=== PATIENT | male | born 1965 | race Caucasian/White ===

== ENCOUNTER 2018-01-28 14:01 | Emergency (ER) | payer MEDICARE, OTHER ==
[~2018-01-28] VITALS: Ht 180.3 cm; Wt 136.1 kg
[~2018-01-28 14:01] MED LIST: BUDE10.2 IH; CITA40TA5 PO; FENO145T30 PO; LISI1TAB5 PO; METO-239 PO; OMEP40CA5 PO; PROAIR HFA8.5 GM IH; TEMA30CA PO
--- NOTE | 2018-01-28 14:24 | PHYS DOC ---
Past Medical History Past Medical History: Asthma, High Cholesterol, Hypertension, Other Additional Past Medical Histor: INSOMNIA Past Surgical History: No Surgical History Additional Past Surgical Histo: INGROWN TOE NAIL REMOVED Alcohol Use: None Drug Use: None Adult General Chief Complaint Chief Complaint: OTHER COMPLAINTS [facility] HPI Patient is a 52 year old male with a history of MR presents to the ED after drinking [place] because people were being mean to him prior to arrival. Patient lives in a fpc and states they're being mean to him and called him stupid. States he drank less than a bottle cap of [place] and stopped and then called 911. States he gets very upset when people are mean to him. Denies physical abuse, homicidal ideation, hallucinations, chest pain, shortness of breath, fever, diarrhea, abdominal pain, nausea/vomiting or weakness. Review of Systems Review of Systems Constitutional: Denies fever or chills [] Eyes: Denies change in visual acuity, redness, or eye pain [] HENT: Denies nasal congestion or sore throat [] Respiratory: Denies cough or shortness of breath [] Cardiovascular: No additional information not addressed in HPI [] GI: Denies abdominal pain, nausea, vomiting, bloody stools or diarrhea [] : Denies dysuria or hematuria [] Musculoskeletal: Denies back pain or joint pain [] Integument: Denies rash or skin lesions [] Neurologic: Denies headache, focal weakness or sensory changes [] All other systems were reviewed and found to be within normal limits, except as documented in this note. Allergies Allergies Allergies Coded Allergies Type Severity Reaction Last Updated Verified Penicillins Allergy Intermediate 04/04/16 Yes Physical Exam Physical Exam Constitutional: Well developed, well nourished, no acute distress, non-toxic appearance. [] HENT: Normocephalic, atraumatic, bilateral external ears normal, oropharynx moist, no oral exudates, nose normal. [] Eyes: PERRLA, EOMI, conjunctiva normal, no discharge. [] Neck: Normal range of motion, no tenderness, supple, no stridor. [] Cardiovascular:Heart rate regular rhythm, no murmur [] Lungs & Thorax: Bilateral breath sounds clear to auscultation [] Abdomen: Bowel sounds normal, soft, no tenderness, no masses, no pulsatile masses. [] Skin: Warm, dry, no erythema, no rash. [] Back: No tenderness, no CVA tenderness. [] Extremities: No tenderness, no cyanosis, no clubbing, ROM intact, no edema. [] Neurologic: Alert and oriented X 3, normal motor function, normal sensory function, no focal deficits noted. [] Psychologic: Affect normal, judgement normal, mood normal. [] Current Patient Data Vital Signs Vital Signs Date Time Temp Pulse Resp B/P (MAP) Pulse Ox O2 Delivery O2 Flow Rate FiO2 01/28/18 21:38 72 135/61 (85) 96 Room Air 01/28/18 21:13 18 01/28/18 14:17 98.1 98.1 Lab Values Laboratory Tests Test 01/28/18 14:40 01/28/18 14:50 Urine Collection Type Unknown Urine Color Yellow Urine Clarity Clear Urine pH 5.0 Urine Specific [place] 1.025 Urine Protein Negative mg/dL (NEG-TRACE) Urine Glucose (UA) Negative mg/dL (NEG) Urine Ketones (Stick) Negative mg/dL (NEG) Urine Blood Negative (NEG) Urine Nitrite Negative (NEG) Urine Bilirubin Negative (NEG) Urine Urobilinogen Dipstick 0.2 mg/dL (0.2 mg/dL) Urine Leukocyte Esterase Negative (NEG) Urine RBC 0 /HPF (0-2) Urine WBC Occ /HPF (0-4) Urine Bacteria 0 /HPF (0-FEW) Urine Mucus Mod /LPF Urine Opiates Screen Neg (NEG) Urine Methadone Screen Neg (NEG) Urine Barbiturates Neg (NEG) Urine Phencyclidine Screen Neg (NEG) Urine Amphetamine/Methamphetamine Neg (NEG) Urine Benzodiazepines Screen Neg (NEG) Urine Cocaine Screen Neg (NEG) Urine Cannabinoids Screen Neg (NEG) Urine Ethyl Alcohol Neg (NEG) White Blood Count 4.6 x10^3/uL (4.0-11.0) Red Blood Count 4.15 x10^6/uL (4.30-5.70) L Hemoglobin 12.4 g/dL (13.0-17.5) L Hematocrit 36.3 % (39.0-53.0) L Mean Corpuscular Volume 87 fL (79-100) Mean Corpuscular Hemoglobin 30 pg (25-35) Mean Corpuscular Hemoglobin Concent 34 g/dL (31-37) Red Cell Distribution Width 14.0 % (11.5-14.5) Platelet Count 179 x10^3/uL (140-400) Neutrophils (%) (Auto) 78 % (31-73) H Lymphocytes (%) (Auto) 14 % (24-48) L Monocytes (%) (Auto) 6 % (0-9) Eosinophils (%) (Auto) 1 % (0-3) Basophils (%) (Auto) 1 % (0-3) Neutrophils # (Auto) 3.6 x10^3uL (1.8-7.7) Lymphocytes # (Auto) 0.6 x10^3/uL (1.0-4.8) L Monocytes # (Auto) 0.3 x10^3/uL (0.0-1.1) Eosinophils # (Auto) 0.0 x10^3/uL (0.0-0.7) Basophils # (Auto) 0.0 x10^3/uL (0.0-0.2) Sodium Level 137 mmol/L (136-145) Potassium Level 3.7 mmol/L (3.5-5.1) Chloride Level 101 mmol/L (98-107) Carbon Dioxide Level 28 mmol/L (21-32) Anion Gap 8 (6-14) Blood Urea Nitrogen 19 mg/dL (8-26) Creatinine 1.4 mg/dL (0.7-1.3) H Estimated GFR (Cockcroft-Gault) 53.0 BUN/Creatinine Ratio 14 (6-20) Glucose Level 131 mg/dL (70-99) H Calcium Level 9.0 mg/dL (8.5-10.1) Total Bilirubin 0.3 mg/dL (0.2-1.0) Aspartate Amino Transferase (AST) 21 U/L (15-37) Alanine Aminotransferase (ALT) 35 U/L (16-63) Alkaline Phosphatase 39 U/L (46-116) L Troponin I Quantitative < 0.017 ng/mL (0.000-0.055) Total Protein 7.6 g/dL (6.4-8.2) Albumin 4.4 g/dL (3.4-5.0) Albumin/Globulin Ratio 1.4 (1.0-1.7) Salicylates Level 3.0 mg/dL (2.8-20.0) Salicylate Last Dose Date Unknown Salicylate Last Dose Time Unknown Acetaminophen Level < 2 mcg/ml (10-30) L Acetaminophen Last Dose Date Unknown Acetaminophen Last Dose Time Unknown Laboratory Tests 01/28/18 14:50 Laboratory Tests 01/28/18 14:50 EKG EKG [] Radiology/Procedures Radiology/Procedures PROCEDURE: CHEST AP ONLY CHEST AP ONLY Clinical Indication: INGESTION OF PINE-GILDA TODAY Comparison: AP chest July 26, 2015. Findings: Apical lordotic positioning. The cardiomediastinal silhouette is normal. Lungs are clear. There is no pneumothorax. No pleural effusion is appreciated. No acute bone abnormality. IMPRESSION: No acute cardiopulmonary process.[] Course & Med Decision Making Course & Med Decision Making Pertinent Labs and Imaging studies reviewed. (See chart for details) []Discussed lab and imaging findings with patient. Patient states he is feeling much better. Patient states he barely even took a sip of the [place]Gilda. Patient met with PAT team. States he has follow-up with Dr. Ott tomorrow. Call placed to patients mother and sister. PAT team awaiting return call. Patient is not homicidal or suicidal. States he feels safe at home. PAT team discussed coping mechanisms and patient has a friend he can call to cope with different circumstances. Patient well appearing in room. Laughing and smiling in exam room. After discharge evaluation, Patient was awaiting his arranged ride to go home and states that he is feeling suicidal and will run in traffic if we let him go. Patient is placed on 1 to 1 and PAT team is called ([id number]) At 1857; conversation with PAT team (Viki), Patient is now not willing to sign himself in and wants to go with the original plan of going home. States he just felt anxious but is not suicidal. States [place] state examiner (for need for involuntary admission) will come evaluate and determine patients placement. At 2116; [place] [facility] medical staff services manager for [place] evaluated and examined patient. State he is rejected for involuntary admission to the facility. Patient denies any homicidal, suicidal ideation, or hallucinations. States patient has good coping skills, assistance at home and is not suicidal. States his impulsiveness is due to his MR. States they will follow-up with him tomorrow at his home (phone call). Patient in exam room requesting to go home. Will arrange transport. Patient stable for discharge. Discussed reasons to return to the ED. Dragon Disclaimer Dragon Disclaimer This electronic medical record was generated, in whole or in part, using a voice recognition dictation system. Departure Departure Impression: Primary Impression: Depression Disposition: 01 HOME, SELF-CARE Condition: IMPROVED Referrals: MERLY RODRIGUEZ MD (PCP) Patient Instructions: Depression, Adult MARTHA JAIMES Jan 28, 2018 14:24
--- NOTE | 2018-01-28 14:39 | EKG ---
[facility] [address] [place] [address] Test Date: 2018-01-28 Test Time: 14:11:04 Pat Name: LIZA WILSON Department: Room: Gender: M [employer]: : 1965 Requested By: MARTHA JAIMES Order Number: [id number] Reading MD: Daryl Tenorio MD Measurements Intervals [place] Rate: 88 P: 6 WY: 166 QRS: -2 QRSD: 100 T: 26 QT: 366 QTc: 446 Interpretive Statements SINUS RHYTHM Electronically Signed On 01-28-2018 15:12:08 CDT by Daryl Tenorio MD
--- NOTE | 2018-01-28 14:52 | RAD ---
CHEST AP ONLY Clinical Indication: INGESTION OF PINE-GILDA TODAY Comparison: AP chest July 26, 2015. Findings: Apical lordotic positioning. The cardiomediastinal silhouette is normal. Lungs are clear. There is no pneumothorax. No pleural effusion is appreciated. No acute bone abnormality. IMPRESSION: No acute cardiopulmonary process. Electronically signed by: Tyler Oseguera MD (01/28/2018 2:48 PM) [id number]
[2018-01-28 14:59] LABS: BILIRUBIN,URINE NEGATIVE (NEG); CLARITY,URINE CLEAR; COLOR,URINE YELLOW; NITRITE,URINE NEGATIVE (NEG); PROTEIN,URINE NEGATIVE (NEG-TRACE); UROBILINOGEN,URINE 0.2 mg/dL (0.2 mg/dL)
[2018-01-28 15:01] LABS: BASO % 1 % (0-3); EOS % 1 % (0-3); HEMATOCRIT 36.3 % (39.0-53.0); HEMOGLOBIN 12.4 g/dL (13.0-17.5); LYMPH # 0.6 x10^3/uL (1.0-4.8); LYMPH % 14 % (24-48); MEAN CORPUSCULAR HEMOGLOBIN 30 pg (25-35); MEAN CORPUSCULAR HGB CONC 34 g/dL (31-37); MEAN CORPUSCULAR VOLUME 87 fL (79-100); MONO # 0.3 x10^3/uL (0.0-1.1); MONO % 6 % (0-9); NEUT # 3.6 x10^3uL (1.8-7.7); NEUT % 78 % (31-73); PLATELET COUNT 179 x10^3/uL (140-400); RED BLOOD COUNT 4.15 x10^6/uL (4.30-5.70); WHITE BLOOD COUNT 4.6 x10^3/uL (4.0-11.0)
[2018-01-28 15:03] LABS: BARBITURATES NEG (NEG); BENZODIAZEPINES NEG (NEG); CANNABINOIDS NEG (NEG); COCAINE NEG (NEG); METHADONE NEG (NEG); OPIATES NEG (NEG); PHENCYCLIDINE NEG (NEG)
[2018-01-28 15:05] LABS: AMPHETAMINE/METHAMPHETAMINE NEG (NEG)
[2018-01-28 15:06] LABS: BACTERIA,URINE 0 /HPF (0-FEW); RBC,URINE 0 /HPF (0-2); WBC,URINE OCC /HPF (0-4)
[2018-01-28 15:11] LABS: CREATININE 1.4 mg/dL (0.7-1.3); POTASSIUM 3.7 mmol/L (3.5-5.1)
[2018-01-28 15:16] LABS: ALBUMIN 4.4 g/dL (3.4-5.0); ALBUMIN/GLOBULIN RATIO 1.4 (1.0-1.7); TOTAL BILIRUBIN 0.3 mg/dL (0.2-1.0); TOTAL PROTEIN 7.6 g/dL (6.4-8.2)
[2018-01-28 15:18] LABS: ACETAMIN < 2 mcg/ml (10-30)
[2018-01-28 21:38] VITALS: BP 135/61
== END 2018-01-28 22:05 | disposition home or self-care (01) ==
LOC: ER 14:01
DX: F32.9 Major depressive disorder, single episode, unspecified (principal); J45.909 Unspecified asthma, uncomplicated; E78.00 Pure hypercholesterolemia, unspecified; I10 Essential (primary) hypertension; Z88.0 Allergy status to penicillin
CPT/HCPCS: 36415; 71045; 80053; 80307; 80329; 81001; 84484; 85025; 93005; 99285; G6039; G0479

== ENCOUNTER 2018-07-26 07:57 | Emergency (ER) | payer MEDICARE, OTHER ==
[~2018-07-26] VITALS: Ht 182.9 cm; Wt 136.1 kg
[~2018-07-26 07:57] MED LIST changes: +ALBU2.5V8 IH; -PROAIR HFA8.5 GM IH
--- NOTE | 2018-07-26 08:18 | PHYS DOC ---
Past Medical History Past Medical History: Anxiety, Asthma, High Cholesterol, Hypertension, Other Additional Past Medical Histor: INSOMNIA, Mental Retardation Past Surgical History: No Surgical History, Tonsillectomy Additional Past Surgical Histo: INGROWN TOE NAIL REMOVED Alcohol Use: None Drug Use: None Adult General Chief Complaint Chief Complaint: MECHANICAL FALL HPI HPI Patient is a 53-year-old male who presents with complaint of head and neck pain after slipping and falling on ice this morning. Patient states that he is not sure whether or not he lost consciousness. He denies any other injuries. He denies any back pain and has no pain in any of his extremities. Patient states the pain in his neck is worsened with movement. He denies any nausea or vomiting. Review of Systems Review of Systems Constitutional: Denies fever or chills [] Respiratory: Denies cough or shortness of breath [] Cardiovascular: No additional information not addressed in HPI [] GI: Denies nausea or vomiting [] Musculoskeletal: Complains of neck pain [] Integument: Positive abrasion to scalp[] Neurologic: Complains of headache without focal weakness or sensory changes [] All other systems were reviewed and found to be within normal limits, except as documented in this note. Allergies Allergies Allergies Coded Allergies Type Severity Reaction Last Updated Verified Penicillins Allergy Intermediate 04/04/16 Yes Physical Exam Physical Exam Constitutional: Well developed, well nourished, no acute distress, non-toxic appearance. [] HENT: Normocephalic, with small superficial abrasion to scalp in the left sided parieto-occipital region, bilateral external ears normal, oropharynx moist, no oral exudates, nose normal. [] Eyes: PERRLA, EOMI, conjunctiva normal, no discharge. [] Neck: Normal range of motion, with mild tenderness to palpation in the suboccipital muscles and cervical strap muscles on the left, supple, no stridor. [] Cardiovascular: Regular rate and rhythm[] Lungs & Thorax: Bilateral breath sounds clear to auscultation [] Abdomen: Bowel sounds normal, soft, no tenderness. [] Skin: Warm, dry. [] Extremities: No tenderness, no cyanosis, no clubbing, ROM intact. [] Neurologic: Alert and oriented X 3, no focal deficits noted. [] Current Patient Data Vital Signs Vital Signs Date Time Temp Pulse Resp B/P (MAP) Pulse Ox O2 Delivery O2 Flow Rate FiO2 2/11/19 08:06 97.5 74 20 166/75 (105) 98 Room Air 97.5 EKG EKG [] Radiology/Procedures Radiology/Procedures [] Impressions: Examination: CT HEAD AND CERVICAL SPINE WO History: Fall, pain Comparison/Correlation: 11/22/2017 CT head without contrast Findings: Axial images of the head and cervical spine were obtained without contrast. Sagittal and coronal reformatted images of the cervical spine were obtained. Mild atrophy is present. No intracranial hemorrhage, then shift, or mass effect. Ventricles are normal size. Soft tissue swelling at the posterior midline is present with small subgaleal hematoma and gas and subcutaneous gas. Punctate density at the superior aspect of the third ventricle which is unchanged may represent colloid cyst. Review of paranasal sinuses are unremarkable other than mucous retention cysts involving the left frontal sinus mucosal thickening. No depressed fracture. Right fransisco bullosa is moderate size. Impression: Small subgaleal hematoma at the posterior parietal midline superiorly. Minimal gas at this site. Correlate with site of injury. No intracranial hemorrhage. Colloid cyst has remained stable. Chronic paranasal sinusitis. Electronically signed by: Choco Daniels MD (07/26/2018 9:24 AM) [id number] Course & Med Decision Making Course & Med Decision Making Pertinent Labs and Imaging studies reviewed. (See chart for details) [] Dragon Disclaimer Dragon Disclaimer This electronic medical record was generated, in whole or in part, using a voice recognition dictation system. Departure Departure Impression: Primary Impression: Closed head injury Additional Impression: Cervical strain Disposition: 01 HOME, SELF-CARE Condition: STABLE Referrals: Sydney SUTHERLAND MD (PCP) Patient Instructions: Cervical Sprain, Head Injury, Adult Scripts Diclofenac Sodium (DICLOFENAC SODIUM) 50 Mg Tablet. 1 TAB PO BID PRN for PAIN, #20 TAB Prov: SEPIDEH AGUILERA Jr. DO 07/26/18 Cyclobenzaprine Hcl (CYCLOBENZAPRINE HCL) 5 Mg Tablet 5 MG PO PRN TID PRN for MUSCLE SPASMS, #15 TAB Prov: SEPIDEH AGUILERA Jr. DO 07/26/18 Problem Qualifiers Primary Impression: Closed head injury Encounter type: initial encounter Qualified Codes: S09.90XA - Unspecified injury of head, initial encounter Additional Impression: Cervical strain Encounter type: initial encounter Qualified Codes: S16.1XXA - Strain of muscle, fascia and tendon at neck level, initial encounter SEPIDEH AGUILERA Jr. DO Jul 26, 2018 08:18
--- NOTE | 2018-07-26 09:29 | RAD ---
Examination: CT HEAD AND CERVICAL SPINE WO History: Fall, pain Comparison/Correlation: 11/22/2017 CT head without contrast Findings: Axial images of the head and cervical spine were obtained without contrast. Sagittal and coronal reformatted images of the cervical spine were obtained. Mild atrophy is present. No intracranial hemorrhage, then shift, or mass effect. Ventricles are normal size. Soft tissue swelling at the posterior midline is present with small subgaleal hematoma and gas and subcutaneous gas. Punctate density at the superior aspect of the third ventricle which is unchanged may represent colloid cyst. Review of paranasal sinuses are unremarkable other than mucous retention cysts involving the left frontal sinus mucosal thickening. No depressed fracture. Right fransisco bullosa is moderate size. Impression: Small subgaleal hematoma at the posterior parietal midline superiorly. Minimal gas at this site. Correlate with site of injury. No intracranial hemorrhage. Colloid cyst has remained stable. Chronic paranasal sinusitis. Electronically signed by: Choco Daniels MD (07/26/2018 9:24 AM) [id number]
[2018-07-26] MEDS ORDERED: CYCL5TAB PO (09:44)
[2018-07-26] MEDS ORDERED: DICL50TA4 PO (09:44)
[2018-07-26 09:58] VITALS: BP 142/84
== END 2018-07-26 09:59 | disposition home or self-care (01) ==
LOC: ER 07:57
DX: S16.1XXA Strain of muscle, fascia and tendon at neck level, initial encounter (principal); S00.01XA Abrasion of scalp, initial encounter; R51 Headache; E78.00 Pure hypercholesterolemia, unspecified; I10 Essential (primary) hypertension; J45.909 Unspecified asthma, uncomplicated; F41.9 Anxiety disorder, unspecified; Z88.0 Allergy status to penicillin; W00.2XXA Other fall from one level to another due to ice and snow, initial encounter; Y93.89 Activity, other specified; Y92.89 Other specified places as the place of occurrence of the external cause; Y99.8 Other external cause status
CPT/HCPCS: 70450; 72125; 99284

== ENCOUNTER 2018-08-11 13:03 | Emergency (ER) | payer MEDICARE, OTHER ==
[~2018-08-11] VITALS: Ht 177.8 cm; Wt 145.1 kg
[~2018-08-11 13:03] MED LIST changes: +CYCL5TAB PO; +DICL50TA4 PO
--- NOTE | 2018-08-11 13:41 | RAD ---
EXAM: CHEST 1 VIEW History: Shortness of breath COMPARISON: 01/28/2018 TECHNIQUE: Single portable radiograph of the chest FINDINGS: Moderate cardiomegaly is unchanged. The lungs are clear bilaterally. The costophrenic sulci are clear and well demarcated. IMPRESSION: No radiographic evidence of an acute cardiopulmonary process. Electronically signed by: Luisito Rosen MD (08/11/2018 1:38 PM) [id number]
[2018-08-11] MEDS ORDERED: predniSONE 10 MG TABLET PO ONE (13:45)
[2018-08-11] MEDS ORDERED: IPRATRPIUM/ALBUTEROL 0.5/2.5MG 3 ML NEBU. NEB ONE (13:45)
[2018-08-11] MEDS ORDERED: PRED20TA PO (14:34)
--- NOTE | 2018-08-11 14:34 | PHYS DOC ---
Past Medical History Past Medical History: Anxiety, Asthma, High Cholesterol, Hypertension, Other Additional Past Medical Histor: INSOMNIA, Mental Retardation Past Surgical History: No Surgical History, Tonsillectomy Additional Past Surgical Histo: INGROWN TOE NAIL REMOVED Alcohol Use: None Drug Use: None Adult General Chief Complaint Chief Complaint: SHORTNESS OF BREATH [facility] 53-year-old male with a history of asthma presents with a 2-3 day history of shortness of breath. He's been taking albuterol nebulize treatments at home but he was unsure how often to take them. He denies any fever chills or sweats. He has no hemoptysis. He denies any chest pain. He states this seems very typical of his previous asthma exacerbations. He denies any body aches runny nose or headache.] Review of Systems Review of Systems Constitutional: Denies fever or chills [] Eyes: Denies change in visual acuity, redness, or eye pain [] HENT: Denies nasal congestion or sore throat [] Respiratory: Per history of present illness[] Cardiovascular: No additional information not addressed in HPI [] GI: Denies abdominal pain, nausea, vomiting, bloody stools or diarrhea [] : Denies dysuria or hematuria [] Musculoskeletal: Denies back pain or joint pain [] Integument: Denies rash or skin lesions [] Neurologic: Denies headache, focal weakness or sensory changes [] Endocrine: Denies polyuria or polydipsia [] All other systems were reviewed and found to be within normal limits, except as documented in this note. Current Medications Current Medications Current Medications Medications (Trade) Dose Ordered Sig/Fredy Start Time Stop Time Status Last Admin Dose Admin Albuterol/ Ipratropium (Duoneb) 6 ml 1X ONCE 08/11/18 13:45 08/11/18 13:46 DC Prednisone (Prednisone) 60 mg 1X ONCE 08/11/18 13:45 08/11/18 13:46 DC Allergies Allergies Allergies Coded Allergies Type Severity Reaction Last Updated Verified Penicillins Allergy Intermediate 04/04/16 Yes Physical Exam Physical Exam Constitutional: Well developed, well nourished, no acute distress, non-toxic appearance. [] HENT: Normocephalic, atraumatic, bilateral external ears normal, oropharynx moist, no oral exudates, nose normal. [] Eyes: PERRLA, EOMI, conjunctiva normal, no discharge. [] Neck: Normal range of motion, no tenderness, supple, no stridor. [] Cardiovascular:Heart rate regular rhythm, no murmur [] Lungs & Thorax: Scattered wheezes throughout both lungs no rales[] Abdomen: Bowel sounds normal, soft, no tenderness, no masses, no pulsatile masses. [] Skin: Warm, dry, no erythema, no rash. [] Back: No tenderness, no CVA tenderness. [] Extremities: No tenderness, no cyanosis, no clubbing, ROM intact, no edema. [] Neurologic: Alert and oriented X 3, normal motor function, normal sensory function, no focal deficits noted. [] Psychologic: Unusual affect Current Patient Data Vital Signs Vital Signs Date Time Temp Pulse Resp B/P (MAP) Pulse Ox O2 Delivery O2 Flow Rate FiO2 08/11/18 13:10 98.1 67 18 168/70 (102) 96 Room Air 98.1 EKG EKG [] Radiology/Procedures Radiology/Procedures [] Impressions: PROCEDURE: CHEST AP ONLY EXAM: CHEST 1 VIEW History: Shortness of breath COMPARISON: 01/28/2018 TECHNIQUE: Single portable radiograph of the chest FINDINGS: Moderate cardiomegaly is unchanged. The lungs are clear bilaterally. The costophrenic sulci are clear and well demarcated. IMPRESSION: No radiographic evidence of an acute cardiopulmonary process. Course & Med Decision Making Course & Med Decision Making Pertinent Labs and Imaging studies reviewed. (See chart for details) [ED course: Evaluation reveals a 53-year-old male with scattered wheezes. He was given DuoNeb treatments and 60 mg prednisone during his stay in the department which did nearly completely eliminate his symptoms. I will provide the patient with some instructions on frequency of nebulized treatments as well as start him on some outpatient steroids. I do not believe the patient meets any criteria for antibiotics at this time.] Dragon Disclaimer Dragon Disclaimer This electronic medical record was generated, in whole or in part, using a voice recognition dictation system. Departure Departure Impression: Primary Impression: Acute bronchitis Disposition: 01 HOME, SELF-CARE Condition: IMPROVED Referrals: Sydney SUTHERLAND MD (PCP) Patient Instructions: Acute Bronchitis, Asthma Attacks, Prevention, Asthma Prevention-Brief, Asthma, Acute Bronchospasm Additional Instructions: Follow with Dr. Sutherland this week for recheck. Return to the emergency department with any new or concerning symptoms. You can use your nebulizer every 4 hours as needed. If you feel like he need to use the nebulizer more often than that he need to return to the emergency department for further evaluation. Scripts Prednisone (PREDNISONE) 20 Mg Tablet 3 TAB PO DAILY PRN for COUGH, #14 TAB Prov: SHERIF JANG DO 08/11/18 Problem Qualifiers Primary Impression: Acute bronchitis Bronchitis organism: unspecified organism Qualified Codes: J20.9 - Acute bronchitis, unspecified SHERIF JANG DO Aug 11, 2018 14:34
[2018-08-11 15:04] VITALS: BP 131/63
== END 2018-08-11 15:19 | disposition home or self-care (01) ==
LOC: ER 13:03
DX: J20.9 Acute bronchitis, unspecified (principal); J45.909 Unspecified asthma, uncomplicated; E78.00 Pure hypercholesterolemia, unspecified; I10 Essential (primary) hypertension; Z88.0 Allergy status to penicillin
CPT/HCPCS: 71045; 99283; J7620

== ENCOUNTER 2018-08-27 13:35 | Emergency (ER) | payer MEDICARE, OTHER ==
[~2018-08-27] VITALS: Ht 188 cm; Wt 145.1 kg
[~2018-08-27 13:35] MED LIST changes: +PRED20TA PO
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
[2018-08-27 15:16] VITALS: BP 160/58
== END 2018-08-27 15:20 | disposition home or self-care (01) ==
LOC: ER 13:35
DX: S00.03XA Contusion of scalp, initial encounter (principal); J45.909 Unspecified asthma, uncomplicated; E78.00 Pure hypercholesterolemia, unspecified; I10 Essential (primary) hypertension; Z88.0 Allergy status to penicillin; W07.XXXA Fall from chair, initial encounter; Y93.89 Activity, other specified; Y92.89 Other specified places as the place of occurrence of the external cause; Y99.8 Other external cause status
CPT/HCPCS: 70450; 72125; 99284-25

== ENCOUNTER 2018-10-04 20:25 | Emergency (ER) | payer MEDICARE, OTHER ==
[~2018-10-04] VITALS: Ht 172.7 cm; Wt 145.1 kg
[2018-10-04 21:39] VITALS: BP 142/65
[2018-10-04] MEDS ORDERED: IPRATRPIUM/ALBUTEROL 0.5/2.5MG 3 ML NEBU. NEB ONE (21:45)
[2018-10-04] MEDS ORDERED: predniSONE 10 MG TABLET PO ONE (21:45)
[2018-10-04 21:54] LABS: BASO % 1 % (0-3); EOS # 0.1 x10^3/uL (0.0-0.7); EOS % 3 % (0-3); HEMATOCRIT 32.7 % (39.0-53.0); HEMOGLOBIN 11.1 g/dL (13.0-17.5); LYMPH # 0.7 x10^3/uL (1.0-4.8); LYMPH % 16 % (24-48); MEAN CORPUSCULAR HEMOGLOBIN 29 pg (25-35); MEAN CORPUSCULAR HGB CONC 34 g/dL (31-37); MEAN CORPUSCULAR VOLUME 86 fL (79-100); MONO # 0.3 x10^3/uL (0.0-1.1); MONO % 8 % (0-9); NEUT % 72 % (31-73); PLATELET COUNT 156 x10^3/uL (140-400); RED CELL DISTRIBUTION WIDTH 14.4 % (11.5-14.5); WHITE BLOOD COUNT 4.1 x10^3/uL (4.0-11.0)
[2018-10-04 22:02] LABS: CALCIUM 9.4 mg/dL (8.5-10.1); CREATININE 1.2 mg/dL (0.7-1.3); GFR 63.1; POTASSIUM 4.1 mmol/L (3.5-5.1)
[2018-10-04 22:06] LABS: ACETAMIN < 2 mcg/ml (10-30); ETHANOL < 10 mg/dL (0-10); SALIC < 2.8 mg/dL (2.8-20.0)
[2018-10-04 22:08] LABS: ALBUMIN 4.1 g/dL (3.4-5.0); ALBUMIN/GLOBULIN RATIO 1.4 (1.0-1.7); TOTAL BILIRUBIN 0.2 mg/dL (0.2-1.0)
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
--- NOTE | 2018-10-05 07:48 | RAD ---
Examination: PORTABLE CHEST 1V History: SOA, AMS. HX OF ASTHMA Comparison/Correlation: 01/28/2018 AP view of the chest Findings: Portable upright frontal view of the chest was obtained. Heart size is borderline but this may in part be technique related. No pneumothorax, pleural effusion, or infiltrate. Retrocardiac region is not optimally assessed due to underpenetrated technique and patient body habitus. Impression: No active disease. Electronically signed by: Choco Daniels MD (10/05/2018 7:45 AM) [facility]
== END 2018-10-04 23:22 | disposition home or self-care (01) ==
LOC: ER 20:25
DX: F32.9 Major depressive disorder, single episode, unspecified (principal); E78.00 Pure hypercholesterolemia, unspecified; I10 Essential (primary) hypertension; J45.909 Unspecified asthma, uncomplicated; F41.9 Anxiety disorder, unspecified; Z88.0 Allergy status to penicillin
CPT/HCPCS: 36415; 71045; 80053; 80329; 85025; 94640; 99285; G0480; J7512; J7620

== ENCOUNTER 2018-12-14 11:00 | Emergency (ER) | payer MEDICARE, MEDICAID ==
[~2018-12-14] VITALS: Ht 172.7 cm; Wt 145.1 kg
[2018-12-14] MEDS ORDERED: IV NORMAL SALINE 1000ML BAG 1,000 ML IV SCH (11:20)
--- NOTE | 2018-12-14 11:20 | PHYS DOC ---
Past Medical History Past Medical History: Anxiety, Asthma, High Cholesterol, Hypertension, Other Additional Past Medical Histor: INSOMNIA, Mental Retardation Past Surgical History: Tonsillectomy Additional Past Surgical Histo: INGROWN TOE NAIL REMOVED Smoking: Quit Greater Than 1 Year Alcohol Use: None Drug Use: None Adult General HPI HPI Patient is a 53 year old male with Mental Retardation who presents with finger tingling has been ongoing since Thursday. Also has associated symptom of neck pain. Pain is chronic in nature. Rates his pain 1 out of 10 in severity in the room on assessment. States it is sharp pain. Denies any interventions prior to arrival. Review of Systems Review of Systems Constitutional: Denies fever or chills [] Eyes: Denies change in visual acuity, redness, or eye pain [] HENT: Denies nasal congestion or sore throat [] Respiratory: Denies cough or shortness of breath [] Cardiovascular: No additional information not addressed in HPI [] GI: Denies abdominal pain, nausea, vomiting, bloody stools or diarrhea [] : Denies dysuria or hematuria [] Musculoskeletal: Reports neck pain denies joint pain [] Integument: Denies rash or skin lesions [] Neurologic: Denies headache, focal weakness reports sensory changes in the right 1st-3rd digits [] Endocrine: Denies polyuria or polydipsia [] Complete systems were reviewed and found to be within normal limits, except as documented in this note. Current Medications Current Medications Current Medications Medications (Trade) Dose Ordered Sig/Fredy Start Time Stop Time Status Last Admin Dose Admin Albuterol/ Ipratropium (Duoneb) 3 ml 1X ONCE 12/14/18 12:00 12/14/18 12:01 DC 12/14/18 11:35 3 ML Aspirin (Children'S Aspirin) 324 mg 1X ONCE 12/14/18 12:00 12/14/18 12:01 DC 12/14/18 11:36 324 MG Cyclobenzaprine HCl (Flexeril) 10 mg 1X ONCE 12/14/18 12:00 12/14/18 12:01 DC 12/14/18 11:35 10 MG Sodium Chloride 1,000 ml @ 1,000 mls/hr Q1H 12/14/18 11:20 12/14/18 12:19 DC 12/14/18 11:35 1,000 MLS/HR Allergies Allergies Allergies Coded Allergies Type Severity Reaction Last Updated Verified Penicillins Allergy Intermediate 04/04/16 Yes Physical Exam Physical Exam Constitutional: Well developed, well nourished, no acute distress, non-toxic appearance. [] HENT: Normocephalic, atraumatic, bilateral external ears normal, oropharynx moist, no oral exudates, nose normal. [] Eyes: PERRLA, EOMI, conjunctiva normal, no discharge. [] Neck: Normal range of motion, no tenderness, supple, no stridor. [] Cardiovascular:Heart rate regular rhythm, no murmur [] Lungs & Thorax: Bilateral breath sounds clear to auscultation with exception of wheezing in left lower lobe. Abdomen: Bowel sounds normal, soft, no tenderness, no masses, no pulsatile masses. [] Skin: Warm, dry, no erythema, no rash. [] Back: No tenderness, no CVA tenderness. [] Extremities: No tenderness, no cyanosis, no clubbing, ROM intact, no edema. [] Neurologic: Alert and oriented X 3, normal motor function, normal sensory function with exception of reduced sensation in 1st-3rd digits in R hand, no focal deficits noted. [] Psychologic: Affect normal, judgement normal, mood normal. [] Administer stroke scale items in the order listed. Record performance in each category after each subscale exam. Do not go back and change scores. Follow directions provided for each exam technique. Scores should reflect what the p atient does, not what the clinician thinks the patient can do. The clinician should record answers while administering the exam and work quickly. Except where indicated, the patient should not be coached (i.e., repeated requests to patient to make a special effort). 1a. Level of Consciousness: The sales coordinator must choose a response if a full evaluation is prevented by such obstacles as an endotracheal tube, language barrier, orotracheal trauma/bandages. A 3 is scored only if the p atient makes no movement (other than reflexive posturing) in response to noxious stimulation. 0 = Alert; keenly responsive. 1 = Not alert; but arousable by minor stimulation to obey, answer, or respond. 2 = Not alert; requires repeated stimulation to attend, or is obtunded and requires strong or painful stimulation to make movements (not stereotyped). 3 = Responds only with reflex motor or autonomic effects or totally unresponsive, flaccid, and areflexic. 1b. LOC Questions: The patient is asked the month and his/her age. The answer must be correct - there is no partial credit for being close. Aphasic and stuporous patients who do not comprehend the questions will score 2. Patients unable to speak because of endotracheal intubation, orotracheal trauma, severe dysarthria from any cause, language barrier, or any other problem not secondary to aphasia are given a 1. It is important that only the initial answer be graded and that the examiner not "help" the patient with verbal or non-verbal cues. 0 = Answers both questions correctly. 1 = Answers one question correctly. 2 = Answers neither question correctly. 1c. LOC Commands: The patient is asked to open and close the eyes and then to power press supervisor and release the non-paretic hand. Substitute another one step command if the hands cannot be used. Credit is given if an unequivocal attempt is made but not completed due to weakness. If the patient does not respond to command, the task should be demonstrated to him or her (pantomime), and the result scored (i.e., follows none, one or two commands). Patients with trauma, amputation, or other physical impediments should be given suitable one-step commands. Only the first attempt is scored. 0 = Performs both tasks correctly. 1 = Performs one task correctly. 2 = Performs neither task correctly. 2. Best Gaze: Only horizontal eye movements will be tested. Voluntary or reflexive (oculocephalic) eye movements will be scored, but caloric testing is not done. If the patient has a conjugate deviation of the eyes that can be overcome by voluntary or reflexive activity, the score will be 1. If a patient has an isolated peripheral nerve paresis (CN III, IV or ), score a 1. Gaze is testable in all aphasic patients. Patients with ocular trauma, bandages, pre-existing blindness, or other disorder of visual acuity or mckeon should be tested with reflexive movements, and a choice made by the sales coordinator. Establishing eye contact and then moving about the patient from side to side will occasionally clarify the presence of a partial gaze palsy. 0 = Normal. 1 = Partial gaze palsy; gaze is abnormal in one or both eyes, but forced deviation or total gaze paresis is not present. 2 = Forced deviation, or total gaze paresis not overcome by the oculocephalic maneuver. Interval: [ ] Baseline [ ] 2 hours post treatment [ ] 24 hours post onset of symptoms �20 minutes [ ] 7-10 days [ ] 3 months [ ] Other ( ) 3. Visual: Visual mckeon (upper and lower quadrants) are tested by confrontation, using finger counting or visual threat, as appropriate. Patients may be encouraged, but if they look at the side of the moving fingers appropriately, this can be scored as normal. If there is unilateral blindness or enucleation, visual mckeon in the remaining eye are scored. Score 1 only if a clear-cut asymmetry, including quadrantanopia, is found. If patient is blind from any cause, score 3. Double simultaneous stimulation is performed at this point. If there is extinction, patient receives a 1, and the results are used to respond to item 11. 0 = No visual loss. 1 = Partial hemianopia. 2 = Complete hemianopia. 3 = Bilateral hemianopia (blind including cortical blindness). 4. Facial Palsy: Ask - or use pantomime to encourage - the patient to show teeth or raise eyebrows and close eyes. Score symmetry of grimace in response to noxious stimuli in the poorly responsive or non-comprehending patient. If facial trauma/bandages, orotracheal tube, tape or other physical barriers obscure the face, these should be removed to the extent possible. 0 = Normal symmetrical movements. 1 = Minor paralysis (flattened nasolabial fold, asymmetry on smiling). 2 = Partial paralysis (total or near-total paralysis of lower face). 3 = Complete paralysis of one or both sides (absence of facial movement in the upper and lower face). 5. Motor Arm: The limb is placed in the appropriate position: extend the arms (palms down) 90 degrees (if sitting) or 45 degrees (if supine). Drift is scored if the arm falls before 10 seconds. The aphasic patient is encouraged using urgency in the voice and pantomime, but not noxious stimulation. Each limb is tested in turn, beginning with the non-paretic arm. Only in the case of amputation or joint fusion at the shoulder, the examiner should record the score as untestable (UN), and clearly write the explanation for this choice. 0 = No drift; limb holds 90 (or 45) degrees for full 10 seconds. 1 = Drift; limb holds 90 (or 45) degrees, but drifts down before full 10 se conds; does not hit bed or other support. 2 = Some effort against gravity; limb cannot get to or maintain (if cued) 90 (or 45) degrees, drifts down to bed, but has some effort against gravity. 3 = No effort against gravity; limb falls. 4 = No movement. UN = Amputation or joint fusion, explain: 5a. Left Arm 5b. Right Arm 6. Motor Leg: The limb is placed in the appropriate position: hold the leg at 30 degrees (always tested supine). Drift is scored if the leg falls before 5 seconds. The aphasic patient is encouraged using urgency in the voice and pantomime, but not noxious stimulation. Each limb is tested in turn, beginning with the non-paretic leg. Only in the case of amputation or joint fusion at the hip, the examiner should record the score as untestable (UN), and clearly write the explanation for this choice. 0 = No drift; leg holds 30-degree position for full 5 seconds. 1 = Drift; leg falls by the end of the 5-second period but does not hit bed. 2 = Some effort against gravity; leg falls to bed by 5 seconds, but has some effort against gravity. 3 = No effort against gravity; leg falls to bed immediately. 4 = No movement. UN = Amputation or joint fusion, explain: 6a. Left Leg 6b. Right Leg Interval: [ ] Baseline [ ] 2 hours post treatment [ ] 24 hours post onset of symptoms �20 minutes [ ] 7-10 days [ ] 3 months [ ] Other ( ) 7. Limb Ataxia: This item is aimed at finding evidence of a unilateral cerebellar lesion. Test with eyes open. In case of visual defect, ensure testing is done in intact visual field. The qeyflk-znxt-esojnz and heel-toledo tests are performed on both sides, and ataxia is scored only if present out of proportion to weakness. Ataxia is absent in the patient who cannot understand or is paralyzed. Only in the case of amputation or joint fusion, the examiner should record the score as untestable (UN), and clearly write the explanation for this choice. In case of blindness, test by having the patient touch nose from extended arm position. 0 = Absent. 1 = Present in one limb. 2 = Present in two limbs. UN = Amputation or joint fusion, explain: 8. Sensory: Sensation or grimace to pinprick when tested, or withdrawal from noxious stimulus in the obtunded or aphasic patient. Only sensory loss attributed to stroke is scored as abnormal and the examiner should test as many body areas (arms [not hands], legs, trunk, face) as needed to accurately check for hemisensory loss. A score of 2, "severe or total sensory loss," should only be given when a severe or total loss of sensation can be clearly demonstrated. Stuporous and aphasic patients will, therefore, probably score 1 or 0. The patient with brainstem stroke who has bilateral loss of sensation is scored 2. If the patient does not respond and is quadriplegic, score 2. Patients in a coma (item 1a=3) are automatically given a 2 on this item. 0 = Normal; no sensory loss. 1 = Fhgo-qx-idxvbolh sensory loss; patient feels pinprick is less sharp or is dull on the affected side; or there is a loss of superficial pain with pinprick, but patient is aware of being touched. 2 = Severe to total sensory loss; patient is not aware of being touched in the face, arm, and leg. 9. Best Language: A great deal of information about comprehension will be o btained during the preceding sections of the examination. For this scale item, the patient is asked to describe what is happening in the attached picture, to name the items on the attached naming sheet and to read from the attached list of sentences. Comprehension is judged from responses here, as well as to all of the commands in the preceding general neurological exam. If visual loss interferes with the tests, ask the patient to identify objects placed in the hand, repeat, and produce speech. The intubated patient should be asked to write. The patient in a coma (item 1a=3) will automatically score 3 on this item. The examiner must choose a score for the patient with stupor or limited cooperation, but a score of 3 should be used only if the patient is mute and follows no one-step commands. 0 = No aphasia; normal. 1 = Apfp-cy-elwaqgie aphasia; some obvious loss of fluency or facility of comprehension, without significant limitation on ideas expressed or form of expression. Reduction of speech and/or comprehension, however, makes conversation about provided materials difficult or impossible. For example, in conversation about provided materials, examiner can identify picture or naming card content from patient's response. 2 = Severe aphasia; all communication is through fragmentary expression; great need for inference, questioning, and guessing by the listener. Range of information that can be exchanged is limited; listener carries burden of communication. Examiner cannot identify materials provided from patient response. 3 = Mute, global aphasia; no usable speech or auditory comprehension. 10. Dysarthria: If patient is thought to be normal, an adequate sample of speech must be obtained by asking patient to read or repeat words from the attached list. If the patient has severe aphasia, the clarity of articulation of spontaneous speech can be rated. Only if the patient is intubated or has other physical barriers to producing speech, the examiner should record the score as untestable (UN), and clearly write an explanation for this choice. Do not tell the patient why he or she is being tested. 0 = Normal. 1 = Bdrv-wc-zxdmfptf dysarthria; patient slurs at least some words and, at worst, can be understood with some difficulty. 2 = Severe dysarthria; patient's speech is so slurred as to be unintelligible in the absence of or out of proportion to any dysphasia, or is mute/anarthric. UN = Intubated or other physical barrier, explain: Interval: [ ] Baseline [ ] 2 hours post treatment [ ] 24 hours post onset of symptoms �20 minutes [ ] 7-10 days [ ] 3 months [ ] Other ( ) 11. Extinction and Inattention (formerly Neglect): Sufficient information to identify neglect may be obtained during the prior testing. If the patient has a severe visual loss preventing visual double simultaneous stimulation, and the cutaneous stimuli are normal, the score is normal. If the patient has aphasia but does appear to attend to both sides, the score is normal. The presence of visual spatial neglect or anosagnosia may also be taken as evidence of abnormality. Since the abnormality is scored only if present, the item is never untestable. 0 = No abnormality. 1 = Visual, tactile, auditory, spatial, or personal inattention or extinction to bilateral simultaneous stimulation in one of the sensory modalities. 2 = Profound aron-inattention or extinction to more than one modality; does not recognize own hand or orients to only one side of space. Current Patient Data Vital Signs Vital Signs Date Time Temp Pulse Resp B/P (MAP) Pulse Ox O2 Delivery O2 Flow Rate FiO2 12/14/18 11:31 100 Room Air 12/14/18 11:04 97.7 66 18 103/56 (72) 97.7 Lab Values Laboratory Tests Test 12/14/18 11:20 White Blood Count 3.9 x10^3/uL (4.0-11.0) L Red Blood Count 3.66 x10^6/uL (4.30-5.70) L Hemoglobin 10.9 g/dL (13.0-17.5) L Hematocrit 31.8 % (39.0-53.0) L Mean Corpuscular Volume 87 fL (79-100) Mean Corpuscular Hemoglobin 30 pg (25-35) Mean Corpuscular Hemoglobin Concent 34 g/dL (31-37) Red Cell Distribution Width 13.7 % (11.5-14.5) Platelet Count 173 x10^3/uL (140-400) Neutrophils (%) (Auto) 73 % (31-73) Lymphocytes (%) (Auto) 17 % (24-48) L Monocytes (%) (Auto) 8 % (0-9) Eosinophils (%) (Auto) 2 % (0-3) Basophils (%) (Auto) 1 % (0-3) Neutrophils # (Auto) 2.9 x10^3uL (1.8-7.7) Lymphocytes # (Auto) 0.7 x10^3/uL (1.0-4.8) L Monocytes # (Auto) 0.3 x10^3/uL (0.0-1.1) Eosinophils # (Auto) 0.1 x10^3/uL (0.0-0.7) Basophils # (Auto) 0.0 x10^3/uL (0.0-0.2) Sodium Level 138 mmol/L (136-145) Potassium Level 4.8 mmol/L (3.5-5.1) Chloride Level 100 mmol/L (98-107) Carbon Dioxide Level 29 mmol/L (21-32) Anion Gap 9 (6-14) Blood Urea Nitrogen 35 mg/dL (8-26) H Creatinine 1.4 mg/dL (0.7-1.3) H Estimated GFR (Cockcroft-Gault) 52.8 BUN/Creatinine Ratio 25 (6-20) H Glucose Level 100 mg/dL (70-99) H Calcium Level 9.2 mg/dL (8.5-10.1) Total Bilirubin 0.3 mg/dL (0.2-1.0) Aspartate Amino Transferase (AST) 21 U/L (15-37) Alanine Aminotransferase (ALT) 29 U/L (16-63) Alkaline Phosphatase 33 U/L (46-116) L Troponin I Quantitative < 0.017 ng/mL (0.000-0.055) Total Protein 6.8 g/dL (6.4-8.2) Albumin 4.1 g/dL (3.4-5.0) Albumin/Globulin Ratio 1.5 (1.0-1.7) Laboratory Tests 12/14/18 11:20 Laboratory Tests 12/14/18 11:20 EKG EKG EKG interpreted by Dr. Cornelius Bergeron with rate of 67. EKG looks comparable to old ekg. No STEMI.[] Radiology/Procedures Radiology/Procedures [][facility] [address] [place] [address] IMAGING REPORT Signed PATIENT: LIZA WILSON ACCOUNT: [id number] : 1965 LOCATION: ER AGE: 53 SEX: M EXAM STATUS: REG ER ORD. PHYSICIAN: HERBERT GÓMEZ APRN REASON: neck pain, finger tingling PROCEDURE: CT HEAD AND CERVICAL SPINE WO RS Compliance Statement: One or more of the following individualized dose reduction techniques were utilized for this examination: 1. Automated exposure control 2. Adjustment of the mA and/or kV according to patient size 3. Use of iterative reconstruction technique CT HEAD AND CERVICAL SPINE WITHOUT CONTRAST History: right neck pain, finger tingling. Comparison: CT head and cervical spine without contrast, August 27, 2018. Procedure: Axial images are obtained of the head from the skull base through the vertex without IV contrast. Noncontrast helical CT of the cervical spine was performed. Axial, sagittal, and coronal reconstructions were obtained. Findings: The ventricles and sulci are normal for the patient's age. No mass-effect, midline shift, hemorrhage or obvious acute infarction is identified. Basilar cisterns are patent. Bone windows demonstrate no significant calvarial abnormality. The left frontal sinus is mostly opacified. The maxillary sinuses are incompletely imaged. Mastoid air cells are well aerated. There is no evidence of acute fracture or acute malalignment of the cervical spine. Straightening of normal cervical lordosis may be positional or due to muscle spasm. There are no perched or jumped facet joints. There is mild degenerative endplate spurring in the cervical spine. Minimal disc space narrowing. The craniovertebral junction is intact. Visualized soft tissues of the neck demonstrate no significant abnormalities. The visualized lung apices are clear. IMPRESSION: 1. No acute intracranial abnormality. 2. No acute fracture of the cervical spine. Electronically signed by: Tyler Oseguera MD (12/14/2018 12:22 PM) [id number] DICTATED and SIGNED BY: TYLER OSEGUERA MD DATE: 12/14/18 1222 Course & Med Decision Making Course & Med Decision Making Pertinent Labs and Imaging studies reviewed. (See chart for details) Appears likely to be Cervical Radiculopathy. Will get CT Head/Neck, labs, ekg, and give breathing treatment. Patient is agreeable. Labs appear to be at baseline. CT is negative. Clinically it appears to be Cervical Radiculopathy. Will d/c home to follow up with Dr. Muller and primary care. Flexeril helped pain. Will d/c home with becca. Danielito Disclaimer Danielito Disclaimer This electronic medical record was generated, in whole or in part, using a voice recognition dictation system. Departure Departure Impression: Primary Impression: Cervical radiculopathy Disposition: HOME, SELF-CARE Condition: STABLE Referrals: Sydney OTT MD (PCP) JERMAINE MULLER MD Patient Instructions: Cervical Radiculopathy, [id number] Additional Instructions: Thank you for visiting [facility]. We appreciate you trusting us with your care. If any additional problems come up don't hesitate to return to visit us. Please follow up with your primary care provider so they can plan additional care if needed and know about the problem that you had. If symptoms worsen come back to the Emergency Department. Any concerning symptoms that start such as chest pain, shortness of Air, weakness or numbness on one side of the body, running high fevers or any other concerning symptoms return to the ER. Please follow up with Dr. Ott and Dr. Muller in regard to symptoms. Scripts Cyclobenzaprine Hcl (CYCLOBENZAPRINE HCL) 10 Mg Tablet 1 TAB PO TID PRN for MUSCLE PAIN, #30 TAB Prov: HERBERT GÓMEZ APRN 12/14/18 HERBERT GÓMEZ APRN Dec 14, 2018 11:20
[2018-12-14 11:30] LABS: BASO % 1 % (0-3); EOS # 0.1 x10^3/uL (0.0-0.7); EOS % 2 % (0-3); HEMATOCRIT 31.8 % (39.0-53.0); HEMOGLOBIN 10.9 g/dL (13.0-17.5); LYMPH # 0.7 x10^3/uL (1.0-4.8); LYMPH % 17 % (24-48); MEAN CORPUSCULAR HEMOGLOBIN 30 pg (25-35); MEAN CORPUSCULAR HGB CONC 34 g/dL (31-37); MEAN CORPUSCULAR VOLUME 87 fL (79-100); MONO # 0.3 x10^3/uL (0.0-1.1); MONO % 8 % (0-9); NEUT # 2.9 x10^3uL (1.8-7.7); NEUT % 73 % (31-73); PLATELET COUNT 173 x10^3/uL (140-400); RED BLOOD COUNT 3.66 x10^6/uL (4.30-5.70); RED CELL DISTRIBUTION WIDTH 13.7 % (11.5-14.5); WHITE BLOOD COUNT 3.9 x10^3/uL (4.0-11.0)
[2018-12-14 11:54] LABS: CALCIUM 9.2 mg/dL (8.5-10.1); CREATININE 1.4 mg/dL (0.7-1.3); GFR 52.8; POTASSIUM 4.8 mmol/L (3.5-5.1)
[2018-12-14 11:59] LABS: ALBUMIN 4.1 g/dL (3.4-5.0); ALBUMIN/GLOBULIN RATIO 1.5 (1.0-1.7); TOTAL BILIRUBIN 0.3 mg/dL (0.2-1.0); TOTAL PROTEIN 6.8 g/dL (6.4-8.2)
[2018-12-14] MEDS ORDERED: CYCLOBENZAPRINE 10 MG TABLET. PO ONE (12:00)
[2018-12-14] MEDS ORDERED: ASPIRIN CHEWABLE 81 MG TABLET. PO ONE (12:00)
[2018-12-14] MEDS ORDERED: IPRATRPIUM/ALBUTEROL 0.5/2.5MG 3 ML NEBU. NEB ONE (12:00)
--- NOTE | 2018-12-14 12:13 | EKG ---
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
--- NOTE | 2018-12-14 12:25 | RAD ---
PQRS Compliance Statement: One or more of the following individualized dose reduction techniques were utilized for this examination: 1. Automated exposure control 2. Adjustment of the mA and/or kV according to patient size 3. Use of iterative reconstruction technique CT HEAD AND CERVICAL SPINE WITHOUT CONTRAST History: right neck pain, finger tingling. Comparison: CT head and cervical spine without contrast, August 27, 2018. Procedure: Axial images are obtained of the head from the skull base through the vertex without IV contrast. Noncontrast helical CT of the cervical spine was performed. Axial, sagittal, and coronal reconstructions were obtained. Findings: The ventricles and sulci are normal for the patient's age. No mass-effect, midline shift, hemorrhage or obvious acute infarction is identified. Basilar cisterns are patent. Bone windows demonstrate no significant calvarial abnormality. The left frontal sinus is mostly opacified. The maxillary sinuses are incompletely imaged. Mastoid air cells are well aerated. There is no evidence of acute fracture or acute malalignment of the cervical spine. Straightening of normal cervical lordosis may be positional or due to muscle spasm. There are no perched or jumped facet joints. There is mild degenerative endplate spurring in the cervical spine. Minimal disc space narrowing. The craniovertebral junction is intact. Visualized soft tissues of the neck demonstrate no significant abnormalities. The visualized lung apices are clear. IMPRESSION: 1. No acute intracranial abnormality. 2. No acute fracture of the cervical spine. Electronically signed by: Tyler Oseguera MD (12/14/2018 12:22 PM) [id number]
[2018-12-14] MEDS ORDERED: CYCL10TA2 PO (13:06)
[2018-12-14 13:39] VITALS: BP 129/75
== END 2018-12-14 13:44 | disposition home or self-care (01) ==
LOC: ER 11:00
DX: M54.12 Radiculopathy, cervical region (principal); E78.00 Pure hypercholesterolemia, unspecified; I10 Essential (primary) hypertension; J45.909 Unspecified asthma, uncomplicated; Z87.891 Personal history of nicotine dependence; Z88.0 Allergy status to penicillin
CPT/HCPCS: 36415; 70450; 72125; 80053; 84484; 85025; 93005; 94640; 99285; J7030; J7620

== ENCOUNTER → 2019-02-04 | Outpatient (CLI) | payer MEDICARE, MEDICAID ==
[~2019-02-04] MED LIST changes: +CYCL10TA2 PO
--- NOTE | 2019-02-04 15:52 | RAD ---
MRI Cervical Spine Without Contrast History: Right cervical radiculopathy Technique: Multiplanar, multi sequential noncontrast MR imaging was performed of the cervical spine. Comparison: Cervical spine CT exam December 14, 2018 Findings: There is some motion degradation. Cervical cord caliber is within normal limits without significant focal signal abnormality allowing for motion artifact. Cervical vertebral body stature and AP alignment are maintained. There is mild degenerative disc disease C4-C5, C5-6, C7-T1. There is no significant marrow edema. C2-C3: Neural foramina and spinal canal are adequate. C3-C4: There is bilateral facet hypertrophic change, minimal uncovertebral degenerative change. Spinal canal is adequate. There is [id number] right and mild left neural foramina compromise. C4-C5: Right neural foramen and spinal canal are adequate. There is bilateral facet hypertrophic change, minimal posterior narrowing of the left neural foramen. C5-C6: There is negligible disc osteophyte complex, spinal canal overall adequate. There is bilateral facet hypertrophic change, minimal uncovertebral degenerative change. There is suspected mild to moderate narrowing of the left neural foramen, right neural foramen overall adequate. C6-C7: There is negligible disc osteophyte complex. Spinal canal is adequate. There is bilateral facet hypertrophic change. There is left uncovertebral degenerative change. Right neural foramen is adequate, likely at least mild narrowing of the left neural foramen. C7-T1: There is minimal disc osteophyte complex. Spinal canal is adequate. There is facet and uncovertebral degenerative change. There is fairly severe right and at least mild left neural foramina compromise. Impression: 1. There is no significant cervical spinal stenosis. Facet and uncovertebral degenerative change contributes to multilevel neural foramina compromise as stated, somewhat limited evaluation of the neural foramina due to motion artifact. Neural foramina compromise is likely greatest on the right at C7-T1, to lesser degree on the left at C5-6 and on the right at C3-4, other suspected minimal narrowing. There is mild degenerative disc disease C4-5, C5-6, and C7-T1, minimal spondylosis. Electronically signed by: William Hill MD (02/04/2019 3:49 PM) [email or web address]
== END | disposition home or self-care (01) ==
LOC: MRI 14:25
PROVIDERS: ATTEND Family Medicine
DX: M50.13 Cervical disc disorder with radiculopathy, cervicothoracic region (principal); M47.23 Other spondylosis with radiculopathy, cervicothoracic region; M48.02 Spinal stenosis, cervical region; M25.78 Osteophyte, vertebrae
CPT/HCPCS: 72141

== ENCOUNTER 2019-03-15 17:46 | Emergency (ER) | payer MEDICARE, MEDICAID ==
[~2019-03-15] VITALS: Ht 190.5 cm; Wt 104.3 kg
[~2019-03-15 17:46] MED LIST changes: +LISI1TAB19 PO; -LISI1TAB5 PO; +OMEP40CA45 PO; -OMEP40CA5 PO
[2019-03-15 18:50] LABS: BASO % 0 % (0-3); EOS # 0.1 x10^3/uL (0.0-0.7); EOS % 2 % (0-3); HEMATOCRIT 33.3 % (39.0-53.0); HEMOGLOBIN 11.5 g/dL (13.0-17.5); LYMPH # 0.7 x10^3/uL (1.0-4.8); LYMPH % 18 % (24-48); MEAN CORPUSCULAR HEMOGLOBIN 30 pg (25-35); MEAN CORPUSCULAR HGB CONC 35 g/dL (31-37); MEAN CORPUSCULAR VOLUME 87 fL (79-100); MONO # 0.3 x10^3/uL (0.0-1.1); MONO % 8 % (0-9); NEUT # 2.9 x10^3/uL (1.8-7.7); NEUT % 72 % (31-73); PLATELET COUNT 153 x10^3/uL (140-400); RED BLOOD COUNT 3.83 x10^6/uL (4.30-5.70); WHITE BLOOD COUNT 4.1 x10^3/uL (4.0-11.0)
[2019-03-15 19:00] LABS: CALCIUM 9.3 mg/dL (8.5-10.1); CREATININE 1.2 mg/dL (0.7-1.3); GFR 62.9; POTASSIUM 4.4 mmol/L (3.5-5.1)
[2019-03-15 19:06] LABS: ALBUMIN/GLOBULIN RATIO 1.3 (1.0-1.7); TOTAL BILIRUBIN 0.4 mg/dL (0.2-1.0); TOTAL PROTEIN 7.2 g/dL (6.4-8.2)
[2019-03-15 19:07] LABS: ACETAMIN < 2 mcg/ml (10-30); SALIC < 2.8 mg/dL (2.8-20.0)
[2019-03-15 19:08] LABS: ETHANOL < 10 mg/dL (0-10)
[2019-03-15 19:16] LABS: BILIRUBIN,URINE NEGATIVE (NEG); CLARITY,URINE CLEAR; COLOR,URINE YELLOW; NITRITE,URINE NEGATIVE (NEG); PH,URINE 5.5; PROTEIN,URINE NEGATIVE (NEG-TRACE); UROBILINOGEN,URINE 0.2 mg/dL (0.2 mg/dL)
[2019-03-15 19:20] LABS: AMPHETAMINE/METHAMPHETAMINE NEG (NEG); BARBITURATES NEG (NEG); BENZODIAZEPINES NEG (NEG); CANNABINOIDS NEG (NEG); COCAINE NEG (NEG); METHADONE NEG (NEG); OPIATES NEG (NEG); PHENCYCLIDINE NEG (NEG)
[2019-03-15 19:29] LABS: BACTERIA,URINE 0 /HPF (0-FEW); RBC,URINE OCC /HPF (0-2); SQUAMOUS EPITHELIAL CELL,UR FEW /LPF; WBC,URINE OCC /HPF (0-4)
[2019-03-15 23:04] VITALS: BP 164/87
--- NOTE | 2019-03-16 00:18 | PHYS DOC ---
Past Medical History Past Medical History: Anxiety, Asthma, Depression, High Cholesterol, Hypertension, Other Additional Past Medical Histor: INSOMNIA, Mental Retardation (ISA CARSON APRN) Past Surgical History: Tonsillectomy Additional Past Surgical Histo: INGROWN TOE NAIL REMOVED (ISA CARSON APRN) Alcohol Use: None Drug Use: None (ISA CARSON APRN) Attending Signature I have participated in the care of this patient and I have reviewed and agree with all pertinent clinical information above including history, exam, and recommendations. (JOSH NOGUERA MD) Adult General Chief Complaint Chief Complaint: DEPRESSION HPI HPI Patient is a 54 year old male with history of depression, hypertension, high cholesterol, anxiety, who presents to the ED today complaining of suicidal ideations. Patient states since this afternoon he has had thoughts of killing himself using a knife or his prescription drugs. He is tearful requesting to be put in a psych facility. He was put on 1:1 (ISA CARSON APRN) Review of Systems Review of Systems Constitutional: Denies fever or chills [] Eyes: Denies change in visual acuity, redness, or eye pain [] HENT: Denies nasal congestion or sore throat [] Respiratory: Denies cough or shortness of breath [] Cardiovascular: No additional information not addressed in HPI [] GI: Denies abdominal pain, nausea, vomiting, bloody stools or diarrhea [] : Denies dysuria or hematuria [] Musculoskeletal: Denies back pain or joint pain [] Integument: Denies rash or skin lesions [] Neurologic: Denies headache, focal weakness or sensory changes [] Pysch: reports SI All other systems were reviewed and found to be within normal limits, except as documented in this note. (ISA CARSON APRN) Allergies Allergies Allergies Coded Allergies Type Severity Reaction Last Updated Verified Penicillins Allergy Intermediate 04/04/16 Yes (JOSH NOGUERA MD) Physical Exam Physical Exam Constitutional: Well developed, well nourished, no acute distress, non-toxic appearance. [] HENT: Normocephalic, atraumatic, bilateral external ears normal, oropharynx moist, no oral exudates, nose normal. [] Eyes: PERRLA, EOMI, conjunctiva normal, no discharge. [] Neck: Normal range of motion, no tenderness, supple, no stridor. [] Cardiovascular:Heart rate regular rhythm, no murmur [] Lungs & Thorax: Bilateral breath sounds clear to auscultation [] Abdomen: Bowel sounds normal, soft, no tenderness, no masses, no pulsatile masses. [] Skin: Warm, dry, no erythema, no rash. [] Back: No tenderness, no CVA tenderness. [] Extremities: No tenderness, no cyanosis, no clubbing, ROM intact, no edema. [] Neurologic: Alert and oriented X 3, normal motor function, normal sensory function, no focal deficits noted. [] Psychologic: tearful, depressed mood. (ISA CARSON APRN) Current Patient Data Vital Signs Vital Signs Date Time Temp Pulse Resp B/P (MAP) Pulse Ox O2 Delivery O2 Flow Rate FiO2 03/15/19 23:04 70 164/87 (112) 96 Room Air 03/15/19 18:02 98.3 18 98.3 (JOSH NOGUERA MD) Lab Values Laboratory Tests Test 03/15/19 18:37 03/15/19 19:00 White Blood Count 4.1 x10^3/uL (4.0-11.0) Red Blood Count 3.83 x10^6/uL (4.30-5.70) L Hemoglobin 11.5 g/dL (13.0-17.5) L Hematocrit 33.3 % (39.0-53.0) L Mean Corpuscular Volume 87 fL (79-100) Mean Corpuscular Hemoglobin 30 pg (25-35) Mean Corpuscular Hemoglobin Concent 35 g/dL (31-37) Red Cell Distribution Width 14.0 % (11.5-14.5) Platelet Count 153 x10^3/uL (140-400) Neutrophils (%) (Auto) 72 % (31-73) Lymphocytes (%) (Auto) 18 % (24-48) L Monocytes (%) (Auto) 8 % (0-9) Eosinophils (%) (Auto) 2 % (0-3) Basophils (%) (Auto) 0 % (0-3) Neutrophils # (Auto) 2.9 x10^3/uL (1.8-7.7) Lymphocytes # (Auto) 0.7 x10^3/uL (1.0-4.8) L Monocytes # (Auto) 0.3 x10^3/uL (0.0-1.1) Eosinophils # (Auto) 0.1 x10^3/uL (0.0-0.7) Basophils # (Auto) 0.0 x10^3/uL (0.0-0.2) Sodium Level 138 mmol/L (136-145) Potassium Level 4.4 mmol/L (3.5-5.1) Chloride Level 99 mmol/L (98-107) Carbon Dioxide Level 30 mmol/L (21-32) Anion Gap 9 (6-14) Blood Urea Nitrogen 17 mg/dL (8-26) Creatinine 1.2 mg/dL (0.7-1.3) Estimated GFR (Cockcroft-Gault) 62.9 BUN/Creatinine Ratio 14 (6-20) Glucose Level 126 mg/dL (70-99) H Calcium Level 9.3 mg/dL (8.5-10.1) Total Bilirubin 0.4 mg/dL (0.2-1.0) Aspartate Amino Transferase (AST) 20 U/L (15-37) Alanine Aminotransferase (ALT) 31 U/L (16-63) Alkaline Phosphatase 46 U/L (46-116) Total Protein 7.2 g/dL (6.4-8.2) Albumin 4.0 g/dL (3.4-5.0) Albumin/Globulin Ratio 1.3 (1.0-1.7) Salicylates Level < 2.8 mg/dL (2.8-20.0) L Salicylate Last Dose Date Unknown Salicylate Last Dose Time Unknown Acetaminophen Level < 2 mcg/ml (10-30) L Acetaminophen Last Dose Date Unknown Acetaminophen Last Dose Time Unknown Ethyl Alcohol Level < 10 mg/dL (0-10) Urine Collection Type Unknown Urine Color Yellow Urine Clarity Clear Urine pH 5.5 Urine Specific [place] 1.010 Urine Protein Negative mg/dL (NEG-TRACE) Urine Glucose (UA) Negative mg/dL (NEG) Urine Ketones (Stick) Negative mg/dL (NEG) Urine Blood Negative (NEG) Urine Nitrite Negative (NEG) Urine Bilirubin Negative (NEG) Urine Urobilinogen Dipstick 0.2 mg/dL (0.2 mg/dL) Urine Leukocyte Esterase Negative (NEG) Urine RBC Occ /HPF (0-2) Urine WBC Occ /HPF (0-4) Urine Squamous Epithelial Cells Few /LPF Urine Bacteria 0 /HPF (0-FEW) Urine Opiates Screen Neg (NEG) Urine Methadone Screen Neg (NEG) Urine Barbiturates Neg (NEG) Urine Phencyclidine Screen Neg (NEG) Urine Amphetamine/Methamphetamine Neg (NEG) Urine Benzodiazepines Screen Neg (NEG) Urine Cocaine Screen Neg (NEG) Urine Cannabinoids Screen Neg (NEG) Urine Ethyl Alcohol Neg (NEG) Laboratory Tests 03/15/19 18:37 Laboratory Tests 03/15/19 18:37 (JOSH NOGUERA MD) EKG EKG [] (ISA CARSON APRN) Radiology/Procedures Radiology/Procedures [] (ISA CARSON APRN) Course & Med Decision Making Course & Med Decision Making Pertinent Labs and Imaging studies reviewed. (See chart for details) This is a 54-year-old male patient with history of anxiety and depression presenting to the ED today with suicide ideations. See history of present illness. Labs are negative. Viki from the PAT team arranged patient's transfer to [facility]. (ISA CARSON APRN) Dragon Disclaimer Dragon Disclaimer This electronic medical record was generated, in whole or in part, using a voice recognition dictation system. (ISA CARSON APRN) Departure Departure Impression: Primary Impression: Depression Additional Impression: Suicide ideation Disposition: 05 TRANSFER OTHER Condition: STABLE Referrals: Sydney SUTHERLAND MD (PCP) Problem Qualifiers Primary Impression: Depression Depression Type: unspecified Qualified Codes: F32.9 - Major depressive disorder, single episode, unspecified ISA CARSON APRN Mar 16, 2019 00:18 JOSH NOGUERA MD Mar 17, 2019 02:56
== END 2019-03-15 23:32 | disposition short-term general hospital (02) ==
LOC: ER 17:46
DX: R45.851 Suicidal ideations (principal); F32.9 Major depressive disorder, single episode, unspecified; F41.9 Anxiety disorder, unspecified; E78.00 Pure hypercholesterolemia, unspecified; I10 Essential (primary) hypertension; J45.909 Unspecified asthma, uncomplicated; Z88.0 Allergy status to penicillin
CPT/HCPCS: 36415; 80053; 80307; 80329; 81001; 85025; 99285; G0480

== ENCOUNTER 2019-04-20 11:46 | Inpatient (IN) | payer OTHER, MEDICAID ==
[~2019-04-20] VITALS: Ht 182.9 cm; Wt 157.9 kg
[2019-04-20 12:29] LABS: BASO % 0 % (0-3); EOS # 0.1 x10^3/uL (0.0-0.7); EOS % 2 % (0-3); HEMATOCRIT 33.7 % (39.0-53.0); HEMOGLOBIN 11.5 g/dL (13.0-17.5); LYMPH # 0.6 x10^3/uL (1.0-4.8); LYMPH % 15 % (24-48); MEAN CORPUSCULAR HEMOGLOBIN 29 pg (25-35); MEAN CORPUSCULAR HGB CONC 34 g/dL (31-37); MEAN CORPUSCULAR VOLUME 86 fL (79-100); MONO # 0.3 x10^3/uL (0.0-1.1); MONO % 8 % (0-9); NEUT % 75 % (31-73); PLATELET COUNT 185 x10^3/uL (140-400); RED BLOOD COUNT 3.94 x10^6/uL (4.30-5.70); RED CELL DISTRIBUTION WIDTH 13.6 % (11.5-14.5)
[2019-04-20 12:35] LABS: CALCIUM 9.1 mg/dL (8.5-10.1); GFR 77.6; POTASSIUM 4.4 mmol/L (3.5-5.1)
[2019-04-20 12:36] LABS: BARBITURATES NEG (NEG); BENZODIAZEPINES NEG (NEG); CANNABINOIDS NEG (NEG); COCAINE NEG (NEG); METHADONE NEG (NEG); OPIATES NEG (NEG); PHENCYCLIDINE NEG (NEG)
[2019-04-20 12:39] LABS: SALIC < 2.8 mg/dL (2.8-20.0)
[2019-04-20 12:40] LABS: ACETAMIN < 2 mcg/ml (10-30)
[2019-04-20 12:41] LABS: AMPHETAMINE/METHAMPHETAMINE NEG (NEG)
[2019-04-20 12:41] LABS: ETHANOL < 10 mg/dL (0-10)
[2019-04-20 12:48] LABS: ALBUMIN 4.1 g/dL (3.4-5.0); ALBUMIN/GLOBULIN RATIO 1.3 (1.0-1.7); TOTAL BILIRUBIN 0.3 mg/dL (0.2-1.0); TOTAL PROTEIN 7.3 g/dL (6.4-8.2)
[2019-04-20 13:00] LABS: PROTHROMBIN TIME PATIENT 12.9 SEC (11.7-14.0)
--- NOTE | 2019-04-20 13:01 | RAD ---
EXAM: Chest, 2 views. HISTORY: Chest pain. Shortness of air. COMPARISON: 10/04/2018 FINDINGS: 2 views of the chest are obtained. There is no infiltrate, pleural effusion or pneumothorax. There is a stable prominent cardiac silhouette. There is a mild chronic wedge compression fracture of a midthoracic vertebral body. IMPRESSION: No acute pulmonary finding. Electronically signed by: Caryn Young MD (04/20/2019 12:58 PM) [place] [id number]
--- NOTE | 2019-04-20 13:19 | EKG ---
[facility] [address] [place] [id number] Test Date: 2019-04-20 Test Time: 12:47:28 Pat Name: LIZA WILSON Department: Room: Gender: M Long Term: : 1965 Requested By: SHERLYN SALINAS Order Number: [id number] Reading MD: Measurements Intervals [place] Rate: 73 P: 15 WA: 172 QRS: -1 QRSD: 96 T: 19 QT: 370 QTc: 411 Interpretive Statements SINUS RHYTHM LEFTWARD AXIS NO SPECIFIC ECG ABNORMALITIES RI6.01 No previous ECG available for comparison
--- NOTE | 2019-04-20 15:36 | PHYS DOC ---
Past Medical History Past Medical History: Anxiety, Arthritis, Asthma, Depression, High Cholesterol, Hypertension, Other Additional Past Medical Histor: INSOMNIA, Mental Retardation Past Surgical History: Tonsillectomy Additional Past Surgical Histo: INGROWN TOE NAIL REMOVED Alcohol Use: None Drug Use: None Adult General Chief Complaint Chief Complaint: DEPRESSION HPI HPI Patient is a 54 year old female with a history of mental retardation who presents to the emergency Department today complaining of increased problems with his depression. He states that he lost his father recently and has been having problems with depression since then. He states he was recently seen at [facility] and prescribed medication. He has been taking her medication as prescribed however he has been going to bed at night with a knife sided hand and thinking about wanting to kill himself. Patient currently denies any pain, he reports a decreased appetite and states that he has been sleeping less often. Patient states that on arrival he felt some tightness in his chest and became sweaty. He currently denies any chest pain or palpitations. Patient denies any shortness of breath, abdominal pain, nausea, vomiting, diarrhea, wheezing, fever, cough, nasal congestion, palpitations, or syncope. Review of Systems Review of Systems Constitutional: Denies fever or chills [] Eyes: Denies change in visual acuity, redness, or eye pain [] HENT: Denies nasal congestion or sore throat [] Respiratory: Denies cough or shortness of breath [] Cardiovascular: No additional information not addressed in HPI [] GI: Denies abdominal pain, nausea, vomiting, or diarrhea [] : Denies dysuria or hematuria [] Musculoskeletal: Denies back pain or joint pain [] Integument: Denies rash or skin lesions [] Neurologic: Denies headache, focal weakness or sensory changes [] Endocrine: Denies polyuria or polydipsia [] Psychiatric: See history of present illness Complete systems were reviewed and found to be within normal limits, except as documented in this note. Allergies Allergies Allergies Coded Allergies Type Severity Reaction Last Updated Verified Penicillins Allergy Intermediate 04/04/16 Yes Physical Exam Physical Exam Constitutional: Well developed, well nourished, no acute distress, non-toxic appearance, obese. [] HENT: Normocephalic, atraumatic, bilateral external ears normal, oropharynx moist, no oral exudates, nose normal. [] Eyes: PERRLA, EOMI, conjunctiva normal, no discharge. [] Neck: Normal range of motion, no stridor. [] Cardiovascular:Heart rate regular rhythm, no murmur [] Lungs & Thorax: Bilateral breath sounds clear to auscultation [] Abdomen: Bowel sounds normal, soft, no tenderness, no masses, no pulsatile masses. [] Skin: Warm, dry, no erythema, no rash. [] Back: No tenderness Extremities: No cyanosis, ROM intact, no edema. [] Neurologic: Alert and oriented X 3, no focal deficits noted. [] Psychologic: Affect normal, judgement normal, mood depressed. Current Patient Data Vital Signs Vital Signs Date Time Temp Pulse Resp B/P (MAP) Pulse Ox O2 Delivery O2 Flow Rate FiO2 04/20/19 16:45 75 12 114/63 (80) 94 04/20/19 16:16 Room Air 04/20/19 15:46 98.2 98.2 Lab Values Laboratory Tests Test 04/20/19 12:13 04/20/19 12:16 Urine Opiates Screen Neg (NEG) Urine Methadone Screen Neg (NEG) Urine Barbiturates Neg (NEG) Urine Phencyclidine Screen Neg (NEG) Urine Amphetamine/Methamphetamine Neg (NEG) Urine Benzodiazepines Screen Neg (NEG) Urine Cocaine Screen Neg (NEG) Urine Cannabinoids Screen Neg (NEG) Urine Ethyl Alcohol Neg (NEG) White Blood Count 4.0 x10^3/uL (4.0-11.0) Red Blood Count 3.94 x10^6/uL (4.30-5.70) L Hemoglobin 11.5 g/dL (13.0-17.5) L Hematocrit 33.7 % (39.0-53.0) L Mean Corpuscular Volume 86 fL (79-100) Mean Corpuscular Hemoglobin 29 pg (25-35) Mean Corpuscular Hemoglobin Concent 34 g/dL (31-37) Red Cell Distribution Width 13.6 % (11.5-14.5) Platelet Count 185 x10^3/uL (140-400) Neutrophils (%) (Auto) 75 % (31-73) H Lymphocytes (%) (Auto) 15 % (24-48) L Monocytes (%) (Auto) 8 % (0-9) Eosinophils (%) (Auto) 2 % (0-3) Basophils (%) (Auto) 0 % (0-3) Neutrophils # (Auto) 3.0 x10^3/uL (1.8-7.7) Lymphocytes # (Auto) 0.6 x10^3/uL (1.0-4.8) L Monocytes # (Auto) 0.3 x10^3/uL (0.0-1.1) Eosinophils # (Auto) 0.1 x10^3/uL (0.0-0.7) Basophils # (Auto) 0.0 x10^3/uL (0.0-0.2) Prothrombin Time 12.9 SEC (11.7-14.0) Prothrombin Time INR 1.0 (0.8-1.1) Activated Partial Thromboplast Time 24 SEC (24-38) Sodium Level 138 mmol/L (136-145) Potassium Level 4.4 mmol/L (3.5-5.1) Chloride Level 101 mmol/L (98-107) Carbon Dioxide Level 31 mmol/L (21-32) Anion Gap 6 (6-14) Blood Urea Nitrogen 23 mg/dL (8-26) Creatinine 1.0 mg/dL (0.7-1.3) Estimated GFR (Cockcroft-Gault) 77.6 BUN/Creatinine Ratio 23 (6-20) H Glucose Level 96 mg/dL (70-99) Calcium Level 9.1 mg/dL (8.5-10.1) Magnesium Level 1.7 mg/dL (1.8-2.4) L Total Bilirubin 0.3 mg/dL (0.2-1.0) Aspartate Amino Transferase (AST) 16 U/L (15-37) Alanine Aminotransferase (ALT) 23 U/L (16-63) Alkaline Phosphatase 26 U/L (46-116) L Creatine Kinase 174 U/L (39-308) Creatine Kinase MB (Mass) 1.3 ng/mL (0.0-3.6) Creatine Kinase MB Relative Index 0.7 % (0-4) Troponin I Quantitative < 0.017 ng/mL (0.000-0.055) Total Protein 7.3 g/dL (6.4-8.2) Albumin 4.1 g/dL (3.4-5.0) Albumin/Globulin Ratio 1.3 (1.0-1.7) Salicylates Level < 2.8 mg/dL (2.8-20.0) L Salicylate Last Dose Date Unknown Salicylate Last Dose Time Unknown Acetaminophen Level < 2 mcg/ml (10-30) L Acetaminophen Last Dose Date Unknown Acetaminophen Last Dose Time Unknown Ethyl Alcohol Level < 10 mg/dL (0-10) Laboratory Tests 04/20/19 12:16 Laboratory Tests 04/20/19 12:16 EKG EKG 1247- SR leftward axis, NO STEMI read by Dr. Winter rate 73[] Radiology/Procedures Radiology/Procedures PROCEDURE: CHEST PA & LATERAL EXAM: Chest, 2 views. HISTORY: Chest pain. Shortness of air. COMPARISON: 10/04/2018 FINDINGS: 2 views of the chest are obtained. There is no infiltrate, pleural effusion or pneumothorax. There is a stable prominent cardiac silhouette. There is a mild chronic wedge compression fracture of a midthoracic vertebral body. IMPRESSION: No acute pulmonary finding.[] Course & Med Decision Making Course & Med Decision Making Pertinent Labs and Imaging studies reviewed. (See chart for details) dx: suicidal ideations 1459- Naeem with the PAT team was at the bedside evaluating the patient. Unfortunately he was unable to find placement for the patient. Patient states that there may be a bed opening at [facility] tomorrow. Naeem states that patient will need to be admitted to the hospitalists until a psychiatric bed becomes available. 1530- Spoke with who is the admitting physician, and care was assumed following discussion of patient. Patient's vital signs stable. Patient remains afebrile, appears nontoxic, respirations even and unlabored. Patient will be admitted to the med/surg floor. Patient's case and plan of care also discussed with Dr. Moy Esteves Disclaimer Danielito Disclaimer This electronic medical record was generated, in whole or in part, using a voice recognition dictation system. Departure Departure Impression: Primary Impression: Suicide ideation Disposition: ADMITTED INPATIENT Admitting Physician: ANGELLA (LATISHA) Condition: STABLE Referrals: Sydney SUTHERLAND MD (PCP) SHERLYN SALINAS APRN Apr 20, 2019 15:36
--- NOTE | 2019-04-20 16:07 | PDOC1 ---
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 Past Medical History Cardiovascular: HTN Pulmonary: Asthma GI: Other Past Surgical History Past Surgical History: Other Family History Family History: Coronary Artery Disease Social History Smoke: No ALCOHOL: none Drugs: None Current Problem List Problem List Problems Medical Problems: (1) Suicide ideation Status: Acute Current Medications Current Medications Active Scripts Active Cyclobenzaprine Hcl 10 Mg Tablet 1 Tab PO TID PRN Prednisone 20 Mg Tablet 3 Tab PO DAILY PRN Diclofenac Sodium 50 Mg Tablet.dr 1 Tab PO BID PRN Cyclobenzaprine Hcl 5 Mg Tablet 5 Mg PO PRN TID PRN Omeprazole 40 Mg Capsule.dr 1 Cap PO DAILY 30 Days Reported Symbicort 160-4.5 Mcg Inhaler (Budesonide/Formoterol Fumarate) 10.2 Gm Hfa.aer.ad 1 Puff IH BID Metoprolol Succinate ( Xl ) (Metoprolol Succinate) 25 Mg Tab.er.24h 1 Tab PO DAILY Proair Hfa Inhaler (Albuterol Sulfate) 8.5 Gm Hfa.aer.ad 2 Puff IH PRN Q4-6HRS Citalopram Hbr (Citalopram Hydrobromide) 40 Mg Tablet 1 Tab PO DAILY Fenofibrate (Fenofibrate Nanocrystallized) 145 Mg Tablet 1 Tab PO DAILY Temazepam 30 Mg Capsule 1 Cap PO QHS Lisinopril-Hctz 20-12.5 Mg Tab (Lisinopril/Hydrochlorothiazide) 1 Each Tablet 1 Tab PO DAILY Allergies Allergies: Coded Allergies: Penicillins (Verified Allergy, Intermediate, 04/04/16) ROS General: YES: Fatigue PSYCHOLOGICAL ROS: YES: Irritablity, Memory difficulties, Sleep disturbances, Suicidal ideation; No: Anxiety, Behavioral Disorder, Concentration difficultie, Decreased libido, Depression, Disorientation, Hallucinations, Hostility, Mood Swings, Obsessive thoughts, Physical abuse, Sexual abuse, Other Eyes: No Blurry vision, No Decreased vision, No Double vision, No Dry eyes, No Excessive tearing, No Eye Pain, No Itchy Eyes, No Loss of vision, No Photophobia, No Scotomata, No Uses contacts, No Uses glasses, No Other HEENT: No: Heacaches, Visual Changes, Hearing change, Nasal congestion, Nasal discharge, Oral lesions, Sinus pain, Sore Throat, Epistaxis, Sneezing, Snoring, Tinnitus, Vertigo, Vocal changes, Other Respiratory: No: Cough, Hemoptysis, Orthopnea, Pleuritic Pain, Shortness of breath, SOB with excertion, Sputum Changes, Stridor, Tachypnea, Wheezing, Other Cardiovascular: No Chest Pain, No Palpitations, No Orthopnea, No Paroxysmal Noc. Dyspnea, No Edema, No Lt Headedness, No Other Gastrointestinal: No Nausea, No Vomiting, No Abdominal Pain, No Diarrhea, No Constipation, No Melena, No Hematochezia, No Other Genitourinary: No Dysuria, No Frequency, No Incontinence, No Hematuria, No Retention, No Discharge, No Urgency, No Pain, No Flank Pain, No Other, No , No , No , No , No , No , No Musculoskeletal: No Gait Disturbance, No Joint Pain, No Joint Stiffness, No Joint Swelling, No Muscle Pain, No Muscular Weakness, No Pain In:, No Swelling In:, No Other Neurological: No Behavorial Changes, No Bowel/Bladder ControlChng, No Confusion, No Dizziness, No Gait Disturbance, No Headaches, No Impaired Coord/balance, No Memory Loss, No Numbness/Tingling, No Seizures, No Speech Problems, No Tremors, No Visual Changes, No Weakness, No Other Skin: No Dry Skin, No Eczema, No Hair Changes, No Lumps, No Mole Changes, No Mottling, No Nail Changes, No Pruritus, No Rash, No Skin Lesion Changes, No Other, No Acne Physical Exam General: Alert, Cooperative, Other (malordorous, needs a shower) HEENT: Atraumatic, PERRLA Lungs: Clear to auscultation Heart: S1S2, RRR Extremities: No clubbing, Normal pulses Skin: No breakdown Neuro: Sensation intact Psych/Mental Status: Other (affect off, tearful, slow to respond) Vitals Vitals Vital Signs Date Time Temp Pulse Resp B/P (MAP) Pulse Ox O2 Delivery O2 Flow Rate FiO2 04/20/19 15:46 98.2 72 111/68 (82) 94 Room Air 98.2 04/20/19 11:52 16 Labs Labs Laboratory Tests Test 04/20/19 12:13 04/20/19 12:16 Urine Opiates Screen Neg (NEG) Urine Methadone Screen Neg (NEG) Urine Barbiturates Neg (NEG) Urine Phencyclidine Screen Neg (NEG) Urine Amphetamine/Methamphetamine Neg (NEG) Urine Benzodiazepines Screen Neg (NEG) Urine Cocaine Screen Neg (NEG) Urine Cannabinoids Screen Neg (NEG) Urine Ethyl Alcohol Neg (NEG) White Blood Count 4.0 x10^3/uL (4.0-11.0) Red Blood Count 3.94 x10^6/uL (4.30-5.70) Hemoglobin 11.5 g/dL (13.0-17.5) Hematocrit 33.7 % (39.0-53.0) Mean Corpuscular Volume 86 fL (79-100) Mean Corpuscular Hemoglobin 29 pg (25-35) Mean Corpuscular Hemoglobin Concent 34 g/dL (31-37) Red Cell Distribution Width 13.6 % (11.5-14.5) Platelet Count 185 x10^3/uL (140-400) Neutrophils (%) (Auto) 75 % (31-73) Lymphocytes (%) (Auto) 15 % (24-48) Monocytes (%) (Auto) 8 % (0-9) Eosinophils (%) (Auto) 2 % (0-3) Basophils (%) (Auto) 0 % (0-3) Neutrophils # (Auto) 3.0 x10^3/uL (1.8-7.7) Lymphocytes # (Auto) 0.6 x10^3/uL (1.0-4.8) Monocytes # (Auto) 0.3 x10^3/uL (0.0-1.1) Eosinophils # (Auto) 0.1 x10^3/uL (0.0-0.7) Basophils # (Auto) 0.0 x10^3/uL (0.0-0.2) Prothrombin Time 12.9 SEC (11.7-14.0) Prothromb Time International Ratio 1.0 (0.8-1.1) Activated Partial Thromboplast Time 24 SEC (24-38) Sodium Level 138 mmol/L (136-145) Potassium Level 4.4 mmol/L (3.5-5.1) Chloride Level 101 mmol/L (98-107) Carbon Dioxide Level 31 mmol/L (21-32) Anion Gap 6 (6-14) Blood Urea Nitrogen 23 mg/dL (8-26) Creatinine 1.0 mg/dL (0.7-1.3) Estimated GFR (Cockcroft-Gault) 77.6 BUN/Creatinine Ratio 23 (6-20) Glucose Level 96 mg/dL (70-99) Calcium Level 9.1 mg/dL (8.5-10.1) Magnesium Level 1.7 mg/dL (1.8-2.4) Total Bilirubin 0.3 mg/dL (0.2-1.0) Aspartate Amino Transf (AST/SGOT) 16 U/L (15-37) Alanine Aminotransferase (ALT/SGPT) 23 U/L (16-63) Alkaline Phosphatase 26 U/L (46-116) Creatine Kinase 174 U/L (39-308) Creatine Kinase MB (Mass) 1.3 ng/mL (0.0-3.6) Creatine Kinase MB Relative Index 0.7 % (0-4) Troponin I Quantitative < 0.017 ng/mL (0.000-0.055) Total Protein 7.3 g/dL (6.4-8.2) Albumin 4.1 g/dL (3.4-5.0) Albumin/Globulin Ratio 1.3 (1.0-1.7) Salicylates Level < 2.8 mg/dL (2.8-20.0) Salicylate Last Dose Date Unknown Salicylate Last Dose Time Unknown Acetaminophen Level < 2 mcg/ml (10-30) Acetaminophen Last Dose Date Unknown Acetaminophen Last Dose Time Unknown Ethyl Alcohol Level < 10 mg/dL (0-10) Laboratory Tests Test 04/20/19 12:13 04/20/19 12:16 Urine Opiates Screen Neg (NEG) Urine Methadone Screen Neg (NEG) Urine Barbiturates Neg (NEG) Urine Phencyclidine Screen Neg (NEG) Urine Amphetamine/Methamphetamine Neg (NEG) Urine Benzodiazepines Screen Neg (NEG) Urine Cocaine Screen Neg (NEG) Urine Cannabinoids Screen Neg (NEG) Urine Ethyl Alcohol Neg (NEG) White Blood Count 4.0 x10^3/uL (4.0-11.0) Red Blood Count 3.94 x10^6/uL (4.30-5.70) Hemoglobin 11.5 g/dL (13.0-17.5) Hematocrit 33.7 % (39.0-53.0) Mean Corpuscular Volume 86 fL (79-100) Mean Corpuscular Hemoglobin 29 pg (25-35) Mean Corpuscular Hemoglobin Concent 34 g/dL (31-37) Red Cell Distribution Width 13.6 % (11.5-14.5) Platelet Count 185 x10^3/uL (140-400) Neutrophils (%) (Auto) 75 % (31-73) Lymphocytes (%) (Auto) 15 % (24-48) Monocytes (%) (Auto) 8 % (0-9) Eosinophils (%) (Auto) 2 % (0-3) Basophils (%) (Auto) 0 % (0-3) Neutrophils # (Auto) 3.0 x10^3/uL (1.8-7.7) Lymphocytes # (Auto) 0.6 x10^3/uL (1.0-4.8) Monocytes # (Auto) 0.3 x10^3/uL (0.0-1.1) Eosinophils # (Auto) 0.1 x10^3/uL (0.0-0.7) Basophils # (Auto) 0.0 x10^3/uL (0.0-0.2) Prothrombin Time 12.9 SEC (11.7-14.0) Prothromb Time International Ratio 1.0 (0.8-1.1) Activated Partial Thromboplast Time 24 SEC (24-38) Sodium Level 138 mmol/L (136-145) Potassium Level 4.4 mmol/L (3.5-5.1) Chloride Level 101 mmol/L (98-107) Carbon Dioxide Level 31 mmol/L (21-32) Anion Gap 6 (6-14) Blood Urea Nitrogen 23 mg/dL (8-26) Creatinine 1.0 mg/dL (0.7-1.3) Estimated GFR (Cockcroft-Gault) 77.6 BUN/Creatinine Ratio 23 (6-20) Glucose Level 96 mg/dL (70-99) Calcium Level 9.1 mg/dL (8.5-10.1) Magnesium Level 1.7 mg/dL (1.8-2.4) Total Bilirubin 0.3 mg/dL (0.2-1.0) Aspartate Amino Transf (AST/SGOT) 16 U/L (15-37) Alanine Aminotransferase (ALT/SGPT) 23 U/L (16-63) Alkaline Phosphatase 26 U/L (46-116) Creatine Kinase 174 U/L (39-308) Creatine Kinase MB (Mass) 1.3 ng/mL (0.0-3.6) Creatine Kinase MB Relative Index 0.7 % (0-4) Troponin I Quantitative < 0.017 ng/mL (0.000-0.055) Total Protein 7.3 g/dL (6.4-8.2) Albumin 4.1 g/dL (3.4-5.0) Albumin/Globulin Ratio 1.3 (1.0-1.7) Salicylates Level < 2.8 mg/dL (2.8-20.0) Salicylate Last Dose Date Unknown Salicylate Last Dose Time Unknown Acetaminophen Level < 2 mcg/ml (10-30) Acetaminophen Last Dose Date Unknown Acetaminophen Last Dose Time Unknown Ethyl Alcohol Level < 10 mg/dL (0-10) VTE Prophylaxis Ordered VTE Prophylaxis Devices: Yes VTE Pharmacological Prophylaxi: No Assessment/Plan Assessment/Plan Major depression suicidal intent, with plan, 1:1 obs, [facility] cannot take today, will transfer tomorrow Anxiety, Arthritis, Asthma, Depression, High Cholesterol, Hypertension, Mental Retardation, insomnia MARYANN GOOD MD Apr 20, 2019 16:07
[2019-04-20 18:19] VITALS: BP 126/64
[2019-04-20 19:00] VITALS: BP 101/44
[2019-04-20 23:00] VITALS: BP 115/60
[2019-04-21 03:00] VITALS: BP 110/67
[2019-04-21 07:00] VITALS: BP 128/60
--- NOTE | 2019-04-21 10:44 | PDOC3 ---
Discharge Summary Visit Information Date of Admission: Apr 20, 2019 Date of Discharge: Apr 21, 2019 Admitting Diagnosis Comment: Major depression suicidal intent, with plan, Final Diagnosis Problems Medical Problems: (1) Suicide ideation Status: Acute Brief Hospital Course Allergies Allergies Coded Allergies Type Severity Reaction Last Updated Verified Penicillins Allergy Intermediate 04/04/16 Yes Vital Signs Vital Signs Date Time Temp Pulse Resp B/P (MAP) Pulse Ox O2 Delivery O2 Flow Rate FiO2 04/21/19 08:00 Room Air 04/21/19 07:00 97.9 68 20 128/60 (82) 93 97.9 Lab Results Laboratory Tests Test 04/20/19 12:13 04/20/19 12:16 Urine Opiates Screen Neg (NEG) Urine Methadone Screen Neg (NEG) Urine Barbiturates Neg (NEG) Urine Phencyclidine Screen Neg (NEG) Urine Amphetamine/Methamphetamine Neg (NEG) Urine Benzodiazepines Screen Neg (NEG) Urine Cocaine Screen Neg (NEG) Urine Cannabinoids Screen Neg (NEG) Urine Ethyl Alcohol Neg (NEG) White Blood Count 4.0 x10^3/uL (4.0-11.0) Red Blood Count 3.94 x10^6/uL (4.30-5.70) Hemoglobin 11.5 g/dL (13.0-17.5) Hematocrit 33.7 % (39.0-53.0) Mean Corpuscular Volume 86 fL (79-100) Mean Corpuscular Hemoglobin 29 pg (25-35) Mean Corpuscular Hemoglobin Concent 34 g/dL (31-37) Red Cell Distribution Width 13.6 % (11.5-14.5) Platelet Count 185 x10^3/uL (140-400) Neutrophils (%) (Auto) 75 % (31-73) Lymphocytes (%) (Auto) 15 % (24-48) Monocytes (%) (Auto) 8 % (0-9) Eosinophils (%) (Auto) 2 % (0-3) Basophils (%) (Auto) 0 % (0-3) Neutrophils # (Auto) 3.0 x10^3/uL (1.8-7.7) Lymphocytes # (Auto) 0.6 x10^3/uL (1.0-4.8) Monocytes # (Auto) 0.3 x10^3/uL (0.0-1.1) Eosinophils # (Auto) 0.1 x10^3/uL (0.0-0.7) Basophils # (Auto) 0.0 x10^3/uL (0.0-0.2) Prothrombin Time 12.9 SEC (11.7-14.0) Prothromb Time International Ratio 1.0 (0.8-1.1) Activated Partial Thromboplast Time 24 SEC (24-38) Sodium Level 138 mmol/L (136-145) Potassium Level 4.4 mmol/L (3.5-5.1) Chloride Level 101 mmol/L (98-107) Carbon Dioxide Level 31 mmol/L (21-32) Anion Gap 6 (6-14) Blood Urea Nitrogen 23 mg/dL (8-26) Creatinine 1.0 mg/dL (0.7-1.3) Estimated GFR (Cockcroft-Gault) 77.6 BUN/Creatinine Ratio 23 (6-20) Glucose Level 96 mg/dL (70-99) Calcium Level 9.1 mg/dL (8.5-10.1) Magnesium Level 1.7 mg/dL (1.8-2.4) Total Bilirubin 0.3 mg/dL (0.2-1.0) Aspartate Amino Transf (AST/SGOT) 16 U/L (15-37) Alanine Aminotransferase (ALT/SGPT) 23 U/L (16-63) Alkaline Phosphatase 26 U/L (46-116) Creatine Kinase 174 U/L (39-308) Creatine Kinase MB (Mass) 1.3 ng/mL (0.0-3.6) Creatine Kinase MB Relative Index 0.7 % (0-4) Troponin I Quantitative < 0.017 ng/mL (0.000-0.055) Total Protein 7.3 g/dL (6.4-8.2) Albumin 4.1 g/dL (3.4-5.0) Albumin/Globulin Ratio 1.3 (1.0-1.7) Salicylates Level < 2.8 mg/dL (2.8-20.0) Salicylate Last Dose Date Unknown Salicylate Last Dose Time Unknown Acetaminophen Level < 2 mcg/ml (10-30) Acetaminophen Last Dose Date Unknown Acetaminophen Last Dose Time Unknown Ethyl Alcohol Level < 10 mg/dL (0-10) Laboratory Tests Test 04/20/19 12:13 04/20/19 12:16 Urine Opiates Screen Neg (NEG) Urine Methadone Screen Neg (NEG) Urine Barbiturates Neg (NEG) Urine Phencyclidine Screen Neg (NEG) Urine Amphetamine/Methamphetamine Neg (NEG) Urine Benzodiazepines Screen Neg (NEG) Urine Cocaine Screen Neg (NEG) Urine Cannabinoids Screen Neg (NEG) Urine Ethyl Alcohol Neg (NEG) White Blood Count 4.0 x10^3/uL (4.0-11.0) Red Blood Count 3.94 x10^6/uL (4.30-5.70) Hemoglobin 11.5 g/dL (13.0-17.5) Hematocrit 33.7 % (39.0-53.0) Mean Corpuscular Volume 86 fL (79-100) Mean Corpuscular Hemoglobin 29 pg (25-35) Mean Corpuscular Hemoglobin Concent 34 g/dL (31-37) Red Cell Distribution Width 13.6 % (11.5-14.5) Platelet Count 185 x10^3/uL (140-400) Neutrophils (%) (Auto) 75 % (31-73) Lymphocytes (%) (Auto) 15 % (24-48) Monocytes (%) (Auto) 8 % (0-9) Eosinophils (%) (Auto) 2 % (0-3) Basophils (%) (Auto) 0 % (0-3) Neutrophils # (Auto) 3.0 x10^3/uL (1.8-7.7) Lymphocytes # (Auto) 0.6 x10^3/uL (1.0-4.8) Monocytes # (Auto) 0.3 x10^3/uL (0.0-1.1) Eosinophils # (Auto) 0.1 x10^3/uL (0.0-0.7) Basophils # (Auto) 0.0 x10^3/uL (0.0-0.2) Prothrombin Time 12.9 SEC (11.7-14.0) Prothromb Time International Ratio 1.0 (0.8-1.1) Activated Partial Thromboplast Time 24 SEC (24-38) Sodium Level 138 mmol/L (136-145) Potassium Level 4.4 mmol/L (3.5-5.1) Chloride Level 101 mmol/L (98-107) Carbon Dioxide Level 31 mmol/L (21-32) Anion Gap 6 (6-14) Blood Urea Nitrogen 23 mg/dL (8-26) Creatinine 1.0 mg/dL (0.7-1.3) Estimated GFR (Cockcroft-Gault) 77.6 BUN/Creatinine Ratio 23 (6-20) Glucose Level 96 mg/dL (70-99) Calcium Level 9.1 mg/dL (8.5-10.1) Magnesium Level 1.7 mg/dL (1.8-2.4) Total Bilirubin 0.3 mg/dL (0.2-1.0) Aspartate Amino Transf (AST/SGOT) 16 U/L (15-37) Alanine Aminotransferase (ALT/SGPT) 23 U/L (16-63) Alkaline Phosphatase 26 U/L (46-116) Creatine Kinase 174 U/L (39-308) Creatine Kinase MB (Mass) 1.3 ng/mL (0.0-3.6) Creatine Kinase MB Relative Index 0.7 % (0-4) Troponin I Quantitative < 0.017 ng/mL (0.000-0.055) Total Protein 7.3 g/dL (6.4-8.2) Albumin 4.1 g/dL (3.4-5.0) Albumin/Globulin Ratio 1.3 (1.0-1.7) Salicylates Level < 2.8 mg/dL (2.8-20.0) Salicylate Last Dose Date Unknown Salicylate Last Dose Time Unknown Acetaminophen Level < 2 mcg/ml (10-30) Acetaminophen Last Dose Date Unknown Acetaminophen Last Dose Time Unknown Ethyl Alcohol Level < 10 mg/dL (0-10) Brief Hospital Course Mr. 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 Course: Qualifies for in pt psych and will go to [facility] today Discharge Information Condition at Discharge: Stable Disposition/Orders: Other (PSych in pt) Scheduled Albuterol Sulfate (Proair Hfa Inhaler) 8.5 Gm Hfa.aer.ad, 2 PUFF IH PRN Q4-6HRS, #1 (Reported) Entered as Reported by: JENNY GLOVER on 07/26/15 1606 Budesonide/Formoterol Fumarate (Symbicort 160-4.5 Mcg Inhaler) 10.2 Gm Hfa.aer.ad, 1 PUFF IH BID, (Reported) Entered as Reported by: NADIA BENITEZ on 04/04/16 1806 Citalopram Hydrobromide (Citalopram Hbr) 40 Mg Tablet, 1 TAB PO DAILY, #90 Ref 1 (Reported) Entered as Reported by: JENNY GLOVER on 07/26/15 1606 Fenofibrate Nanocrystallized (Fenofibrate) 145 Mg Tablet, 1 TAB PO DAILY, #30 Ref 5 (Reported) Entered as Reported by: JENNY GLOVER on 07/26/15 1606 Lisinopril/Hydrochlorothiazide (Lisinopril-Hctz 20-12.5 Mg Tab) 1 Each Tablet, 1 TAB PO DAILY, #30 Ref 5 (Reported) Entered as Reported by: JENNY GLOVER on 07/26/15 1545 Metoprolol Succinate (Metoprolol Succinate ( Xl )) 25 Mg Tab.er.24h, 1 TAB PO DAILY, #30 Ref 5 (Reported) Entered as Reported by: JENNY GLOVER on 07/26/15 1606 Omeprazole (Omeprazole) 40 Mg Capsule.dr, 1 CAP PO DAILY for 30 Days, Ref 30 Prescribed by: FORREST GARCIA on 04/05/16 1453 Temazepam (Temazepam) 30 Mg Capsule, 1 CAP PO QHS, #30 Ref 1 (Reported) Entered as Reported by: JENNY GLOVER on 07/26/15 1606 Scheduled PRN Cyclobenzaprine Hcl (Cyclobenzaprine Hcl) 10 Mg Tablet, 1 TAB PO TID PRN for MUSCLE PAIN, #30 Prescribed by: HERBERT GÓMEZ APRN on 12/14/18 1306 Diclofenac Sodium (Diclofenac Sodium) 50 Mg Tablet.dr, 1 TAB PO BID PRN for PAIN, #20 Prescribed by: SEPIDEH AGUILERA D.O. on 07/26/18 0944 Prednisone (Prednisone) 20 Mg Tablet, 3 TAB PO DAILY PRN for COUGH, #14 Prescribed by: SHERIF JANG D.O. on 08/11/18 1434 Discontinued Medications Cyclobenzaprine Hcl (Cyclobenzaprine Hcl) 5 Mg Tablet, 5 MG PO PRN TID PRN for MUSCLE SPASMS, #15 Prescribed by: SEPIDEH AGUILERA D.O. on 07/26/18 0944 BYRON DE LUNA MD Apr 21, 2019 10:44
[2019-04-21 11:00] VITALS: BP 144/77
--- NOTE | 2019-04-21 11:09 | NUR ---
SW following for discharge planning. Chart reviewed, discussed with RN. Pt screened for [facility] (where he recently discharged from on 03/20). SW contacted [facility], they are waiting for some discharges and will likely have a bed this afternoon. The warehouse processor will contact [facility] when a bed becomes available. RN to RN number is [phone]. SW awaiting confirmation in order to set up transport. RN notified.
[2019-04-21 15:00] VITALS: BP 132/73
--- NOTE | 2019-04-21 17:09 | NUR ---
Discharge Note: PT DISCHARGED TO [facility]. PT LEFT FACILITY VIA EMS TRANSPORT AT 1645. PT STABLE AND ALERT UPON DISCHARGE. PT HAD NO IV ACCESS UPON ADMISSION. PT LEFT WITH ALL PERSONAL BELONGINGS. REPORT CALLED TO FACILITY AT 1615, DISCHARGE INSTRUCTIONS, AND FOLLOW-UP INSTRUCTIONS GIVEN TO FACILITY. NO CONCERNS VOICED AT THIS TIME. LIZA WILSON Discharge instructions and discharge home medications reviewed with Patient and a copy given. All questions have been answered and understanding verbalized.
== END 2019-04-21 17:12 | DRG 881 ==
LOC: ER 11:46 → ED HOLD 17:06 → 5 SOUTH 17:33
PROVIDERS: ADMIT Internal Medicine; ATTEND Internal Medicine
DX: F32.9 Major depressive disorder, single episode, unspecified (principal); R45.851 Suicidal ideations; F41.9 Anxiety disorder, unspecified; J45.909 Unspecified asthma, uncomplicated; I10 Essential (primary) hypertension; G47.00 Insomnia, unspecified; E78.00 Pure hypercholesterolemia, unspecified; M19.90 Unspecified osteoarthritis, unspecified site; F79 Unspecified intellectual disabilities; Z88.8 Allergy status to other drugs, medicaments and biological substances; Z82.49 Family history of ischemic heart disease and other diseases of the circulatory system; Z79.899 Other long term (current) drug therapy; Z81.8 Family history of other mental and behavioral disorders; Z79.51 Long term (current) use of inhaled steroids
CPT/HCPCS: 36415; 71046; 80053; 80307; 80329; 82553; 83735; 84484; 85025; 85610; 85730; 93005; G0480; 99285-25; G0378

== ENCOUNTER 2019-06-28 10:26 | Emergency (ER) | payer OTHER, MEDICAID ==
[~2019-06-28] VITALS: Ht 180.3 cm; Wt 156.5 kg
[~2019-06-28 10:26] MED LIST changes: +FENO145T3 PO; -FENO145T30 PO
[2019-06-28] MEDS ORDERED: ALBUTEROL SULFATE 2.5 MG/3 ML NEBU. CONT NEB ONE (10:30)
[2019-06-28] MEDS ORDERED: LORazepam 0.5 MG TABLET PO ONE (10:30)
--- NOTE | 2019-06-28 10:34 | PHYS DOC ---
Past Medical History Past Medical History: Anxiety, Arthritis, Asthma, Depression, High Cholesterol, Hypertension, Other Additional Past Medical Histor: INSOMNIA, Mental Retardation Past Surgical History: Tonsillectomy Additional Past Surgical Histo: INGROWN TOE NAIL REMOVED Alcohol Use: None Drug Use: None Adult General HPI HPI Patient is a 54 year old M P/W BIBA WITH CC OF SOB SWEATING PT HAS BEEN COUGHING YELLOW SPUTUM THE PAST FEW DAYS. HE HAS ASTHMA BUT FORGOT TO USE HIS INHALER HAD CHEST PAIN LAST WEEK BUT IT RESOLVED. 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 Review of Systems Review of Systems Cardiovascular: No additional information not addressed in HPI [] GI: Denies abdominal pain, nausea, vomiting, bloody stools or diarrhea [] : Denies dysuria or hematuria [] Musculoskeletal: Denies back pain or joint pain [] Integument: Denies rash or skin lesions [] Neurologic: Denies headache, focal weakness or sensory changes [] Endocrine: Denies polyuria or polydipsia [] All other systems were reviewed and found to be within normal limits, except as documented in this note. Current Medications Current Medications Current Medications Medications (Trade) Dose Ordered Sig/Fredy Start Time Stop Time Status Last Admin Dose Admin Albuterol Sulfate (Ventolin Neb Soln) 10 mg 1X ONCE 06/28/19 10:30 06/28/19 10:32 DC 06/28/19 10:44 10 MG Lorazepam (Ativan) 0.5 mg 1X ONCE 06/28/19 10:30 06/28/19 10:32 DC 06/28/19 11:02 0.5 MG Allergies Allergies Allergies Coded Allergies Type Severity Reaction Last Updated Verified Penicillins Allergy Intermediate 04/04/16 Yes Physical Exam Physical Exam Constitutional: Well developed, well nourished, no acute distress, non-toxic appearance. [] HENT: Normocephalic, atraumatic, bilateral external ears normal, oropharynx moist, no oral exudates, nose normal. [] Eyes: PERRLA, EOMI, conjunctiva normal, no discharge. [] Neck: Normal range of motion, no tenderness, supple, no stridor. [] Cardiovascular:Heart rate regular rhythm, no murmur [] Lungs & Thorax: WHEEZING DIFFUSE BU T SPEAKING FULL SENTENCES Abdomen: Bowel sounds normal, soft, no tenderness, no masses, no pulsatile masses. [] Skin: Warm, dry, no erythema, no rash. [] Back: No tenderness, no CVA tenderness. [] Extremities: No tenderness, no cyanosis, no clubbing, ROM intact, no edema. [] Neurologic: Alert and RESPONSIVE normal motor function, normal sensory function, no focal deficits noted. [] Psychologic: Affect normal, judgement normal, mood normal. [] Current Patient Data Vital Signs Vital Signs Date Time Temp Pulse Resp B/P (MAP) Pulse Ox O2 Delivery O2 Flow Rate FiO2 06/28/19 13:01 74 20 99/50 (66) 94 Room Air 06/28/19 10:29 97.6 97.6 Lab Values Laboratory Tests Test 06/28/19 10:48 06/28/19 10:53 Influenza Type A Antigen Negative (NEGATIVE) Influenza Type B Antigen Negative (NEGATIVE) White Blood Count 3.7 x10^3/uL (4.0-11.0) L Red Blood Count 3.86 x10^6/uL (4.30-5.70) L Hemoglobin 11.1 g/dL (13.0-17.5) L Hematocrit 33.1 % (39.0-53.0) L Mean Corpuscular Volume 86 fL (79-100) Mean Corpuscular Hemoglobin 29 pg (25-35) Mean Corpuscular Hemoglobin Concent 34 g/dL (31-37) Red Cell Distribution Width 14.1 % (11.5-14.5) Platelet Count 155 x10^3/uL (140-400) Neutrophils (%) (Auto) 74 % (31-73) H Lymphocytes (%) (Auto) 16 % (24-48) L Monocytes (%) (Auto) 9 % (0-9) Eosinophils (%) (Auto) 2 % (0-3) Basophils (%) (Auto) 0 % (0-3) Neutrophils # (Auto) 2.7 x10^3/uL (1.8-7.7) Lymphocytes # (Auto) 0.6 x10^3/uL (1.0-4.8) L Monocytes # (Auto) 0.3 x10^3/uL (0.0-1.1) Eosinophils # (Auto) 0.1 x10^3/uL (0.0-0.7) Basophils # (Auto) 0.0 x10^3/uL (0.0-0.2) Sodium Level 137 mmol/L (136-145) Potassium Level 4.3 mmol/L (3.5-5.1) Chloride Level 99 mmol/L (98-107) Carbon Dioxide Level 30 mmol/L (21-32) Anion Gap 8 (6-14) Blood Urea Nitrogen 23 mg/dL (8-26) Creatinine 1.3 mg/dL (0.7-1.3) Estimated GFR (Cockcroft-Gault) 57.3 BUN/Creatinine Ratio 18 (6-20) Glucose Level 103 mg/dL (70-99) H Calcium Level 9.1 mg/dL (8.5-10.1) Total Bilirubin 0.2 mg/dL (0.2-1.0) Aspartate Amino Transferase (AST) 17 U/L (15-37) Alanine Aminotransferase (ALT) 25 U/L (16-63) Alkaline Phosphatase 35 U/L (46-116) L Troponin I Quantitative < 0.017 ng/mL (0.000-0.055) AF-Ikv-Z-Type Natriuretic Peptide 66 pg/mL (0-124) Total Protein 6.8 g/dL (6.4-8.2) Albumin 4.0 g/dL (3.4-5.0) Albumin/Globulin Ratio 1.4 (1.0-1.7) Laboratory Tests 06/28/19 10:53 Laboratory Tests 06/28/19 10:53 EKG EKG []Normal sinus rhythm rate of 76 nonspecific changes anteriorly no STEMI QTC 418 interpreted by me time of encounter Radiology/Procedures Radiology/Procedures [] Impressions: Mild cardiomegaly is unchanged. The great vessels appear unremarkable. There is no hilar or mediastinal mass. The lungs are clear. There is no pleural effusion or pneumothorax. There are no significant osseous abnormalities. IMPRESSION: No active cardiopulmonary disease. Electronically signed by: Michael Roca MD (06/28/2019 11:11 AM) [facility] Course & Med Decision Making Course & Med Decision Making Pertinent Labs and Imaging studies reviewed. 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 He says he's done fine with prednisone before noted the psychiatric history in the past but patient says that that and findings so we will give prednisone continue albuterol no need for antibiotics at this time. Dragon Disclaimer Dragon Disclaimer This electronic medical record was generated, in whole or in part, using a voice recognition dictation system. Departure Departure Impression: Primary Impression: Asthma exacerbation Disposition: HOME, SELF-CARE Condition: STABLE Referrals: Sydney SUTHERLAND MD (PCP) Scripts Prednisone (PREDNISONE) 50 Mg Tablet 1 TAB PO DAILY, #5 TAB Prov: WELLINGTON CASTELLANOS MD 06/28/19 WELLINGTON CASTELLANOS MD Jun 28, 2019 10:34
--- NOTE | 2019-06-28 11:14 | RAD ---
EXAM: PORTABLE CHEST 1V INDICATION: Shortness of breath. TECHNIQUE: Single AP view COMPARISON: 04/20/2019 FINDINGS: Mild cardiomegaly is unchanged. The great vessels appear unremarkable. There is no hilar or mediastinal mass. The lungs are clear. There is no pleural effusion or pneumothorax. There are no significant osseous abnormalities. IMPRESSION: No active cardiopulmonary disease. Electronically signed by: Michael Roca MD (06/28/2019 11:11 AM) [facility]
[2019-06-28 11:16] LABS: INFLUENZA A PATIENT NEGATIVE (NEGATIVE); INFLUENZA B PATIENT NEGATIVE (NEGATIVE)
[2019-06-28 11:17] LABS: BASO % 0 % (0-3); EOS # 0.1 x10^3/uL (0.0-0.7); EOS % 2 % (0-3); HEMATOCRIT 33.1 % (39.0-53.0); HEMOGLOBIN 11.1 g/dL (13.0-17.5); LYMPH # 0.6 x10^3/uL (1.0-4.8); LYMPH % 16 % (24-48); MEAN CORPUSCULAR HEMOGLOBIN 29 pg (25-35); MEAN CORPUSCULAR HGB CONC 34 g/dL (31-37); MEAN CORPUSCULAR VOLUME 86 fL (79-100); MONO # 0.3 x10^3/uL (0.0-1.1); MONO % 9 % (0-9); NEUT # 2.7 x10^3/uL (1.8-7.7); NEUT % 74 % (31-73); PLATELET COUNT 155 x10^3/uL (140-400); RED BLOOD COUNT 3.86 x10^6/uL (4.30-5.70); RED CELL DISTRIBUTION WIDTH 14.1 % (11.5-14.5); WHITE BLOOD COUNT 3.7 x10^3/uL (4.0-11.0)
[2019-06-28 11:31] LABS: CALCIUM 9.1 mg/dL (8.5-10.1); CREATININE 1.3 mg/dL (0.7-1.3); GFR 57.3; POTASSIUM 4.3 mmol/L (3.5-5.1)
[2019-06-28 11:37] LABS: ALBUMIN/GLOBULIN RATIO 1.4 (1.0-1.7); TOTAL BILIRUBIN 0.2 mg/dL (0.2-1.0); TOTAL PROTEIN 6.8 g/dL (6.4-8.2)
[2019-06-28] MEDS ORDERED: PRED50TA PO (12:10)
--- NOTE | 2019-06-28 12:10 | EKG ---
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
[2019-06-28 13:01] VITALS: BP 99/50
== END 2019-06-28 13:15 | disposition home or self-care (01) ==
LOC: ER 10:26
DX: J45.901 Unspecified asthma with (acute) exacerbation (principal); E78.00 Pure hypercholesterolemia, unspecified; I10 Essential (primary) hypertension; Z88.0 Allergy status to penicillin
CPT/HCPCS: 36415; 71045; 80053; 83880; 84484; 85025; 87804; 93005; 94640; 99285; J7613

== ENCOUNTER 2019-11-07 06:45 | Inpatient (IN) | payer OTHER, MEDICAID ==
[~2019-11-07] VITALS: Ht 180.3 cm; Wt 164.9 kg
[~2019-11-07 06:45] MED LIST changes: +CEFD300C PO; +CRESTOR40 MG PO; +DOXE10CA PO; +MELO15TA23 PO; +MONT10TA49 PO; +PRED50TA PO; +TAMS0.4C97 PO
[2019-11-07 07:14] LABS: BASO % 1 % (0-3); EOS # 0.1 x10^3/uL (0.0-0.7); EOS % 2 % (0-3); HEMATOCRIT 36.2 % (39.0-53.0); LYMPH # 1.1 x10^3/uL (1.0-4.8); LYMPH % 29 % (24-48); MEAN CORPUSCULAR HEMOGLOBIN 29 pg (25-35); MEAN CORPUSCULAR HGB CONC 33 g/dL (31-37); MEAN CORPUSCULAR VOLUME 86 fL (79-100); MONO # 0.3 x10^3/uL (0.0-1.1); MONO % 8 % (0-9); NEUT # 2.2 x10^3/uL (1.8-7.7); NEUT % 60 % (31-73); PLATELET COUNT 129 x10^3/uL (140-400); RED BLOOD COUNT 4.22 x10^6/uL (4.30-5.70); RED CELL DISTRIBUTION WIDTH 14.2 % (11.5-14.5); WHITE BLOOD COUNT 3.7 x10^3/uL (4.0-11.0)
[2019-11-07 07:24] LABS: CALCIUM 8.4 mg/dL (8.5-10.1); CREATININE 1.1 mg/dL (0.7-1.3); GFR 69.5; POTASSIUM 3.9 mmol/L (3.5-5.1)
[2019-11-07 07:28] LABS: ALBUMIN 3.9 g/dL (3.4-5.0); ALBUMIN/GLOBULIN RATIO 1.4 (1.0-1.7); MAGNESIUM 1.5 mg/dL (1.8-2.4); TOTAL BILIRUBIN 0.2 mg/dL (0.2-1.0); TOTAL PROTEIN 6.6 g/dL (6.4-8.2)
[2019-11-07] MEDS ORDERED: methylPREDNISolone SOD SUCC PF 125 MG/2 ML VIAL. IV ONE (07:30)
--- NOTE | 2019-11-07 07:30 | PHYS DOC ---
Past Medical History Past Medical History: Anxiety, Arthritis, Asthma, Depression, High Cholesterol, Hypertension, Other Additional Past Medical Histor: INSOMNIA, Mental Retardation Past Surgical History: Tonsillectomy, Other Additional Past Surgical Histo: INGROWN TOE NAIL REMOVED Smoking Status: Former Smoker Alcohol Use: None Drug Use: None General Adult EDM: Chief Complaint: SHORTNESS OF BREATH HPI: HPI: Patient is a 54 year old male who presents to ER by EMS with trouble breathing since 2 AM this morning. Patient has history of asthma, he felt lightheaded on asthmatic attack. EMS gave him DuoNeb treatment multiple times and 0.3 mg of epi on route here. Patient still has trouble breathing. Patient works at [employer]. Patient denies any fever. Patient is not sure if he been exposed to anybody with COVID-19. Patient denies any chest pain, no fever, no productive cough. Patient denies any chest pain. Review of Systems: Review of Systems: Constitutional: Denies fever or chills. [] Eyes: Denies change in visual acuity. [] HENT: Denies nasal congestion or sore throat. [] Respiratory: Denies cough , positive for shortness of breath. [] Cardiovascular: Denies chest pain or edema. [] GI: Denies abdominal pain, nausea, vomiting, bloody stools or diarrhea. [] : Denies dysuria. [] Musculoskeletal: Denies back pain or joint pain. [] Integument: Denies rash. [] Neurologic: Denies headache, focal weakness or sensory changes. [] Endocrine: Denies polyuria or polydipsia. [] Lymphatic: Denies swollen glands. [] Psychiatric: Denies depression or anxiety. [] Heart Score: Risk Factors: Risk Factors: DM, Current or recent (<one month) smoker, HTN, HLP, family history of CAD, obesity. Risk Scores: Score 0 - 3: 2.5% MACE over next 6 weeks - Discharge Home Score 4 - 6: 20.3% MACE over next 6 weeks - Admit for Clinical Observation Score 7 - 10: 72.7% MACE over next 6 weeks - Early Invasive Strategies Current Medications: Current Medications Medications (Trade) Dose Ordered Sig/Fredy Start Time Stop Time Status Last Admin Dose Admin Methylprednisolone Sodium Succinate (SOLU-Medrol 125MG VIAL) 125 mg 1X ONCE 11/07/19 07:30 11/07/19 07:31 UNV Allergies: Allergies: Allergies Coded Allergies Type Severity Reaction Last Updated Verified Penicillins Allergy Intermediate 04/04/16 Yes Physical Exam: PE: Constitutional: Well developed, well nourished, Mild acute distress, non-toxic appearance. [] HENT: Normocephalic, atraumatic, bilateral external ears normal, oropharynx moist, no oral exudates, nose normal. [] Eyes: PERRLA, EOMI, conjunctiva normal, no discharge. [] Neck: Normal range of motion, no tenderness, supple, no stridor. [] Cardiovascular:Heart rate regular rhythm, no murmur [] Lungs & Thorax: Bilateral breath sounds with expiratory wheezing, very tight to auscultation [] Abdomen: Bowel sounds normal, soft, no tenderness, no masses, no pulsatile masses. [] Skin: Warm, dry, no erythema, no rash. [] Back: No tenderness, no CVA tenderness. [] Extremities: No tenderness, no cyanosis, no clubbing, ROM intact, no edema. [] Neurologic: Alert and oriented X 3, normal motor function, normal sensory function, no focal deficits noted. [] Psychologic: Affect normal, judgement normal, mood normal. [] Current Patient Data: Labs: Laboratory Tests Test 11/07/19 07:00 Sodium Level 138 mmol/L (136-145) Potassium Level 3.9 mmol/L (3.5-5.1) Chloride Level 102 mmol/L (98-107) Carbon Dioxide Level 26 mmol/L (21-32) Anion Gap 10 (6-14) Blood Urea Nitrogen 15 mg/dL (8-26) Creatinine 1.1 mg/dL (0.7-1.3) Estimated GFR (Cockcroft-Gault) 69.5 BUN/Creatinine Ratio 14 (6-20) Glucose Level 217 mg/dL (70-99) H Calcium Level 8.4 mg/dL (8.5-10.1) L Magnesium Level Pending Total Bilirubin Pending Aspartate Amino Transferase (AST) Pending Alanine Aminotransferase (ALT) Pending Alkaline Phosphatase Pending Total Protein Pending Albumin Pending Albumin/Globulin Ratio Pending Laboratory Tests 11/07/19 07:00 Vital Signs: Vital Signs Date Time Temp Pulse Resp B/P (MAP) Pulse Ox O2 Delivery O2 Flow Rate FiO2 11/07/19 07:00 99.6 97 24 188/84 (118) 99 Nasal Cannula 6.0 99.6 EKG: EKG: EKG was done at 710, heart rate of 100 bpm, sinus rhythm, no ST segment elevation. EKG was read by the physician. Radiology/Procedures: Radiology/Procedures: [][facility] [address] [place] [address] IMAGING REPORT Signed PATIENT: LIZA WILSON ACCOUNT: [id number] : 1965 LOCATION: ER AGE: 54 SEX: M EXAM STATUS: REG ER ORD. PHYSICIAN: MONIKA LUI DO REASON: soa PROCEDURE: CHEST AP ONLY INDICATION: Shortness of air COMPARISON: August 17, 2019 FINDINGS: Single view of chest obtained. Enlarged cardiomediastinal silhouette is again seen. Hypoexpanded exam without a definite new region of focal consolidation or pulmonary edema. IMPRESSION: * Hypoexpanded exam without a definite new region of consolidation or edema. Electronically signed by: Jamie Sewell MD (11/07/2019 7:56 AM) [id number] DICTATED and SIGNED BY: JAMIE SEWELL MD DATE: 11/07/19 0756 Course & Med Decision Making: Course & Med Decision Making Pertinent Labs and Imaging studies reviewed. (See chart for details) Patient is a 54-year-old male who was brought here by EMS due to trouble breathing, he said he has history of asthma, he feels like this is his asthmatic exacerbation. Patient was given medication by EMS, he feels better better but not enough to go home yet. Patient will be admitted for further evaluation and treatment. Dragon Disclaimer: Dragon Disclaimer: This electronic medical record was generated, in whole or in part, using a voice recognition dictation system. Departure Departure Impression: Primary Impression: Asthma exacerbation Disposition: ADMITTED INPATIENT Admitting Physician: ANGELLA (Dr. Garber) Condition: STABLE Referrals: Sydney SUTHERLAND MD (PCP) MONIKA LUI DO November 07, 2019 07:30
--- NOTE | 2019-11-07 07:59 | RAD ---
INDICATION: Shortness of air COMPARISON: August 17, 2019 FINDINGS: Single view of chest obtained. Enlarged cardiomediastinal silhouette is again seen. Hypoexpanded exam without a definite new region of focal consolidation or pulmonary edema. IMPRESSION: * Hypoexpanded exam without a definite new region of consolidation or edema. Electronically signed by: Ab Lemos MD (11/07/2019 7:56 AM) [id number]
[2019-11-07] MEDS ORDERED: MAGNESIUM SULFATE 2GM 50 ML IV ONE ×2 (08:45→15:45)
--- NOTE | 2019-11-07 11:11 | PDOC1 ---
History and Physical Date of Admission Date of Admission DATE: 11/07/19 TIME: 11:02 Identification/Chief Complaint Chief Complaint Shortness of breath Source Source: Patient History of Present Illness History of Present Illness Mr Sibley is a 54yo M w/ PMHx Anxiety, Arthritis, Depression, High Cholesterol, Hypertension, cognitive impairment, asthma come to ED with complaint of shortness of breath. Trouble breathing since 2 AM this morning. Patient has history of asthma, he felt lightheaded on asthmatic attack. EMS gave him DuoNeb treatment multiple times and 0.3 mg of epi on route here. Patient still has trouble breathing. 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 Productive cough in the last 1-2 weeks ranging from white to yellow sputum with some nasal congestion as well. He has been coughing a lot and also feeling of chills but no fevers. 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 No palpitations or dizziness. Some pain on deep inspiration and cough. No hx of CAD, VTE. EKG - NSR. CXR hypoexpanded. Labs significant for WBC 3.7, Hb 12, platelets 129, NA 138, K3.9, BUN 15, CR 1.1, glucose 217, mag 1.5, troponin 0, BNP negative. His symptoms improved after epinephrine nebulizers in route and 125 mg of Solu-Medrol in ED. Due to his community contacts at [employer] he was tested for COVID 19 and admitted for further care. Past Medical History Cardiovascular: HTN, Hyperlipidemia Pulmonary: Asthma CENTRAL NERVOUS SYSTEM: Other GI: GERD Heme/Onc: No pertinent hx Musculoskeletal: Osteoarthritis Rheumatologic: No pertinent hx Infectious disease: No pertinent hx Renal/: No pertinent hx Endocrine: No pertinent hx Past Surgical History Past Surgical History: Other Family History Family History: Coronary Artery Disease Social History Smoke: Quit ALCOHOL: none Drugs: None Current Problem List Problem List Problems Medical Problems: (1) Asthma exacerbation Status: Acute Current Medications Current Medications Current Medications Methylprednisolone Sodium Succinate (SOLU-Medrol 125MG VIAL) 125 mg 1X ONCE IV Last administered on 11/07/19at 08:36; Start 11/07/19 at 07:30; Stop 11/07/19 at 07:31; Status DC Magnesium Sulfate 50 ml @ 25 mls/hr 1X ONCE IV Last administered on 5/25/20at 08:53; Start 11/07/19 at 08:45; Stop 11/07/19 at 10:44; Status DC Active Scripts Active Cefdinir 300 Mg Capsule 1 Cap PO BID 7 Days Prednisone 20 Mg Tablet 20 Mg PO DAILY 5 Days Omeprazole 40 Mg Capsule.dr 1 Cap PO DAILY 30 Days Reported Crestor (Rosuvastatin Calcium) 40 Mg Tablet 20 Mg PO HS Doxepin Hcl 10 Mg Capsule 1 Cap PO QHS Montelukast Sodium Tablet (Montelukast Sodium) 10 Mg Tablet 10 Mg PO DAILY Flomax (Tamsulosin Hcl) 0.4 Mg Cap.er.24h 1 Cap PO DAILY Meloxicam 15 Mg Tablet 1 Tab PO DAILY 30 Days Symbicort 160-4.5 Mcg Inhaler (Budesonide/Formoterol Fumarate) 10.2 Gm Hfa.aer.ad 1 Puff IH BID Metoprolol Succinate ( Xl ) (Metoprolol Succinate) 25 Mg Tab.er.24h 1 Tab PO DAILY Proair Hfa Inhaler (Albuterol Sulfate) 8.5 Gm Hfa.aer.ad 2 Puff IH PRN Q4-6HRS Citalopram Hbr (Citalopram Hydrobromide) 40 Mg Tablet 1 Tab PO DAILY Fenofibrate (Fenofibrate Nanocrystallized) 145 Mg Tablet 1 Tab PO DAILY Lisinopril-Hctz 20-12.5 Mg Tab (Lisinopril/Hydrochlorothiazide) 1 Each Tablet 1 Tab PO DAILY Allergies Allergies: Coded Allergies: Penicillins (Verified Allergy, Intermediate, 04/04/16) ROS General: YES: Fatigue, Malaise; No: Chills, Night Sweats, Appetite, Other PSYCHOLOGICAL ROS: YES: Anxiety; No: Behavioral Disorder, Concentration difficultie, Decreased libido, Depression, Disorientation, Hallucinations, Hostility, Irritablity, Memory difficulties, Mood Swings, Obsessive thoughts, Physical abuse, Sexual abuse, Sleep disturbances, Suicidal ideation, Other Eyes: No Blurry vision, No Decreased vision, No Double vision, No Dry eyes, No Excessive tearing, No Eye Pain, No Itchy Eyes, No Loss of vision, No Photophobia, No Scotomata, No Uses contacts, No Uses glasses, No Other HEENT: No: Heacaches, Visual Changes, Hearing change, Nasal congestion, Nasal discharge, Oral lesions, Sinus pain, Sore Throat, Epistaxis, Sneezing, Snoring, Tinnitus, Vertigo, Vocal changes, Other ALLERGY AND IMMUNOLOGY: No: Hives, Insect Bite Sensitivity, Itchy/Watery Eyes, Nasal Congestion, Post Nasal Drip, Seasonal Allergies, Other Hematological and Lymphatic: No: Bleeding Problems, Blood Clots, Blood Transfusions, Brusing, Night Sweats, Pallor, Swollen Lymph Nodes, Other ENDOCRINE: No: Breast Changes, Galactorrhea, Hair Pattern Changes, Hot Flashes, Malaise/lethargy, Mood Swings, Palpitations, Polydipsia/polyuria, Skin Changes, Temperature Intolerance, Unexpected Weight Changes, Other Breast: No New/Changing Breast Lumps, No Nipple changes, No Nipple discharge, No Other Respiratory: YES: Cough, Shortness of breath, SOB with excertion, Tachypnea, Wheezing; No: Hemoptysis, Orthopnea, Pleuritic Pain, Sputum Changes, Stridor, Other Cardiovascular: No Chest Pain, No Palpitations, No Orthopnea, No Paroxysmal N oc. Dyspnea, No Edema, No Lt Headedness, No Other Gastrointestinal: No Nausea, No Vomiting, No Abdominal Pain, No Diarrhea, No Constipation, No Melena, No Hematochezia, No Other Genitourinary: No Dysuria, No Frequency, No Incontinence, No Hematuria, No Retention, No Discharge, No Urgency, No Pain, No Flank Pain, No Other, No , No , No , No , No , No , No Musculoskeletal: No Gait Disturbance, No Joint Pain, No Joint Stiffness, No Joint Swelling, No Muscle Pain, No Muscular Weakness, No Pain In:, No Swelling In:, No Other Neurological: No Behavorial Changes, No Bowel/Bladder ControlChng, No Confusion, No Dizziness, No Gait Disturbance, No Headaches, No Impaired Coord/balance, No Memory Loss, No Numbness/Tingling, No Seizures, No Speech Problems, No Tremors, No Visual Changes, No Weakness, No Other Skin: No Dry Skin, No Eczema, No Hair Changes, No Lumps, No Mole Changes, No Mottling, No Nail Changes, No Pruritus, No Rash, No Skin Lesion Changes, No Other, No Acne Physical Exam General: Alert, Oriented X3, Cooperative, moderate distress HEENT: Atraumatic, PERRLA, EOMI, Mucous membr. moist/pink Lungs: Other (Diffuse wheezing) Heart: S1S2, RRR, no thrills, no rubs, no gallops, no murmurs Abdomen: Normal bowel sounds, Soft, No tenderness, No hepatosplenomegaly, No masses Rectal Exam: not examined Extremities: No clubbing, No cyanosis, No edema, Normal pulses, No tendernes s/swelling Skin: No rashes, No breakdown, No significant lesion Neuro: Normal gait, Normal speech, Strength at 5/5 X4 ext, Normal tone, Sensation intact, Cranial nerves 3-12 NL, Reflexes 2+ Psych/Mental Status: Mental status NL, Mood NL Vitals Vitals Vital Signs Date Time Temp Pulse Resp B/P (MAP) Pulse Ox O2 Delivery O2 Flow Rate FiO2 11/07/19 08:23 84 179/72 (107) 99 Nasal Cannula 6.0 11/07/19 07:00 99.6 24 99.6 Labs Labs Laboratory Tests Test 11/07/19 07:00 White Blood Count 3.7 x10^3/uL (4.0-11.0) Red Blood Count 4.22 x10^6/uL (4.30-5.70) Hemoglobin 12.0 g/dL (13.0-17.5) Hematocrit 36.2 % (39.0-53.0) Mean Corpuscular Volume 86 fL (79-100) Mean Corpuscular Hemoglobin 29 pg (25-35) Mean Corpuscular Hemoglobin Concent 33 g/dL (31-37) Red Cell Distribution Width 14.2 % (11.5-14.5) Platelet Count 129 x10^3/uL (140-400) Neutrophils (%) (Auto) 60 % (31-73) Lymphocytes (%) (Auto) 29 % (24-48) Monocytes (%) (Auto) 8 % (0-9) Eosinophils (%) (Auto) 2 % (0-3) Basophils (%) (Auto) 1 % (0-3) Neutrophils # (Auto) 2.2 x10^3/uL (1.8-7.7) Lymphocytes # (Auto) 1.1 x10^3/uL (1.0-4.8) Monocytes # (Auto) 0.3 x10^3/uL (0.0-1.1) Eosinophils # (Auto) 0.1 x10^3/uL (0.0-0.7) Basophils # (Auto) 0.0 x10^3/uL (0.0-0.2) Sodium Level 138 mmol/L (136-145) Potassium Level 3.9 mmol/L (3.5-5.1) Chloride Level 102 mmol/L (98-107) Carbon Dioxide Level 26 mmol/L (21-32) Anion Gap 10 (6-14) Blood Urea Nitrogen 15 mg/dL (8-26) Creatinine 1.1 mg/dL (0.7-1.3) Estimated GFR (Cockcroft-Gault) 69.5 BUN/Creatinine Ratio 14 (6-20) Glucose Level 217 mg/dL (70-99) Calcium Level 8.4 mg/dL (8.5-10.1) Magnesium Level 1.5 mg/dL (1.8-2.4) Total Bilirubin 0.2 mg/dL (0.2-1.0) Aspartate Amino Transf (AST/SGOT) 19 U/L (15-37) Alanine Aminotransferase (ALT/SGPT) 34 U/L (16-63) Alkaline Phosphatase 49 U/L (46-116) Troponin I Quantitative < 0.017 ng/mL (0.000-0.055) YE-Ahf-R-Type Natriuretic Peptide 57 pg/mL (0-124) Total Protein 6.6 g/dL (6.4-8.2) Albumin 3.9 g/dL (3.4-5.0) Albumin/Globulin Ratio 1.4 (1.0-1.7) Laboratory Tests Test 11/07/19 07:00 White Blood Count 3.7 x10^3/uL (4.0-11.0) Red Blood Count 4.22 x10^6/uL (4.30-5.70) Hemoglobin 12.0 g/dL (13.0-17.5) Hematocrit 36.2 % (39.0-53.0) Mean Corpuscular Volume 86 fL (79-100) Mean Corpuscular Hemoglobin 29 pg (25-35) Mean Corpuscular Hemoglobin Concent 33 g/dL (31-37) Red Cell Distribution Width 14.2 % (11.5-14.5) Platelet Count 129 x10^3/uL (140-400) Neutrophils (%) (Auto) 60 % (31-73) Lymphocytes (%) (Auto) 29 % (24-48) Monocytes (%) (Auto) 8 % (0-9) Eosinophils (%) (Auto) 2 % (0-3) Basophils (%) (Auto) 1 % (0-3) Neutrophils # (Auto) 2.2 x10^3/uL (1.8-7.7) Lymphocytes # (Auto) 1.1 x10^3/uL (1.0-4.8) Monocytes # (Auto) 0.3 x10^3/uL (0.0-1.1) Eosinophils # (Auto) 0.1 x10^3/uL (0.0-0.7) Basophils # (Auto) 0.0 x10^3/uL (0.0-0.2) Sodium Level 138 mmol/L (136-145) Potassium Level 3.9 mmol/L (3.5-5.1) Chloride Level 102 mmol/L (98-107) Carbon Dioxide Level 26 mmol/L (21-32) Anion Gap 10 (6-14) Blood Urea Nitrogen 15 mg/dL (8-26) Creatinine 1.1 mg/dL (0.7-1.3) Estimated GFR (Cockcroft-Gault) 69.5 BUN/Creatinine Ratio 14 (6-20) Glucose Level 217 mg/dL (70-99) Calcium Level 8.4 mg/dL (8.5-10.1) Magnesium Level 1.5 mg/dL (1.8-2.4) Total Bilirubin 0.2 mg/dL (0.2-1.0) Aspartate Amino Transf (AST/SGOT) 19 U/L (15-37) Alanine Aminotransferase (ALT/SGPT) 34 U/L (16-63) Alkaline Phosphatase 49 U/L (46-116) Troponin I Quantitative < 0.017 ng/mL (0.000-0.055) IM-Yft-D-Type Natriuretic Peptide 57 pg/mL (0-124) Total Protein 6.6 g/dL (6.4-8.2) Albumin 3.9 g/dL (3.4-5.0) Albumin/Globulin Ratio 1.4 (1.0-1.7) Images Images CXR - Enlarged cardiomediastinal silhouette is again seen. Hypoexpanded exam without a definite new region of focal consolidation or pulmonary edema. IMPRESSION: * Hypoexpanded exam without a definite new region of consolidation or edema. VTE Prophylaxis Ordered VTE Prophylaxis Devices: Yes VTE Pharmacological Prophylaxi: Yes Assessment/Plan Assessment/Plan A/P: Acute bronchitis with asthma exacerbation - improved with steroids, epinephrine. Will order nebs, however, due to his COVID 19 testing these will be withheld. 80mg Solumedrol q8hrs. Cont singulair. O2, wean as tolerated for air hunger or O2 sats > 92% HTN - cont home meds HLD - cont statin Obesity - counseled on weight loss, diet exercise Thrombocytopenia - 129. Will monitor. Still anticoagulate Leukopenia - could be viral bronchitis, testing for COVID 19 pending results. Hyperglycemia - likely stress/steroid related, will check A1c, placed on sliding scale Hypomagnesemia - will replace, check K FEN - ADA diet PPX - lovenox FULL CODE Dispo - inpatient for above, likely 2 midnights PRAFUL REA MD November 07, 2019 11:11
[2019-11-07] MEDS ORDERED: ONDANSETRON PF 4 MG/2 ML VIAL. IV PRN ×2 (11:15)
[2019-11-07] MEDS ORDERED: ALBUTEROL SULFATE 2.5 MG/3 ML NEBU. INH PRN (11:15)
[2019-11-07] MEDS ORDERED: DEXTROSE 50% 25 GM / 50ML DISP.SYRIN. IV PRN (11:15)
[2019-11-07] MEDS ORDERED: BUDESONIDE 0.5 MG/2 ML NEBU. NEB ONE (11:45)
[2019-11-07] MEDS: INSULIN LISPRO 300 UNITS/3 ML VIAL. SQ SCH ×2 (12:00→16:38)
[2019-11-07] MEDS: IPRATRPIUM/ALBUTEROL 0.5/2.5MG 3 ML NEBU. NEB SCH ×3 (12:00→18:53)
[2019-11-07 13:00] VITALS: BP 153/79
--- NOTE | 2019-11-07 13:00 | NUR ---
pt admitted to room 669. oriented to room and call light. pt request we call his mother (Pat) to inform her of admission. breathing treatments nonadmin as no nebulized meds are given on covid unit.
[2019-11-07] MEDS: ENOXAPARIN 40 MG/0.4 ML SYRINGE. SQ SCH (14:24)
[2019-11-07] MEDS: METOPROLOL SUCC 24HR ER 25 MG TAB.ER.24H. PO SCH (14:24)
[2019-11-07] MEDS: PANTOPRAZOLE 40 MG TABLET.DR. PO SCH (14:24)
[2019-11-07] MEDS: TAMSULOSIN 0.4 MG CAP.ER.24H. PO SCH (14:24)
[2019-11-07] MEDS: MONTELUKAST SODIUM 10 MG TABLET. PO SCH (14:24)
[2019-11-07] MEDS: CITALOPRAM 20 MG TABLET. PO SCH (14:25)
[2019-11-07 14:49] VITALS: BP 164/79
[2019-11-07 19:00] VITALS: BP 136/72
[2019-11-07] MEDS ORDERED: IPRATRPIUM/ALBUTEROL 0.5/2.5MG 3 ML NEBU. NEB SCH (19:00)
[2019-11-07] MEDS ORDERED: BUDESONIDE 0.5 MG/2 ML NEBU. NEB SCH (20:00)
[2019-11-07] MEDS: DOXEPIN HCL 10 MG CAPSULE. PO SCH (21:11)
[2019-11-07] MEDS: ATORVASTATIN CALCIUM 40 MG TABLET. PO SCH (21:11)
[2019-11-07] MEDS: methylPREDNISolone SOD SUCC PF 40 MG/ML VIAL. IV SCH (21:12)
[2019-11-07 23:00] VITALS: BP 130/72
[2019-11-08] VITALS (7 sets, daily range): BP systolic 148–164; BP diastolic 67–93
[2019-11-08] MEDS: ENOXAPARIN 40 MG/0.4 ML SYRINGE. SQ SCH ×2 (01:12→10:57)
--- NOTE | 2019-11-08 05:09 | EKG ---
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
[2019-11-08 05:23] LABS: BASO % 0 % (0-3); EOS % 0 % (0-3); HEMATOCRIT 35.4 % (39.0-53.0); HEMOGLOBIN 11.9 g/dL (13.0-17.5); LYMPH # 0.3 x10^3/uL (1.0-4.8); LYMPH % 5 % (24-48); MEAN CORPUSCULAR HEMOGLOBIN 29 pg (25-35); MEAN CORPUSCULAR HGB CONC 34 g/dL (31-37); MEAN CORPUSCULAR VOLUME 85 fL (79-100); MONO # 0.1 x10^3/uL (0.0-1.1); MONO % 2 % (0-9); NEUT # 5.8 x10^3/uL (1.8-7.7); NEUT % 93 % (31-73); PLATELET COUNT 176 x10^3/uL (140-400); RED BLOOD COUNT 4.15 x10^6/uL (4.30-5.70); WHITE BLOOD COUNT 6.2 x10^3/uL (4.0-11.0)
[2019-11-08 05:44] LABS: CALCIUM 8.3 mg/dL (8.5-10.1); CREATININE 1.1 mg/dL (0.7-1.3); GFR 69.5; MAGNESIUM 2.1 mg/dL (1.8-2.4); POTASSIUM 4.6 mmol/L (3.5-5.1)
[2019-11-08] MEDS: PANTOPRAZOLE 40 MG TABLET.DR. PO SCH ×2 (06:11→09:48)
[2019-11-08] MEDS: methylPREDNISolone SOD SUCC PF 40 MG/ML VIAL. IV SCH ×2 (06:11→14:33)
[2019-11-08 07:45] LABS: % BANDS 10 % (0-9); % LYMPHS 6 % (24-48); % MONOS 2 % (0-10); % SEGS 82 % (35-66); PLT ESTIMATE ADEQUATE (ADEQUATE)
[2019-11-08] MEDS: INSULIN LISPRO 300 UNITS/3 ML VIAL. SQ SCH ×3 (08:00→17:18)
--- NOTE | 2019-11-08 08:43 | PDOC ---
PROGRESS NOTES Chief Complaint Chief Complaint A/P: Acute bronchitis with asthma exacerbation - improved with steroids, epinephrine. Will order nebs, 80mg Solumedrol q8hrs. Cont singulair. O2, wean as tolerated f or air hunger Presumptive GILMA - nocturnal desaturation study HTN - cont home meds HLD - cont statin Obesity - counseled on weight loss, diet exercise Thrombocytopenia - 129. Will monitor. Still anticoagulate Leukopenia - could be viral bronchitis, testing for COVID 19 negative Hyperglycemia - likely stress/steroid related, will check A1c, placed on sliding scale Hypomagnesemia - will replace, check K FEN - ADA diet PPX - lovenox FULL CODE Dispo - inpatient for above, likely 2 midnights History of Present Illness History of Present Illness Mr Sibley is a 54yo M w/ PMHx Anxiety, Arthritis, Depression, High Cholesterol, Hypertension, cognitive impairment, asthma come to ED with complaint of shortness of breath. Trouble breathing since 2 AM this morning. Patient has history of asthma, he felt lightheaded on asthmatic attack. EMS gave him DuoNeb treatment multiple times and 0.3 mg of epi on route here. Patient still has trouble breathing. 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 Productive cough in the last 1-2 weeks ranging from white to yellow sputum with some nasal congestion as well. He has been coughing a lot and also feeling of chills but no fevers. 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 No palpitations or dizziness. Some pain on deep inspiration and cough. No hx of CAD, VTE. EKG - NSR. CXR hypoexpanded. Labs significant for WBC 3.7, Hb 12, platelets 129, NA 138, K3.9, BUN 15, CR 1.1, glucose 217, mag 1.5, troponin 0, BNP negative. His symptoms improved after epinephrine nebulizers in route and 125 mg of Solu-Medrol in ED. Due to his community contacts at [employer] he was tested for COVID 19 and admitted for further care. Negative COVID 19. Breathing improved with steroids, meds. Still a bit hypoxic. States he slept better with oxygen. Vitals Vitals Vital Signs Date Time Temp Pulse Resp B/P (MAP) Pulse Ox O2 Delivery O2 Flow Rate FiO2 11/08/19 07:00 96.0 68 28 158/74 (102) 93 Room Air 96.0 11/08/19 03:00 4.0 Physical Exam General: Alert, Oriented X3, Cooperative, moderate distress Lungs: Clear Abdomen: Normal bowel sounds, Soft, No tenderness, No hepatosplenomegaly, No masses Extremities: No clubbing, No cyanosis, No edema, Normal pulses, No tenderness/swelling Skin: No rashes, No breakdown, No significant lesion Labs LABS Laboratory Tests Test 11/07/19 13:19 11/07/19 16:17 11/07/19 22:40 11/08/19 03:43 Glucose (Fingerstick) 153 mg/dL (70-99) 153 mg/dL (70-99) 117 mg/dL (70-99) White Blood Count 6.2 x10^3/uL (4.0-11.0) Red Blood Count 4.15 x10^6/uL (4.30-5.70) Hemoglobin 11.9 g/dL (13.0-17.5) Hematocrit 35.4 % (39.0-53.0) Mean Corpuscular Volume 85 fL (79-100) Mean Corpuscular Hemoglobin 29 pg (25-35) Mean Corpuscular Hemoglobin Concent 34 g/dL (31-37) Red Cell Distribution Width 14.0 % (11.5-14.5) Platelet Count 176 x10^3/uL (140-400) Neutrophils (%) (Auto) 93 % (31-73) Lymphocytes (%) (Auto) 5 % (24-48) Monocytes (%) (Auto) 2 % (0-9) Eosinophils (%) (Auto) 0 % (0-3) Basophils (%) (Auto) 0 % (0-3) Neutrophils # (Auto) 5.8 x10^3/uL (1.8-7.7) Lymphocytes # (Auto) 0.3 x10^3/uL (1.0-4.8) Monocytes # (Auto) 0.1 x10^3/uL (0.0-1.1) Eosinophils # (Auto) 0.0 x10^3/uL (0.0-0.7) Basophils # (Auto) 0.0 x10^3/uL (0.0-0.2) Segmented Neutrophils % 82 % (35-66) Band Neutrophils % 10 % (0-9) Lymphocytes % 6 % (24-48) Monocytes % 2 % (0-10) Platelet Estimate Adequate (ADEQUATE) Sodium Level 136 mmol/L (136-145) Potassium Level 4.6 mmol/L (3.5-5.1) Chloride Level 99 mmol/L (98-107) Carbon Dioxide Level 28 mmol/L (21-32) Anion Gap 9 (6-14) Blood Urea Nitrogen 19 mg/dL (8-26) Creatinine 1.1 mg/dL (0.7-1.3) Estimated GFR (Cockcroft-Gault) 69.5 Glucose Level 159 mg/dL (70-99) Calcium Level 8.3 mg/dL (8.5-10.1) Magnesium Level 2.1 mg/dL (1.8-2.4) Test 11/08/19 07:50 Glucose (Fingerstick) 151 mg/dL (70-99) Assessment and Plan Assessmemt and Plan Problems Medical Problems: (1) Asthma Status: Acute (2) Asthma exacerbation Status: Acute Comment Review of Relevant I have reviewed the following items nicole (where applicable) has been applied. Labs Laboratory Tests Test 11/07/19 07:00 11/07/19 13:19 11/07/19 16:17 11/07/19 22:40 White Blood Count 3.7 x10^3/uL (4.0-11.0) Red Blood Count 4.22 x10^6/uL (4.30-5.70) Hemoglobin 12.0 g/dL (13.0-17.5) Hematocrit 36.2 % (39.0-53.0) Mean Corpuscular Volume 86 fL (79-100) Mean Corpuscular Hemoglobin 29 pg (25-35) Mean Corpuscular Hemoglobin Concent 33 g/dL (31-37) Red Cell Distribution Width 14.2 % (11.5-14.5) Platelet Count 129 x10^3/uL (140-400) Neutrophils (%) (Auto) 60 % (31-73) Lymphocytes (%) (Auto) 29 % (24-48) Monocytes (%) (Auto) 8 % (0-9) Eosinophils (%) (Auto) 2 % (0-3) Basophils (%) (Auto) 1 % (0-3) Neutrophils # (Auto) 2.2 x10^3/uL (1.8-7.7) Lymphocytes # (Auto) 1.1 x10^3/uL (1.0-4.8) Monocytes # (Auto) 0.3 x10^3/uL (0.0-1.1) Eosinophils # (Auto) 0.1 x10^3/uL (0.0-0.7) Basophils # (Auto) 0.0 x10^3/uL (0.0-0.2) Sodium Level 138 mmol/L (136-145) Potassium Level 3.9 mmol/L (3.5-5.1) Chloride Level 102 mmol/L (98-107) Carbon Dioxide Level 26 mmol/L (21-32) Anion Gap 10 (6-14) Blood Urea Nitrogen 15 mg/dL (8-26) Creatinine 1.1 mg/dL (0.7-1.3) Estimated GFR (Cockcroft-Gault) 69.5 BUN/Creatinine Ratio 14 (6-20) Glucose Level 217 mg/dL (70-99) Calcium Level 8.4 mg/dL (8.5-10.1) Magnesium Level 1.5 mg/dL (1.8-2.4) Total Bilirubin 0.2 mg/dL (0.2-1.0) Aspartate Amino Transf (AST/SGOT) 19 U/L (15-37) Alanine Aminotransferase (ALT/SGPT) 34 U/L (16-63) Alkaline Phosphatase 49 U/L (46-116) Troponin I Quantitative < 0.017 ng/mL (0.000-0.055) NS-Qlv-F-Type Natriuretic Peptide 57 pg/mL (0-124) Total Protein 6.6 g/dL (6.4-8.2) Albumin 3.9 g/dL (3.4-5.0) Albumin/Globulin Ratio 1.4 (1.0-1.7) Glucose (Fingerstick) 153 mg/dL (70-99) 153 mg/dL (70-99) 117 mg/dL (70-99) Test 11/08/19 03:43 11/08/19 07:50 White Blood Count 6.2 x10^3/uL (4.0-11.0) Red Blood Count 4.15 x10^6/uL (4.30-5.70) Hemoglobin 11.9 g/dL (13.0-17.5) Hematocrit 35.4 % (39.0-53.0) Mean Corpuscular Volume 85 fL (79-100) Mean Corpuscular Hemoglobin 29 pg (25-35) Mean Corpuscular Hemoglobin Concent 34 g/dL (31-37) Red Cell Distribution Width 14.0 % (11.5-14.5) Platelet Count 176 x10^3/uL (140-400) Neutrophils (%) (Auto) 93 % (31-73) Lymphocytes (%) (Auto) 5 % (24-48) Monocytes (%) (Auto) 2 % (0-9) Eosinophils (%) (Auto) 0 % (0-3) Basophils (%) (Auto) 0 % (0-3) Neutrophils # (Auto) 5.8 x10^3/uL (1.8-7.7) Lymphocytes # (Auto) 0.3 x10^3/uL (1.0-4.8) Monocytes # (Auto) 0.1 x10^3/uL (0.0-1.1) Eosinophils # (Auto) 0.0 x10^3/uL (0.0-0.7) Basophils # (Auto) 0.0 x10^3/uL (0.0-0.2) Segmented Neutrophils % 82 % (35-66) Band Neutrophils % 10 % (0-9) Lymphocytes % 6 % (24-48) Monocytes % 2 % (0-10) Platelet Estimate Adequate (ADEQUATE) Sodium Level 136 mmol/L (136-145) Potassium Level 4.6 mmol/L (3.5-5.1) Chloride Level 99 mmol/L (98-107) Carbon Dioxide Level 28 mmol/L (21-32) Anion Gap 9 (6-14) Blood Urea Nitrogen 19 mg/dL (8-26) Creatinine 1.1 mg/dL (0.7-1.3) Estimated GFR (Cockcroft-Gault) 69.5 Glucose Level 159 mg/dL (70-99) Calcium Level 8.3 mg/dL (8.5-10.1) Magnesium Level 2.1 mg/dL (1.8-2.4) Glucose (Fingerstick) 151 mg/dL (70-99) Laboratory Tests Test 11/07/19 13:19 11/07/19 16:17 11/07/19 22:40 11/08/19 03:43 Glucose (Fingerstick) 153 mg/dL (70-99) 153 mg/dL (70-99) 117 mg/dL (70-99) White Blood Count 6.2 x10^3/uL (4.0-11.0) Red Blood Count 4.15 x10^6/uL (4.30-5.70) Hemoglobin 11.9 g/dL (13.0-17.5) Hematocrit 35.4 % (39.0-53.0) Mean Corpuscular Volume 85 fL (79-100) Mean Corpuscular Hemoglobin 29 pg (25-35) Mean Corpuscular Hemoglobin Concent 34 g/dL (31-37) Red Cell Distribution Width 14.0 % (11.5-14.5) Platelet Count 176 x10^3/uL (140-400) Neutrophils (%) (Auto) 93 % (31-73) Lymphocytes (%) (Auto) 5 % (24-48) Monocytes (%) (Auto) 2 % (0-9) Eosinophils (%) (Auto) 0 % (0-3) Basophils (%) (Auto) 0 % (0-3) Neutrophils # (Auto) 5.8 x10^3/uL (1.8-7.7) Lymphocytes # (Auto) 0.3 x10^3/uL (1.0-4.8) Monocytes # (Auto) 0.1 x10^3/uL (0.0-1.1) Eosinophils # (Auto) 0.0 x10^3/uL (0.0-0.7) Basophils # (Auto) 0.0 x10^3/uL (0.0-0.2) Segmented Neutrophils % 82 % (35-66) Band Neutrophils % 10 % (0-9) Lymphocytes % 6 % (24-48) Monocytes % 2 % (0-10) Platelet Estimate Adequate (ADEQUATE) Sodium Level 136 mmol/L (136-145) Potassium Level 4.6 mmol/L (3.5-5.1) Chloride Level 99 mmol/L (98-107) Carbon Dioxide Level 28 mmol/L (21-32) Anion Gap 9 (6-14) Blood Urea Nitrogen 19 mg/dL (8-26) Creatinine 1.1 mg/dL (0.7-1.3) Estimated GFR (Cockcroft-Gault) 69.5 Glucose Level 159 mg/dL (70-99) Calcium Level 8.3 mg/dL (8.5-10.1) Magnesium Level 2.1 mg/dL (1.8-2.4) Test 11/08/19 07:50 Glucose (Fingerstick) 151 mg/dL (70-99) Medications Current Medications Methylprednisolone Sodium Succinate (SOLU-Medrol 125MG VIAL) 125 mg 1X ONCE IV Last administered on 11/07/19at 08:36; Start 11/07/19 at 07:30; Stop 11/07/19 at 07:31; Status DC Magnesium Sulfate 50 ml @ 25 mls/hr 1X ONCE IV Last administered on 11/07/19at 08:53; Start 11/07/19 at 08:45; Stop 11/07/19 at 10:44; Status DC Ondansetron HCl (Zofran) 4 mg PRN Q8HRS PRN IV NAUSEA/VOMITING; Start 11/07/19 at 11:15; Stop 11/07/19 at 11:11; Status DC Albuterol/ Ipratropium (Duoneb) 3 ml RTQID NEB ; Start 11/07/19 at 12:00; Stop 11/07/19 at 18:56; Status DC Ondansetron HCl (Zofran) 4 mg PRN Q4HRS PRN IV NAUSEA/VOMITING; Start 11/07/19 at 11:15 Albuterol Sulfate (Ventolin Neb Soln) 2.5 mg PRN Q2HRS PRN INH SHORTNESS OF BREATH; Start 11/07/19 at 11:15 Doxepin HCl (SINequan) 10 mg QHS PO Last administered on 11/07/19at 21:11; Start 11/07/19 at 21:00 Metoprolol Succinate (Toprol Xl) 25 mg DAILY PO Last administered on 11/07/19at 14:24; Start 11/07/19 at 12:00 Montelukast Sodium (Singulair) 10 mg DAILY PO Last administered on 11/07/19at 14:24; Start 11/07/19 at 12:00 Tamsulosin HCl (Flomax) 0.4 mg DAILY PO Last administered on 11/07/19at 14:24; Start 11/07/19 at 12:00 Budesonide (Pulmicort) 0.5 mg RTBID NEB ; Start 11/07/19 at 20:00; Stop 11/07/19 at 18:56; Status DC Citalopram Hydrobromide (CeleXA) 40 mg DAILY PO Last administered on 11/07/19at 14:25; Start 11/07/19 at 12:00 Pantoprazole Sodium (Protonix) 40 mg DAILYAC PO Last administered on 11/08/19at 06:11; Start 11/07/19 at 12:00 Atorvastatin Calcium (Lipitor) 80 mg QHS PO Last administered on 11/07/19at 21:11; Start 11/07/19 at 21:00 Methylprednisolone Sodium Succinate (SOLU-Medrol 40MG VIAL) 80 mg Q8HRS IV Last administered on 11/08/19at 06:11; Start 11/07/19 at 22:00 Enoxaparin Sodium (Lovenox 40mg Syringe) 40 mg Q12H SQ Last administered on 11/08/19at 01:12; Start 11/07/19 at 12:00 Insulin Human Lispro (HumaLOG) 0-7 UNITS TIDWMEALS SQ ; Start 11/07/19 at 12:00 Dextrose (Dextrose 50%-Water Syringe) 12.5 gm PRN Q15MIN PRN IV SEE COMMENTS; Start 11/07/19 at 11:15 Budesonide (Pulmicort) 0.5 mg 1X ONCE NEB ; Start 11/07/19 at 11:45; Stop 11/07/19 at 11:57; Status DC Albuterol Sulfate (Ventolin Neb Soln) 2.5 mg RTQID NEB ; Start 11/08/19 at 12:00 Magnesium Sulfate 50 ml @ 25 mls/hr 1X ONCE IV Last administered on 11/07/19at 16:03; Start 11/07/19 at 15:45; Stop 11/07/19 at 17:44; Status DC Albuterol/ Ipratropium (Duoneb) 3 ml PRN Q4HRS NEB ; Start 11/07/19 at 19:00; Stop 11/08/19 at 18:59; Status UNV Active Scripts Active Cefdinir 300 Mg Capsule 1 Cap PO BID 7 Days Prednisone 20 Mg Tablet 20 Mg PO DAILY 5 Days Omeprazole 40 Mg Capsule.dr 1 Cap PO DAILY 30 Days Reported Crestor (Rosuvastatin Calcium) 40 Mg Tablet 20 Mg PO HS Doxepin Hcl 10 Mg Capsule 1 Cap PO QHS Montelukast Sodium Tablet (Montelukast Sodium) 10 Mg Tablet 10 Mg PO DAILY Flomax (Tamsulosin Hcl) 0.4 Mg Cap.er.24h 1 Cap PO DAILY Meloxicam 15 Mg Tablet 1 Tab PO DAILY 30 Days Symbicort 160-4.5 Mcg Inhaler (Budesonide/Formoterol Fumarate) 10.2 Gm Hfa.aer.ad 1 Puff IH BID Metoprolol Succinate ( Xl ) (Metoprolol Succinate) 25 Mg Tab.er.24h 1 Tab PO DAILY Proair Hfa Inhaler (Albuterol Sulfate) 8.5 Gm Hfa.aer.ad 2 Puff IH PRN Q4-6HRS Citalopram Hbr (Citalopram Hydrobromide) 40 Mg Tablet 1 Tab PO DAILY Fenofibrate (Fenofibrate Nanocrystallized) 145 Mg Tablet 1 Tab PO DAILY Lisinopril-Hctz 20-12.5 Mg Tab (Lisinopril/Hydrochlorothiazide) 1 Each Tablet 1 Tab PO DAILY Vitals/I & O Vital Sign - Last 24 Hours 11/07/19 11/07/19 11/07/19 11/07/19 11:30 12:00 13:00 13:39 Temp 97.6 97.6 Pulse 76 76 79 Resp 32 B/P (MAP) 182/77 (112) 166/64 (98) 153/79 (103) Pulse Ox 98 98 97 O2 Delivery Nasal Cannula Nasal Cannula Nasal Cannula Nasal Cannula O2 Flow Rate 6.0 6.0 6.0 5.0 11/07/19 11/07/19 11/07/19 11/07/19 14:24 14:49 19:00 20:00 Temp 98.0 97.4 98.0 97.4 Pulse 79 80 78 Resp 28 22 B/P (MAP) 153/79 164/79 (107) 136/72 (93) Pulse Ox 95 96 O2 Delivery Nasal Cannula Nasal Cannula Nasal Cannula O2 Flow Rate 6.0 5.0 5.0 11/07/19 11/08/19 11/08/19 23:00 03:00 07:00 Temp 97.5 96.5 96.0 97.5 96.5 96.0 Pulse 75 68 68 Resp 20 20 28 B/P (MAP) 130/72 (91) 155/67 (96) 158/74 (102) Pulse Ox 96 98 93 O2 Delivery Nasal Cannula Nasal Cannula Room Air O2 Flow Rate 5.0 4.0 Intake and Output 11/07/19 11/07/19 11/08/19 15:00 23:00 07:00 Intake Total 1400 ml 120 ml Output Total 650 ml 550 ml Balance 750 ml -430 ml PRAFUL REA MD November 08, 2019 08:43
[2019-11-08] MEDS: CITALOPRAM 20 MG TABLET. PO SCH (09:48)
[2019-11-08] MEDS: MONTELUKAST SODIUM 10 MG TABLET. PO SCH (09:49)
[2019-11-08] MEDS: METOPROLOL SUCC 24HR ER 25 MG TAB.ER.24H. PO SCH (09:49)
[2019-11-08] MEDS: TAMSULOSIN 0.4 MG CAP.ER.24H. PO SCH (09:49)
[2019-11-08] MEDS: ALBUTEROL SULFATE 2.5 MG/3 ML NEBU. NEB SCH ×3 (12:00→20:17)
--- NOTE | 2019-11-08 12:12 | NUR ---
IP: Pt is COVID negative.
--- NOTE | 2019-11-08 14:18 | NUR ---
SS following for discharge planning. SS reviewed pt chart and discussed with pt RN. Pt is from independent living facility and is currently requiring oxygen. Pt is COVID19 negative. SS will continue to follow for discharge planning.
--- NOTE | 2019-11-08 17:43 | NUR ---
pt transferred to room 200. report given to YURY Rascon
[2019-11-08] MEDS: BUDESONIDE 0.5 MG/2 ML NEBU. NEB SCH (20:16)
[2019-11-08] MEDS: DOXEPIN HCL 10 MG CAPSULE. PO SCH (20:53)
[2019-11-08] MEDS: ATORVASTATIN CALCIUM 40 MG TABLET. PO SCH (20:53)
[2019-11-09 01:08] LABS: HEMOGLOBIN A1C 5.8 % (4.8-5.6)
[2019-11-09 02:36] VITALS: BP 154/76
[2019-11-09 06:29] VITALS: BP 191/81
[2019-11-09] MEDS: BUDESONIDE 0.5 MG/2 ML NEBU. NEB SCH ×2 (07:39→19:23)
[2019-11-09] MEDS: ALBUTEROL SULFATE 2.5 MG/3 ML NEBU. NEB SCH ×4 (07:40→19:25)
[2019-11-09] MEDS: INSULIN LISPRO 300 UNITS/3 ML VIAL. SQ SCH ×3 (08:00→16:58)
[2019-11-09] MEDS: ENOXAPARIN 40 MG/0.4 ML SYRINGE. SQ SCH (08:38)
[2019-11-09] MEDS: PANTOPRAZOLE 40 MG TABLET.DR. PO SCH (08:38)
[2019-11-09] MEDS: predniSONE 20 MG TABLET PO SCH (08:38)
[2019-11-09] MEDS: MONTELUKAST SODIUM 10 MG TABLET. PO SCH (08:38)
[2019-11-09] MEDS: CITALOPRAM 20 MG TABLET. PO SCH (08:38)
[2019-11-09] MEDS: METOPROLOL SUCC 24HR ER 25 MG TAB.ER.24H. PO SCH (08:38)
[2019-11-09] MEDS: TAMSULOSIN 0.4 MG CAP.ER.24H. PO SCH (08:38)
[2019-11-09] MEDS ORDERED: ENOXAPARIN 40 MG/0.4 ML SYRINGE. SQ SCH (09:00)
[2019-11-09 11:20] VITALS: BP 149/51
--- NOTE | 2019-11-09 12:55 | PDOC ---
[facility] PROGRESS NOTE Chief Complaint Chief Complaint Acute bronchitis with asthma exacerbation Presumptive GILMA HTN HLD Obesity Thrombocytopenia Leukopenia Hyperglycemia Hypomagnesemia History of Present Illness History of Present Illness 11/09/2019 Patient seen and examined He was snoring but then startled awake very easily Chart reviewed Mr Sibley is a 54yo M w/ PMHx Anxiety, Arthritis, Depression, High Cholesterol, Hypertension, cognitive impairment, asthma come to ED with complaint of shortness of breath. Trouble breathing since 2 AM this morning. Patient has history of asthma, he felt lightheaded on asthmatic attack. EMS gave him DuoNeb treatment multiple times and 0.3 mg of epi on route here. Patient still has trouble breathing. 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 Productive cough in the last 1-2 weeks ranging from white to yellow sputum with some nasal congestion as well. He has been coughing a lot and also feeling of chills but no fevers. 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 No palpitations or dizziness. Some pain on deep inspiration and cough. No hx of CAD, VTE. EKG - NSR. CXR hypoexpanded. Labs significant for WBC 3.7, Hb 12, platelets 129, NA 138, K3.9, BUN 15, CR 1.1, glucose 217, mag 1.5, troponin 0, BNP negative. His symptoms improved after epinephrine nebulizers in route and 125 mg of Solu-Medrol in ED. Due to his community contacts at [employer] he was tested for COVID 19 and admitted for further care. Negative COVID 19. Breathing improved with steroids, meds. Still a bit hypoxic. States he slept better with oxygen. Vitals/I&O Vitals/I&O: Vital Signs Date Time Temp Pulse Resp B/P (MAP) Pulse Ox O2 Delivery O2 Flow Rate FiO2 11/09/19 11:20 97.7 57 20 149/51 (83) 95 Room Air 97.7 11/09/19 07:41 2.0 I & O 11/08/19 11/08/19 11/09/19 15:00 23:00 07:00 Intake Total 350 ml 300 ml 450 ml Output Total 800 ml 300 ml 200 ml Balance -450 ml 0 ml 250 ml Physical Exam General: Alert, Oriented X3, Cooperative, moderate distress Heart: Regular rate Lungs: Wheezing Abdomen: Normal bowel sounds, Soft, No tenderness, No hepatosplenomegaly, No masses Extremities: No clubbing, No cyanosis, No edema, Normal pulses, No tenderness/swelling Skin: No rashes, No breakdown, No significant lesion Labs Labs: Laboratory Tests Test 11/08/19 17:05 11/08/19 20:40 11/09/19 07:00 11/09/19 11:08 Glucose (Fingerstick) 171 mg/dL (70-99) 205 mg/dL (70-99) 120 mg/dL (70-99) 119 mg/dL (70-99) Assessment and Plan Assessmemt and Plan Problems Medical Problems: (1) Asthma Status: Acute (2) Asthma exacerbation Status: Acute Acute bronchitis with asthma exacerbation we will treat with steroids breathing treatments and oxygen Presumptive GILMA - nocturnal desaturation study HTN - cont home meds HLD - cont statin Obesity - counseled on weight loss, diet exercise Thrombocytopenia - 129. Will monitor. Still anticoagulate Leukopenia - could be viral bronchitis, testing for COVID 19 negative Hyperglycemia - likely stress/steroid related, will check A1c, placed on sliding scale Hypomagnesemia - will replace, check K Consult pulmonary Trend labs DVT prophylaxis Home meds Reassess in a.m. Comment Review of Relevant I have reviewed the following items nicole (where applicable) has been applied. Medications: Current Medications Medications (Trade) Dose Ordered Sig/Fredy Route PRN Reason Start Time Stop Time Status Last Admin Dose Admin Prednisone (Prednisone) 20 mg DAILY PO 11/09/19 09:00 11/09/19 08:38 Enoxaparin Sodium (Lovenox 40mg Syringe) 40 mg DAILY SQ 11/09/19 09:00 11/09/19 08:38 Budesonide (Pulmicort) 0.5 mg RTBID NEB 11/08/19 20:00 11/09/19 07:39 DWIGHT ANDERSON K III DO November 09, 2019 12:55
[2019-11-09 14:38] VITALS: BP 153/74
--- NOTE | 2019-11-09 14:47 | NUR ---
SS following for discharge planning. SS reviewed pt chart and discussed with pt RN. Pt is from home and is currently requiring oxygen. Dr. Marin consulted. Pt is COVID19 negative. SS will continue to follow for discharge planning.
[2019-11-09 18:24] VITALS: BP 156/70
[2019-11-09] MEDS: DOXEPIN HCL 10 MG CAPSULE. PO SCH (20:40)
[2019-11-09] MEDS: ATORVASTATIN CALCIUM 40 MG TABLET. PO SCH (20:40)
[2019-11-09 23:34] VITALS: BP 155/68
[2019-11-10 03:30] VITALS: BP 141/69
[2019-11-10 07:00] VITALS: BP 154/81
[2019-11-10] MEDS: INSULIN LISPRO 300 UNITS/3 ML VIAL. SQ SCH ×3 (07:18→17:00)
[2019-11-10] MEDS: BUDESONIDE 0.5 MG/2 ML NEBU. NEB SCH ×2 (07:32→20:01)
[2019-11-10] MEDS: ALBUTEROL SULFATE 2.5 MG/3 ML NEBU. NEB SCH ×4 (07:32→20:01)
[2019-11-10] MEDS: CITALOPRAM 20 MG TABLET. PO SCH (08:50)
[2019-11-10] MEDS: MONTELUKAST SODIUM 10 MG TABLET. PO SCH (08:50)
[2019-11-10] MEDS: TAMSULOSIN 0.4 MG CAP.ER.24H. PO SCH (08:50)
[2019-11-10] MEDS: predniSONE 20 MG TABLET PO SCH (08:50)
[2019-11-10] MEDS: METOPROLOL SUCC 24HR ER 25 MG TAB.ER.24H. PO SCH (08:50)
[2019-11-10] MEDS: PANTOPRAZOLE 40 MG TABLET.DR. PO SCH (08:51)
[2019-11-10] MEDS: ENOXAPARIN 40 MG/0.4 ML SYRINGE. SQ SCH (08:52)
--- NOTE | 2019-11-10 10:01 | CONS ---
DATE OF CONSULTATION: PULMONARY CONSULTATION ATTENDING PHYSICIAN: Dr. Garber. REASON FOR CONSULTATION: Dyspnea, asthma exacerbation. HISTORY OF PRESENT ILLNESS: The patient is a 54-year-old morbidly obese male with a BMI of 51. He has history of asthma, adult onset. In addition, he has cognitive impairment. He was brought into the hospital with complaint of shortness of breath. He was having wheezing as well. He takes only albuterol inhaler as well as nebulizer. He was given DuoNeb multiple times in the ER and also a dose of epi nebulizer en route. The patient is now starting to feel better. He still has some wheezing. He denies any COVID exposure. He does have a cough, but no purulent sputum production, no fever, no chills. No chest pain, no headaches, no nausea, vomiting or diarrhea. No dysuria. 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 He does feel tired and sleepy. He is not on home oxygen and not on home CPAP. His chest x-ray was clear. PAST MEDICAL HISTORY: History of adult-onset asthma, history of hypertension, hyperlipidemia, osteoarthritis, morbid obesity. PAST SURGICAL HISTORY: No recent surgery. ALLERGIES: PENICILLIN. MEDICATIONS: Reviewed as listed in the MRAD including oral prednisone, budesonide, Lovenox for DVT prophylaxis, albuterol nebulizer, Singulair, and metoprolol. REVIEW OF SYSTEMS: Twelve-point system obtained. Pertinent positives discussed in my history of present illness, otherwise noncontributory. All systems that were negative were reviewed as well. SOCIAL HISTORY: Denies any current tobacco use. No history of alcohol abuse. FAMILY HISTORY: Noncontributory to lungs. MEDICATIONS: All reviewed as listed in the MRAD. PHYSICAL EXAMINATION: VITAL SIGNS: Reviewed. Afebrile, pulse ox 96% on room air. NECK: Supple. LUNGS: With bilateral expiratory wheezes. CARDIOVASCULAR: With a regular rate. ABDOMEN: Soft, obese. EXTREMITIES: With trace pitting edema. LABORATORY DATA: Reviewed. White cell count 6.2, hemoglobin 11.9 and platelets are 176. His BUN and creatinine 19 and 1.1. IMPRESSION: 1. Acute hypoxic respiratory failure secondary to acute exacerbation of asthma triggered by bronchitis. 2. The patient with adult-onset asthma somewhat under suboptimal control. He had two hospitalizations this year. He uses only albuterol. He would benefit from a chronic steroid inhaler use. In the meantime, adding Pulmicort would be reasonable. 3. 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 He will benefit from outpatient sleep study. With his insurance Medicaid, he may not be eligible for CPAP, we can try. RECOMMENDATIONS: 1. Continue with present oxygen. 2. Discontinue oral prednisone and change to IV Solu-Medrol. 3. Continue albuterol nebs in addition to Pulmicort nebs. 4. As an outpatient, would benefit from a steroid inhaler such as Flovent. 5. Weight loss is strongly advised. 6. May have to hold metoprolol if wheezing does not resolve. 7. Sleep study as an outpatient. 8. Discussed with RN. We will follow along with you. DENNIS MARY MD DR: FERNIE/adam JOB#: [id number] / [id number]
[2019-11-10 10:50] VITALS: BP 138/81
--- NOTE | 2019-11-10 11:31 | RESP ---
DATE OF SERVICE: 11/08/2019 NOCTURNAL OXIMETRY STUDY The study was performed on room air. The patient's mean oxygen saturation remained around 91% with the lowest of 55%. 20% of time, which was 1 hour and 27 minutes were spent in oxygen saturation of less than 90%. IMPRESSION: Nocturnal hypoxia. RECOMMENDATIONS: The patient would require oxygen 2 liters minimum at nighttime. However, if clinical suspicion for sleep apnea is high, then consider doing full polysomnogram. DENNIS MARY MD DR: FERNIE/adam JOB#: [id number] / [id number]
--- NOTE | 2019-11-10 12:15 | NUR ---
SS following up with discharge planning. SS reviewed pt chart and discussed with pt RN. Pt is currently on room air and IV steroids. Discharge plan is to home when ready. SS will continue to follow for discharge planning.
--- NOTE | 2019-11-10 13:00 | PDOC ---
[facility] PROGRESS NOTE Chief Complaint Chief Complaint Acute bronchitis with asthma exacerbation Presumptive GILMA HTN HLD Obesity Thrombocytopenia Leukopenia Hyperglycemia Hypomagnesemia History of Present Illness History of Present Illness 11/09/2019 Patient seen and examined He was snoring but then startled awake very easily Chart reviewed Mr Sibley is a 54yo M w/ PMHx Anxiety, Arthritis, Depression, High Cholesterol, Hypertension, cognitive impairment, asthma come to ED with complaint of shortness of breath. Trouble breathing since 2 AM this morning. Patient has history of asthma, he felt lightheaded on asthmatic attack. EMS gave him DuoNeb treatment multiple times and 0.3 mg of epi on route here. Patient still has trouble breathing. 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 Productive cough in the last 1-2 weeks ranging from white to yellow sputum with some nasal congestion as well. He has been coughing a lot and also feeling of chills but no fevers. 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 No palpitations or dizziness. Some pain on deep inspiration and cough. No hx of CAD, VTE. EKG - NSR. CXR hypoexpanded. Labs significant for WBC 3.7, Hb 12, platelets 129, NA 138, K3.9, BUN 15, CR 1.1, glucose 217, mag 1.5, troponin 0, BNP negative. His symptoms improved after epinephrine nebulizers in route and 125 mg of Solu-Medrol in ED. Due to his community contacts at [employer] he was tested for COVID 19 and admitted for further care. Negative COVID 19. Breathing improved with steroids, meds. Still a bit hypoxic. States he slept better with oxygen. Vitals/I&O Vitals/I&O: Vital Signs Date Time Temp Pulse Resp B/P (MAP) Pulse Ox O2 Delivery O2 Flow Rate FiO2 11/10/19 11:38 Room Air 11/10/19 10:50 98.1 69 18 138/81 (100) 95 98.1 11/10/19 08:00 2.0 I & O 11/09/19 11/09/19 11/10/19 15:00 23:00 07:00 Intake Total 700 ml 720 ml 100 ml Output Total 500 ml 300 ml 300 ml Balance 200 ml 420 ml -200 ml Physical Exam General: Alert, Oriented X3, Cooperative, moderate distress Heart: Regular rate Lungs: Wheezing Abdomen: Normal bowel sounds, Soft, No tenderness, No hepatosplenomegaly, No masses Extremities: No clubbing, No cyanosis, No edema, Normal pulses, No tenderness/swelling Skin: No rashes, No breakdown, No significant lesion Labs Labs: Laboratory Tests Test 11/09/19 16:19 11/09/19 20:39 11/10/19 07:15 11/10/19 12:00 Glucose (Fingerstick) 145 mg/dL (70-99) 145 mg/dL (70-99) 91 mg/dL (70-99) 108 mg/dL (70-99) Assessment and Plan Assessmemt and Plan Problems Medical Problems: (1) Asthma Status: Acute (2) Asthma exacerbation Status: Acute Acute bronchitis with asthma exacerbation Presumptive GILMA HTN HLD Obesity Thrombocytopenia Leukopenia Hyperglycemia Hypomagnesemia Plan Per pulmonary see the following 1. Continue with present oxygen. 2. IV Solu-Medrol 3. Continue albuterol nebs in addition to Pulmicort nebs. 4. As an outpatient, would benefit from a steroid inhaler such as Flovent. 5. Weight loss is strongly advised. 6. May have to hold metoprolol if wheezing does not resolve. 7. Sleep study as an outpatient. Hope to discharge in a.m. if we can change him to p.o. steroid Comment Review of Relevant I have reviewed the following items nicole (where applicable) has been applied. DWIGHT ANDERSON III DO November 10, 2019 13:00
[2019-11-10] MEDS: methylPREDNISolone SOD SUCC PF 40 MG/ML VIAL. IV SCH ×2 (14:37→21:24)
[2019-11-10 14:47] VITALS: BP 155/74
[2019-11-10 18:27] VITALS: BP 159/78
[2019-11-10] MEDS: ATORVASTATIN CALCIUM 40 MG TABLET. PO SCH (21:23)
[2019-11-10] MEDS: DOXEPIN HCL 10 MG CAPSULE. PO SCH (21:23)
[2019-11-10 23:09] VITALS: BP 180/82
[2019-11-11 03:33] VITALS: BP 159/78
[2019-11-11] MEDS: methylPREDNISolone SOD SUCC PF 40 MG/ML VIAL. IV SCH (05:27)
[2019-11-11 06:50] VITALS: BP 181/91
[2019-11-11] MEDS: BUDESONIDE 0.5 MG/2 ML NEBU. NEB SCH (07:31)
[2019-11-11] MEDS: ALBUTEROL SULFATE 2.5 MG/3 ML NEBU. NEB SCH (07:31)
[2019-11-11] MEDS: INSULIN LISPRO 300 UNITS/3 ML VIAL. SQ SCH (07:37)
[2019-11-11] MEDS: PANTOPRAZOLE 40 MG TABLET.DR. PO SCH (07:39)
[2019-11-11] MEDS: MONTELUKAST SODIUM 10 MG TABLET. PO SCH (07:39)
[2019-11-11] MEDS: CITALOPRAM 20 MG TABLET. PO SCH (07:40)
[2019-11-11] MEDS: METOPROLOL SUCC 24HR ER 25 MG TAB.ER.24H. PO SCH (07:40)
[2019-11-11] MEDS: TAMSULOSIN 0.4 MG CAP.ER.24H. PO SCH (07:40)
[2019-11-11] MEDS: ENOXAPARIN 40 MG/0.4 ML SYRINGE. SQ SCH (07:41)
--- NOTE | 2019-11-11 08:46 | PDOC ---
[facility] [facility] PROGRESS NOTE Chief Complaint Chief Complaint Acute bronchitis with asthma exacerbation Presumptive GILMA HTN HLD Obesity Thrombocytopenia Leukopenia Hyperglycemia Hypomagnesemia History of Present Illness History of Present Illness 11/11/2019 Patient seen exam He is requesting discharge Discussed with RN Chart reviewed I left prescriptions for Combivent metered-dose inhaler and a Medrol Dosepak in anticipation of discharge if okay with pulmonary 11/09/2019 Patient seen and examined He was snoring but then startled awake very easily Chart reviewed Mr Sibley is a 54yo M w/ PMHx Anxiety, Arthritis, Depression, High Cholesterol, Hypertension, cognitive impairment, asthma come to ED with complaint of shortness of breath. Trouble breathing since 2 AM this morning. Patient has history of asthma, he felt lightheaded on asthmatic attack. EMS gave him DuoNeb treatment multiple times and 0.3 mg of epi on route here. Patient still has trouble breathing. 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 Productive cough in the last 1-2 weeks ranging from white to yellow sputum with some nasal congestion as well. He has been coughing a lot and also feeling of chills but no fevers. 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 No palpitations or dizziness. Some pain on deep inspiration and cough. No hx of CAD, VTE. EKG - NSR. CXR hypoexpanded. Labs significant for WBC 3.7, Hb 12, platelets 129, NA 138, K3.9, BUN 15, CR 1.1, glucose 217, mag 1.5, troponin 0, BNP negative. His symptoms improved after epinephrine nebulizers in route and 125 mg of Solu-Medrol in ED. Due to his community contacts at [employer] he was tested for COVID 19 and admitted for further care. Negative COVID 19. Breathing improved with steroids, meds. Still a bit hypoxic. States he slept better with oxygen. Vitals/I&O Vitals/I&O: Vital Signs Date Time Temp Pulse Resp B/P (MAP) Pulse Ox O2 Delivery O2 Flow Rate FiO2 11/11/19 08:00 Room Air 11/11/19 07:40 69 181/91 11/11/19 07:31 95 11/11/19 06:50 97.9 18 97.9 I & O 11/10/19 11/10/19 11/11/19 15:00 23:00 07:00 Intake Total 500 ml 500 ml Output Total 1500 ml 900 ml 1300 ml Balance -1500 ml -400 ml -800 ml Physical Exam General: Alert, Oriented X3, Cooperative, moderate distress Heart: Regular rate Lungs: Wheezing Abdomen: Normal bowel sounds, Soft, No tenderness, No hepatosplenomegaly, No masses Extremities: No clubbing, No cyanosis, No edema, Normal pulses, No tenderness/swelling Skin: No rashes, No breakdown, No significant lesion Labs Labs: Laboratory Tests Test 11/10/19 12:00 11/10/19 17:22 11/10/19 21:32 11/11/19 06:52 Glucose (Fingerstick) 108 mg/dL (70-99) 130 mg/dL (70-99) 152 mg/dL (70-99) 140 mg/dL (70-99) Assessment and Plan Assessmemt and Plan Problems Medical Problems: (1) Asthma Status: Acute (2) Asthma exacerbation Status: Acute Acute bronchitis with asthma exacerbation Presumptive GILMA HTN HLD Obesity Thrombocytopenia Leukopenia Hyperglycemia Hypomagnesemia Plan Hope to change IV steroids to p.o. I did leave prescription for Medrol Dosepak and a Combivent metered-dose inhaler For now continue the followin. Continue with present oxygen. 2. IV Solu-Medrol (will change this to p.o.) 3. Continue albuterol nebs in addition to Pulmicort nebs. 4. As an outpatient, would benefit from a steroid inhaler such as Flovent. 5. Weight loss is strongly advised. 6. May have to hold metoprolol if wheezing does not resolve. 7. Sleep study as an outpatient. Discharge later today if okay with pulmonary Comment Review of Relevant I have reviewed the following items nicole (where applicable) has been applied. Medications: Current Medications Medications (Trade) Dose Ordered Sig/Fredy Route PRN Reason Start Time Stop Time Status Last Admin Dose Admin Methylprednisolone Sodium Succinate (SOLU-Medrol 40MG VIAL) 60 mg Q8HRS IV 11/10/19 14:00 11/11/19 05:27 DWIGHT ANDERSON III DO November 11, 2019 08:46
[2019-11-11] MEDS ORDERED: IPRA4AER IH (09:55)
[2019-11-11] MEDS ORDERED: METH4TAB2 PO (09:56)
[2019-11-11 10:11] VITALS: BP 174/86
--- NOTE | 2019-11-11 10:23 | PDOC ---
PULMONARY PROGRESS NOTES Subjective wants to go home feels better Vitals Vital Signs Date Time Temp Pulse Resp B/P (MAP) Pulse Ox O2 Delivery O2 Flow Rate FiO2 11/11/19 10:11 97.6 67 18 174/86 (115) 97 Room Air 97.6 11/10/19 08:00 2.0 General: Alert, No acute distress Lungs: Wheezing (resolved) Cardiovascular: S1 Abdomen: Soft, Other (obese) Neuro Exam: Alert Extremities: Other (1+edema) Labs Laboratory Tests Test 11/09/19 11:08 11/09/19 16:19 11/09/19 20:39 11/10/19 07:15 Glucose (Fingerstick) 119 mg/dL (70-99) 145 mg/dL (70-99) 145 mg/dL (70-99) 91 mg/dL (70-99) Test 11/10/19 12:00 11/10/19 17:22 11/10/19 21:32 11/11/19 06:52 Glucose (Fingerstick) 108 mg/dL (70-99) 130 mg/dL (70-99) 152 mg/dL (70-99) 140 mg/dL (70-99) Laboratory Tests Test 11/10/19 12:00 11/10/19 17:22 11/10/19 21:32 11/11/19 06:52 Glucose (Fingerstick) 108 mg/dL (70-99) 130 mg/dL (70-99) 152 mg/dL (70-99) 140 mg/dL (70-99) Medications Active Scripts Medications Dose Route/Sig Max Daily Dose Days Date Category Medrol (Methylprednisolone) 4 Mg Tab.ds.pk 1 Pkg PO UD 11/11/19 Reported Combivent Respimat Inhal (Ipratropium/Albuterol Sulfate) 4 Gm Aer.w.adap 1 Puff IH QID 11/11/19 Reported Cefdinir 300 Mg Capsule 1 Cap PO BID 7 08/20/19 Rx Prednisone 20 Mg Tablet 20 Mg PO DAILY 5 08/20/19 Rx Crestor (Rosuvastatin Calcium) 40 Mg Tablet 20 Mg PO HS 08/17/19 Reported Doxepin Hcl 10 Mg Capsule 1 Cap PO QHS 08/17/19 Reported Montelukast Sodium Tablet (Montelukast Sodium) 10 Mg Tablet 10 Mg PO DAILY 08/17/19 Reported Flomax (Tamsulosin Hcl) 0.4 Mg Cap.er.24h 1 Cap PO DAILY 08/17/19 Reported Meloxicam 15 Mg Tablet 1 Tab PO DAILY 30 08/17/19 Reported Omeprazole 40 Mg Capsule.dr 1 Cap PO DAILY 30 04/05/16 Rx Symbicort 160-4.5 Mcg Inhaler (Budesonide/Formoterol Fumarate) 10.2 Gm Hfa.aer.ad 1 Puff IH BID 04/04/16 Reported Proair Hfa Inhaler (Albuterol Sulfate) 8.5 Gm Hfa.aer.ad 2 Puff IH PRN Q4-6HRS 07/26/15 Reported Citalopram Hbr (Citalopram Hydrobromide) 40 Mg Tablet 1 Tab PO DAILY 07/26/15 Reported Fenofibrate (Fenofibrate Nanocrystallized) 145 Mg Tablet 1 Tab PO DAILY 07/26/15 Reported Lisinopril-Hctz 20-12.5 Mg Tab (Lisinopril/Hydrochlorothiazide) 1 Each Tablet 1 Tab PO DAILY 07/26/15 Reported Impression . 1. Acute hypoxic respiratory failure secondary to acute exacerbation of asthma triggered by bronchitis. 2. The patient with adult-onset asthma somewhat under suboptimal control. He had two hospitalizations this year. He uses only albuterol. He would benefit from a chronic steroid inhaler use. In the meantime, adding Pulmicort would be reasonable. 3. 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 He will benefit from outpatient sleep study. With his insurance Medicaid, he may not be eligible for CPAP, we can try. Plan . 1. wean off oxygen. 2. change to po prednisone 3. Continue albuterol nebs in addition to Pulmicort nebs. 4. As an outpatient, would benefit from a steroid inhaler such as Flovent. 5. Weight loss is strongly advised. 6. ok with [facility] 7. Sleep study as an outpatient. 8. Discussed with YURY. DENNIS MARY MD November 11, 2019 10:23
--- NOTE | 2019-11-11 11:35 | NUR ---
Discharge Note: LIZA WILSON Discharge instructions and discharge home medications reviewed with Patient and a copy given. All questions have been answered and understanding verbalized. The following instructions and handouts were given: discharge instructions, prescriptions, asthma info, sleep apnea info. Discontinued lines and drains: Peripheral IV intact. Patient discharged to Home or Self Care with transportation via [facility].
--- NOTE | 2019-11-12 13:44 | DS ---
DATE OF DISCHARGE: 11/11/2019 ADMISSION DIAGNOSIS: Asthma. DISCHARGE DIAGNOSIS: Resolving asthma. HOSPITAL COURSE: The patient is a pleasant 54-year-old male, who presented with asthma exacerbation. We treated him with IV steroids, breathing treatments and oxygen. We consulted Pulmonary. Yesterday, he was doing great. We discharged to home on steroid taper. DISPOSITION: Home. ACTIVITY: As tolerated. DIET: Low sodium. MEDICATIONS: Please see the MRAD. TOTAL TIME: 32 minutes. DWIGHT ANDERSON DO DR: CLARK/adam JOB#: [id number] / [id number]
== END 2019-11-11 11:35 | disposition home or self-care (01) | DRG 189 ==
LOC: ER 06:45 → 6 SOUTH 10:55 → 2 NORTH 11-08 17:30
PROVIDERS: ADMIT Internal Medicine; ATTEND Internal Medicine
DX: J96.01 Acute respiratory failure with hypoxia (principal); J45.901 Unspecified asthma with (acute) exacerbation; Z68.43 Body mass index [BMI] 50.0-59.9, adult; J20.9 Acute bronchitis, unspecified; Z20.828 Contact with and (suspected) exposure to other viral communicable diseases; F32.9 Major depressive disorder, single episode, unspecified; F41.9 Anxiety disorder, unspecified; K21.9 Gastro-esophageal reflux disease without esophagitis; M19.90 Unspecified osteoarthritis, unspecified site; D69.6 Thrombocytopenia, unspecified; D72.819 Decreased white blood cell count, unspecified; E66.01 Morbid (severe) obesity due to excess calories; E78.00 Pure hypercholesterolemia, unspecified; G47.33 Obstructive sleep apnea (adult) (pediatric); E78.5 Hyperlipidemia, unspecified; E83.42 Hypomagnesemia; I10 Essential (primary) hypertension; Z82.49 Family history of ischemic heart disease and other diseases of the circulatory system; Z87.891 Personal history of nicotine dependence
CPT/HCPCS: 36415; 71045; 80048; 80053; 82962; 83036; 83735; 83880; 84484; 85007; 85025; 93005; 94640; 94760; 94799; 96365; 96375; J1650; J1815; J2920; J2930; J3475; J7512; 99285-25; G0378; J7613; J7626; U0003-CS

== ENCOUNTER 2020-01-02 07:45 | Inpatient (IN) | payer OTHER, MEDICAID ==
[~2020-01-02] VITALS: Ht 180.3 cm; Wt 159.0 kg
[~2020-01-02 07:45] MED LIST changes: +IPRA4AER IH; -LISI1TAB19 PO; +LISI1TAB37 PO; +METH4TAB2 PO
[2020-01-02] MEDS ORDERED: methylPREDNISolone SOD SUCC PF 125 MG/2 ML VIAL. IV ONE (08:30)
[2020-01-02] MEDS ORDERED: ALBUTEROL SULFATE 2.5 MG/3 ML NEBU. NEB ONE (08:30)
[2020-01-02] MEDS ORDERED: IPRATRPIUM/ALBUTEROL 0.5/2.5MG 3 ML NEBU. NEB ONE (08:30)
[2020-01-02 08:44] LABS: BASO % 0 % (0-3); EOS % 1 % (0-3); HEMATOCRIT 33.1 % (39.0-53.0); HEMOGLOBIN 11.3 g/dL (13.0-17.5); LYMPH # 0.6 x10^3/uL (1.0-4.8); LYMPH % 18 % (24-48); MEAN CORPUSCULAR HEMOGLOBIN 29 pg (25-35); MEAN CORPUSCULAR HGB CONC 34 g/dL (31-37); MEAN CORPUSCULAR VOLUME 83 fL (79-100); MONO # 0.3 x10^3/uL (0.0-1.1); MONO % 10 % (0-9); NEUT # 2.2 x10^3/uL (1.8-7.7); NEUT % 71 % (31-73); PLATELET COUNT 142 x10^3/uL (140-400); RED BLOOD COUNT 3.97 x10^6/uL (4.30-5.70); RED CELL DISTRIBUTION WIDTH 14.9 % (11.5-14.5); WHITE BLOOD COUNT 3.1 x10^3/uL (4.0-11.0)
[2020-01-02 08:50] LABS: CALCIUM 8.5 mg/dL (8.5-10.1); CREATININE 1.1 mg/dL (0.7-1.3); GFR 69.5
[2020-01-02 08:55] LABS: ALBUMIN 3.6 g/dL (3.4-5.0); ALBUMIN/GLOBULIN RATIO 1.3 (1.0-1.7); TOTAL BILIRUBIN 0.1 mg/dL (0.2-1.0); TOTAL PROTEIN 6.4 g/dL (6.4-8.2)
--- NOTE | 2020-01-02 09:35 | RAD ---
EXAM: Bilateral lower extremity venous Doppler sonogram. HISTORY: Pain and swelling. TECHNIQUE: Marie scale and color Doppler sonographic evaluation of the bilateral lower extremity veins with spectral waveform analysis was performed. FINDINGS: The exam is limited due to body habitus. The peroneal veins are not seen. There is normal color flow, normal compressibility and there are normal spectral waveforms in the common remainder of the lower extremity veins. IMPRESSION: No Doppler evidence of lower extremity deep venous thrombosis, with limited evaluation of the peroneal veins. Electronically signed by: Caryn Young MD (01/02/2020 9:32 AM) [id number]
--- NOTE | 2020-01-02 10:25 | PHYS DOC ---
Past Medical History Past Medical History: Anxiety, Arthritis, Asthma, Depression, High Cholesterol, Hypertension, Other Additional Past Medical Histor: INSOMNIA, Mental Retardation Past Surgical History: Tonsillectomy, Other Additional Past Surgical Histo: INGROWN TOE NAIL REMOVED Smoking Status: Former Smoker Alcohol Use: None Drug Use: None General Adult EDM: Chief Complaint: SHORTNESS OF BREATH HPI: HPI: Patient is a 54-year-old male with multiple medical problems including asthma who presents with a several day history of progressive shortness of breath and wheezing. Medications at home have not helped. He has been hospitalized previously with a similar episode. He does not know of a positive COVID-19 contact. He has had subjective fevers no chills or sweats. He denies hemoptysis. [] Review of Systems: Review of Systems: Constitutional: Denies fever or chills. [] Eyes: Denies change in visual acuity. [] HENT: Denies nasal congestion or sore throat. [] Respiratory: Per HPI [] Cardiovascular: Denies chest pain or edema. [] GI: Denies abdominal pain, nausea, vomiting, bloody stools or diarrhea. [] : Denies dysuria. [] Musculoskeletal: Denies back pain or joint pain. [] Integument: Denies rash. [] Neurologic: Denies headache, focal weakness or sensory changes. [] Endocrine: Denies polyuria or polydipsia. [] Lymphatic: Denies swollen glands. [] Psychiatric: Denies depression or anxiety. [] Heart Score: Risk Factors: Risk Factors: DM, Current or recent (<one month) smoker, HTN, HLP, family history of CAD, obesity. Risk Scores: Score 0 - 3: 2.5% MACE over next 6 weeks - Discharge Home Score 4 - 6: 20.3% MACE over next 6 weeks - Admit for Clinical Observation Score 7 - 10: 72.7% MACE over next 6 weeks - Early Invasive Strategies Current Medications: Current Medications Medications (Trade) Dose Ordered Sig/Fredy Start Time Stop Time Status Last Admin Dose Admin Albuterol Sulfate (Ventolin Neb Soln) 2.5 mg 1X ONCE 01/02/20 08:30 01/02/20 08:31 DC Albuterol/ Ipratropium (Duoneb) 6 ml 1X ONCE 01/02/20 08:30 01/02/20 08:31 DC Methylprednisolone Sodium Succinate (SOLU-Medrol 125MG VIAL) 125 mg 1X ONCE 01/02/20 08:30 01/02/20 08:31 DC 01/02/20 08:37 125 MG Allergies: Allergies: Allergies Coded Allergies Type Severity Reaction Last Updated Verified Penicillins Allergy Intermediate 04/04/16 Yes Physical Exam: PE: Constitutional: Well developed, well nourished, no acute distress, non-toxic appearance. [] HENT: Normocephalic, atraumatic, bilateral external ears normal, oropharynx moist, no oral exudates, nose normal. [] Eyes: PERRLA, EOMI, conjunctiva normal, no discharge. [] Neck: Normal range of motion, no tenderness, supple, no stridor. [] Cardiovascular:Heart rate regular rhythm, no murmur [] Lungs & Thorax: Scattered wheezes throughout both lungs [] Abdomen: Bowel sounds normal, soft, no tenderness, no masses, no pulsatile masses. [] Skin: Warm, dry, no erythema, no rash. [] Back: No tenderness, no CVA tenderness. [] Extremities: 2+ lower extremity edema equal bilaterally [] Neurologic: Alert and oriented X 3, normal motor function, normal sensory function, no focal deficits noted. [] Psychologic: Anxious. [] Current Patient Data: Labs: Laboratory Tests Test 01/02/20 08:20 White Blood Count 3.1 x10^3/uL (4.0-11.0) L Red Blood Count 3.97 x10^6/uL (4.30-5.70) L Hemoglobin 11.3 g/dL (13.0-17.5) L Hematocrit 33.1 % (39.0-53.0) L Mean Corpuscular Volume 83 fL (79-100) Mean Corpuscular Hemoglobin 29 pg (25-35) Mean Corpuscular Hemoglobin Concent 34 g/dL (31-37) Red Cell Distribution Width 14.9 % (11.5-14.5) H Platelet Count 142 x10^3/uL (140-400) Neutrophils (%) (Auto) 71 % (31-73) Lymphocytes (%) (Auto) 18 % (24-48) L Monocytes (%) (Auto) 10 % (0-9) H Eosinophils (%) (Auto) 1 % (0-3) Basophils (%) (Auto) 0 % (0-3) Neutrophils # (Auto) 2.2 x10^3/uL (1.8-7.7) Lymphocytes # (Auto) 0.6 x10^3/uL (1.0-4.8) L Monocytes # (Auto) 0.3 x10^3/uL (0.0-1.1) Eosinophils # (Auto) 0.0 x10^3/uL (0.0-0.7) Basophils # (Auto) 0.0 x10^3/uL (0.0-0.2) Sodium Level 138 mmol/L (136-145) Potassium Level 4.0 mmol/L (3.5-5.1) Chloride Level 100 mmol/L (98-107) Carbon Dioxide Level 27 mmol/L (21-32) Anion Gap 11 (6-14) Blood Urea Nitrogen 18 mg/dL (8-26) Creatinine 1.1 mg/dL (0.7-1.3) Estimated GFR (Cockcroft-Gault) 69.5 BUN/Creatinine Ratio 16 (6-20) Glucose Level 152 mg/dL (70-99) H Lactic Acid Level 2.5 mmol/L (0.4-2.0) H Calcium Level 8.5 mg/dL (8.5-10.1) Total Bilirubin 0.1 mg/dL (0.2-1.0) L Aspartate Amino Transferase (AST) 17 U/L (15-37) Alanine Aminotransferase (ALT) 30 U/L (16-63) Alkaline Phosphatase 56 U/L (46-116) Troponin I Quantitative < 0.017 ng/mL (0.000-0.055) VS-[id number]-[id number]-Type Natriuretic Peptide 143 pg/mL (0-124) H Total Protein 6.4 g/dL (6.4-8.2) Albumin 3.6 g/dL (3.4-5.0) Albumin/Globulin Ratio 1.3 (1.0-1.7) Laboratory Tests 01/02/20 08:20 Laboratory Tests 01/02/20 08:20 Vital Signs: Vital Signs Date Time Temp Pulse Resp B/P (MAP) Pulse Ox O2 Delivery O2 Flow Rate FiO2 01/02/20 08:00 98.9 82 22 162/75 (104) 97 Simple Mask 6.0 98.9 EKG: EKG: EKG: Normal sinus rhythm rate of [address]-T changes [] Radiology/Procedures: Radiology/Procedures: []PROCEDURE: VENOUS LOWER EXT BILATERAL EXAM: Bilateral lower extremity venous Doppler sonogram. HISTORY: Pain and swelling. TECHNIQUE: Marie scale and color Doppler sonographic evaluation of the bilateral lower extremity veins with spectral waveform analysis was performed. FINDINGS: The exam is limited due to body habitus. The peroneal veins are not seen. There is normal color flow, normal compressibility and there are normal spectral waveforms in the common remainder of the lower extremity veins. IMPRESSION: No Doppler evidence of lower extremity deep venous thrombosis, with limited evaluation of the peroneal veins. Impression: PROCEDURE: CHEST AP ONLY EXAM: Chest, single view. HISTORY: Shortness of breath. COMPARISON: 03/27/2015 FINDINGS: A frontal view of the chest is obtained. There is no infiltrate, pleural effusion or pneumothorax. There is a stable prominent cardiac silhouette. IMPRESSION: No acute pulmonary finding. Course & Med Decision Making: Course & Med Decision Making Pertinent Labs and Imaging studies reviewed. (See chart for details) [ED course: Evaluation reveals a 54-year-old male with chronic lung disease. He has been wheezing for several days. He was given Solu-Medrol 2 duo nebs and an albuterol neb during his stay in the department with some improvement in his symptoms. He will need hospitalization for continued aggressive pulmonary treatment and IV steroids. CRITICAL CARE: Time spent was 35 minutes. This includes medical management, evaluation, reevaluation, discussion with consultants and family. Critical Care does NOT include time spent on separately billed procedures.] Dragon Disclaimer: Dragon Disclaimer: This electronic medical record was generated, in whole or in part, using a voice recognition dictation system. Departure Departure Impression: Primary Impression: Asthma exacerbation Qualified Codes: J45.41 - Moderate persistent asthma with (acute) exacerbation Disposition: ADMITTED INPATIENT Admitting Physician: ANGELLA Condition: IMPROVED Referrals: Sydney SUTHERLAND MD (PCP) Justicifation of Admission Dx: Justifications for Admission: Justification of Admission Dx: Yes Acute COPD Exacerbation: Acute COPD Exacerbation SHERIF JANG DO Jan 02, 2020 10:25
[2020-01-02 10:30] VITALS: BP 149/75
[2020-01-02 11:02] LABS: BASE EXCESS ABG 1 mmol/L (-3-3); HCO3 ABG 28 mmol/L (21-28); PCO2 ABG 52 mmHg (35-46); PO2 ABG 140 mmHg (75-108); SAT O2 ABG 98 % (92-99)
[2020-01-02 11:05] LABS: FIO2 ABG 44
[2020-01-02] MEDS ORDERED: ONDANSETRON PF 4 MG/2 ML VIAL. IV PRN (11:15)
[2020-01-02] MEDS ORDERED: ACETAMINOPHEN 325 MG TABLET. PO PRN (11:15)
--- NOTE | 2020-01-02 11:28 | RAD ---
EXAM: Chest, single view. HISTORY: Shortness of breath. COMPARISON: 03/27/2015 FINDINGS: A frontal view of the chest is obtained. There is no infiltrate, pleural effusion or pneumothorax. There is a stable prominent cardiac silhouette. IMPRESSION: No acute pulmonary finding. Electronically signed by: Caryn Young MD (01/02/2020 11:25 AM) [id number]
--- NOTE | 2020-01-02 11:52 | EKG ---
[facility] [address] [place] [address] Test Date: 2020-01-02 Test Time: 08:05:07 Pat Name: LIZA WILSON Department: Room: Gender: Core Maker: : 1965 Requested By: SHERIF JANG Order Number: [id number] Reading MD: Measurements Intervals [place] Rate: 81 P: 40 [place]: 166 QRS: 4 QRSD: 100 T: 24 QT: 370 QTc: 435 Interpretive Statements SINUS RHYTHM NORMAL ECG RI6.02 No previous ECG available for comparison
[2020-01-02] MEDS: IV NORMAL SALINE 1000ML BAG 1,000 ML IV SCH ×2 (12:04→18:49)
--- NOTE | 2020-01-02 13:11 | PDOC1 ---
History and Physical Date of Admission: Date of Admission DATE: 01/02/20 TIME: 13:09 Chief Complaint: Problems: (1) Hypertension (2) Anemia (3) Hyperlipidemia (4) Head injury (5) Scalp contusion (6) Cervical radiculopathy (7) Depression (8) Suicide ideation (9) Cough (10) Chest pain (11) Asthma exacerbation Chief Complain: Shortness of breath and wheezing History of Present Illness: HPI: This is a middle-aged white male well-known to our service Today presents to the ER with shortness of breath and wheezing He increased his home meds but that did not seem to help His symptoms are worse with moving and better with sitting still He rates it 7 out of 10 Describes is very anxiety producing I discussed the case with ER physician regard to me the patient given some IV steroids breathing treatments and oxygen and rule out COVID-19 Past Medical/Surgical History: PMH/PSH: Past Medical History: Anxiety, Arthritis, Asthma, Depression, High Cholesterol, Hypertension, Other Additional Past Medical Histor: INSOMNIA, Mental Retardation Past Surgical History: Tonsillectomy, Other Additional Past Surgical Histo: INGROWN TOE NAIL REMOVED Smoking Status: Former Smoker Allergies: Allergies: Coded Allergies: Penicillins (Verified Allergy, Intermediate, 04/04/16) Family History: Family History: Hypertension and diabetes Social History: Social History: He does not drink smoke or take drugs Current Medications: Current Medications Current Medications Methylprednisolone Sodium Succinate (SOLU-Medrol 125MG VIAL) 125 mg 1X ONCE IV Last administered on 01/02/20at 08:37; Start 01/02/20 at 08:30; Stop 01/02/20 at 08:31; Status DC Albuterol/ Ipratropium (Duoneb) 6 ml 1X ONCE NEB ; Start 01/02/20 at 08:30; Stop 01/02/20 at 08:31; Status DC Albuterol Sulfate (Ventolin Neb Soln) 2.5 mg 1X ONCE NEB ; Start 01/02/20 at 08:30; Stop 01/02/20 at 08:31; Status DC Ondansetron HCl (Zofran) 4 mg PRN Q8HRS PRN IV NAUSEA/VOMITING; Start 01/02/20 at 11:15; Stop 01/03/20 at 11:14 Sodium Chloride 1,000 ml @ 150 mls/hr Q6H40M IV Last administered on 01/02/20at 12:04; Start 01/02/20 at 11:15; Stop 01/03/20 at 11:14 Acetaminophen (Tylenol) 650 mg PRN Q4HRS PRN PO FEVER > 100.3'F; Start 01/02/20 at 11:15; Stop 01/03/20 at 11:14 Albuterol/ Ipratropium (Duoneb) 3 ml RTQID NEB ; Start 01/02/20 at 12:00; Stop 01/03/20 at 11:59 Active Scripts Active Cefdinir 300 Mg Capsule 1 Cap PO BID 7 Days Prednisone 20 Mg Tablet 20 Mg PO DAILY 5 Days Omeprazole 40 Mg Capsule.dr 1 Cap PO DAILY 30 Days Reported Medrol (Methylprednisolone) 4 Mg Tab.ds.pk 1 Pkg PO UD Combivent Respimat Inhal (Ipratropium/Albuterol Sulfate) 4 Gm Aer.w.adap 1 Puff IH QID Crestor (Rosuvastatin Calcium) 40 Mg Tablet 20 Mg PO HS Doxepin Hcl 10 Mg Capsule 1 Cap PO QHS Montelukast Sodium Tablet (Montelukast Sodium) 10 Mg Tablet 10 Mg PO DAILY Flomax (Tamsulosin Hcl) 0.4 Mg Cap.er.24h 1 Cap PO DAILY Meloxicam 15 Mg Tablet 1 Tab PO DAILY 30 Days Symbicort 160-4.5 Mcg Inhaler (Budesonide/Formoterol Fumarate) 10.2 Gm Hfa.aer.ad 1 Puff IH BID Proair Hfa Inhaler (Albuterol Sulfate) 8.5 Gm Hfa.aer.ad 2 Puff IH PRN Q4-6HRS Citalopram Hbr (Citalopram Hydrobromide) 40 Mg Tablet 1 Tab PO DAILY Fenofibrate (Fenofibrate Nanocrystallized) 145 Mg Tablet 1 Tab PO DAILY Lisinopril-Hctz 20-12.5 Mg Tab (Lisinopril/Hydrochlorothiazide) 1 Each Tablet 1 Tab PO DAILY ROS: Review of Systems Review of System REVIEW OF SYSTEMS: GENERAL: Denies weakness SKIN: No bruising, hair changes or rashes. EYES: No blurred, double or loss of vision. NOSE AND THROAT: No history of nosebleeds, hoarseness or sore throat. HEART: No history of palpitations, chest pain or shortness of breath on exertion. LUNGS: Complains of cough shortness of breath and wheezing GASTROINTESTINAL: Denies changes in appetite, nausea, vomiting, diarrhea or constipation. GENITOURINARY: No history of frequency, urgency, hesitancy or nocturia. NEUROLOGIC: Denies history of numbness, tingling, or tremor. PSYCHIATRIC: No history of panic, anxiety or depression. ENDOCRINE: No history of heat or cold intolerance, polyuria or polydipsia. EXTREMITIES: Denies joint pain, pain on walking or stiffness. Physical Exam: Vital Signs: Vital Signs Date Time Temp Pulse Resp B/P (MAP) Pulse Ox O2 Delivery O2 Flow Rate FiO2 01/02/20 11:00 66 16 156/73 (100) 99 Nasal Cannula 6.0 01/02/20 08:00 98.9 98.9 Physcial Exam: GEN: No apparent distress. Alert and oriented HEENT: Normal cephalic, atraumatic, external auditory canals are patent EYES: Extraocular muscles are intact, pupil are equally round and reactive to light and accommodation MUSCULOSKELETAL: Well developed , well nourished, good range of motion ENDOCRINE: No thyromegaly was palpated LYMPHATICS: No cervical chain or axillary nodes were noted HEMATOPOIETIC: No bruising NECK: Supple, no JVD, no thyromegaly was noted Lungs; bilateral wheezing HEART: RRR, S!, S2 present. Peripheral pulses intact, no obvious murmurs noted ABDOMEN: Soft, nontender. Positive bowel sounds, no organomegaly, normal bowel sounds EXTREMITIES: Without clubbing, cyanosis, or edema. Pedal pulses intact. Negative Homans sign NEUROLOGIC: Normal speech and tone. A&O x 3, moves all extremities, no obvious focal deficits PSYCHIATRIC: Normal affect, normal mood. Stable SKIN: No ulcerations or rashes, good skin turgor, no jaundice VASCULAR: Good capillary refill, neurovascular bundle appears to be intact Labs: Labs: Laboratory Tests Test 01/02/20 08:20 01/02/20 10:45 White Blood Count 3.1 x10^3/uL (4.0-11.0) Red Blood Count 3.97 x10^6/uL (4.30-5.70) Hemoglobin 11.3 g/dL (13.0-17.5) Hematocrit 33.1 % (39.0-53.0) Mean Corpuscular Volume 83 fL (79-100) Mean Corpuscular Hemoglobin 29 pg (25-35) Mean Corpuscular Hemoglobin Concent 34 g/dL (31-37) Red Cell Distribution Width 14.9 % (11.5-14.5) Platelet Count 142 x10^3/uL (140-400) Neutrophils (%) (Auto) 71 % (31-73) Lymphocytes (%) (Auto) 18 % (24-48) Monocytes (%) (Auto) 10 % (0-9) Eosinophils (%) (Auto) 1 % (0-3) Basophils (%) (Auto) 0 % (0-3) Neutrophils # (Auto) 2.2 x10^3/uL (1.8-7.7) Lymphocytes # (Auto) 0.6 x10^3/uL (1.0-4.8) Monocytes # (Auto) 0.3 x10^3/uL (0.0-1.1) Eosinophils # (Auto) 0.0 x10^3/uL (0.0-0.7) Basophils # (Auto) 0.0 x10^3/uL (0.0-0.2) Sodium Level 138 mmol/L (136-145) Potassium Level 4.0 mmol/L (3.5-5.1) Chloride Level 100 mmol/L (98-107) Carbon Dioxide Level 27 mmol/L (21-32) Anion Gap 11 (6-14) Blood Urea Nitrogen 18 mg/dL (8-26) Creatinine 1.1 mg/dL (0.7-1.3) Estimated GFR (Cockcroft-Gault) 69.5 BUN/Creatinine Ratio 16 (6-20) Glucose Level 152 mg/dL (70-99) Lactic Acid Level 2.5 mmol/L (0.4-2.0) Calcium Level 8.5 mg/dL (8.5-10.1) Total Bilirubin 0.1 mg/dL (0.2-1.0) Aspartate Amino Transf (AST/SGOT) 17 U/L (15-37) Alanine Aminotransferase (ALT/SGPT) 30 U/L (16-63) Alkaline Phosphatase 56 U/L (46-116) Troponin I Quantitative < 0.017 ng/mL (0.000-0.055) WJ-Wns-D-Type Natriuretic Peptide 143 pg/mL (0-124) Total Protein 6.4 g/dL (6.4-8.2) Albumin 3.6 g/dL (3.4-5.0) Albumin/Globulin Ratio 1.3 (1.0-1.7) O2 Saturation 98 % (92-99) Arterial Blood pH 7.35 (7.35-7.45) Arterial Blood pCO2 at Patient Temp 52 mmHg (35-46) Arterial Blood pO2 at Patient Temp 140 mmHg (75-108) Arterial Blood HCO3 28 mmol/L (21-28) Arterial Blood Base Excess 1 mmol/L (-3-3) FiO2 44 Laboratory Tests Test 01/02/20 08:20 01/02/20 10:45 White Blood Count 3.1 x10^3/uL (4.0-11.0) Red Blood Count 3.97 x10^6/uL (4.30-5.70) Hemoglobin 11.3 g/dL (13.0-17.5) Hematocrit 33.1 % (39.0-53.0) Mean Corpuscular Volume 83 fL (79-100) Mean Corpuscular Hemoglobin 29 pg (25-35) Mean Corpuscular Hemoglobin Concent 34 g/dL (31-37) Red Cell Distribution Width 14.9 % (11.5-14.5) Platelet Count 142 x10^3/uL (140-400) Neutrophils (%) (Auto) 71 % (31-73) Lymphocytes (%) (Auto) 18 % (24-48) Monocytes (%) (Auto) 10 % (0-9) Eosinophils (%) (Auto) 1 % (0-3) Basophils (%) (Auto) 0 % (0-3) Neutrophils # (Auto) 2.2 x10^3/uL (1.8-7.7) Lymphocytes # (Auto) 0.6 x10^3/uL (1.0-4.8) Monocytes # (Auto) 0.3 x10^3/uL (0.0-1.1) Eosinophils # (Auto) 0.0 x10^3/uL (0.0-0.7) Basophils # (Auto) 0.0 x10^3/uL (0.0-0.2) Sodium Level 138 mmol/L (136-145) Potassium Level 4.0 mmol/L (3.5-5.1) Chloride Level 100 mmol/L (98-107) Carbon Dioxide Level 27 mmol/L (21-32) Anion Gap 11 (6-14) Blood Urea Nitrogen 18 mg/dL (8-26) Creatinine 1.1 mg/dL (0.7-1.3) Estimated GFR (Cockcroft-Gault) 69.5 BUN/Creatinine Ratio 16 (6-20) Glucose Level 152 mg/dL (70-99) Lactic Acid Level 2.5 mmol/L (0.4-2.0) Calcium Level 8.5 mg/dL (8.5-10.1) Total Bilirubin 0.1 mg/dL (0.2-1.0) Aspartate Amino Transf (AST/SGOT) 17 U/L (15-37) Alanine Aminotransferase (ALT/SGPT) 30 U/L (16-63) Alkaline Phosphatase 56 U/L (46-116) Troponin I Quantitative < 0.017 ng/mL (0.000-0.055) KV-Gza-V-Type Natriuretic Peptide 143 pg/mL (0-124) Total Protein 6.4 g/dL (6.4-8.2) Albumin 3.6 g/dL (3.4-5.0) Albumin/Globulin Ratio 1.3 (1.0-1.7) O2 Saturation 98 % (92-99) Arterial Blood pH 7.35 (7.35-7.45) Arterial Blood pCO2 at Patient Temp 52 mmHg (35-46) Arterial Blood pO2 at Patient Temp 140 mmHg (75-108) Arterial Blood HCO3 28 mmol/L (21-28) Arterial Blood Base Excess 1 mmol/L (-3-3) FiO2 44 Assessment/Plan Assessment/Plan Respiratory failure Asthma exacerbation Possible COVID-19 Recent foot infection Past Medical History: Anxiety, Arthritis, Asthma, Depression, High Cholesterol, Hypertension, Other Additional Past Medical Histor: INSOMNIA, Mental Retardation Past Surgical History: Tonsillectomy, Other Additional Past Surgical Histo: INGROWN TOE NAIL REMOVED Smoking Status: Former Smoker Plan IV steroids O2 Duo nebs Home meds DVT prophylaxis Full code We will swab him for COVID-19 Justicifation of Admission Dx: Justifications for Admission: Justification of Admission Dx: Yes Acute COPD Exacerbation: Acute COPD Exacerbation DWIGHT ANDERSON III DO Jan 02, 2020 13:11
[2020-01-02] MEDS ORDERED: NON FORMULARY ITEM (Methylprednisolone (Medrol) 1 PKG) PO SCH (13:15)
[2020-01-02] MEDS: IPRATRPIUM/ALBUTEROL 0.5/2.5MG 3 ML NEBU. NEB SCH ×2 (16:45→16:48)
[2020-01-02] MEDS ORDERED: IPRATRPIUM/ALBUTEROL 0.5/2.5MG 3 ML NEBU. NEB SCH (20:00)
[2020-01-02] MEDS ORDERED: ATORVASTATIN CALCIUM 40 MG TABLET. PO SCH (21:00)
[2020-01-02] MEDS ORDERED: DOXEPIN HCL 10 MG CAPSULE. PO SCH (21:00)
[2020-01-02] MEDS: IPRATROPIUM/ALBUTEROL 20/100mcg/INH INHALER. INH SCH (23:04)
[2020-01-03] MEDS: IV NORMAL SALINE 1000ML BAG 1,000 ML IV SCH ×2 (01:26→09:09)
[2020-01-03 03:15] VITALS: BP 143/72
[2020-01-03 04:17] LABS: BASO % 0 % (0-3); EOS % 0 % (0-3); HEMATOCRIT 33.6 % (39.0-53.0); HEMOGLOBIN 11.5 g/dL (13.0-17.5); LYMPH # 0.4 x10^3/uL (1.0-4.8); LYMPH % 7 % (24-48); MEAN CORPUSCULAR HEMOGLOBIN 29 pg (25-35); MEAN CORPUSCULAR HGB CONC 34 g/dL (31-37); MEAN CORPUSCULAR VOLUME 84 fL (79-100); MONO # 0.4 x10^3/uL (0.0-1.1); MONO % 7 % (0-9); NEUT # 5.8 x10^3/uL (1.8-7.7); NEUT % 87 % (31-73); PLATELET COUNT 193 x10^3/uL (140-400); RED BLOOD COUNT 4.01 x10^6/uL (4.30-5.70); RED CELL DISTRIBUTION WIDTH 14.6 % (11.5-14.5); WHITE BLOOD COUNT 6.7 x10^3/uL (4.0-11.0)
[2020-01-03 04:46] LABS: ALBUMIN 3.6 g/dL (3.4-5.0); ALBUMIN/GLOBULIN RATIO 1.1 (1.0-1.7); CALCIUM 8.5 mg/dL (8.5-10.1); CREATININE 1.1 mg/dL (0.7-1.3); GFR 69.5; POTASSIUM 4.4 mmol/L (3.5-5.1); TOTAL BILIRUBIN 0.2 mg/dL (0.2-1.0); TOTAL PROTEIN 6.8 g/dL (6.4-8.2)
[2020-01-03 05:15] LABS: % BANDS 2 % (0-9); % LYMPHS 7 % (24-48); % MONOS 2 % (0-10); % SEGS 89 % (35-66); PLT ESTIMATE ADEQUATE (ADEQUATE)
[2020-01-03 07:28] VITALS: BP 157/54
[2020-01-03] MEDS ORDERED: PANTOPRAZOLE 40 MG TABLET.DR. PO SCH (07:30)
[2020-01-03] MEDS: IPRATROPIUM/ALBUTEROL 20/100mcg/INH INHALER. INH SCH ×3 (08:00→16:35)
[2020-01-03] MEDS ORDERED: FENOFIBRATE,MICRONIZED 134 MG CAPSULE PO SCH (09:00)
[2020-01-03] MEDS ORDERED: MELOXICAM 7.5 MG TABLET PO SCH (09:00)
[2020-01-03] MEDS ORDERED: CITALOPRAM 20 MG TABLET. PO SCH (09:00)
[2020-01-03] MEDS ORDERED: TAMSULOSIN 0.4 MG CAP.ER.24H. PO SCH (09:00)
[2020-01-03] MEDS ORDERED: LISINOPRIL 20 MG TABLET PO SCH (09:00)
[2020-01-03] MEDS ORDERED: MONTELUKAST SODIUM 10 MG TABLET. PO SCH (09:00)
[2020-01-03] MEDS ORDERED: methylPREDNISolone SOD SUCC PF 40 MG/ML VIAL. IV SCH (09:00)
[2020-01-03] MEDS ORDERED: hydroCHLOROthiazide 12.5 MG CAPSULE PO SCH (09:00)
--- NOTE | 2020-01-03 10:35 | PDOC ---
PULMONARY PROGRESS NOTES Vitals Vital Signs Date Time Temp Pulse Resp B/P (MAP) Pulse Ox O2 Delivery O2 Flow Rate FiO2 01/03/20 09:08 82 157/54 01/03/20 07:28 96.9 22 98 Room Air 6.0 96.9 General: Alert, No acute distress Lungs: Wheezing Cardiovascular: S1 Abdomen: Soft, Other Extremities: Other Labs Laboratory Tests Test 01/02/20 08:20 01/02/20 10:45 01/02/20 20:00 01/03/20 03:35 White Blood Count 3.1 x10^3/uL (4.0-11.0) 6.7 x10^3/uL (4.0-11.0) Red Blood Count 3.97 x10^6/uL (4.30-5.70) 4.01 x10^6/uL (4.30-5.70) Hemoglobin 11.3 g/dL (13.0-17.5) 11.5 g/dL (13.0-17.5) Hematocrit 33.1 % (39.0-53.0) 33.6 % (39.0-53.0) Mean Corpuscular Volume 83 fL (79-100) 84 fL (79-100) Mean Corpuscular Hemoglobin 29 pg (25-35) 29 pg (25-35) Mean Corpuscular Hemoglobin Concent 34 g/dL (31-37) 34 g/dL (31-37) Red Cell Distribution Width 14.9 % (11.5-14.5) 14.6 % (11.5-14.5) Platelet Count 142 x10^3/uL (140-400) 193 x10^3/uL (140-400) Neutrophils (%) (Auto) 71 % (31-73) 87 % (31-73) Lymphocytes (%) (Auto) 18 % (24-48) 7 % (24-48) Monocytes (%) (Auto) 10 % (0-9) 7 % (0-9) Eosinophils (%) (Auto) 1 % (0-3) 0 % (0-3) Basophils (%) (Auto) 0 % (0-3) 0 % (0-3) Neutrophils # (Auto) 2.2 x10^3/uL (1.8-7.7) 5.8 x10^3/uL (1.8-7.7) Lymphocytes # (Auto) 0.6 x10^3/uL (1.0-4.8) 0.4 x10^3/uL (1.0-4.8) Monocytes # (Auto) 0.3 x10^3/uL (0.0-1.1) 0.4 x10^3/uL (0.0-1.1) Eosinophils # (Auto) 0.0 x10^3/uL (0.0-0.7) 0.0 x10^3/uL (0.0-0.7) Basophils # (Auto) 0.0 x10^3/uL (0.0-0.2) 0.0 x10^3/uL (0.0-0.2) Sodium Level 138 mmol/L (136-145) 138 mmol/L (136-145) Potassium Level 4.0 mmol/L (3.5-5.1) 4.4 mmol/L (3.5-5.1) Chloride Level 100 mmol/L (98-107) 101 mmol/L (98-107) Carbon Dioxide Level 27 mmol/L (21-32) 28 mmol/L (21-32) Anion Gap 11 (6-14) 9 (6-14) Blood Urea Nitrogen 18 mg/dL (8-26) 20 mg/dL (8-26) Creatinine 1.1 mg/dL (0.7-1.3) 1.1 mg/dL (0.7-1.3) Estimated GFR (Cockcroft-Gault) 69.5 69.5 BUN/Creatinine Ratio 16 (6-20) 18 (6-20) Glucose Level 152 mg/dL (70-99) 134 mg/dL (70-99) Lactic Acid Level 2.5 mmol/L (0.4-2.0) 3.9 mmol/L (0.4-2.0) Calcium Level 8.5 mg/dL (8.5-10.1) 8.5 mg/dL (8.5-10.1) Total Bilirubin 0.1 mg/dL (0.2-1.0) 0.2 mg/dL (0.2-1.0) Aspartate Amino Transf (AST/SGOT) 17 U/L (15-37) 16 U/L (15-37) Alanine Aminotransferase (ALT/SGPT) 30 U/L (16-63) 29 U/L (16-63) Alkaline Phosphatase 56 U/L (46-116) 39 U/L (46-116) Troponin I Quantitative < 0.017 ng/mL (0.000-0.055) RA-Ntx-T-Type Natriuretic Peptide 143 pg/mL (0-124) Total Protein 6.4 g/dL (6.4-8.2) 6.8 g/dL (6.4-8.2) Albumin 3.6 g/dL (3.4-5.0) 3.6 g/dL (3.4-5.0) Albumin/Globulin Ratio 1.3 (1.0-1.7) 1.1 (1.0-1.7) O2 Saturation 98 % (92-99) Arterial Blood pH 7.35 (7.35-7.45) Arterial Blood pCO2 at Patient Temp 52 mmHg (35-46) Arterial Blood pO2 at Patient Temp 140 mmHg (75-108) Arterial Blood HCO3 28 mmol/L (21-28) Arterial Blood Base Excess 1 mmol/L (-3-3) FiO2 44 Segmented Neutrophils % 89 % (35-66) Band Neutrophils % 2 % (0-9) Lymphocytes % 7 % (24-48) Monocytes % 2 % (0-10) Platelet Estimate Adequate (ADEQUATE) Laboratory Tests Test 01/02/20 10:45 01/02/20 20:00 01/03/20 03:35 O2 Saturation 98 % (92-99) Arterial Blood pH 7.35 (7.35-7.45) Arterial Blood pCO2 at Patient Temp 52 mmHg (35-46) Arterial Blood pO2 at Patient Temp 140 mmHg (75-108) Arterial Blood HCO3 28 mmol/L (21-28) Arterial Blood Base Excess 1 mmol/L (-3-3) FiO2 44 Lactic Acid Level 3.9 mmol/L (0.4-2.0) White Blood Count 6.7 x10^3/uL (4.0-11.0) Red Blood Count 4.01 x10^6/uL (4.30-5.70) Hemoglobin 11.5 g/dL (13.0-17.5) Hematocrit 33.6 % (39.0-53.0) Mean Corpuscular Volume 84 fL (79-100) Mean Corpuscular Hemoglobin 29 pg (25-35) Mean Corpuscular Hemoglobin Concent 34 g/dL (31-37) Red Cell Distribution Width 14.6 % (11.5-14.5) Platelet Count 193 x10^3/uL (140-400) Neutrophils (%) (Auto) 87 % (31-73) Lymphocytes (%) (Auto) 7 % (24-48) Monocytes (%) (Auto) 7 % (0-9) Eosinophils (%) (Auto) 0 % (0-3) Basophils (%) (Auto) 0 % (0-3) Neutrophils # (Auto) 5.8 x10^3/uL (1.8-7.7) Lymphocytes # (Auto) 0.4 x10^3/uL (1.0-4.8) Monocytes # (Auto) 0.4 x10^3/uL (0.0-1.1) Eosinophils # (Auto) 0.0 x10^3/uL (0.0-0.7) Basophils # (Auto) 0.0 x10^3/uL (0.0-0.2) Segmented Neutrophils % 89 % (35-66) Band Neutrophils % 2 % (0-9) Lymphocytes % 7 % (24-48) Monocytes % 2 % (0-10) Platelet Estimate Adequate (ADEQUATE) Sodium Level 138 mmol/L (136-145) Potassium Level 4.4 mmol/L (3.5-5.1) Chloride Level 101 mmol/L (98-107) Carbon Dioxide Level 28 mmol/L (21-32) Anion Gap 9 (6-14) Blood Urea Nitrogen 20 mg/dL (8-26) Creatinine 1.1 mg/dL (0.7-1.3) Estimated GFR (Cockcroft-Gault) 69.5 BUN/Creatinine Ratio 18 (6-20) Glucose Level 134 mg/dL (70-99) Calcium Level 8.5 mg/dL (8.5-10.1) Total Bilirubin 0.2 mg/dL (0.2-1.0) Aspartate Amino Transf (AST/SGOT) 16 U/L (15-37) Alanine Aminotransferase (ALT/SGPT) 29 U/L (16-63) Alkaline Phosphatase 39 U/L (46-116) Total Protein 6.8 g/dL (6.4-8.2) Albumin 3.6 g/dL (3.4-5.0) Albumin/Globulin Ratio 1.1 (1.0-1.7) Medications Active Scripts Medications Dose Route/Sig Max Daily Dose Days Date Category Medrol (Methylprednisolone) 4 Mg Tab.ds.pk 1 Pkg PO UD 11/11/19 Reported Combivent Respimat Inhal (Ipratropium/Albuterol Sulfate) 4 Gm Aer.w.adap 1 Puff IH QID 11/11/19 Reported Cefdinir 300 Mg Capsule 1 Cap PO BID 7 08/20/19 Rx Prednisone 20 Mg Tablet 20 Mg PO DAILY 5 08/20/19 Rx Crestor (Rosuvastatin Calcium) 40 Mg Tablet 20 Mg PO HS 08/17/19 Reported Doxepin Hcl 10 Mg Capsule 1 Cap PO QHS 08/17/19 Reported Montelukast Sodium Tablet (Montelukast Sodium) 10 Mg Tablet 10 Mg PO DAILY 08/17/19 Reported Flomax (Tamsulosin Hcl) 0.4 Mg Cap.er.24h 1 Cap PO DAILY 08/17/19 Reported Meloxicam 15 Mg Tablet 1 Tab PO DAILY 30 08/17/19 Reported Omeprazole 40 Mg Capsule.dr 1 Cap PO DAILY 30 04/05/16 Rx Symbicort 160-4.5 Mcg Inhaler (Budesonide/Formoterol Fumarate) 10.2 Gm Hfa.aer.ad 1 Puff IH BID 04/04/16 Reported Proair Hfa Inhaler (Albuterol Sulfate) 8.5 Gm Hfa.aer.ad 2 Puff IH PRN Q4-6HRS 07/26/15 Reported Citalopram Hbr (Citalopram Hydrobromide) 40 Mg Tablet 1 Tab PO DAILY 07/26/15 Reported Fenofibrate (Fenofibrate Nanocrystallized) 145 Mg Tablet 1 Tab PO DAILY 07/26/15 Reported Lisinopril-Hctz 20-12.5 Mg Tab (Lisinopril/Hydrochlorothiazide) 1 Each Tablet 1 Tab PO DAILY 07/26/15 Reported Impression . FULL NOTE DICTATED PT WISHES TO GO HOME ACUTE EXC OF ASTHMA 6 MW OK TO DC LATER TODAY THANKS FOLLOW UP WITH DR MARY IN OFFICE IN FEB CHARMAINE GALLARDO MD Jan 03, 2020 10:35
--- NOTE | 2020-01-03 10:38 | CONS ---
DATE OF CONSULTATION: 01/03/2020 ATTENDING PHYSICIAN: Dr. Abdalla. HISTORY OF PRESENT ILLNESS: The patient is a 54-year-old with a history of asthma, who presents with increasing shortness of breath. He was utilizing his bronchodilators at home with no significant improvement. He has a cough, mostly nonproductive. He had fever. No chills or night sweats. No COVID-19 exposures. He works at [employer]. He lives on his own. He was last seen here back in 10/2019. At that time, he was due to undergo a polysomnogram. He informed me that he underwent a polysomnogram, but did not meet requirements for CPAP. PAST MEDICAL HISTORY: COPD with an asthma component. He did smoke, quit 6 years ago. Has a history of asthma, hypertension, hyperlipidemia, osteoarthritis, and morbid obesity. PAST SURGICAL HISTORY: None. ALLERGIES: TO PENICILLIN. REVIEW OF SYSTEMS: As indicated above, otherwise a 10-point system was reviewed and negative. CONSTITUTIONAL: He denies fever or chills. HEENT: No headaches, diplopia or blurred vision. PULMONARY: As indicated above. CARDIOVASCULAR: No chest pain. No pressure. GASTROINTESTINAL: No nausea, vomiting or diarrhea. GENITOURINARY: No dysuria or frequency. MUSCULOSKELETAL: No localized muscle aches or joint pains. SKIN: No new skin rashes. NEUROLOGIC: No headaches, diplopia or blurred vision. FAMILY HISTORY: Noncontributory to the lungs. HOME MEDICATIONS: List was reviewed. PHYSICAL EXAMINATION: GENERAL: Morbid obese individual in no respiratory distress. VITAL SIGNS: Stable. O2 saturation was greater than 92%. LUNGS: Clear. No wheezes. CARDIOVASCULAR: Regular rate and rhythm with S1, S2, no S3. ABDOMEN: Soft, nontender, and nondistended. EXTREMITIES: No clubbing, cyanosis or edema. LABORATORY DATA: Reviewed. Arterial blood gas initially pH of 7.35, PaCO2 of 52, and pO2 of 140. White count was normal. Hemoglobin and hematocrit noted. Eosinophil percent was normal. Electrolytes were noted, normal. Chest x-ray was reviewed, cardiomegaly, no acute infiltrates. Venous Dopplers of the lower extremities revealed no evidence of DVT. IMPRESSION: 1. Acute and progressive dyspnea secondary to acute exacerbation of chronic obstructive pulmonary disease with an asthma component. 2. Acute exacerbation of asthma. 3. Morbid obesity. 4. Tobacco dependence, in remission. 5. Recent polysomnogram reported by patient, apparently he did not qualify for CPAP. PLAN: The patient is improving. He wishes to be discharged home, I did note that he was requiring quite a bit of oxygen upon admission. We will proceed with a 6-minute walk. If he does well, okay by me to discharge to have him followup with Dr. Pathak in the office. Continue his home medications. Provide prednisone 30 mg 1 p.o. x 5 days. Continue budesonide as an outpatient. Continue nebulized treatments. Continue Singulair. CHARMAINE GALLARDO MD DR: SHERRIE/nts JOB#: [id number] / [id number]
[2020-01-03 11:30] VITALS: BP 136/72
[2020-01-03] MEDS ORDERED: ALBUTEROL SULFATE 2.5 MG/3 ML NEBU. NEB SCH (12:00)
--- NOTE | 2020-01-03 13:37 | PDOC ---
PROGRESS NOTES Chief Complaint Chief Complaint A/P: Acute bronchitis with asthma exacerbation - improved with steroids, epinephrine. Will order nebs, 80mg Solumedrol q8hrs. Cont singulair. O2, wean as tolerated f or air hunger LE edema - negative for DVT HTN - cont home meds HLD - cont statin Obesity - counseled on weight loss, diet exercise Leukopenia - could be viral bronchitis, testing for COVID 19 Prediabetes - likely stress/steroid related, A1c 5.8 FEN - ADA diet PPX - lovenox FULL CODE Dispo - inpatient for above, likely 2 midnights History of Present Illness History of Present Illness Mr Sibley is a 54yo M w/ PMHx Anxiety, Arthritis, Depression, High Cholesterol, Hypertension, cognitive impairment, asthma come to ED with complaint of shortness of breath. Trouble breathing while at work at [employer], seen on 01/02/2020. Patient has history of asthma, he felt lightheaded on asthmatic attack. Started on steroids, Pulmicort nebs, seen by pulmonology. He is not really coughing at all. 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 No palpitations or dizziness. Some pain on deep inspiration and cough. No hx of CAD, VTE. EKG - NSR. CXR hypoexpanded. His O2 saturations were 99% on 6 L this morning. When taken off of O2 his O2 saturations ranged from 90% to 92%. Wheezes is significantly improved he has no cough. Still complaining of swelling in the right foot not his left. This is not really appreciable. He is very anxious to leave the hospital and go home. Awaiting 6-minute walk prior to discharge. Vitals Vitals Vital Signs Date Time Temp Pulse Resp B/P (MAP) Pulse Ox O2 Delivery O2 Flow Rate FiO2 01/03/20 11:30 97.2 72 18 136/72 (93) 98 Room Air 6.0 97.2 Physical Exam General: Alert, Oriented X3, Cooperative Heart: Regular rate, Normal S1, Normal S2 Lungs: Wheezing Labs LABS Laboratory Tests Test 01/02/20 20:00 01/03/20 03:35 Lactic Acid Level 3.9 mmol/L (0.4-2.0) White Blood Count 6.7 x10^3/uL (4.0-11.0) Red Blood Count 4.01 x10^6/uL (4.30-5.70) Hemoglobin 11.5 g/dL (13.0-17.5) Hematocrit 33.6 % (39.0-53.0) Mean Corpuscular Volume 84 fL (79-100) Mean Corpuscular Hemoglobin 29 pg (25-35) Mean Corpuscular Hemoglobin Concent 34 g/dL (31-37) Red Cell Distribution Width 14.6 % (11.5-14.5) Platelet Count 193 x10^3/uL (140-400) Neutrophils (%) (Auto) 87 % (31-73) Lymphocytes (%) (Auto) 7 % (24-48) Monocytes (%) (Auto) 7 % (0-9) Eosinophils (%) (Auto) 0 % (0-3) Basophils (%) (Auto) 0 % (0-3) Neutrophils # (Auto) 5.8 x10^3/uL (1.8-7.7) Lymphocytes # (Auto) 0.4 x10^3/uL (1.0-4.8) Monocytes # (Auto) 0.4 x10^3/uL (0.0-1.1) Eosinophils # (Auto) 0.0 x10^3/uL (0.0-0.7) Basophils # (Auto) 0.0 x10^3/uL (0.0-0.2) Segmented Neutrophils % 89 % (35-66) Band Neutrophils % 2 % (0-9) Lymphocytes % 7 % (24-48) Monocytes % 2 % (0-10) Platelet Estimate Adequate (ADEQUATE) Sodium Level 138 mmol/L (136-145) Potassium Level 4.4 mmol/L (3.5-5.1) Chloride Level 101 mmol/L (98-107) Carbon Dioxide Level 28 mmol/L (21-32) Anion Gap 9 (6-14) Blood Urea Nitrogen 20 mg/dL (8-26) Creatinine 1.1 mg/dL (0.7-1.3) Estimated GFR (Cockcroft-Gault) 69.5 BUN/Creatinine Ratio 18 (6-20) Glucose Level 134 mg/dL (70-99) Calcium Level 8.5 mg/dL (8.5-10.1) Total Bilirubin 0.2 mg/dL (0.2-1.0) Aspartate Amino Transf (AST/SGOT) 16 U/L (15-37) Alanine Aminotransferase (ALT/SGPT) 29 U/L (16-63) Alkaline Phosphatase 39 U/L (46-116) Total Protein 6.8 g/dL (6.4-8.2) Albumin 3.6 g/dL (3.4-5.0) Albumin/Globulin Ratio 1.1 (1.0-1.7) Assessment and Plan Assessmemt and Plan Problems Medical Problems: (1) Asthma exacerbation Status: Acute Comment Review of Relevant I have reviewed the following items nicole (where applicable) has been applied. Labs Laboratory Tests Test 01/02/20 08:20 01/02/20 10:45 01/02/20 20:00 01/03/20 03:35 White Blood Count 3.1 x10^3/uL (4.0-11.0) 6.7 x10^3/uL (4.0-11.0) Red Blood Count 3.97 x10^6/uL (4.30-5.70) 4.01 x10^6/uL (4.30-5.70) Hemoglobin 11.3 g/dL (13.0-17.5) 11.5 g/dL (13.0-17.5) Hematocrit 33.1 % (39.0-53.0) 33.6 % (39.0-53.0) Mean Corpuscular Volume 83 fL (79-100) 84 fL (79-100) Mean Corpuscular Hemoglobin 29 pg (25-35) 29 pg (25-35) Mean Corpuscular Hemoglobin Concent 34 g/dL (31-37) 34 g/dL (31-37) Red Cell Distribution Width 14.9 % (11.5-14.5) 14.6 % (11.5-14.5) Platelet Count 142 x10^3/uL (140-400) 193 x10^3/uL (140-400) Neutrophils (%) (Auto) 71 % (31-73) 87 % (31-73) Lymphocytes (%) (Auto) 18 % (24-48) 7 % (24-48) Monocytes (%) (Auto) 10 % (0-9) 7 % (0-9) Eosinophils (%) (Auto) 1 % (0-3) 0 % (0-3) Basophils (%) (Auto) 0 % (0-3) 0 % (0-3) Neutrophils # (Auto) 2.2 x10^3/uL (1.8-7.7) 5.8 x10^3/uL (1.8-7.7) Lymphocytes # (Auto) 0.6 x10^3/uL (1.0-4.8) 0.4 x10^3/uL (1.0-4.8) Monocytes # (Auto) 0.3 x10^3/uL (0.0-1.1) 0.4 x10^3/uL (0.0-1.1) Eosinophils # (Auto) 0.0 x10^3/uL (0.0-0.7) 0.0 x10^3/uL (0.0-0.7) Basophils # (Auto) 0.0 x10^3/uL (0.0-0.2) 0.0 x10^3/uL (0.0-0.2) Sodium Level 138 mmol/L (136-145) 138 mmol/L (136-145) Potassium Level 4.0 mmol/L (3.5-5.1) 4.4 mmol/L (3.5-5.1) Chloride Level 100 mmol/L (98-107) 101 mmol/L (98-107) Carbon Dioxide Level 27 mmol/L (21-32) 28 mmol/L (21-32) Anion Gap 11 (6-14) 9 (6-14) Blood Urea Nitrogen 18 mg/dL (8-26) 20 mg/dL (8-26) Creatinine 1.1 mg/dL (0.7-1.3) 1.1 mg/dL (0.7-1.3) Estimated GFR (Cockcroft-Gault) 69.5 69.5 BUN/Creatinine Ratio 16 (6-20) 18 (6-20) Glucose Level 152 mg/dL (70-99) 134 mg/dL (70-99) Lactic Acid Level 2.5 mmol/L (0.4-2.0) 3.9 mmol/L (0.4-2.0) Calcium Level 8.5 mg/dL (8.5-10.1) 8.5 mg/dL (8.5-10.1) Total Bilirubin 0.1 mg/dL (0.2-1.0) 0.2 mg/dL (0.2-1.0) Aspartate Amino Transf (AST/SGOT) 17 U/L (15-37) 16 U/L (15-37) Alanine Aminotransferase (ALT/SGPT) 30 U/L (16-63) 29 U/L (16-63) Alkaline Phosphatase 56 U/L (46-116) 39 U/L (46-116) Troponin I Quantitative < 0.017 ng/mL (0.000-0.055) JZ-Wnx-I-Type Natriuretic Peptide 143 pg/mL (0-124) Total Protein 6.4 g/dL (6.4-8.2) 6.8 g/dL (6.4-8.2) Albumin 3.6 g/dL (3.4-5.0) 3.6 g/dL (3.4-5.0) Albumin/Globulin Ratio 1.3 (1.0-1.7) 1.1 (1.0-1.7) O2 Saturation 98 % (92-99) Arterial Blood pH 7.35 (7.35-7.45) Arterial Blood pCO2 at Patient Temp 52 mmHg (35-46) Arterial Blood pO2 at Patient Temp 140 mmHg (75-108) Arterial Blood HCO3 28 mmol/L (21-28) Arterial Blood Base Excess 1 mmol/L (-3-3) FiO2 44 Segmented Neutrophils % 89 % (35-66) Band Neutrophils % 2 % (0-9) Lymphocytes % 7 % (24-48) Monocytes % 2 % (0-10) Platelet Estimate Adequate (ADEQUATE) Laboratory Tests Test 01/02/20 20:00 01/03/20 03:35 Lactic Acid Level 3.9 mmol/L (0.4-2.0) White Blood Count 6.7 x10^3/uL (4.0-11.0) Red Blood Count 4.01 x10^6/uL (4.30-5.70) Hemoglobin 11.5 g/dL (13.0-17.5) Hematocrit 33.6 % (39.0-53.0) Mean Corpuscular Volume 84 fL (79-100) Mean Corpuscular Hemoglobin 29 pg (25-35) Mean Corpuscular Hemoglobin Concent 34 g/dL (31-37) Red Cell Distribution Width 14.6 % (11.5-14.5) Platelet Count 193 x10^3/uL (140-400) Neutrophils (%) (Auto) 87 % (31-73) Lymphocytes (%) (Auto) 7 % (24-48) Monocytes (%) (Auto) 7 % (0-9) Eosinophils (%) (Auto) 0 % (0-3) Basophils (%) (Auto) 0 % (0-3) Neutrophils # (Auto) 5.8 x10^3/uL (1.8-7.7) Lymphocytes # (Auto) 0.4 x10^3/uL (1.0-4.8) Monocytes # (Auto) 0.4 x10^3/uL (0.0-1.1) Eosinophils # (Auto) 0.0 x10^3/uL (0.0-0.7) Basophils # (Auto) 0.0 x10^3/uL (0.0-0.2) Segmented Neutrophils % 89 % (35-66) Band Neutrophils % 2 % (0-9) Lymphocytes % 7 % (24-48) Monocytes % 2 % (0-10) Platelet Estimate Adequate (ADEQUATE) Sodium Level 138 mmol/L (136-145) Potassium Level 4.4 mmol/L (3.5-5.1) Chloride Level 101 mmol/L (98-107) Carbon Dioxide Level 28 mmol/L (21-32) Anion Gap 9 (6-14) Blood Urea Nitrogen 20 mg/dL (8-26) Creatinine 1.1 mg/dL (0.7-1.3) Estimated GFR (Cockcroft-Gault) 69.5 BUN/Creatinine Ratio 18 (6-20) Glucose Level 134 mg/dL (70-99) Calcium Level 8.5 mg/dL (8.5-10.1) Total Bilirubin 0.2 mg/dL (0.2-1.0) Aspartate Amino Transf (AST/SGOT) 16 U/L (15-37) Alanine Aminotransferase (ALT/SGPT) 29 U/L (16-63) Alkaline Phosphatase 39 U/L (46-116) Total Protein 6.8 g/dL (6.4-8.2) Albumin 3.6 g/dL (3.4-5.0) Albumin/Globulin Ratio 1.1 (1.0-1.7) Microbiology 01/02/20 Blood Culture - Preliminary, Resulted NO GROWTH AFTER 1 DAY Medications Current Medications Methylprednisolone Sodium Succinate (SOLU-Medrol 125MG VIAL) 125 mg 1X ONCE IV Last administered on 01/02/20at 08:37; Start 01/02/20 at 08:30; Stop 01/02/20 at 08:31; Status DC Albuterol/ Ipratropium (Duoneb) 6 ml 1X ONCE NEB Last administered on 01/02/20at 16:44; Start 01/02/20 at 08:30; Stop 01/02/20 at 08:31; Status DC Albuterol Sulfate (Ventolin Neb Soln) 2.5 mg 1X ONCE NEB ; Start 01/02/20 at 08:30; Stop 01/02/20 at 08:31; Status DC Ondansetron HCl (Zofran) 4 mg PRN Q8HRS PRN IV NAUSEA/VOMITING; Start 01/02/20 at 11:15; Stop 01/03/20 at 11:14; Status DC Sodium Chloride 1,000 ml @ 150 mls/hr Q6H40M IV Last administered on 01/03/20at 09:09; Start 01/02/20 at 11:15; Stop 01/03/20 at 11:14; Status DC Acetaminophen (Tylenol) 650 mg PRN Q4HRS PRN PO FEVER > 100.3'F; Start 01/02/20 at 11:15; Stop 01/03/20 at 11:14; Status DC Albuterol/ Ipratropium (Duoneb) 3 ml RTQID NEB Last administered on 01/02/20at 16:48; Start 01/02/20 at 12:00; Stop 01/02/20 at 19:06; Status DC Doxepin HCl (SINequan) 10 mg QHS PO Last administered on 01/02/20at 23:05; Start 01/02/20 at 21:00 Montelukast Sodium (Singulair) 10 mg DAILY PO Last administered on 01/03/20at 09:08; Start 01/03/20 at 09:00 Tamsulosin HCl (Flomax) 0.4 mg DAILY PO Last administered on 01/03/20at 09:08; Start 01/03/20 at 09:00 Albuterol Sulfate (Ventolin Neb Soln) 2.5 mg RTQID NEB ; Start 01/03/20 at 12:00; Stop 01/02/20 at 19:07; Status DC Citalopram Hydrobromide (CeleXA) 40 mg DAILY PO Last administered on 01/03/20at 09:08; Start 01/03/20 at 09:00 Fenofibrate (Lofibra) 134 mg DAILY PO Last administered on 01/03/20at 09:07; Start 01/03/20 at 09:00 Albuterol/ Ipratropium (Duoneb) 3 ml RTQID NEB ; Start 01/02/20 at 20:00; Stop 01/02/20 at 19:08; Status DC Lisinopril (Prinivil) 20 mg DAILY PO Last administered on 01/03/20at 09:08; Start 01/03/20 at 09:00 Meloxicam (Mobic) 15 mg DAILY PO Last administered on 01/03/20at 09:08; Start 01/03/20 at 09:00 Non-Formulary Medication (Methylprednisolone (Medrol)) 1 pkg UD PO ; Start 01/02/20 at 13:15; Stop 01/02/20 at 15:54; Status DC Pantoprazole Sodium (Protonix) 40 mg DAILYAC PO Last administered on 01/03/20at 09:07; Start 01/03/20 at 07:30 Atorvastatin Calcium (Lipitor) 80 mg QHS PO Last administered on 01/02/20at 23:05; Start 01/02/20 at 21:00 Methylprednisolone Sodium Succinate (SOLU-Medrol 40MG VIAL) 30 mg DAILY IV Last administered on 01/03/20at 09:09; Start 01/03/20 at 09:00 Hydrochlorothiazide (Microzide) 12.5 mg DAILY PO Last administered on 01/03/20at 09:08; Start 01/03/20 at 09:00 Budesonide (Pulmicort) 0.5 mg RTBID NEB ; Start 01/03/20 at 20:00; Stop 01/02/20 at 19:07; Status DC Albuterol/ Ipratropium (Combivent Respimat 20-100 Mcg) 1 puff RTQID INH Last administered on 01/03/20at 12:41; Start 01/02/20 at 20:00 Active Scripts Active Cefdinir 300 Mg Capsule 1 Cap PO BID 7 Days Prednisone 20 Mg Tablet 20 Mg PO DAILY 5 Days Omeprazole 40 Mg Capsule.dr 1 Cap PO DAILY 30 Days Reported Medrol (Methylprednisolone) 4 Mg Tab.ds.pk 1 Pkg PO UD Combivent Respimat Inhal (Ipratropium/Albuterol Sulfate) 4 Gm Aer.w.adap 1 Puff IH QID Crestor (Rosuvastatin Calcium) 40 Mg Tablet 20 Mg PO HS Doxepin Hcl 10 Mg Capsule 1 Cap PO QHS Montelukast Sodium Tablet (Montelukast Sodium) 10 Mg Tablet 10 Mg PO DAILY Flomax (Tamsulosin Hcl) 0.4 Mg Cap.er.24h 1 Cap PO DAILY Meloxicam 15 Mg Tablet 1 Tab PO DAILY 30 Days Symbicort 160-4.5 Mcg Inhaler (Budesonide/Formoterol Fumarate) 10.2 Gm Hfa.aer.ad 1 Puff IH BID Proair Hfa Inhaler (Albuterol Sulfate) 8.5 Gm Hfa.aer.ad 2 Puff IH PRN Q4-6HRS Citalopram Hbr (Citalopram Hydrobromide) 40 Mg Tablet 1 Tab PO DAILY Fenofibrate (Fenofibrate Nanocrystallized) 145 Mg Tablet 1 Tab PO DAILY Lisinopril-Hctz 20-12.5 Mg Tab (Lisinopril/Hydrochlorothiazide) 1 Each Tablet 1 Tab PO DAILY Vitals/I & O Vital Sign - Last 24 Hours 01/02/20 01/02/20 01/02/20 01/02/20 13:51 14:51 15:51 16:48 Pulse 72 76 70 Resp 26 23 28 B/P (MAP) 117/96 (103) 109/72 (84) 181/65 (103) Pulse Ox 95 98 97 92 O2 Delivery Nasal Cannula Nasal Cannula Nasal Cannula Nasal Cannula O2 Flow Rate 6.0 6.0 6.0 4.0 01/02/20 01/02/20 01/02/20 01/02/20 16:51 17:51 18:51 19:51 Pulse 68 90 76 100 Resp 16 18 14 28 B/P (MAP) 152/69 (96) 164/72 (102) 167/74 (105) 172/77 (108) Pulse Ox 98 98 98 93 O2 Delivery Nasal Cannula Nasal Cannula Nasal Cannula Nasal Cannula O2 Flow Rate 6.0 6.0 6.0 6.0 01/02/20 01/02/20 01/03/20 01/03/20 20:51 21:51 03:15 03:27 Temp 96.8 96.8 Pulse 74 74 78 Resp 17 16 20 B/P (MAP) 141/83 (102) 135/62 (86) 143/72 (95) Pulse Ox 99 98 94 O2 Delivery Nasal Cannula Nasal Cannula Room Air Nasal Cannula O2 Flow Rate 6.0 6.0 6.0 01/03/20 01/03/20 01/03/20 07:28 09:08 11:30 Temp 96.9 97.2 96.9 97.2 Pulse 82 82 72 Resp 22 18 B/P (MAP) 157/54 (88) 157/54 136/72 (93) Pulse Ox 98 98 O2 Delivery Room Air Room Air O2 Flow Rate 6.0 6.0 Intake and Output 01/02/20 01/02/20 01/03/20 15:00 23:00 07:00 Intake Total 1000 ml 200 ml Output Total 200 ml Balance 1000 ml 0 ml Justicifation of Admission Dx: Justifications for Admission: Justification of Admission Dx: Yes Acute COPD Exacerbation: Acute COPD Exacerbation PRAFUL REA MD Jan 03, 2020 13:37
[2020-01-03] MEDS ORDERED: PRED20TA PO (14:33)
--- NOTE | 2020-01-03 14:38 | PDOC3 ---
Discharge Summary Visit Information Date of Admission: Jan 02, 2020 Date of Discharge: Jan 03, 2020 Admitting Diagnosis: Acute asthma exacerbation Final Diagnosis Problems Medical Problems: (1) Asthma exacerbation Status: Acute Brief Hospital Course Allergies Allergies Coded Allergies Type Severity Reaction Last Updated Verified Penicillins Allergy Intermediate 04/04/16 Yes Vital Signs Vital Signs Date Time Temp Pulse Resp B/P (MAP) Pulse Ox O2 Delivery O2 Flow Rate FiO2 01/03/20 11:30 97.2 72 18 136/72 (93) 98 Room Air 6.0 97.2 Lab Results Laboratory Tests Test 01/02/20 08:20 01/02/20 10:45 01/02/20 20:00 01/03/20 03:35 White Blood Count 3.1 x10^3/uL (4.0-11.0) 6.7 x10^3/uL (4.0-11.0) Red Blood Count 3.97 x10^6/uL (4.30-5.70) 4.01 x10^6/uL (4.30-5.70) Hemoglobin 11.3 g/dL (13.0-17.5) 11.5 g/dL (13.0-17.5) Hematocrit 33.1 % (39.0-53.0) 33.6 % (39.0-53.0) Mean Corpuscular Volume 83 fL (79-100) 84 fL (79-100) Mean Corpuscular Hemoglobin 29 pg (25-35) 29 pg (25-35) Mean Corpuscular Hemoglobin Concent 34 g/dL (31-37) 34 g/dL (31-37) Red Cell Distribution Width 14.9 % (11.5-14.5) 14.6 % (11.5-14.5) Platelet Count 142 x10^3/uL (140-400) 193 x10^3/uL (140-400) Neutrophils (%) (Auto) 71 % (31-73) 87 % (31-73) Lymphocytes (%) (Auto) 18 % (24-48) 7 % (24-48) Monocytes (%) (Auto) 10 % (0-9) 7 % (0-9) Eosinophils (%) (Auto) 1 % (0-3) 0 % (0-3) Basophils (%) (Auto) 0 % (0-3) 0 % (0-3) Neutrophils # (Auto) 2.2 x10^3/uL (1.8-7.7) 5.8 x10^3/uL (1.8-7.7) Lymphocytes # (Auto) 0.6 x10^3/uL (1.0-4.8) 0.4 x10^3/uL (1.0-4.8) Monocytes # (Auto) 0.3 x10^3/uL (0.0-1.1) 0.4 x10^3/uL (0.0-1.1) Eosinophils # (Auto) 0.0 x10^3/uL (0.0-0.7) 0.0 x10^3/uL (0.0-0.7) Basophils # (Auto) 0.0 x10^3/uL (0.0-0.2) 0.0 x10^3/uL (0.0-0.2) Sodium Level 138 mmol/L (136-145) 138 mmol/L (136-145) Potassium Level 4.0 mmol/L (3.5-5.1) 4.4 mmol/L (3.5-5.1) Chloride Level 100 mmol/L (98-107) 101 mmol/L (98-107) Carbon Dioxide Level 27 mmol/L (21-32) 28 mmol/L (21-32) Anion Gap 11 (6-14) 9 (6-14) Blood Urea Nitrogen 18 mg/dL (8-26) 20 mg/dL (8-26) Creatinine 1.1 mg/dL (0.7-1.3) 1.1 mg/dL (0.7-1.3) Estimated GFR (Cockcroft-Gault) 69.5 69.5 BUN/Creatinine Ratio 16 (6-20) 18 (6-20) Glucose Level 152 mg/dL (70-99) 134 mg/dL (70-99) Lactic Acid Level 2.5 mmol/L (0.4-2.0) 3.9 mmol/L (0.4-2.0) Calcium Level 8.5 mg/dL (8.5-10.1) 8.5 mg/dL (8.5-10.1) Total Bilirubin 0.1 mg/dL (0.2-1.0) 0.2 mg/dL (0.2-1.0) Aspartate Amino Transf (AST/SGOT) 17 U/L (15-37) 16 U/L (15-37) Alanine Aminotransferase (ALT/SGPT) 30 U/L (16-63) 29 U/L (16-63) Alkaline Phosphatase 56 U/L (46-116) 39 U/L (46-116) Troponin I Quantitative < 0.017 ng/mL (0.000-0.055) GJ-Bcx-Y-Type Natriuretic Peptide 143 pg/mL (0-124) Total Protein 6.4 g/dL (6.4-8.2) 6.8 g/dL (6.4-8.2) Albumin 3.6 g/dL (3.4-5.0) 3.6 g/dL (3.4-5.0) Albumin/Globulin Ratio 1.3 (1.0-1.7) 1.1 (1.0-1.7) O2 Saturation 98 % (92-99) Arterial Blood pH 7.35 (7.35-7.45) Arterial Blood pCO2 at Patient Temp 52 mmHg (35-46) Arterial Blood pO2 at Patient Temp 140 mmHg (75-108) Arterial Blood HCO3 28 mmol/L (21-28) Arterial Blood Base Excess 1 mmol/L (-3-3) FiO2 44 Segmented Neutrophils % 89 % (35-66) Band Neutrophils % 2 % (0-9) Lymphocytes % 7 % (24-48) Monocytes % 2 % (0-10) Platelet Estimate Adequate (ADEQUATE) Laboratory Tests Test 01/02/20 20:00 01/03/20 03:35 Lactic Acid Level 3.9 mmol/L (0.4-2.0) White Blood Count 6.7 x10^3/uL (4.0-11.0) Red Blood Count 4.01 x10^6/uL (4.30-5.70) Hemoglobin 11.5 g/dL (13.0-17.5) Hematocrit 33.6 % (39.0-53.0) Mean Corpuscular Volume 84 fL (79-100) Mean Corpuscular Hemoglobin 29 pg (25-35) Mean Corpuscular Hemoglobin Concent 34 g/dL (31-37) Red Cell Distribution Width 14.6 % (11.5-14.5) Platelet Count 193 x10^3/uL (140-400) Neutrophils (%) (Auto) 87 % (31-73) Lymphocytes (%) (Auto) 7 % (24-48) Monocytes (%) (Auto) 7 % (0-9) Eosinophils (%) (Auto) 0 % (0-3) Basophils (%) (Auto) 0 % (0-3) Neutrophils # (Auto) 5.8 x10^3/uL (1.8-7.7) Lymphocytes # (Auto) 0.4 x10^3/uL (1.0-4.8) Monocytes # (Auto) 0.4 x10^3/uL (0.0-1.1) Eosinophils # (Auto) 0.0 x10^3/uL (0.0-0.7) Basophils # (Auto) 0.0 x10^3/uL (0.0-0.2) Segmented Neutrophils % 89 % (35-66) Band Neutrophils % 2 % (0-9) Lymphocytes % 7 % (24-48) Monocytes % 2 % (0-10) Platelet Estimate Adequate (ADEQUATE) Sodium Level 138 mmol/L (136-145) Potassium Level 4.4 mmol/L (3.5-5.1) Chloride Level 101 mmol/L (98-107) Carbon Dioxide Level 28 mmol/L (21-32) Anion Gap 9 (6-14) Blood Urea Nitrogen 20 mg/dL (8-26) Creatinine 1.1 mg/dL (0.7-1.3) Estimated GFR (Cockcroft-Gault) 69.5 BUN/Creatinine Ratio 18 (6-20) Glucose Level 134 mg/dL (70-99) Calcium Level 8.5 mg/dL (8.5-10.1) Total Bilirubin 0.2 mg/dL (0.2-1.0) Aspartate Amino Transf (AST/SGOT) 16 U/L (15-37) Alanine Aminotransferase (ALT/SGPT) 29 U/L (16-63) Alkaline Phosphatase 39 U/L (46-116) Total Protein 6.8 g/dL (6.4-8.2) Albumin 3.6 g/dL (3.4-5.0) Albumin/Globulin Ratio 1.1 (1.0-1.7) Brief Hospital Course Mr Maryjo is a 54yo M w/ PMHx Anxiety, Arthritis, Depression, High Cholesterol, Hypertension, cognitive impairment, asthma come to ED with complaint of shortness of breath. Trouble breathing while at work at [employer], seen on 01/02/2020. Patient has history of asthma, he felt lightheaded on asthmatic attack. Started on steroids, Pulmicort nebs, seen by pulmonology. He is not really coughing at all. 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 No palpitations or dizziness. Some pain on deep inspiration and cough. No hx of CAD, VTE. EKG - NSR. CXR hypoexpanded. His O2 saturations were 99% on 6 L this morning. When taken off of O2 his O2 saturations ranged from 90% to 92%. Wheezes is significantly improved he has no cough. Still complaining of swelling in the right foot not his left. This is not really appreciable. He is very anxious to leave the hospital and go home. 6-minute walk showed desaturations 94% on exertion and at rest on room air prior to discharge. He has outpatient follow-up with Dr. Daniel Pathak his primary blueprint tracer. Consults: Pulm Problem list: Acute bronchitis with asthma exacerbation - improved with steroids, nebs, 80mg Solumedrol q8hrs. Cont singulair. O2, wean as tolerated for air hunger. Prednisone taper 5 days. Do not return to work until contacted about COVID 19 results LE edema - negative for DVT HTN - cont home meds HLD - cont statin Obesity - counseled on weight loss, diet exercise Leukopenia - could be viral bronchitis, testing for COVID 19 pending. will self quarantine until called about his status Prediabetes - likely stress/steroid related, A1c 5.8 Greater than 30 minutes spent on care on day of discharge. Discharge Information Condition at Discharge: Improved Follow Up: Weeks (1) Disposition/Orders: D/C to Home Scheduled Albuterol Sulfate (Proair Hfa Inhaler) 8.5 Gm Hfa.aer.ad, 2 PUFF IH PRN Q4-6HRS, #1 (Reported) Entered as Reported by: JENNY GLOVER on 07/26/15 1606 Budesonide/Formoterol Fumarate (Symbicort 160-4.5 Mcg Inhaler) 10.2 Gm Hfa.aer.ad, 1 PUFF IH BID, (Reported) Entered as Reported by: NADIA BENITEZ on 04/04/16 1806 Last Action: Converted on 01/02/20 1314 by NIAL CASTLE Citalopram Hydrobromide (Citalopram Hbr) 40 Mg Tablet, 1 TAB PO DAILY, #90 Ref 1 (Reported) Entered as Reported by: JENNY GLOVER on 07/26/15 160 Last Action: Converted on 01/02/20 1314 by NIAL CASTLE Doxepin Hcl (Doxepin Hcl) 10 Mg Capsule, 1 CAP PO QHS for , #30 Ref 2 (Reported) Entered as Reported by: DEBBIE GALINDO RN on 08/17/19 160 Last Action: Continued on 01/02/201313 by NIAL CASTLE Fenofibrate Nanocrystallized (Fenofibrate) 145 Mg Tablet, 1 TAB PO DAILY, #30 Ref 5 (Reported) Entered as Reported by: JENNY GLOVER on 07/26/15 1606 Last Action: Converted on 01/02/201313 by NIAL CASTLE Ipratropium/Albuterol Sulfate (Combivent Respimat Inhal) 4 Gm Aer.w.adap, 1 PUFF IH QID for asthma, (Reported) Entered as Reported by: KADIE JIMENEZ on 11/11/19 0955 Last Action: Converted on 01/02/20 1314 by NIAL CASTLE Lisinopril/Hydrochlorothiazide (Lisinopril-Hctz 20-12.5 Mg Tab) 1 Each Tablet, 1 TAB PO DAILY, #30 Ref 5 (Reported) Entered as Reported by: JENNY GLOVER on 07/26/15 1545 Last Action: Converted on 01/02/20 131 by NIAL CASTLE Meloxicam (Meloxicam) 15 Mg Tablet, 1 TAB PO DAILY for for 30 Days, #30 Ref 0 (Reported) Entered as Reported by: DEBBIE GALINDO RN on 08/17/19 160 Last Action: Converted on 01/02/20 131 by NIAL CASTLE Montelukast Sodium (Montelukast Sodium Tablet ) 10 Mg Tablet, 10 MG PO DAILY for FOR ASTHMA, Ref 0 (Reported) Entered as Reported by: DEBBIE GALINDO RN on 08/17/191608 Last Action: Continued on 01/02/201313 by NIAL CASTLE Omeprazole (Omeprazole) 40 Mg Capsule.dr, 1 CAP PO DAILY for 30 Days, Ref 30 Prescribed by: FORREST GARCIA on 04/05/16 1453 Last Action: Converted on 01/02/201313 by NIAL CASTREYNOLD Prednisone (Prednisone) 20 Mg Tablet, 20 MG PO DAILY for Asthma for 5 Days, #5 Prescribed by: PRAFUL REA MD on 01/03/20 1433 Rosuvastatin Calcium (Crestor) 40 Mg Tablet, 20 MG PO HS for FOR CHOLESTEROL, #30 Ref 0 (Reported) Entered as Reported by: DEBBIE GALINDO RN on 08/17/191608 Last Action: Converted on 01/02/201313 by NIAL CASTLE Tamsulosin Hcl (Flomax) 0.4 Mg Cap.er.24h, 1 CAP PO DAILY for , #30 Ref 11 (Reported) Entered as Reported by: DEBBIE GALINDO RN on 08/17/191608 Last Action: Continued on 01/02/201313 by NIAL JUSTIN Discontinued Medications Cefdinir (Cefdinir) 300 Mg Capsule, 1 CAP PO BID for Bacteremia for 7 Days, #14 Prescribed by: PRAFUL REA MD on 08/20/19 1543 Methylprednisolone (Medrol) 4 Mg Tab.ds.pk, 1 PKG PO UD for asthma, #1 (Reported) Entered as Reported by: KADIE JIMENEZ on 11/11/19 0956 Last Action: Converted on 01/02/201313 by NIAL CASTLE Justicifation of Admission Dx: Justifications for Admission: Justification of Admission Dx: Yes Acute COPD Exacerbation: Acute COPD Exacerbation PRAFUL REA MD Jan 03, 2020 14:38
[2020-01-03 15:08] VITALS: BP 144/63
--- NOTE | 2020-01-03 16:43 | NUR ---
SW following. Spoke with RN and reviewed chart. Pt requesting discharge home. Pt on oral medications and room air. Pt COVID negative. No SW needs per RN.
--- NOTE | 2020-01-03 17:45 | NUR ---
Discharge Note: LIZA WILSON Discharge instructions and discharge home medications reviewed with Patient and a copy given. All questions have been answered and understanding verbalized. The following instructions and handouts were given: discharge instruction provided. CoVID-19 Home Instruction provided. Discontinued lines and drains: Catheter tip intact. Patient tolerated well. Patient discharged to home via [facility] services. Patient's case picker did not answer her phone. mailbox was full. Two attempts.
[2020-01-03] MEDS ORDERED: BUDESONIDE 0.5 MG/2 ML NEBU. NEB SCH (20:00)
== END 2020-01-03 17:45 | disposition home or self-care (01) | DRG 189 ==
LOC: ER 07:45 → ED HOLD 10:21 → 6 SOUTH 11:35
PROVIDERS: ADMIT Internal Medicine; ATTEND Internal Medicine
DX: J96.01 Acute respiratory failure with hypoxia (principal); J44.0 Chronic obstructive pulmonary disease with (acute) lower respiratory infection; J45.41 Moderate persistent asthma with (acute) exacerbation; R45.851 Suicidal ideations; Z68.42 Body mass index [BMI] 45.0-49.9, adult; J44.1 Chronic obstructive pulmonary disease with (acute) exacerbation; J20.8 Acute bronchitis due to other specified organisms; D64.9 Anemia, unspecified; D72.819 Decreased white blood cell count, unspecified; E66.01 Morbid (severe) obesity due to excess calories; E78.00 Pure hypercholesterolemia, unspecified; E78.5 Hyperlipidemia, unspecified; F17.201 Nicotine dependence, unspecified, in remission; F32.9 Major depressive disorder, single episode, unspecified; F41.9 Anxiety disorder, unspecified; F79 Unspecified intellectual disabilities; I10 Essential (primary) hypertension; M54.12 Radiculopathy, cervical region; R73.03 Prediabetes; S00.03XA Contusion of scalp, initial encounter; X58.XXXA Exposure to other specified factors, initial encounter; Z20.828 Contact with and (suspected) exposure to other viral communicable diseases; Z82.49 Family history of ischemic heart disease and other diseases of the circulatory system; Z83.3 Family history of diabetes mellitus; M19.90 Unspecified osteoarthritis, unspecified site
CPT/HCPCS: 36415; 36600; 71045; 80053; 82805; 83605; 83880; 84484; 85007; 85025; 87040; 93005; 93970; 94618; 94640; 94760; 96361; 96374; 99291; J2920; J2930; J7030; G0378; U0003-CS

== ENCOUNTER 2020-03-14 07:57 | Observation (INO) | payer OTHER, MEDICAID ==
[~2020-03-14] VITALS: Ht 180.3 cm; Wt 168.6 kg
--- NOTE | 2020-03-14 08:06 | PHYS DOC ---
Past Medical History Past Medical History: Anxiety, Arthritis, Asthma, Depression, High Cholesterol, Hypertension, Other Additional Past Medical Histor: INSOMNIA, Mental Retardation Past Surgical History: Tonsillectomy, Other Additional Past Surgical Histo: INGROWN TOE NAIL REMOVED Smoking Status: Former Smoker Alcohol Use: None Drug Use: None General Adult EDM: Chief Complaint: CHEST PAIN HPI: HPI: Patient is a 55 year old male who was brought here by EMS from home due to chest pain that started at 6 AM this morning. Patient has history hypertension, he had not taken his blood pressure medication this morning yet. Patient denies any cough or fever. Patient denies any history of coronary artery disease. EMS gave patient 324 mg aspirin on route here. Patient also has history of asthma, patient denies any abdominal pain, no nausea or vomiting. Patient is not sure if he been exposed to anybody who tested positive for COVID-19. Patient was admitted here in August of this year for chest pain and asthma exacerbation. Review of Systems: Review of Systems: Constitutional: Denies fever or chills. [] Eyes: Denies change in visual acuity. [] HENT: Denies nasal congestion or sore throat. [] Respiratory: Denies cough or shortness of breath. [] Cardiovascular: Positive for chest pain, no edema. GI: Denies abdominal pain, nausea, vomiting, bloody stools or diarrhea. [] : Denies dysuria. [] Musculoskeletal: Denies back pain or joint pain. [] Integument: Denies rash. [] Neurologic: Denies headache, focal weakness or sensory changes. [] Endocrine: Denies polyuria or polydipsia. [] Lymphatic: Denies swollen glands. [] Psychiatric: Denies depression or anxiety. [] Heart Score: HEART Score for Chest Pain: HEART Score for Chest Pain Response (Comments) Value History Moderately Suspicious 1 ECG Normal 0 Age >45 - < 65 1 Risk Factors 1 or 2 Risk Factors 1 Troponin < Normal Limit 0 Total 3 Risk Factors: Risk Factors: DM, Current or recent (<one month) smoker, HTN, HLP, family history of CAD, obesity. Risk Scores: Score 0 - 3: 2.5% MACE over next 6 weeks - Discharge Home Score 4 - 6: 20.3% MACE over next 6 weeks - Admit for Clinical Observation Score 7 - 10: 72.7% MACE over next 6 weeks - Early Invasive Strategies Allergies: Allergies: Allergies Coded Allergies Type Severity Reaction Last Updated Verified Penicillins Allergy Intermediate 04/04/16 Yes Physical Exam: PE: Constitutional: Well developed, well nourished, no acute distress, non-toxic appearance. Obese HENT: Normocephalic, atraumatic, bilateral external ears normal, oropharynx moist, no oral exudates, nose normal. [] Eyes: PERRLA, EOMI, conjunctiva normal, no discharge. [] Neck: Normal range of motion, no tenderness, supple, no stridor. [] Cardiovascular:Heart rate regular rhythm, no murmur [] Lungs & Thorax: Bilateral breath sounds with expiratory wheezing to auscultation [] Abdomen: Bowel sounds normal, soft, no tenderness, no masses, no pulsatile masses. [] Skin: Warm, dry, no erythema, no rash. [] Back: No tenderness, no CVA tenderness. [] Extremities: No tenderness, no cyanosis, no clubbing, ROM intact, 2+ pitting edema. Neurologic: Alert and oriented X 3, normal motor function, normal sensory function, no focal deficits noted. [] Psychologic: Affect normal, judgement normal, mood normal. [] Current Patient Data: Vital Signs: Vital Signs Date Time Temp Pulse Resp B/P (MAP) Pulse Ox O2 Delivery O2 Flow Rate FiO2 03/14/20 07:59 98.3 73 20 192/92 (125) 96 Room Air 98.3 EKG: EKG: EKG was done at 802, heart rate of 75 beats per minute, normal sinus rhythm, no ST segment elevation Radiology/Procedures: Radiology/Procedures: [][facility] [address] [place] [address] IMAGING REPORT Signed PATIENT: LIZA WILSON ACCOUNT: [id number] : 1965 LOCATION: ER AGE: 55 SEX: M EXAM STATUS: REG ER ORD. PHYSICIAN: MONIKA LUI DO REASON: chest pain PROCEDURE: PORTABLE CHEST 1V PORTABLE CHEST 1V Clinical History: Reason: chest pain / Spl. Instructions: / History: Technique: AP view of the chest was obtained at 03/14/2020 7:53 AM. Comparison: January 02 2020. Findings: The heart is mild to moderately enlarged. The pulmonary vessels are top normal limits in size. There is mild perihilar linear opacities left more than right. The pleural margins are clear. Impression: 1. Cardiomegaly. 2. Mild bilateral infiltrates likely discoid atelectasis. Electronically signed by: López Topete III, MD (03/14/2020 8:25 AM) [id number] DICTATED and SIGNED BY: LÓPEZ TOPETE III, MD DATE: 03/14/20 0825 [facility] [address] [place] [address] IMAGING REPORT Signed PATIENT: LIZA WILSON ACCOUNT: [id number] : 1965 LOCATION: ER AGE: 55 SEX: M EXAM STATUS: REG ER ORD. PHYSICIAN: MONIKA LUI DO REASON: chest pain, shortness of air PROCEDURE: CT ANGIOGRAPHY CHEST Examination: CT ANGIOGRAPHY CHEST History: Reason: chest pain, shortness of air / Spl. Instructions: INJ 100ML OMNI 350 / History: Comparison/Correlation: 03/14/2020 Portable Chest X-ray Exam Findings: Axial images of the chest were obtained following IV contrast sigmoid pulmonary arterial tree protocol. Sagittal and coronal reformatted images were provided. Maximum intensity projection images were provided. Pulmonary arterial vasculature is normal with no thromboembolic disease. No infiltrate, pneumothorax, or effusion. Thoracic aorta is not opacified for arteriographic evaluation but appears grossly unremarkable. Calcific involvement of the left anterior descending coronary artery is evident. Partially visualized upper abdomen is unremarkable. Bony structures unremarkable. Impression: No PE, infiltrate, or pulmonary nodule. PQRS Compliance Statement: One or more of the following individualized dose reduction techniques were utilized for this examination: 1. Automated exposure control 2. Adjustment of the mA and/or kV according to patient size 3. Use of iterative reconstruction technique Electronically signed by: Choco Rivas MD (03/14/2020 10:10 AM) [id number] DICTATED and SIGNED BY: CHOCO RIVAS MD DATE: 03/14/20 1010 Course & Med Decision Making: Course & Med Decision Making pertinent Labs and Imaging studies reviewed. (See chart for details) Patient is a 55-year-old male who presented to ER due to chest pain, he was found to be hypertensive as well. CT scan of the chest did not show PE or infiltration. His lab work come back okay so for EKG did not show ST segment elevation. Due to risk factor patient will be admitted for further evaluation treatment. Dragon Disclaimer: Dragon Disclaimer: This electronic medical record was generated, in whole or in part, using a voice recognition dictation system. Departure Departure Impression: Primary Impression: Chest pain Additional Impression: Hypertension Disposition: ADMITTED INPATIENT Admitting Physician: ANGELLA (Dr. Abdalla) Condition: STABLE Referrals: Sydney SUTHERLAND MD (PCP) Justicifation of Admission Dx: Justifications for Admission: Justification of Admission Dx: Yes Acute COPD Exacerbation: Acute COPD Exacerbation MONIKA LUI DO Mar 14, 2020 08:06
[2020-03-14 08:18] LABS: BASO % 1 % (0-3); EOS # 0.1 x10^3/uL (0.0-0.7); EOS % 3 % (0-3); HEMOGLOBIN 12.4 g/dL (13.0-17.5); LYMPH # 0.5 x10^3/uL (1.0-4.8); LYMPH % 16 % (24-48); MEAN CORPUSCULAR HEMOGLOBIN 29 pg (25-35); MEAN CORPUSCULAR HGB CONC 34 g/dL (31-37); MEAN CORPUSCULAR VOLUME 84 fL (79-100); MONO # 0.3 x10^3/uL (0.0-1.1); MONO % 8 % (0-9); NEUT # 2.3 x10^3/uL (1.8-7.7); NEUT % 72 % (31-73); PLATELET COUNT 126 x10^3/uL (140-400); RED CELL DISTRIBUTION WIDTH 15.7 % (11.5-14.5); WHITE BLOOD COUNT 3.2 x10^3/uL (4.0-11.0)
--- NOTE | 2020-03-14 08:27 | RAD ---
PORTABLE CHEST 1V Clinical History: Reason: chest pain / Spl. Instructions: / History: Technique: AP view of the chest was obtained at 03/14/2020 7:53 AM. Comparison: January 02 2020. Findings: The heart is mild to moderately enlarged. The pulmonary vessels are top normal limits in size. There is mild perihilar linear opacities left more than right. The pleural margins are clear. Impression: 1. Cardiomegaly. 2. Mild bilateral infiltrates likely discoid atelectasis. Electronically signed by: Rodrigo Wadsworth III, MD (03/14/2020 8:25 AM) [id number]
[2020-03-14 08:28] LABS: GFR 77.3; POTASSIUM 4.5 mmol/L (3.5-5.1); PROTHROMBIN TIME PATIENT 12.1 SEC (11.7-14.0)
[2020-03-14] MEDS ORDERED: IPRATRPIUM/ALBUTEROL 0.5/2.5MG 3 ML NEBU. NEB ONE (08:30)
[2020-03-14] MEDS ORDERED: NITROGLYCERIN OINT 1 GM PACKET. TP ONE (08:30)
[2020-03-14 08:35] LABS: ALBUMIN/GLOBULIN RATIO 1.2 (1.0-1.7); MAGNESIUM 1.9 mg/dL (1.8-2.4); TOTAL BILIRUBIN 0.3 mg/dL (0.2-1.0); TOTAL PROTEIN 7.3 g/dL (6.4-8.2)
[2020-03-14] MEDS ORDERED: CONTRAST GIVEN. MC PRN (08:45)
[2020-03-14] MEDS ORDERED: IOHEXOL 350 MG/ML 100 ML VIAL. IV ONE (08:45)
--- NOTE | 2020-03-14 10:12 | RAD ---
Examination: CT ANGIOGRAPHY CHEST History: Reason: chest pain, shortness of air / Spl. Instructions: INJ 100ML OMNI 350 / History: Comparison/Correlation: 03/14/2020 Portable Chest X-ray Exam Findings: Axial images of the chest were obtained following IV contrast sigmoid pulmonary arterial tree protocol. Sagittal and coronal reformatted images were provided. Maximum intensity projection images were provided. Pulmonary arterial vasculature is normal with no thromboembolic disease. No infiltrate, pneumothorax, or effusion. Thoracic aorta is not opacified for arteriographic evaluation but appears grossly unremarkable. Calcific involvement of the left anterior descending coronary artery is evident. Partially visualized upper abdomen is unremarkable. Bony structures unremarkable. Impression: No PE, infiltrate, or pulmonary nodule. PQRS Compliance Statement: One or more of the following individualized dose reduction techniques were utilized for this examination: 1. Automated exposure control 2. Adjustment of the mA and/or kV according to patient size 3. Use of iterative reconstruction technique Electronically signed by: Choco Daniels MD (03/14/2020 10:10 AM) [id number]
[2020-03-14] MEDS ORDERED: ONDANSETRON PF 4 MG/2 ML VIAL. IV PRN (10:30)
[2020-03-14 11:50] VITALS: BP 187/83
--- NOTE | 2020-03-14 12:07 | EKG ---
[facility] [address] [place] [address] Test Date: 2020-03-14 Test Time: 08:00:53 Pat Name: LIZA WILSON Department: Room: Gender: M Claims Supervisor: : 1965 Requested By: MONIKA LUI Order Number: [id number] Reading MD: Measurements Intervals [place] Rate: 75 P: 39 TN: 170 QRS: -3 QRSD: 94 T: 20 QT: 370 QTc: 416 Interpretive Statements SINUS RHYTHM LEFTWARD AXIS OTHERWISE NORMAL ECG RI6.02 No previous ECG available for comparison
--- NOTE | 2020-03-14 12:10 | PDOC2 ---
LARISSA SCHMIDT TUBER HELPER 03/14/20 1210: CARDIAC CONSULT DATE OF CONSULT Date of Consult DATE: 03/14/20 TIME: 12:09 REASON FOR CONSULT Reason for Consult: Chest pain REFERRING PHYSICIAN Referring Physician: carl SOURCE Source: Chart review, Patient HISTORY OF PRESENT ILLNESS HISTORY OF PRESENT ILLNESS This is a pleasant 55 yo male admitted for complains of chest pain. Apparently at 6 AM he was sitting watching this TV this morning and started having sharp mid chest pain that radiates to immediate back, He checked his BP and SBP was in the 190s. His discomfort is stabbing and no associated SOA, palpitations. No recent falls or injury. He does have some wheezing and has asthma and presently taking prednisone, meloxicam for his OA but has not been taking his prilosec regularly only when he thinks he needs it. He has been having consistent dry cough at night, no significant heartburn but his diet is as follows, drinks a lot of chocolate milk, and eats processed food. Last night alone he ate swiss sausage and thinks he has gained some more wt. No changes to his activity tolerance and believes that his asthma is controlled. PAST MEDICAL HISTORY Past Medical History Cardiovascular: HTN, Hyperlipidemia Pulmonary: Asthma CENTRAL NERVOUS SYSTEM: Other (No pertinent history) GI: GERD Heme/Onc: anemia Musculoskeletal: Osteoarthritis. cervical spondylosis, morbid obesity Rheumatologic: No pertinent hx Infectious disease: Strep bacteremia Psych: depression ENT: sinusitis Renal/: BPH Endocrine: No pertinent hx Dermatology: No pertinent hx PAST SURGICAL HISTORY Past Surgical History: Other (removal of ingrown toenail) FAMILY HISTORY Family History: Coronary Artery Disease (father) SOCIAL HISTORY Smoke: No ALCOHOL: none Drugs: None Lives: Alone CURRENT MEDICATIONS CURRENT MEDICATIONS Current Medications Medications (Trade) Dose Ordered Sig/Fredy Route PRN Reason Start Time Stop Time Status Last Admin Dose Admin Albuterol/ Ipratropium (Duoneb) 3 ml 1X ONCE NEB 03/14/20 08:30 03/14/20 08:31 DC 03/14/20 08:38 Nitroglycerin (Nitro-Bid Oint) 1 inch 1X ONCE TP 03/14/20 08:30 03/14/20 08:31 DC 03/14/20 08:27 Iohexol (Omnipaque 350 Mg/ml) 100 ml 1X ONCE IV 03/14/20 08:45 03/14/20 08:46 DC 03/14/20 09:55 ALLERGIES ALLERGIES: Coded Allergies: Penicillins (Verified Allergy, Intermediate, 04/04/16) ROS Review of System 14 point ROS evaluated with pertinent positives noted per HPI PHYSICAL EXAM General: Alert, Oriented X3, Cooperative, No acute distress HEENT: Atraumatic, Mucous membr. moist/pink Lungs: Other (diffuse wheeze) Heart: Regular rate (SR), Other (distant heart sounds) Abdomen: Soft, No tenderness, Other (obese) Extremities: No cyanosis, Other (1+ bilateral LE pitting edema) Skin: No breakdown, No significant lesion Neuro: Normal speech, Sensation intact Psych/Mental Status: Mental status NL, Mood NL MUSCULOSKELETAL: Osteoarthritic changes both hands VITALS/I&O VITALS/I&O: Vital Signs Date Time Temp Pulse Resp B/P (MAP) Pulse Ox O2 Delivery O2 Flow Rate FiO2 03/14/20 11:26 76 17 150/67 (94) 94 Room Air 03/14/20 07:59 98.3 98.3 LABS Lab: Laboratory Tests Test 03/14/20 08:06 03/14/20 11:06 White Blood Count 3.2 x10^3/uL (4.0-11.0) L Red Blood Count 4.30 x10^6/uL (4.30-5.70) Hemoglobin 12.4 g/dL (13.0-17.5) L Hematocrit 36.0 % (39.0-53.0) L Mean Corpuscular Volume 84 fL (79-100) Mean Corpuscular Hemoglobin 29 pg (25-35) Mean Corpuscular Hemoglobin Concent 34 g/dL (31-37) Red Cell Distribution Width 15.7 % (11.5-14.5) H Platelet Count 126 x10^3/uL (140-400) L Neutrophils (%) (Auto) 72 % (31-73) Lymphocytes (%) (Auto) 16 % (24-48) L Monocytes (%) (Auto) 8 % (0-9) Eosinophils (%) (Auto) 3 % (0-3) Basophils (%) (Auto) 1 % (0-3) Neutrophils # (Auto) 2.3 x10^3/uL (1.8-7.7) Lymphocytes # (Auto) 0.5 x10^3/uL (1.0-4.8) L Monocytes # (Auto) 0.3 x10^3/uL (0.0-1.1) Eosinophils # (Auto) 0.1 x10^3/uL (0.0-0.7) Basophils # (Auto) 0.0 x10^3/uL (0.0-0.2) Prothrombin Time 12.1 SEC (11.7-14.0) Prothrombin Time INR 0.9 (0.8-1.1) Activated Partial Thromboplast Time 25 SEC (24-38) Sodium Level 141 mmol/L (136-145) Potassium Level 4.5 mmol/L (3.5-5.1) Chloride Level 103 mmol/L (98-107) Carbon Dioxide Level 33 mmol/L (21-32) H Anion Gap 5 (6-14) L Blood Urea Nitrogen 15 mg/dL (8-26) Creatinine 1.0 mg/dL (0.7-1.3) Estimated GFR (Cockcroft-Gault) 77.3 BUN/Creatinine Ratio 15 (6-20) Glucose Level 151 mg/dL (70-99) H Calcium Level 9.0 mg/dL (8.5-10.1) Magnesium Level 1.9 mg/dL (1.8-2.4) Total Bilirubin 0.3 mg/dL (0.2-1.0) Aspartate Amino Transferase (AST) 27 U/L (15-37) Alanine Aminotransferase (ALT) 43 U/L (16-63) Alkaline Phosphatase 50 U/L (46-116) Troponin I Quantitative < 0.017 ng/mL (0.000-0.055) < 0.017 ng/mL (0.000-0.055) ML-Etc-H-Type Natriuretic Peptide 96 pg/mL (0-124) Total Protein 7.3 g/dL (6.4-8.2) Albumin 4.0 g/dL (3.4-5.0) Albumin/Globulin Ratio 1.2 (1.0-1.7) Lipase 63 U/L (73-393) L Laboratory Tests 03/14/20 08:06 Laboratory Tests 03/14/20 08:06 STRESS TEST STRESS TEST Conclusion 1. No evidence of stress induced EKG changes. 2. Normal myocardial perfusion at stress. 3. Normal EF at > 70% 4. Low risk study DATE: 04/05/16 1358 ASSESSMENT/PLAN ASSESSMENT/PLAN 1. Atypical chest pain: trop nml, EKG SR without acute changes. Suspect GERD exacerbation. DOubt ACS 2. HTN urgency now controlled 3. HLP 4. Morbid obesity 5. GERD exacerbation 6. Mild asthma exacerbation: suspect that uncontrolled GERD is likely contributing 7. Diet noncompliance 8. Metabolic syndrome Recommendations 1. ASA. Restart home antilipemic. Continue home ACEi/HCTZ 2. Pt has just been taking his PPI PRN and has been taking prednisone and meloxicam. Discussed routine dosing. of prilosec 3. Will obtain TTE and will noted baseline EF and PAP. 4. Dietitian consult. Wt loss. Discussed GERD prevention 5. Check TSH and A1C ROBER LINDSEY MD 03/14/20 1706: CARDIAC CONSULT ASSESSMENT/PLAN ASSESSMENT/PLAN Pt. seen and examined. Agree with above HEAD BELLHOP CAPTAIN note. Supportive care. LARISSA SCHMIDT TUBER HELPER Mar 14, 2020 12:10 ROBER LINDSEY MD Mar 14, 2020 17:06
[2020-03-14 12:44] LABS: CHOLESTEROL/HDL RATIO 3.2
[2020-03-14] MEDS: hydroCHLOROthiazide 12.5 MG CAPSULE PO SCH (12:48)
[2020-03-14] MEDS: LISINOPRIL 20 MG TABLET PO SCH (12:49)
[2020-03-14] MEDS ORDERED: PERFLUTREN PROTEIN-A MICROSPHR 0.22 MG/ML 3 ML VIAL. IV ONE ×2 (14:34→15:00)
--- NOTE | 2020-03-14 16:15 | CARD ---
MR#: [id number] Date of Study: 03/14/2020 Ordering Physician: LARISSA SCHMIDT, Referring Physician: LARISSA SCHMIDT, Tech: Lucille Zamora APPROVED REPORT EXAM: Two-dimensional and M-mode echocardiogram with Doppler, color Doppler with contrast. Other Information Quality : FairHR: 80bpm Technically limited study due to morbid obesity INDICATION Chest Pain RISK FACTORS Hypertension Previous smoker 2D DIMENSIONS Left Atrium(2D)3.9 (1.6-4.0cm)IVSd1.5 (0.7-1.1cm) Aortic Root(2D)3.7 (2.0-3.7cm)LVDd5.2 (3.9-5.9cm) LVOT Diameter2.0 (1.8-2.4cm)PWd1.3 (0.7-1.1cm) LVDs2.7 (2.5-4.0cm)FS (%) 49.1 % SV105.4 mlLVEF(%)80.1 (>50%) Aortic Valve AoV Peak Harish.161.3cm/sAoV VTI32.6cm AO Peak GR.10.4mmHgLVOT Peak Harish.142.2cm/s LVOT VTI 26.01cmAO Mean GR.7mmHg KAMRON (VMAX)1.02vb3MOT (VTI)2.52cm2 Mitral Valve MV E Dierwmfr53.6cm/sMV DECEL [id number] MV A Ecqdbfey67.1cm/sMV E Mean Gr.2mmHg MV SBS47utZ/A Ratio1.1 MVA (PHT)2.96cm2 TDI E/Lateral E'8.1E/Medial E'9.5 Pulmonary Valve PV Peak Fkhryhhq373.6cm/sPV Peak Grad.8mmHg Pulmonary Vein S1 Rmmtwunu94.8cm/sD2 Jdmiyvtj01.5cm/s PVa [id number] LEFT VENTRICLE The left ventricle is normal size. There is mild to moderate concentric left ventricular hypertrophy. The left ventricular systolic function is normal and the ejection fraction is within normal range. T he Ejection Fraction is 55-60%. There is normal LV segmental wall motion. Transmitral Doppler flow pa ttern is Grade I-abnormal relaxation pattern. RIGHT VENTRICLE The right ventricle is not well visualized. There is normal right ventricular wall thickness. The rig ht ventricular systolic function is normal. ATRIA The left atrium size is normal. The right atrium size is normal. The interatrial septum is intact wit h no evidence for an atrial septal defect or patent foramen ovale as noted on 2-D or Doppler imaging. AORTIC VALVE The aortic valve is normal in structure and function. Doppler and Color Flow revealed no significant aortic regurgitation. There is no significant aortic valvular stenosis. Calculated aortic valve area is 2.96 cm2 with maximum pressure gradient of 13 mmHg and mean pressure gradient of 8 mmHg. MITRAL VALVE The mitral valve is normal in structure and function. There is no evidence of mitral valve prolapse. There is no mitral valve stenosis. Doppler and Color-flow revealed trace mitral regurgitation. TRICUSPID VALVE The tricuspid valve is normal in structure and function. Doppler and Color Flow revealed trace tricus pid regurgitation. There is no tricuspid valve stenosis. GREAT VESSELS The aortic root is normal in size. The ascending aorta is normal in size. The IVC was not visualized. PERICARDIAL EFFUSION There is no evidence of significant pericardial effusion. Critical Notification Critical Value: No <Conclusion> The left ventricular systolic function is normal and the ejection fraction is within normal range. Th e Ejection Fraction is 55-60%. There is normal LV segmental wall motion. Technically difficult study Signed by : Daryl Tenorio, Electronically Approved : 03/14/2020 16:15:02
--- NOTE | 2020-03-14 18:34 | NUR ---
The patient, LIZA WILSON, 55 y/o, M admitted by DWIGHT ANDERSON III, DO, was given written information regarding hospital policies, unit procedures and contact persons.
[2020-03-14 18:52] VITALS: BP 167/76
--- NOTE | 2020-03-14 19:35 | NUR ---
Assessment completed vss poc explained pt denied pain at this time will resume care and continue to monitor pt. Call light placed in reach.
[2020-03-14] MEDS ORDERED: ATORVASTATIN CALCIUM 40 MG TABLET. PO SCH (21:00)
[2020-03-14 23:01] VITALS: BP 151/80
[2020-03-15 03:00] VITALS: BP 134/83
[2020-03-15 05:11] LABS: HEMOGLOBIN A1C 5.8 % (4.8-5.6)
[2020-03-15 07:10] VITALS: BP 178/79
[2020-03-15] MEDS ORDERED: PANTOPRAZOLE 40 MG TABLET.DR. PO SCH (07:30)
[2020-03-15] MEDS: LISINOPRIL 20 MG TABLET PO SCH (08:35)
[2020-03-15] MEDS: hydroCHLOROthiazide 12.5 MG CAPSULE PO SCH (08:35)
[2020-03-15] MEDS ORDERED: LISINOPRIL 20 MG TABLET PO ONE (09:00)
--- NOTE | 2020-03-15 09:14 | PDOC ---
LARISSA SCHMIDT HEALTH COACH 03/15/20 0914: CARDIO Progress Notes Date and Time Date of Service 03/15/2020 Time of Evaluation 0940 Subjective Subjective: No Chest Pain, No shortness of breath, No Palpitations Vitals Vitals Vital Signs Date Time Temp Pulse Resp B/P (MAP) Pulse Ox O2 Delivery O2 Flow Rate FiO2 03/15/20 08:35 70 178/79 03/15/20 07:10 98.7 18 93 Room Air 98.7 Weight Weight [ ] Input and Output Intake and Output Intake and Output 03/15/20 07:00 Intake Total 700 ml Output Total 1350 ml Balance -650 ml Intake Oral 500 ml Other 200 ml Output Urine Total 1350 ml Laboratory Labs Laboratory Tests Test 03/14/20 11:06 03/14/20 18:30 Troponin I Quantitative < 0.017 ng/mL (0.000-0.055) < 0.017 ng/mL (0.000-0.055) Physical Exam HEENT: Neck Supple W Full Motion Chest: Symmetric LUNGS: Clear to Auscultation Heart: S1S2, RRR (SR/SB) Abdomen: Soft N/T, Other (obese) Extremities: No Calf Tenderness Neurology: alert, oriented, follow commands Assessment Assessment 1. Atypical chest pain: due to GERD exacerbation. 2. HTN urgency some labile episode. EF and WM nml 3. HLP: on goal 4. Morbid obesity 5. GERD exacerbation 6. Mild asthma exacerbation: suspect that uncontrolled GERD is likely contributing 7. Diet noncompliance 8. Metabolic syndrome 9. Asymptomatic SB: noted 40s with x1 3 sec pause, no past syncopes or frequent dizziness. Recommendations 1. ASA. Restart home antilipemic. Continue home ACEi/HCTZ. Will increase lisinopril 2. Pt has just been taking his PPI PRN and has been taking prednisone and meloxicam. Encouraged routine dosing. of prilosec 3. Dietitian consult. Wt loss. Discussed GERD prevention 4. If CP continues once GERD is controlled then may consider for outpt stress testing. 5. Follow up April 20 at 11 AM. MCOT for 2 weeks prior to DC 6. Avoid AV kalee blocking agents Justicifation of Admission Dx: Justifications for Admission: Justification of Admission Dx: Yes Acute COPD Exacerbation: Acute COPD Exacerbation ROBER LINDSEY MD 03/15/20 7952: CARDIO Progress Notes Plan Plan The patient was seen and interviewed as well as examined at the bedside. The chart was reviewed. The case was discussed. Agree with the plan of care. LARISSA SCHMIDT APRN Mar 15, 2020 09:14 ROBER LINDSEY MD Mar 15, 2020 12:58
--- NOTE | 2020-03-15 09:41 | HP ---
ADMIT DATE: 03/14/2020 CHIEF COMPLAINT: Chest pain. HISTORY OF PRESENT ILLNESS: The patient is a pleasant 55-year-old male, well known to my service. He presents today with chest pains, it has been occurring since 6:00 this morning. He took some aspirin and some ogqg-nck-yvlxjkl meds that did not seem to help. The pain got worse with moving, better sitting still, described as very irritating. I discussed the case with the ER physician. We are going to admit the patient and consult Cardiology. PAST MEDICAL HISTORY: Overweight, anxiety, hypertension, asthma, depression, hypertension, hyperlipidemia, insomnia, cognitive impairment, tonsillectomy, ingrown toenails. ALLERGIES: PENICILLIN. FAMILY HISTORY: Coronary artery disease. SOCIAL HISTORY: He used to be a former smoker. MEDICATIONS: Reviewed, please refer to the MRAD. REVIEW OF SYSTEMS: GENERAL: No history of weight change, weakness or fevers. SKIN: No bruising, hair changes or rashes. EYES: No blurred, double or loss of vision. NOSE AND THROAT: No history of nosebleeds, hoarseness or sore throat. HEART: No history of palpitations or shortness of breath on exertion. He complains of chest pain. LUNGS: Denies cough, hemoptysis, wheezing or shortness of breath. GASTROINTESTINAL: Denies changes in appetite, nausea, vomiting, diarrhea or constipation. GENITOURINARY: No history of frequency, urgency, hesitancy or nocturia. NEUROLOGIC: Denies history of numbness, tingling, tremor or weakness. PSYCHIATRIC: No history of panic, anxiety or depression. ENDOCRINE: No history of heat or cold intolerance, polyuria or polydipsia. EXTREMITIES: Denies muscle weakness, joint pain, pain on walking or stiffness. PHYSICAL EXAMINATION: VITALS: Within normal limits and are stable. GENERAL: No apparent distress. Alert and oriented. He is very large but pleasant. HEENT: Normal cephalic atraumatic, external auditory canals are patent. EYES: Extraocular muscles are intact, pupils are equally round and reactive to light and accommodation. MUSCULOSKELETAL: Well developed, well nourished, good range of motion. ENDOCRINE: No thyromegaly was palpated. LYMPHATICS: No cervical chain or axillary nodes were noted. HEMATOPOIETIC: No bruising. NECK: Supple, no JVD, no thyromegaly was noted. LUNGS: Clear to auscultation in all lung mckeon without rhonchi or wheezing. HEART: RRR, S1, S2 present. Peripheral pulses intact, no obvious murmurs were noted. ABDOMEN: Soft, nontender. Positive bowel sounds no organomegaly, normal bowel sounds. EXTREMITIES: Without any cyanosis, clubbing, or edema. Pedal pulses intact, Homans sign is negative. NEUROLOGIC: Normal speech, normal tone. A & O x3, moves all extremities, no obvious focal deficits. PSYCHIATRIC: Normal affect, normal mood. Stable. SKIN: No ulcerations or rashes, good skin turgor, no jaundice. VASCULAR: Good capillary refill, neurovascular bundle appears to be intact. LABORATORY DATA: White count is 3, hemoglobin 12, platelets 126. Electrolytes are normal other than an anion gap of 5 and a bicarbonate of 33. INR is 0.9. Troponin is 0. CT of the chest showed no PEs. Chest x-ray showed cardiomegaly and some mild bilateral infiltrates, likely atelectasis. ASSESSMENT AND PLAN: Chest pain, rule out coronary artery disease. The patient will be admitted. We will check serial enzymes, serial EKGs, echocardiogram, consult Cardiology. Home meds, DVT prophylaxis. Full code. O2 per nasal cannula, p.r.n. Zofran. DWIGHT ANDERSON DO DR: CLARK/adam JOB#: [id number] / [id number]
--- NOTE | 2020-03-15 10:20 | NUR ---
SS following for discharge planning. SS reviewed pt chart and discussed with pt RN. Pt is from home and is currently on room air. Possible discharge to home today. SS will continue to follow for discharge planning.
[2020-03-15 11:00] VITALS: BP 158/77
[2020-03-15 11:45] VITALS: BP 158/77
--- NOTE | 2020-03-15 12:12 | PDOC ---
[employer] PROGRESS NOTE Date of Service DOS: DATE: 03/15/20 TIME: 12:06 Chief Complaint Chief Complaint Chest pain History of Present Illness History of Present Illness Patient evaluated at bedside. States his chest pain resolved. Denies nausea or shortness of breath. Troponins negative. Symptoms consistent with GERD. Discussed with RN. Vitals/I&O Vitals/I&O: Vital Signs Date Time Temp Pulse Resp B/P (MAP) Pulse Ox O2 Delivery O2 Flow Rate FiO2 03/15/20 11:45 75 158/77 03/15/20 11:00 97.7 18 95 Room Air 97.7 I & O 03/14/20 03/14/20 03/15/20 15:00 23:00 07:00 Intake Total 300 ml 400 ml Output Total 950 ml 400 ml Balance -650 ml 0 ml Physical Exam General: Alert, Oriented X3, Cooperative, No acute distress Heart: Regular rate (SR), Other (distant heart sounds) Lungs: Wheezing Abdomen: Soft, No tenderness, Other (obese) Extremities: No cyanosis, Other (1+ bilateral LE pitting edema) Skin: No breakdown, No significant lesion Labs Labs: Laboratory Tests Test 03/14/20 18:30 Troponin I Quantitative < 0.017 ng/mL (0.000-0.055) Review of Systems Review of Systems: Denies chest pain, denies nausea, denies shortness of breath. All of the systems negative. Assessment and Plan Assessmemt and Plan Problems Medical Problems: (1) Chest pain Status: Acute (2) Hypertension Status: Acute Comment Review of Relevant I have reviewed the following items nicole (where applicable) has been applied. Medications: Current Medications Medications (Trade) Dose Ordered Sig/Fredy Route PRN Reason Start Time Stop Time Status Last Admin Dose Admin Lisinopril (Prinivil) 20 mg DAILY PO 03/14/20 13:00 03/15/20 09:14 DC 03/15/20 08:35 Atorvastatin Calcium (Lipitor) 80 mg QHS PO 03/14/20 21:00 03/14/20 20:10 Hydrochlorothiazide (Microzide) 12.5 mg DAILY PO 03/14/20 13:00 03/15/20 08:35 Pantoprazole Sodium (Protonix) 40 mg DAILYAC PO 03/15/20 07:30 10/1/20 06:18 Lisinopril (Prinivil) 20 mg 1X ONCE PO 03/15/20 09:00 03/15/20 09:22 DC 03/15/20 11:45 Justifications for Admission Other Justification HUSEYIN HELMS MD Mar 15, 2020 12:12
--- NOTE | 2020-03-15 12:28 | PDOC3 ---
Discharge Summary Visit Information Date of Admission: Mar 14, 2020 Date of Discharge: Mar 15, 2020 Final Diagnosis Problems Medical Problems: (1) Chest pain Status: Acute (2) Hypertension Status: Acute Brief Hospital Course Allergies Allergies Coded Allergies Type Severity Reaction Last Updated Verified Penicillins Allergy Intermediate 04/04/16 Yes Vital Signs Vital Signs Date Time Temp Pulse Resp B/P (MAP) Pulse Ox O2 Delivery O2 Flow Rate FiO2 03/15/20 11:45 75 158/77 03/15/20 11:00 97.7 18 95 Room Air 97.7 Lab Results Laboratory Tests Test 03/14/20 08:06 03/14/20 11:06 03/14/20 18:30 White Blood Count 3.2 x10^3/uL (4.0-11.0) Red Blood Count 4.30 x10^6/uL (4.30-5.70) Hemoglobin 12.4 g/dL (13.0-17.5) Hematocrit 36.0 % (39.0-53.0) Mean Corpuscular Volume 84 fL (79-100) Mean Corpuscular Hemoglobin 29 pg (25-35) Mean Corpuscular Hemoglobin Concent 34 g/dL (31-37) Red Cell Distribution Width 15.7 % (11.5-14.5) Platelet Count 126 x10^3/uL (140-400) Neutrophils (%) (Auto) 72 % (31-73) Lymphocytes (%) (Auto) 16 % (24-48) Monocytes (%) (Auto) 8 % (0-9) Eosinophils (%) (Auto) 3 % (0-3) Basophils (%) (Auto) 1 % (0-3) Neutrophils # (Auto) 2.3 x10^3/uL (1.8-7.7) Lymphocytes # (Auto) 0.5 x10^3/uL (1.0-4.8) Monocytes # (Auto) 0.3 x10^3/uL (0.0-1.1) Eosinophils # (Auto) 0.1 x10^3/uL (0.0-0.7) Basophils # (Auto) 0.0 x10^3/uL (0.0-0.2) Prothrombin Time 12.1 SEC (11.7-14.0) Prothromb Time International Ratio 0.9 (0.8-1.1) Activated Partial Thromboplast Time 25 SEC (24-38) Sodium Level 141 mmol/L (136-145) Potassium Level 4.5 mmol/L (3.5-5.1) Chloride Level 103 mmol/L (98-107) Carbon Dioxide Level 33 mmol/L (21-32) Anion Gap 5 (6-14) Blood Urea Nitrogen 15 mg/dL (8-26) Creatinine 1.0 mg/dL (0.7-1.3) Estimated GFR (Cockcroft-Gault) 77.3 BUN/Creatinine Ratio 15 (6-20) Glucose Level 151 mg/dL (70-99) Hemoglobin A1c 5.8 % (4.8-5.6) Calcium Level 9.0 mg/dL (8.5-10.1) Magnesium Level 1.9 mg/dL (1.8-2.4) Total Bilirubin 0.3 mg/dL (0.2-1.0) Aspartate Amino Transf (AST/SGOT) 27 U/L (15-37) Alanine Aminotransferase (ALT/SGPT) 43 U/L (16-63) Alkaline Phosphatase 50 U/L (46-116) Troponin I Quantitative < 0.017 ng/mL (0.000-0.055) < 0.017 ng/mL (0.000-0.055) < 0.017 ng/mL (0.000-0.055) RR-Vdp-M-Type Natriuretic Peptide 96 pg/mL (0-124) Total Protein 7.3 g/dL (6.4-8.2) Albumin 4.0 g/dL (3.4-5.0) Albumin/Globulin Ratio 1.2 (1.0-1.7) Triglycerides Level 162 mg/dL (0-150) Cholesterol Level 134 mg/dL (0-200) LDL Cholesterol, Calculated 60 mg/dL (0-100) VLDL Cholesterol, Calculated 32 mg/dL (0-40) Non-HDL Cholesterol Calculated 92 mg/dL (0-129) HDL Cholesterol 42 mg/dL (40-60) Cholesterol/HDL Ratio 3.2 Lipase 63 U/L (73-393) Thyroid Stimulating Hormone (TSH) 2.933 uIU/mL (0.358-3.74) Laboratory Tests Test 03/14/20 18:30 Troponin I Quantitative < 0.017 ng/mL (0.000-0.055) Brief Hospital Course Mr. Sibley is a 55 old male who presented with chest pain. Serial troponins were negative. Consultations were placed to cardiology. Patient symptoms consistent with GERD, and symptoms have resolved. Will discontinue meloxicam. Follow-up with PCP. Discharge Information Condition at Discharge: Improved Follow Up: Weeks Disposition/Orders: D/C to Home Scheduled Albuterol Sulfate (Proair Hfa Inhaler) 8.5 Gm Hfa.aer.ad, 2 PUFF IH PRN Q4-6HRS, #1 (Reported) Entered as Reported by: JENNY GLOVER on 07/26/15 1606 Budesonide/Formoterol Fumarate (Symbicort 160-4.5 Mcg Inhaler) 10.2 Gm Hfa.aer.ad, 1 PUFF IH BID, (Reported) Entered as Reported by: NADIA BENITEZ on 04/04/16 1806 Citalopram Hydrobromide (Citalopram Hbr) 40 Mg Tablet, 1 TAB PO DAILY, #90 Ref 1 (Reported) Entered as Reported by: JENNY GLOVER on 07/26/15 1606 Doxepin Hcl (Doxepin Hcl) 10 Mg Capsule, 1 CAP PO QHS for , #30 Ref 2 (Reported) Entered as Reported by: DEBBIE GALINDO RN on 08/17/19 1609 Fenofibrate Nanocrystallized (Fenofibrate) 145 Mg Tablet, 1 TAB PO DAILY, #30 Ref 5 (Reported) Entered as Reported by: JENNY GLOVER on 07/26/15 1606 Ipratropium/Albuterol Sulfate (Combivent Respimat Inhal) 4 Gm Aer.w.adap, 1 PUFF IH QID for asthma, (Reported) Entered as Reported by: KAIDE JIMENEZ on 11/11/19 0955 Lisinopril/Hydrochlorothiazide (Lisinopril-Hctz 20-12.5 Mg Tab) 1 Each Tablet, 1 TAB PO DAILY, #30 Ref 5 (Reported) Entered as Reported by: JENNY GLOVER on 07/26/15 1545 Last Action: Converted on 03/14/20 1218 by LARISSA SCHMIDT Montelukast Sodium (Montelukast Sodium Tablet ) 10 Mg Tablet, 10 MG PO DAILY for FOR ASTHMA, Ref 0 (Reported) Entered as Reported by: DEBBIE GALINDO RN on 08/17/19 160 Omeprazole (Omeprazole) 40 Mg Capsule.dr, 1 CAP PO DAILY for 30 Days, Ref 30 Prescribed by: FORREST GARCIA on 04/05/16 1453 Prednisone (Prednisone) 20 Mg Tablet, 20 MG PO DAILY for Asthma for 5 Days, #5 Prescribed by: PRAFUL REA MD on 01/03/20 1433 Rosuvastatin Calcium (Crestor) 40 Mg Tablet, 20 MG PO HS for FOR CHOLESTEROL, #30 Ref 0 (Reported) Entered as Reported by: DEBBIE GALINDO RN on 08/17/19 160 Last Action: Converted on 03/14/20 1218 by LARISSA SCHMIDT Tamsulosin Hcl (Flomax) 0.4 Mg Cap.er.24h, 1 CAP PO DAILY for , #30 Ref 11 (Reported) Entered as Reported by: DEBBIE GALINDO RN on 08/17/191608 Discontinued Medications Meloxicam (Meloxicam) 15 Mg Tablet, 1 TAB PO DAILY for for 30 Days, #30 Ref 0 (Reported) Entered as Reported by: DEBBIE GALINDO RN on 08/17/19 160 Justicifation of Admission Dx: Justifications for Admission: Justification of Admission Dx: Yes Acute COPD Exacerbation: Acute COPD Exacerbation HUSEYIN HELMS MD Mar 15, 2020 12:28
--- NOTE | 2020-03-15 13:31 | NUR ---
Discharge Note: LIZA WILSON Discharge instructions and discharge home medications reviewed with Patient and a copy given. All questions have been answered and understanding verbalized.
[2020-03-16] MEDS ORDERED: LISINOPRIL 20 MG TABLET PO SCH (09:00)
== END 2020-03-15 13:30 | disposition home or self-care (01) ==
LOC: ER 07:57 → INTOOBSV 10:18 → 2 NORTH 10:18
PROVIDERS: ADMIT Internal Medicine; ATTEND Internal Medicine
DX: R07.89 Other chest pain (principal); I16.0 Hypertensive urgency; E78.5 Hyperlipidemia, unspecified; I11.9 Hypertensive heart disease without heart failure; E78.00 Pure hypercholesterolemia, unspecified; J45.901 Unspecified asthma with (acute) exacerbation; K21.9 Gastro-esophageal reflux disease without esophagitis; J98.11 Atelectasis; F79 Unspecified intellectual disabilities; E88.81 Metabolic syndrome and other insulin resistance; E66.01 Morbid (severe) obesity due to excess calories; N40.0 Benign prostatic hyperplasia without lower urinary tract symptoms; Z87.891 Personal history of nicotine dependence; Z91.11 Patient's noncompliance with dietary regimen
CPT/HCPCS: 36415; 71045; 71275; 80053; 80061; 83036; 83690; 83735; 83880; 84443; 84484; 85025; 85610; 85730; 93005; 94640; 99285; C8929; G0378; Q9956; Q9967; G0379

== ENCOUNTER 2020-08-01 10:33 | Emergency (ER) | payer OTHER, MEDICAID ==
[~2020-08-01] VITALS: Ht 182.9 cm; Wt 150.0 kg
[2020-08-01 11:40] VITALS: BP 174/81
--- NOTE | 2020-08-01 11:44 | RAD ---
EXAM: 3 views of the Left knee DATE: 08/01/2020 11:14 AM INDICATION: Reason: pain, PT FELL LT KNEE PAIN / Spl. Instructions: / History: COMPARISON: No Prior FINDINGS: No acute fracture or dislocation. Small Left joint effusion. Joint spaces are preserved without signi ficant degenerative/proliferative change. Neutral patellar tracking. Soft tissue swelling about the l eft knee. IMPRESSION: No acute fracture or dislocation. Soft tissue swelling about the left knee. Electronically signed by: Anoop Dumas MD (08/01/2020 11:42 AM) [id number] Laterality
[2020-08-01] MEDS ORDERED: DICL100G54 TP (11:52)
[2020-08-01] MEDS ORDERED: METH4TAB2 PO (11:52)
--- NOTE | 2020-08-01 11:55 | PHYS DOC ---
Past Medical History Past Medical History: Anxiety, Arthritis, Asthma, Depression, High Cholesterol, Hypertension, Other Additional Past Medical Histor: INSOMNIA, Mental Retardation Past Surgical History: Tonsillectomy, Other Additional Past Surgical Histo: INGROWN TOE NAIL REMOVED Smoking Status: Never Smoker Alcohol Use: None Drug Use: None General Adult EDM: Chief Complaint: KNEE INJURY HPI: HPI: Patient is a 55 year old male with history of depression, anxiety, hypertension, high cholesterol, presenting to the ED today complaining of mild intermittent left anterior knee pain that began today while at work, patient states she was walking on ice and twisted his knee. Patient denies falling. States pain is worse on weightbearing. States immobilization has been relieving the pain. Describes the pain as sharp. Review of Systems: Review of Systems: Constitutional: Denies fever or chills. [] Musculoskeletal: Reports left knee pain Integument: Denies rash. [] Neurologic: Denies headache, focal weakness or sensory changes. [] Psychiatric: Denies depression or anxiety. [] Heart Score: Risk Factors: Risk Factors: DM, Current or recent (<one month) smoker, HTN, HLP, family history of CAD, obesity. Risk Scores: Score 0 - 3: 2.5% MACE over next 6 weeks - Discharge Home Score 4 - 6: 20.3% MACE over next 6 weeks - Admit for Clinical Observation Score 7 - 10: 72.7% MACE over next 6 weeks - Early Invasive Strategies Allergies: Allergies: Allergies Coded Allergies Type Severity Reaction Last Updated Verified Penicillins Allergy Intermediate 04/04/16 Yes Physical Exam: PE: Constitutional: Well developed, well nourished, no acute distress, non-toxic appearance. [] Skin: Warm, dry, no erythema, no rash. [] Back: No tenderness, no CVA tenderness. [] Extremities: Left knee with no obvious deformity, soft tissue swelling noted diffusely throughout the knee. Tenderness diffusely throughout the knee. Limited range of motion to the knee due to weight and pain. +2 left pedal pulse. Cap refill less than 2 seconds to the left lower extremity Neurologic: Alert and oriented X 3, normal motor function, normal sensory function, no focal deficits noted. [] Psychologic: Affect normal, judgement normal, mood normal. [] EKG: EKG: [] Radiology/Procedures: Radiology/Procedures: []PROCEDURE: KNEE LEFT 4V EXAM: 3 views of the Left knee DATE: 08/01/2020 11:14 AM INDICATION: Reason: pain, PT FELL LT KNEE PAIN / Spl. Instructions: / History: COMPARISON: No Prior FINDINGS: No acute fracture or dislocation. Small Left joint effusion. Joint spaces are preserved without significant degenerative/proliferative change. Neutral patellar tracking. Soft tissue swelling about the left knee. IMPRESSION: No acute fracture or dislocation. Soft tissue swelling about the left knee. Electronically signed by: Anoop Dumas MD (08/01/2020 11:42 AM) [id number] Later[facility] DICTATED and SIGNED BY: ANOOP DUMAS MD DATE: 08/01/20 [id number] 0 Course & Med Decision Making: Course & Med Decision Making Pertinent Labs and Imaging studies reviewed. (See chart for details) This is a 55-year-old male patient presenting to the ED today with left knee pain after twisting his knee at work. Left knee x-rays interpreted by radiologist negative for any acute findings, noted for tissue swelling. George bandage applied to the left knee by the laser technician, neurovascular exam is intact. Ice elevation encouraged. Voltaren and Medrol Dosepak prescription provided, follow-up with orthopedic doctor. Danielito Disclaimer: Danielito Disclaimer: This electronic medical record was generated, in whole or in part, using a voice recognition dictation system. Departure Departure Impression: Primary Impression: Left knee sprain Qualified Codes: S83.92XA - Sprain of unspecified site of left knee, initial encounter Disposition: 01 [place] HOME SELF CARE/HOMELESS Condition: STABLE Referrals: Sydney SUTHERLAND MD (PCP) KATHLEEN DONALDSON MD follow up in 1 week Patient Instructions: Knee Sprain, [id number] Additional Instructions: You were seen for left knee pain, your left knee x-rays are negative for any acute findings. Apply an George bandage to left knee as tolerated. Try to ice and elevate the knee. Use the prescribed cream as ordered. Follow-up with the orthopedic doctor or your own doctor in 1 to 2 weeks Scripts Methylprednisolone (MEDROL) 4 Mg Tab.ds.pk 1 PKG PO UD, #1 PKG Prov: ANGELAISA INDUSTRIAL ENGINEERING ANALYST 08/01/20 Diclofenac Sodium (VOLTAREN) 100 Gm Gel..gram. 1 GM TP QID for pain for 30 Days, #1 EACH 0 Refills apply to affected area(s) Prov: ISA CARSON APRN 08/01/20 ISA CARSON APRN Aug 01, 2020 11:55
== END 2020-08-01 12:25 | disposition home or self-care (01) ==
LOC: ER 10:33
DX: S83.8X2A Sprain of other specified parts of left knee, initial encounter (principal); F41.9 Anxiety disorder, unspecified; M19.90 Unspecified osteoarthritis, unspecified site; J45.909 Unspecified asthma, uncomplicated; F32.9 Major depressive disorder, single episode, unspecified; E78.00 Pure hypercholesterolemia, unspecified; I10 Essential (primary) hypertension; Z90.89 Acquired absence of other organs; Z98.890 Other specified postprocedural states; Z88.0 Allergy status to penicillin; W18.39XA Other fall on same level, initial encounter; Y93.89 Activity, other specified; Y92.413 State road as the place of occurrence of the external cause; Y99.8 Other external cause status
CPT/HCPCS: 73564; 99283

== ENCOUNTER 2020-08-27 07:38 | Emergency (ER) | payer OTHER, MEDICAID ==
[~2020-08-27] VITALS: Ht 182.9 cm; Wt 160.9 kg
[~2020-08-27 07:38] MED LIST changes: +DICL100G54 TP
--- NOTE | 2020-08-27 08:28 | RAD ---
PROCEDURE: XR KNEE _3 VIEWS_LT, XR EXAM OF ANKLE_LEFT 2V, XR LT TIBIA + FIBULA STUDY DATE: 08/27/2020 CLINICAL INDICATION / HISTORY: Reason: left knee pain / Spl. Instructions: / History: . TECHNIQUE: AP, lateral, and oblique views of the left knee. COMPARISON: None FINDINGS: The osseous structures are intact. The articular surfaces are smooth. The joint space is maintained. No intra-articular loose bodies. The alignment is within normal limits. The soft tiss ues are unremarkable. No obvious joint effusion. No radio-opaque foreign bodies are identified. IMPRESSION: No fracture or dislocation is identified. PROCEDURE: XR KNEE _3 VIEWS_LT, XR EXAM OF ANKLE_LEFT 2V, XR LT TIBIA + FIBULA STUDY DATE: 08/27/2020 CLINICAL INDICATION / HISTORY: Reason: left knee pain / Spl. Instructions: / History: . TECHNIQUE: AP and lateral views of the left tibia and fibula. COMPARISON: None FINDINGS: AP and lateral views of the left tibia and fibula show no acute fracture, dislocation or cj ne destruction. The soft tissues are normal. IMPRESSION: Normal left tibia and fibula. PROCEDURE: XR KNEE _3 VIEWS_LT, XR EXAM OF ANKLE_LEFT 2V, XR LT TIBIA + FIBULA STUDY DATE: 08/27/2020 CLINICAL INDICATION / HISTORY: Reason: left knee pain / Spl. Instructions: / History: . TECHNIQUE: Left ankle 2 views. COMPARISON: None FINDINGS: The ankle mortise is approximated, and the visualized talar dome is unremarkable. The joint space widths are maintained. No fracture or dislocation is identified. Calcaneal spur and Achilles e nthesophyte is noted. Tiny, well-corticated ossific density projecting dorsal to the posterior malleo heath is present and could represent an old fracture fragment versus unfused secondary ossification mariella ter. Mild bimalleolar ankle soft tissue swelling is appreciated. IMPRESSION: Mild soft tissue swelling at the ankle. No acute fracture or malalignment. Electronically signed by: Michael Roca MD (08/27/2020 8:26 AM) [id number]
--- NOTE | 2020-08-27 08:41 | PHYS DOC ---
Past Medical History Past Medical History: Asthma, High Cholesterol, Hypertension Additional Past Medical Histor: obesity Past Surgical History: Tonsillectomy, Other Additional Past Surgical Histo: ingrown toenail removal Smoking Status: Never Smoker Alcohol Use: None Drug Use: None General Adult EDM: Chief Complaint: KNEE INJURY HPI: HPI: Decisional male past medical history of asthma, hypertension, hyperlipidemia and morbid obesity, presents the ED with complaints of left knee pain started on Thursday night "after it happened." Patient reports he had an accidental fall, such that he fell forward with all his weight landing on a flexed left knee landed on his flexed left knee at home. States pain started shortly after this happened. Reports minimal relief with ibuprofen and numbing cream. Cannot get into see Dr. Lemos until later this week. Is able to bear weight and ambulate steadily after the accident, is here for pain control and to evaluate for any injury. Denies any increased warmth of the joint or rash overlying the joint. Denies any head injury or loss of consciousness. Is not on any anticoagulants. Pt with audible wheezing and upon asking, states his "asthma is acting up," for the past few days. Reports compliance with his medications. No history of IV drug use, arthritis, gout or pseudogout. Review of Systems: Review of Systems: Constitutional: Denies fever or chills. [] Eyes: Denies change in visual acuity. [] HENT: Denies nasal congestion or sore throat. [] Respiratory: Denies cough or hemoptysis Cardiovascular: Denies chest pain or edema. [] GI: Denies abdominal pain, nausea, vomiting, bloody stools or diarrhea. [] : Denies dysuria. [] Musculoskeletal: Denies back pain or joint deformity Integument: Denies rash or diaphoresis Neurologic: Denies headache, focal weakness or sensory changes. [] Endocrine: Denies polyuria or polydipsia. [] Lymphatic: Denies swollen glands. [] Psychiatric: Denies depression or anxiety. [] Heart Score: Risk Factors: Risk Factors: DM, Current or recent (<one month) smoker, HTN, HLP, family h istory of CAD, obesity. Risk Scores: Score 0 - 3: 2.5% MACE over next 6 weeks - Discharge Home Score 4 - 6: 20.3% MACE over next 6 weeks - Admit for Clinical Observation Score 7 - 10: 72.7% MACE over next 6 weeks - Early Invasive Strategies Allergies: Allergies: Allergies Coded Allergies Type Severity Reaction Last Updated Verified Penicillins Allergy Intermediate rash 08/27/20 Yes Physical Exam: PE: Constitutional: malodorous, 142/82 on monitor technician HENT: Normocephalic, atraumatic, dandruff, no signs of head trauma Eyes: EOMI, conjunctiva normal, no discharge. Neck: Normal range of motion, supple, Cardiovascular: S1/2 present, regular rhythm Lungs & Thorax: Speaking in full sentences, bilateral equal chest rise, mild tachypnea and labored speech during exam with audible wheezing Abdomen: soft, no tenderness, Skin: Warm, dry, no erythema, no rash. [] Extremities: Bilateral lower extremity edema related to habitus and obesity, equal DP and PT lower extremity pulses, cap refill less than 1 second, right m edial knee pain not reproducible, patient lying comfortably on stretcher, lifts his left leg and kicks in the air easily extending at the knee, no deformity or localized ttp, no pain over left fibular head, no pain over left lateral mid medial malleoli, no hip pain Neurologic: Alert and oriented X 3, normal motor function, normal sensory function, no focal deficits noted. [] Psychologic: Affect normal, judgement normal, mood normal. [] Current Patient Data: Vital Signs: Vital Signs Date Time Temp Pulse Resp B/P (MAP) Pulse Ox O2 Delivery O2 Flow Rate FiO2 08/27/20 07:41 97.9 68 24 161/85 (110) 97 Room Air 97.9 EKG: EKG: [] Radiology/Procedures: Radiology/Procedures: IMAGING REPORT Signed PATIENT: LIZA WILSON ACCOUNT: [id number] : 1965 LOCATION: ER AGE: 55 SEX: M EXAM STATUS: PRE ER ORD. PHYSICIAN: CHINO DEJESUS DO REASON: left knee pain PROCEDURE: TIBIA FIBULA LEFT PROCEDURE: XR KNEE _3 VIEWS_LT, XR EXAM OF ANKLE_LEFT 2V, XR LT TIBIA + FIBULA STUDY DATE: 08/27/2020 CLINICAL INDICATION / HISTORY: Reason: left knee pain / Spl. Instructions: / History: . TECHNIQUE: AP, lateral, and oblique views of the left knee. COMPARISON: None FINDINGS: The osseous structures are intact. The articular surfaces are smooth. The joint space is maintained. No intra-articular loose bodies. The alignment is within normal limits. The soft tissues are unremarkable. No obvious joint effusion. No radio-opaque foreign bodies are identified. IMPRESSION: No fracture or dislocation is identified. PROCEDURE: XR KNEE _3 VIEWS_LT, XR EXAM OF ANKLE_LEFT 2V, XR LT TIBIA + FIBULA STUDY DATE: 08/27/2020 CLINICAL INDICATION / HISTORY: Reason: left knee pain / Spl. Instructions: / History: . TECHNIQUE: AP and lateral views of the left tibia and fibula. COMPARISON: None FINDINGS: AP and lateral views of the left tibia and fibula show no acute fracture, dislocation or bone destruction. The soft tissues are normal. IMPRESSION: Normal left tibia and fibula. PROCEDURE: XR KNEE _3 VIEWS_LT, XR EXAM OF ANKLE_LEFT 2V, XR LT TIBIA + FIBULA STUDY DATE: 08/27/2020 CLINICAL INDICATION / HISTORY: Reason: left knee pain / Spl. Instructions: / History: . TECHNIQUE: Left ankle 2 views. COMPARISON: None FINDINGS: The ankle mortise is approximated, and the visualized talar dome is unremarkable. The joint space widths are maintained. No fracture or dislocation is identified. Calcaneal spur and Achilles enthesophyte is noted. Tiny, well- corticated ossific density projecting dorsal to the posterior malleolus is present and could represent an old fracture fragment versus unfused secondary ossification center. Mild bimalleolar ankle soft tissue swelling is appreciated. IMPRESSION: Mild soft tissue swelling at the ankle. No acute fracture or malalignment. Electronically signed by: Juana Roca MD (08/27/2020 8:26 AM) [id number] DICTATED and SIGNED BY: JUANA ROCA MD DATE: 08/27/20 [id number] 0 Course & Med Decision Making: Course & Med Decision Making Pertinent Labs and Imaging studies reviewed. (See chart for details) Will discharge home with strict ED return precautions were given for []. Encouraged urgent outpatient follow-up with PMD and pulmonology as needed for asthma. Life-threatening processes were considered but are low suspicion at this time, given history, physical exam and ED workup. Pt was educated on all prescription medications and adverse effects. All patient's questions were answered and pt was stable at time of discharge. Life/limb-threatening differential includes but is not limited to, avascular necrosis, septic arthritis, malignancy, compartment syndrome, fracture/ligamentous injury/overuse, decompression sickness, seronegative spondyloarthropathies, trauma including dislocation/fracture, Lyme disease, lupus, arthritis differentials, gout/pseudogout or decompression sickness. I spoken with the patient and her caregivers. I explained the patient's condition, diagnoses and treatment plan based on the information available to me at this time. I have answered the patient and her caregiver's questions and addressed any concerns. The patient and her caregivers have a good understanding of patient's diagnosis, condition and treatment plan as can be expected at this point. Vital signs have been stable. Patient's condition is stable and appropriate for discharge from the emergency department. Patient will pursue further outpatient evaluation with primary care physician or other designated or consulting physician as outlined in the discharge instructions. The patient and/or caregivers are agreeable to this plan of care and follow-up instructions have been explained in detail. The patient and/or caregivers have received these instructions in written form and have expressed an understanding of the discharge instructions. The patient and/or caregivers are aware that any significant change of condition or worsening of symptoms should prompt immediate return to this or the closest emergency department or call to [phone]. Danielito Disclaimer: Danielito Disclaimer: This electronic medical record was generated, in whole or in part, using a voice recognition dictation system. Departure Departure Impression: Primary Impression: Left medial knee pain Additional Impressions: Soft tissue injury Asthma exacerbation Disposition: 01 DC HOME SELF CARE/HOMELESS Condition: STABLE Referrals: Sydney SUTHERLAND MD (PCP) in 24- 48 hours for re-evaluation Patient Instructions: Asthma Attacks, Prevention, Asthma, Adult, Knee Pain Additional Instructions: FOLLOW UP WITH: [facility] Address: [address] [facility] [address] [place] [address] EMERGENCY DEPARTMENT GENERAL DISCHARGE INSTRUCTIONS Thank you for coming to [facility] Emergency Department (ED) today and trusting us with you care. We trust that you had a positive experience in our Emergency Department. If you wish to speak to the department management, you may call the Director at [phone]. YOUR FOLLOW UP INSTRUCTIONS ARE FOLLOWS: 1. Do you have a private Doctor? If you do not have a private doctor, please ask for a resource list of physicians or clinics that may be able to assist you with follow up care. 2. The Emergency Physicain has interpreted your x-rays. The X-Ray specialist will also review them. If there is a change in the findings, you will be notified in 48 hours when at all possible. 3. A lab test or culture has been done, your results will be reviewed and you will be notified if you need a change in treatment. ADDITIONAL INSTRUCTIONS AND INFORMATION: 1. Your care today has been supervised by a physician who is specially trained in emergency care. Many problems require more than one evaluation for a complete diagnosis and treatment. We recommend that you schedule your follow up appointment as recommended to ensure complete treatment of you illness or injury. If you are unable to obtain follow up care and continue to have a problem, or if your condition worsens, we recommend that you return to the ED. 2. We are not able to safely determine your condition over the phone nor are we able to give sound medical advice over the phone. For these safety reasons, if you call for medical advice we will ask you to come to the ED for further evaluation. 3. If you have any questions regarding these discharge instructions please call the ED at [phone]. SAFETY INFORMATION: In the interest of safety, wellness, and injury prevention; we encourage you to wear your sealbelt, if you smoke; quite smoking, and we encourage family to use a protective helmet for bicycling and other sporting events that present an increased risk for head injury. IF YOUR SYMPTOMS WORSEN OR NEW SYMPTOMS DEVELOP, OR YOU HAVE CONCERNS ABOUT YOUR CONDITION; OR IF YOUR CONDITION WORSENS WHILE YOU ARE WAITING FOR YOUR FOLLOW UP APPOINTMENT; EITHER CONTACT YOUR PRIMARY CARE DOCTOR, THE PHYSICIAN WHOSE NAME AND NUMBER YOU WERE GIVEN, OR RETURN TO THE ED IMMEDIATELY. Scripts Fluticasone Propionate (FLOVENT 44MCG HFA) 10.6 Gm Aer.w.adap 2 PUFF IH BID for 30 Days, #1 INHALER 2 Refills Prov: CHINO DEJESUS DO 08/27/20 Albuterol Sulfate (VENTOLIN HFA INHALER) 18 Gm Hfa.aer.ad 2 PUFF INH QID for FOR ASTHMA, #1 INHALER 0 Refills Prov: VOHS,CHINO M DO 08/27/20 Prednisone (PREDNISONE) 50 Mg Tablet 1 TAB PO DAILY for 4 Days, #4 TAB Prov: CHINO DEJESUS DO 08/27/20 CHINO DEJESUS DO Aug 27, 2020 08:41
[2020-08-27] MEDS ORDERED: IPRATRPIUM/ALBUTEROL 0.5/2.5MG 3 ML NEBU. NEB ONE (08:45)
[2020-08-27] MEDS ORDERED: DEXAMETHASONE 4 MG TABLET PO SCH (09:00)
[2020-08-27] MEDS ORDERED: FLUT10.6 IH (11:53)
[2020-08-27] MEDS ORDERED: VENTOLIN HFA18 GM INH (11:53)
[2020-08-27] MEDS ORDERED: PRED50TA PO (11:53)
[2020-08-27 12:40] VITALS: BP 147/74
== END 2020-08-27 13:19 | disposition home or self-care (01) ==
LOC: ER 07:38
DX: S89.82XA Other specified injuries of left lower leg, initial encounter (principal); M25.562 Pain in left knee; M25.572 Pain in left ankle and joints of left foot; J45.901 Unspecified asthma with (acute) exacerbation; E78.00 Pure hypercholesterolemia, unspecified; I10 Essential (primary) hypertension; E66.01 Morbid (severe) obesity due to excess calories; Z68.42 Body mass index [BMI] 45.0-49.9, adult; Z90.89 Acquired absence of other organs; Z87.891 Personal history of nicotine dependence; Z88.0 Allergy status to penicillin; W18.39XA Other fall on same level, initial encounter; Y93.89 Activity, other specified; Y92.89 Other specified places as the place of occurrence of the external cause; Y99.8 Other external cause status
CPT/HCPCS: 73562; 73590; 73600; 94644; 99285

== ENCOUNTER 2020-11-05 08:08 | Emergency (ER) | payer OTHER, MEDICAID ==
[~2020-11-05] VITALS: Ht 182.9 cm; Wt 148.0 kg
[~2020-11-05 08:08] MED LIST changes: +FLUT10.6 IH; +VENTOLIN HFA18 GM INH
--- NOTE | 2020-11-05 08:29 | PHYS DOC ---
Past Medical History Past Medical History: Asthma, High Cholesterol, Hypertension Additional Past Medical Histor: obesity Past Surgical History: Tonsillectomy, Other Additional Past Surgical Histo: ingrown toenail removal Smoking Status: Never Smoker Alcohol Use: None Drug Use: None General Adult EDM: Chief Complaint: PSYCH EVALUATION HPI: HPI: 55 yo M PMH asthma, hypertension, hyperlipidemia, anxiety/depression (on doxepin "to help me sleep"), and morbid obesity, presents to the ED brought in by EMS from 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 Does admit to history of self strangulation as SI attempt w/admission to [facility], cannot recall most recent admission. Believes he only takes doxepin to help him sleep-is not aware this is to treat depression or anxiety. 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 Reports Covid vaccination in July. Denies any alcohol or drug use. Denies any medication overdose. Review of Systems: Review of Systems: Constitutional: Denies fever or chills. [] Eyes: Denies change in visual acuity. [] HENT: Denies nasal congestion or sore throat. [] Respiratory: Denies cough or shortness of breath. [] Cardiovascular: Denies chest pain or edema. [] GI: Denies abdominal pain, nausea, vomiting, bloody stools or diarrhea. [] : Denies dysuria or hematuria Musculoskeletal: Denies back pain or joint pain. [] Integument: Denies rash or diaphoresis Neurologic: Denies headache, focal weakness or sensory changes. [] Endocrine: Denies polyuria or polydipsia. [] Lymphatic: Denies swollen glands. [] Psychiatric: Denies homicidal or suicidal ideations or SI/HI plans Heart Score: C/O Chest Pain: No Risk Factors: Risk Factors: DM, Current or recent (<one month) smoker, HTN, HLP, family history of CAD, obesity. Risk Scores: Score 0 - 3: 2.5% MACE over next 6 weeks - Discharge Home Score 4 - 6: 20.3% MACE over next 6 weeks - Admit for Clinical Observation Score 7 - 10: 72.7% MACE over next 6 weeks - Early Invasive Strategies Allergies: Allergies: Allergies Coded Allergies Type Severity Reaction Last Updated Verified Penicillins Allergy Intermediate rash 08/27/20 Yes Physical Exam: PE: Constitutional: Well developed, well nourished, no acute distress, non-toxic appearance, malodorous HENT: Normocephalic, atraumatic, Eyes: EOMI, conjunctiva normal, no discharge. Neck: Normal range of motion, supple, Cardiovascular: S1/2 present, regular rhythm Lungs & Thorax: Speaking in full sentences, bilateral equal chest rise, no tachypnea or increased work of breathing Abdomen: soft, no tenderness, Skin: Warm, dry, no erythema, no rash. [] Back: No tenderness, no CVA tenderness. [] Extremities: No tenderness, no cyanosis, no lower extremity edema Neurologic: Alert and oriented X 3, normal motor function, normal sensory function, no focal deficits noted. [] Psychologic: flat affect, slightly depressed mood, not emotional or tearful, no anxiety EKG: EKG: Sinus rhythm 80 bpm, left axis deviation, normal intervals, T wave inversion lead III, no ST depressions or ST depressions Radiology/Procedures: Radiology/Procedures: []IMAGING REPORT Signed PATIENT: LIZA WILSON ACCOUNT: [id number] : 1965 LOCATION: ER AGE: 55 SEX: M EXAM STATUS: REG ER ORD. PHYSICIAN: CHINO DEJESUS DO REASON: si PROCEDURE: PORTABLE CHEST 1V EXAM: Chest, single view. HISTORY: Chest pain. COMPARISON: 03/14/2020 FINDINGS: A frontal view of the chest is obtained. There is no infiltrate, pleural effusion or pneumothorax. There is a stable prominent cardiac silhouette. IMPRESSION: No acute pulmonary finding. Electronically signed by: Caryn Whitaker MD (11/05/2020 8:39 AM) [id number] DICTATED and SIGNED BY: CARYN WHITAKER MD DATE: 11/05/20 [id number] Course & Med Decision Making: Course & Med Decision Making Pertinent Labs and Imaging studies reviewed. (See chart for details) Concern for major depressive disorder with depression exacerbation in setting of medication noncompliance, denies any SI or HI, no thoughts of harming self or specific plans. PAT team assessed patient-they also agree with my evaluation the patient is not a danger to himself or others. Patient was educated on daily use of his doxepin to manage his major depressive disorder. Labs including tox evaluation are unremarkable. Patient with asymptomatic hypertension that improved in ED. Will discharge home with strict ED return precautions were given for suicidal thoughts or plans, homicidal ideations, chest pain or difficulties breathing. Encouraged urgent outpatient follow-up with PMD and psychiatry. Life-threatening processes were considered but are low suspicion at this time, given history, physical exam and ED workup. Pt was educated on all prescription medications and adverse effects. All patient's questions were answered and pt was stable at time of discharge. Life/limb-threatening differential includes but is not limited to, end organ damage/sepsis, trauma/abuse/neglect, neurologic deficit, alcohol/drug ingestion, toxidrome, suicidal/homicidal ideations plans or attempts, psychosis or mental illness resulting in self neglect and inability to care for self. I spoken with the patient and her caregivers. I explained the patient's condition, diagnoses and treatment plan based on the information available to me at this time. I have answered the patient and her caregiver's questions and addressed any concerns. The patient and her caregivers have a good unders tanding of patient's diagnosis, condition and treatment plan as can be expected at this point. Vital signs have been stable. Patient's condition is stable and appropriate for discharge from the emergency department. Patient will pursue further outpatient evaluation with primary care physician or other designated or consulting physician as outlined in the discharge instructions. The patient and/or caregivers are agreeable to this plan of care and follow-up instructions have been explained in detail. The patient and/or caregivers have received these instructions in written form and have expressed an understanding of the discharge instructions. The patient and/or caregivers are aware that any significant change of condition or worsening of symptoms should prompt immediate return to this or the closest emergency department or call to 911. Danielito Disclaimer: Danielito Disclaimer: This electronic medical record was generated, in whole or in part, using a voice recognition dictation system. Departure Departure Impression: Primary Impression: Major depressive disorder Disposition: 01 HOME / SELF CARE / HOMELESS Condition: STABLE Referrals: MILAD SEWELL MD (PCP) Follow-up with your primary care physician in 24 to 48 hours or FOLLOW UP WITH FAMILY MEDICINE: [address] [place] [address] Patient Instructions: Depression, Adult, Suicidal Feelings, How to Help Yourself Additional Instructions: FOLLOW UP WITH PSYCHIATRY: within 1 week to discuss medication Dr. Marcellus Navarro Psychiatry Specialist [address] [place], [place] [address] [employer] as needed 05/01 crisis stabilization services [address] [place] [address] EMERGENCY DEPARTMENT GENERAL DISCHARGE INSTRUCTIONS Thank you for coming to Emergency Department (ED) today and trusting us with you care. We trust that you had a positive experience in our Emergency Department. If you wish to speak to the department management, you may call the Director at [phone]. YOUR FOLLOW UP INSTRUCTIONS ARE FOLLOWS: 1. Do you have a private Doctor? If you do not have a private doctor, please ask for a resource list of physicians or clinics that may be able to assist you with follow up care. 2. The Emergency Physicain has interpreted your x-rays. The X-Ray specialist will also review them. If there is a change in the findings, you will be notified in 48 hours when at all possible. 3. A lab test or culture has been done, your results will be reviewed and you will be notified if you need a change in treatment. ADDITIONAL INSTRUCTIONS AND INFORMATION: 1. Your care today has been supervised by a physician who is specially trained in emergency care. Many problems require more than one evaluation for a complete diagnosis and treatment. We recommend that you schedule your follow up appointment as recommended to ensure complete treatment of you illness or injury. If you are unable to obtain follow up care and continue to have a problem, or if your condition worsens, we recommend that you return to the ED. 2. We are not able to safely determine your condition over the phone nor are we able to give sound medical advice over the phone. For these safety reasons, if you call for medical advice we will ask you to come to the ED for further evaluation. 3. If you have any questions regarding these discharge instructions please call the ED at [phone]. SAFETY INFORMATION: In the interest of safety, wellness, and injury prevention; we encourage you to wear your sealbelt, if you smoke; quite smoking, and we encourage family to use a protective helmet for bicycling and other sporting events that present an increased risk for head injury. IF YOUR SYMPTOMS WORSEN OR NEW SYMPTOMS DEVELOP, OR YOU HAVE CONCERNS ABOUT YOUR CONDITION; OR IF YOUR CONDITION WORSENS WHILE YOU ARE WAITING FOR YOUR FOLLOW UP APPOINTMENT; EITHER CONTACT YOUR PRIMARY CARE DOCTOR, THE PHYSICIAN WHOSE NAME AND NUMBER YOU WERE GIVEN, OR RETURN TO THE ED IMMEDIATELY. [facility] DO November 05, 2020 08:29
--- NOTE | 2020-11-05 08:41 | RAD ---
EXAM: Chest, single view. HISTORY: Chest pain. COMPARISON: 03/14/2020 FINDINGS: A frontal view of the chest is obtained. There is no infiltrate, pleural effusion or pneumo thorax. There is a stable prominent cardiac silhouette. IMPRESSION: No acute pulmonary finding. Electronically signed by: Caryn Young MD (11/05/2020 8:39 AM) [id number]
[2020-11-05 08:45] LABS: BASO % 1 % (0-3); EOS # 0.1 x10^3/uL (0.0-0.7); EOS % 2 % (0-3); HEMATOCRIT 35.7 % (39.0-53.0); HEMOGLOBIN 12.1 g/dL (13.0-17.5); LYMPH # 0.5 x10^3/uL (1.0-4.8); LYMPH % 15 % (24-48); MEAN CORPUSCULAR HEMOGLOBIN 29 pg (25-35); MEAN CORPUSCULAR HGB CONC 34 g/dL (31-37); MEAN CORPUSCULAR VOLUME 84 fL (79-100); MONO # 0.3 x10^3/uL (0.0-1.1); MONO % 7 % (0-9); NEUT # 2.9 x10^3/uL (1.8-7.7); NEUT % 76 % (31-73); PLATELET COUNT 144 x10^3/uL (140-400); RED BLOOD COUNT 4.24 x10^6/uL (4.30-5.70); RED CELL DISTRIBUTION WIDTH 14.4 % (11.5-14.5); WHITE BLOOD COUNT 3.7 x10^3/uL (4.0-11.0)
[2020-11-05 08:46] LABS: BILIRUBIN,URINE NEGATIVE (NEG); CLARITY,URINE CLEAR; COLOR,URINE YELLOW; NITRITE,URINE NEGATIVE (NEG); PH,URINE 5.5 (<5.0-8.0); PROTEIN,URINE NEGATIVE (NEG-TRACE); UROBILINOGEN,URINE 0.2 mg/dL (0.2 mg/dL)
[2020-11-05 08:54] LABS: BARBITURATES NEG (NEG); BENZODIAZEPINES NEG (NEG); CANNABINOIDS NEG (NEG); COCAINE NEG (NEG); METHADONE NEG (NEG); OPIATES NEG (NEG); PHENCYCLIDINE NEG (NEG)
[2020-11-05 08:55] LABS: AMPHETAMINE/METHAMPHETAMINE NEG (NEG)
[2020-11-05 08:56] LABS: RBC,URINE OCC /HPF (0-2)
[2020-11-05 08:57] LABS: BACTERIA,URINE 0 /HPF (0-FEW)
--- NOTE | 2020-11-05 08:57 | NUR ---
This tech is stepping out of room. Sergey COTTON observing pt.
--- NOTE | 2020-11-05 08:59 | NUR ---
This tech has returned to pt room. Sergey COTTON leaving room.
[2020-11-05 09:00] LABS: CALCIUM 8.1 mg/dL (8.5-10.1); CREATININE 0.9 mg/dL (0.7-1.3); GFR 87.3; POTASSIUM 4.1 mmol/L (3.5-5.1)
[2020-11-05 09:05] LABS: ACETAMIN < 2.0 mcg/ml (10-30); ETHANOL < 10 mg/dL (0-10); SALIC < 2.8 mg/dL (2.8-20.0)
[2020-11-05 09:07] LABS: ALBUMIN 3.9 g/dL (3.4-5.0); ALBUMIN/GLOBULIN RATIO 1.3 (1.0-1.7); TOTAL BILIRUBIN 0.3 mg/dL (0.2-1.0); TOTAL PROTEIN 6.9 g/dL (6.4-8.2)
--- NOTE | 2020-11-05 09:15 | NUR ---
Pt's blood pressure reported to Maggy COTTON. Per Prudence COTTON's request, pt's blood pressure cuff switched to a larger cuff. Blood pressure rechecked. Maggy COTTON notified of blood pressure after cuff was changed.
[2020-11-05 09:45] VITALS: BP 145/82
--- NOTE | 2020-11-05 14:48 | EKG ---
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
== END 2020-11-05 11:05 | disposition home or self-care (01) ==
LOC: ER 08:08
DX: F32.9 Major depressive disorder, single episode, unspecified (principal); J45.909 Unspecified asthma, uncomplicated; E78.00 Pure hypercholesterolemia, unspecified; I10 Essential (primary) hypertension; E66.01 Morbid (severe) obesity due to excess calories; Z68.41 Body mass index [BMI] 40.0-44.9, adult; Z88.0 Allergy status to penicillin
CPT/HCPCS: 36415; 71045; 80053; 80307; 80329; 81001; 85025; 93005; 99285; G0480

== ENCOUNTER 2020-12-17 22:09 | Emergency (ER) | payer OTHER, MEDICAID ==
[~2020-12-17] VITALS: Ht 182.9 cm; Wt 172.7 kg
[~2020-12-17 22:09] MED LIST changes: -OMEP40CA45 PO; +OMEP40CA7 PO
[2020-12-18 00:48] LABS: BASO % 1 % (0-3); EOS % 1 % (0-3); HEMATOCRIT 37.2 % (39.0-53.0); HEMOGLOBIN 12.4 g/dL (13.0-17.5); LYMPH # 0.9 x10^3/uL (1.0-4.8); LYMPH % 20 % (24-48); MEAN CORPUSCULAR HEMOGLOBIN 28 pg (25-35); MEAN CORPUSCULAR HGB CONC 33 g/dL (31-37); MEAN CORPUSCULAR VOLUME 84 fL (79-100); MONO # 0.4 x10^3/uL (0.0-1.1); MONO % 10 % (0-9); NEUT % 68 % (31-73); PLATELET COUNT 154 x10^3/uL (140-400); RED BLOOD COUNT 4.43 x10^6/uL (4.30-5.70); RED CELL DISTRIBUTION WIDTH 14.5 % (11.5-14.5); WHITE BLOOD COUNT 4.3 x10^3/uL (4.0-11.0)
[2020-12-18 00:58] LABS: CALCIUM 8.7 mg/dL (8.5-10.1); GFR 77.3; POTASSIUM 4.1 mmol/L (3.5-5.1)
[2020-12-18] MEDS ORDERED: IV NORMAL SALINE 1000ML BAG 1,000 ML IV ONE (01:00)
[2020-12-18 01:02] LABS: BILIRUBIN,URINE NEGATIVE (NEG); CLARITY,URINE CLEAR; COLOR,URINE YELLOW; NITRITE,URINE NEGATIVE (NEG); PH,URINE 5.5 (<5.0-8.0); PROTEIN,URINE NEGATIVE (NEG-TRACE)
[2020-12-18 01:03] LABS: ACETAMIN < 2 mcg/ml (10-30); ALBUMIN/GLOBULIN RATIO 1.5 (1.0-1.7); ETHANOL < 10 mg/dL (0-10); SALIC < 2.8 mg/dL (2.8-20.0); TOTAL BILIRUBIN 0.2 mg/dL (0.2-1.0); TOTAL PROTEIN 6.6 g/dL (6.4-8.2)
[2020-12-18 01:07] LABS: BARBITURATES NEG (NEG); BENZODIAZEPINES NEG (NEG); CANNABINOIDS NEG (NEG); COCAINE NEG (NEG); METHADONE NEG (NEG); OPIATES NEG (NEG); PHENCYCLIDINE NEG (NEG)
[2020-12-18 01:08] LABS: AMPHETAMINE/METHAMPHETAMINE NEG (NEG)
[2020-12-18 01:11] LABS: BACTERIA,URINE 0 /HPF (0-FEW); RBC,URINE RARE /HPF (0-2); WBC,URINE 0 /HPF (0-4)
--- NOTE | 2020-12-18 01:37 | PHYS DOC ---
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 Patient states he does not feel so dizzy today and feels a little better however he continues to have ongoing feelings of sadness and depression. Patient states he has felt this way for several months, patient states he is lonely because he lives by himself. Patient is requesting to be admitted to [facility]. Patient states he takes lisinopril for high blood pressure 20 mg each morning. Patient reports an allergy to penicillin. Patient states he had his Covid testing completed in July of this year. Patient reports seeing a Dr. Sewell for primary care. Patient denies chest pains, shortness of breath, cough or congestion, rashes of the skin, abdominal pain, nausea, vomiting, diarrhea, patient states he is not homicidal and not suicidal. (HERBERT FELICIANO APRN) Review of Systems: Review of Systems: 14 body systems of review of systems have been reviewed. See HPI for pertinent positives and negative responses, otherwise all other systems are negative, nonpertinent or noncontributory. (HERBERT FELICIANO APRN) Heart Score: C/O Chest Pain: No Risk Factors: Risk Factors: DM, Current or recent (<one month) smoker, HTN, HLP, family history of CAD, obesity. Risk Scores: Score 0 - 3: 2.5% MACE over next 6 weeks - Discharge Home Score 4 - 6: 20.3% MACE over next 6 weeks - Admit for Clinical Observation Score 7 - 10: 72.7% MACE over next 6 weeks - Early Invasive Strategies (HERBERT FELICIANO APRN) C/O Chest Pain: N/A (MONIKA LUI DO) Current Medications: Current Medications Medications (Trade) Dose Ordered Sig/Fredy Start Time Stop Time Status Last Admin Dose Admin Sodium Chloride 1,000 ml @ 1,000 mls/hr 1X ONCE 12/18/20 01:00 12/18/20 01:59 12/18/20 01:07 1,000 MLS/HR (HERBERT FELICIANO APRN) Allergies: Allergies: Allergies Coded Allergies Type Severity Reaction Last Updated Verified Penicillins Allergy Intermediate rash 08/27/20 Yes (HERBERT FELICIANO APRN) Physical Exam: PE: Constitutional: Well developed, well nourished, no acute distress, non-toxic appearance. 55-year-old male in no apparent distress. Strong smell of urine from patient. HENT: Normocephalic, atraumatic. Eyes: Conjunctiva normal, no discharge. Neck: Normal range of motion, no stridor. Cardiovascular: No cyanosis appreciated, distal cap refill less than 2 seconds. No tachycardia appreciated. Lungs & Thorax: Patient is in no respiratory distress, no audible adventitious lung sounds appreciated. No tachypnea appreciated. Abdomen: Nontender, no abnormalities noted. Skin: Warm, dry, no erythema, no rash. Back: No tenderness, no deformities. Extremities: No tenderness, no cyanosis, no clubbing, ROM intact, no edema. Neurologic: Alert and oriented X 3, normal motor function, normal sensory function, no focal deficits noted. Psychologic: Affect normal, judgement normal, mood normal. (HERBERT FELICIANO APRN) Current Patient Data: Labs: Laboratory Tests Test 12/18/20 00:40 12/18/20 00:50 White Blood Count 4.3 x10^3/uL (4.0-11.0) Red Blood Count 4.43 x10^6/uL (4.30-5.70) Hemoglobin 12.4 g/dL (13.0-17.5) L Hematocrit 37.2 % (39.0-53.0) L Mean Corpuscular Volume 84 fL (79-100) Mean Corpuscular Hemoglobin 28 pg (25-35) Mean Corpuscular Hemoglobin Concent 33 g/dL (31-37) Red Cell Distribution Width 14.5 % (11.5-14.5) Platelet Count 154 x10^3/uL (140-400) Neutrophils (%) (Auto) 68 % (31-73) Lymphocytes (%) (Auto) 20 % (24-48) L Monocytes (%) (Auto) 10 % (0-9) H Eosinophils (%) (Auto) 1 % (0-3) Basophils (%) (Auto) 1 % (0-3) Neutrophils # (Auto) 3.0 x10^3/uL (1.8-7.7) Lymphocytes # (Auto) 0.9 x10^3/uL (1.0-4.8) L Monocytes # (Auto) 0.4 x10^3/uL (0.0-1.1) Eosinophils # (Auto) 0.0 x10^3/uL (0.0-0.7) Basophils # (Auto) 0.0 x10^3/uL (0.0-0.2) Sodium Level 140 mmol/L (136-145) Potassium Level 4.1 mmol/L (3.5-5.1) Chloride Level 102 mmol/L (98-107) Carbon Dioxide Level 31 mmol/L (21-32) Anion Gap 7 (6-14) Blood Urea Nitrogen 15 mg/dL (8-26) Creatinine 1.0 mg/dL (0.7-1.3) Estimated GFR (Cockcroft-Gault) 77.3 BUN/Creatinine Ratio 15 (6-20) Glucose Level 118 mg/dL (70-99) H Calcium Level 8.7 mg/dL (8.5-10.1) Total Bilirubin 0.2 mg/dL (0.2-1.0) Aspartate Amino Transferase (AST) 17 U/L (15-37) Alanine Aminotransferase (ALT) 31 U/L (16-63) Alkaline Phosphatase 57 U/L (46-116) Troponin I Quantitative < 0.017 ng/mL (0.000-0.055) Total Protein 6.6 g/dL (6.4-8.2) Albumin 4.0 g/dL (3.4-5.0) Albumin/Globulin Ratio 1.5 (1.0-1.7) Salicylates Level < 2.8 mg/dL (2.8-20.0) L Salicylate Last Dose Date Unk Salicylate Last Dose Time Unk Acetaminophen Level < 2 mcg/ml (10-30) L Acetaminophen Last Dose Date Unk Acetaminophen Last Dose Time Unk Ethyl Alcohol Level < 10 mg/dL (0-10) Urine Collection Type Unknown Urine Color Yellow Urine Clarity Clear Urine pH 5.5 (<5.0-8.0) Urine Specific [place] 1.025 (1.000-1.030) Urine Protein Negative mg/dL (NEG-TRACE) Urine Glucose (UA) Negative mg/dL (NEG) Urine Ketones (Stick) Negative mg/dL (NEG) Urine Blood Negative (NEG) Urine Nitrite Negative (NEG) Urine Bilirubin Negative (NEG) Urine Urobilinogen Dipstick 1.0 mg/dL (0.2 mg/dL) Urine Leukocyte Esterase Negative (NEG) Urine RBC Rare /HPF (0-2) Urine WBC 0 /HPF (0-4) Urine Squamous Epithelial Cells Occ /LPF Urine Bacteria 0 /HPF (0-FEW) Urine Mucus Slight /LPF Urine Opiates Screen Neg (NEG) Urine Methadone Screen Neg (NEG) Urine Barbiturates Neg (NEG) Urine Phencyclidine Screen Neg (NEG) Urine Amphetamine/Methamphetamine Neg (NEG) Urine Benzodiazepines Screen Neg (NEG) Urine Cocaine Screen Neg (NEG) Urine Cannabinoids Screen Neg (NEG) Urine Ethyl Alcohol Neg (NEG) Laboratory Tests 12/18/20 00:40 Laboratory Tests 12/18/20 00:40 Vital Signs: Vital Signs Date Time Temp Pulse Resp B/P (MAP) Pulse Ox O2 Delivery O2 Flow Rate FiO2 12/18/20 00:57 98.1 85 18 163/94 (117) 97 98.1 12/17/20 22:26 Room Air (HERBERT FELICIANO APRN) EKG: EKG: [] (HERBERT FELICIANO APRN) Radiology/Procedures: Radiology/Procedures: [] (HERBERT FELICIANO APRN) Course & Med Decision Making: Course & Med Decision Making Pertinent Labs and Imaging studies reviewed. (See chart for details) 55-year-old male, vital signs reviewed, presents emergency department chief complaint of feeling dizzy yesterday and feeling sad and depressed today is requesting admission to [facility]. Will order lab work to rule out dehydration, will consult PAT steam fitter supervisor maintenance for mental health complaints. Discussed patient case with PAT steam fitter supervisor maintenance De who has requested a rapid and routine Covid test be performed along with mental health specific labs. The patient's labs were unremarkable, the patient is not dehydrated, upon reevaluation of the patient, the patient states he does not feel dizzy any longer, patient states that he feels better knowing that he will be admitted to a mental health facility. Patient remains nontoxic, vital signs stable. Patient's complaint of dizziness most likely psychosomatic as patient reports resolution of dizziness after finding out he will be placed in a mental health facility. The patient was evaluated by a qualified mental health professional who reviewed and the appropriate supporting documentation and previous available medical records and feels the patient meets criteria for admission to mental health facility. Please refer to the qualified mental health officials documentation describing reasoning. Patient is currently awaiting placement pending COVID-19 labs. Patient has been cleared physically/medically for admission to a mental health facility. Patient is currently hemodynamically stable, awaiting placement. End of shift report given to ED attending physician Dr. Lui who has agreed to assume patient care for patient pending mental health placement. (HERBERT FELICIANO APRN) Course & Med Decision Making Patient talked with the psych paint crew supervisor from [facility], HE DENIED SUICIDAL IDEATION , FELT BETTER NOW. HE WANTED TO GO HOME AND FOLLOW UP WITH HIS DOCTOR. (MONIKA LUI DO) Dragon Disclaimer: Dragon Disclaimer: This electronic medical record was generated, in whole or in part, using a voice recognition dictation system. (HERBERT FELICIANO APRN) Departure Departure Impression: Primary Impression: Dizziness Additional Impressions: Depression Loneliness Disposition: 01 HOME / SELF CARE / HOMELESS Condition: GOOD Referrals: MILAD SEWELL MD (PCP) Follow up with your doctor this week. Patient Instructions: Depression, Adult Additional Instructions: Follow up with [facility] [address] [address] 24-HOUR Crisis Line: [phone] HERBERT FELICIANO APRN Dec 18, 2020 01:37 MONIKA LUI DO Dec 18, 2020 05:31
--- NOTE | 2020-12-18 02:42 | EKG ---
[facility] [address] [place] [address] Test Date: 2020-12-18 Test Time: 00:38:41 Pat Name: LIZA WILSON Department: Room: Gender: Earth Mover: : 1965 Requested By: HERBERT FELICIANO Order Number: [id number] Reading MD: Mike Linda Measurements Intervals [place] Rate: 75 P: 41 GA: 176 QRS: 3 QRSD: 98 T: 20 QT: 372 QTc: 418 Interpretive Statements SINUS RHYTHM NORMAL ECG Electronically Signed On 12-19-2020 11:53:11 CDT by Mike Linda
[2020-12-18 05:50] VITALS: BP 155/71
--- NOTE | 2020-12-19 10:25 | NUR ---
IP: Informed pt of negative covid test. Pt verbalized understanding.
== END 2020-12-18 06:09 | disposition home or self-care (01) ==
LOC: ER 22:09
DX: R42 Dizziness and giddiness (principal); Z20.822 Contact with and (suspected) exposure to COVID-19; F32.9 Major depressive disorder, single episode, unspecified; I10 Essential (primary) hypertension; E78.00 Pure hypercholesterolemia, unspecified; J45.909 Unspecified asthma, uncomplicated; Z88.0 Allergy status to penicillin; Z79.899 Other long term (current) drug therapy
CPT/HCPCS: 36415; 80053; 80307; 80329; 81001; 84484; 85025; 87426; 93005; 96360; 96361; 99285; G0480; J7030; U0003; U0005

== ENCOUNTER 2021-01-14 07:56 | Emergency (ER) | payer OTHER, MEDICAID ==
[~2021-01-14] VITALS: Ht 182.9 cm; Wt 176.3 kg
--- NOTE | 2021-01-14 08:54 | EKG ---
[facility] [address] [place] [address] Test Date: 2021-01-14 Test Time: 08:03:14 Pat Name: LIZA WILSON Department: Room: Gender: Machine Stemmer: : 1965 Requested By: RANDY SEPULVEDA Order Number: [id number] Reading MD: Measurements Intervals [place] Rate: 79 P: 56 LA: 170 QRS: 1 QRSD: 100 T: 14 QT: 358 QTc: 411 Interpretive Statements SINUS RHYTHM NO SPECIFIC ECG ABNORMALITIES RI6.02 No previous ECG available for comparison
[2021-01-14 08:58] LABS: BASO % 1 % (0-3); EOS # 0.1 x10^3/uL (0.0-0.7); EOS % 2 % (0-3); HEMATOCRIT 37.5 % (39.0-53.0); HEMOGLOBIN 12.8 g/dL (13.0-17.5); LYMPH # 0.5 x10^3/uL (1.0-4.8); LYMPH % 13 % (24-48); MEAN CORPUSCULAR HEMOGLOBIN 28 pg (25-35); MEAN CORPUSCULAR HGB CONC 34 g/dL (31-37); MEAN CORPUSCULAR VOLUME 83 fL (79-100); MONO # 0.3 x10^3/uL (0.0-1.1); MONO % 8 % (0-9); NEUT # 3.2 x10^3/uL (1.8-7.7); NEUT % 77 % (31-73); PLATELET COUNT 156 x10^3/uL (140-400); RED BLOOD COUNT 4.53 x10^6/uL (4.30-5.70); RED CELL DISTRIBUTION WIDTH 14.2 % (11.5-14.5); WHITE BLOOD COUNT 4.2 x10^3/uL (4.0-11.0)
[2021-01-14 09:27] VITALS: BP 131/79
--- NOTE | 2021-01-14 09:41 | RAD ---
Exam Date: 01/14/2021 9:21 AM XR ELBOW_LEFT Indication: Reason: trauma/ no known injry just hurts / Spl. Instructions: / History: . FINDINGS/ IMPRESSION: No acute fracture or dislocation. Alignment and joint spaces are maintained. The soft tissues are w ithin normal limits. Electronically signed by: Danny Dawson MD (01/14/2021 9:39 AM) [id number]
--- NOTE | 2021-01-14 10:44 | ED.ADGEN ---
Past Medical History Past Medical History: Asthma, High Cholesterol, Hypertension Additional Past Medical Histor: INSOMNIA Past Surgical History: No Surgical History Additional Past Surgical Histo: ingrown toenail removal Smoking Status: Never Smoker Alcohol Use: None Drug Use: None General Adult EDM: Chief Complaint: Palpitations HPI: HPI: Patient is a 55 year old [f__sex] who presents with [] Review of Systems: Review of Systems: Constitutional: Denies fever or chills. [] Eyes: Denies change in visual acuity. [] HENT: Denies nasal congestion or sore throat. [] Respiratory: Denies cough or shortness of breath. [] Cardiovascular: Denies chest pain or edema. [] GI: Denies abdominal pain, nausea, vomiting, bloody stools or diarrhea. [] : Denies dysuria. [] Musculoskeletal: Denies back pain or joint pain. [] Integument: Denies rash. [] Neurologic: Denies headache, focal weakness or sensory changes. [] Endocrine: Denies polyuria or polydipsia. [] Lymphatic: Denies swollen glands. [] Psychiatric: Denies depression or anxiety. [] Allergies: Allergies: Allergies Coded Allergies Type Severity Reaction Last Updated Verified Penicillins Allergy Intermediate rash 08/27/20 Yes Physical Exam: PE: Constitutional: Well developed, well nourished, no acute distress, non-toxic appearance. [] HENT: Normocephalic, atraumatic, bilateral external ears normal, oropharynx moist, no oral exudates, nose normal. [] Eyes: PERRLA, EOMI, conjunctiva normal, no discharge. [] Neck: Normal range of motion, no tenderness, supple, no stridor. [] Cardiovascular:Heart rate regular rhythm, no murmur [] Lungs & Thorax: Bilateral breath sounds clear to auscultation [] Abdomen: Bowel sounds normal, soft, no tenderness, no masses, no pulsatile masses. [] Skin: Warm, dry, no erythema, no rash. [] Back: No tenderness, no CVA tenderness. [] Extremities: No tenderness, no cyanosis, no clubbing, ROM intact, no edema. [] Neurologic: Alert and oriented X 3, normal motor function, normal sensory funct ion, no focal deficits noted. [] Psychologic: Affect normal, judgement normal, mood normal. [] Current Patient Data: Labs: Laboratory Tests Test 01/14/21 08:13 01/14/21 09:14 White Blood Count 4.2 x10^3/uL (4.0-11.0) Red Blood Count 4.53 x10^6/uL (4.30-5.70) Hemoglobin 12.8 g/dL (13.0-17.5) L Hematocrit 37.5 % (39.0-53.0) L Mean Corpuscular Volume 83 fL (79-100) Mean Corpuscular Hemoglobin 28 pg (25-35) Mean Corpuscular Hemoglobin Concent 34 g/dL (31-37) Red Cell Distribution Width 14.2 % (11.5-14.5) Platelet Count 156 x10^3/uL (140-400) Neutrophils (%) (Auto) 77 % (31-73) H Lymphocytes (%) (Auto) 13 % (24-48) L Monocytes (%) (Auto) 8 % (0-9) Eosinophils (%) (Auto) 2 % (0-3) Basophils (%) (Auto) 1 % (0-3) Neutrophils # (Auto) 3.2 x10^3/uL (1.8-7.7) Lymphocytes # (Auto) 0.5 x10^3/uL (1.0-4.8) L Monocytes # (Auto) 0.3 x10^3/uL (0.0-1.1) Eosinophils # (Auto) 0.1 x10^3/uL (0.0-0.7) Basophils # (Auto) 0.0 x10^3/uL (0.0-0.2) Sodium Level 140 mmol/L (136-145) Potassium Level 4.3 mmol/L (3.5-5.1) Chloride Level 104 mmol/L (98-107) Carbon Dioxide Level 26 mmol/L (21-32) Anion Gap 10 (6-14) Blood Urea Nitrogen 12 mg/dL (8-26) Creatinine 0.9 mg/dL (0.7-1.3) Estimated GFR (Cockcroft-Gault) 87.3 BUN/Creatinine Ratio 13 (6-20) Glucose Level 111 mg/dL (70-99) H Calcium Level 9.3 mg/dL (8.5-10.1) Magnesium Level 2.0 mg/dL (1.8-2.4) Total Bilirubin 1.0 mg/dL (0.2-1.0) Aspartate Amino Transferase (AST) 21 U/L (15-37) Alanine Aminotransferase (ALT) 18 U/L (16-63) Alkaline Phosphatase 92 U/L (46-116) Total Protein 7.4 g/dL (6.4-8.2) Albumin 3.3 g/dL (3.4-5.0) L Albumin/Globulin Ratio 0.8 (1.0-1.7) L Laboratory Tests 01/14/21 08:13 Laboratory Tests 01/14/21 09:14 Vital Signs: Vital Signs Date Time Temp Pulse Resp B/P (MAP) Pulse Ox O2 Delivery O2 Flow Rate FiO2 01/14/21 09:27 80 14 131/79 (96) 93 01/14/21 07:58 98.7 Room Air 98.7 EKG: EKG: [] Heart Score: Risk Factors: Risk Factors: DM, Current or recent (<one month) smoker, HTN, HLP, family history of CAD, obesity. Risk Scores: Score 0 - 3: 2.5% MACE over next 6 weeks - Discharge Home Score 4 - 6: 20.3% MACE over next 6 weeks - Admit for Clinical Observation Score 7 - 10: 72.7% MACE over next 6 weeks - Early Invasive Strategies Radiology/Procedures: Radiology/Procedures: [] Course & Med Decision Making: Course & Med Decision Making Pertinent Labs and Imaging studies reviewed. (See chart for details) [] Dragon Disclaimer: Dragon Disclaimer: This electronic medical record was generated, in whole or in part, using a voice recognition dictation system. Departure Departure Impression: Primary Impression: Palpitations Additional Impression: Elbow injury Disposition: HOME / SELF CARE / HOMELESS Condition: STABLE Referrals: MILAD SEWELL MD (PCP) Patient Instructions: Palpitations Problem Qualifiers RANDY SEPULVEDA MD Jan 14, 2021 10:44
[2021-01-14 11:59] LABS: CALCIUM 8.8 mg/dL (8.5-10.1); CREATININE 0.9 mg/dL (0.7-1.3); GFR 87.3; POTASSIUM 4.3 mmol/L (3.5-5.1)
[2021-01-14 12:04] LABS: ALBUMIN 3.7 g/dL (3.4-5.0); ALBUMIN/GLOBULIN RATIO 1.1 (1.0-1.7); TOTAL BILIRUBIN 0.2 mg/dL (0.2-1.0)
[2021-01-14 12:08] LABS: TOTAL PROTEIN 7.1 g/dL (6.4-8.2)
== END 2021-01-14 11:30 | disposition home or self-care (01) ==
LOC: ER 07:56
DX: S59.902A Unspecified injury of left elbow, initial encounter (principal); R00.2 Palpitations; E78.00 Pure hypercholesterolemia, unspecified; J45.909 Unspecified asthma, uncomplicated; I10 Essential (primary) hypertension; Z88.0 Allergy status to penicillin; X58.XXXA Exposure to other specified factors, initial encounter; Y93.89 Activity, other specified; Y92.89 Other specified places as the place of occurrence of the external cause; Y99.8 Other external cause status
CPT/HCPCS: 36415; 73070; 80053; 83735; 85025; 93005; 99285-25

== ENCOUNTER 2021-04-18 07:30 | Emergency (ER) | payer OTHER, MEDICAID ==
[~2021-04-18] VITALS: Ht 182.9 cm; Wt 176.0 kg
[~2021-04-18 07:30] MED LIST changes: -CITA40TA5 PO; +CITA40TA6 PO; +CYCL10TA19 PO; -CYCL10TA2 PO
--- NOTE | 2021-04-18 07:50 | PHYS DOC ---
Past Medical History Past Medical History: Asthma, High Cholesterol, Hypertension Additional Past Medical Histor: INSOMNIA Past Surgical History: No Surgical History Additional Past Surgical Histo: ingrown toenail removal Smoking Status: Never Smoker Alcohol Use: None Drug Use: None General Adult EDM: Chief Complaint: MULTIPLE COMPLAINTS HPI: HPI: 56-year-old male with a history of morbid obesity, hypertension, hyperlipidemia presents to the emergency department complaining of headache along with bilateral arm numbness that started around 2 this morning and woke him up from sleep. He reports the pain is located in the middle of his head and radiates towards the back of his head, associated with some dizziness this morning. He reports the pain is constant. He reports not taking his blood pressure medicine this morning. Reports some fluid in his legs has been retaining for several months. The patient denies nausea, vomiting, fever, chills, chest pain, shortness of breath, abdominal pain, urinary symptoms, cough, recent trauma, or any other complaints. Review of Systems: Review of Systems: Review of systems is otherwise negative except for what was mentioned in HPI Heart Score: C/O Chest Pain: No Family History: Family History: Noncontributory Allergies: Allergies: Allergies Coded Allergies Type Severity Reaction Last Updated Verified Penicillins Allergy Intermediate rash 04/18/21 Yes Physical Exam: PE: Constitutional: Morbidly obese male sitting in the gurney in no acute distress. HENT: Atraumatic, bilateral external ears normal, nose normal. Eyes: PERRLA, EOMI, conjunctiva normal, no discharge. Neck: Normal range of motion, supple, no stridor. Cardiovascular: Heart rate regular rhythm. 2+ radial pulses Lungs & Thorax: No respiratory distress, symmetrical expansion. Abdomen: Soft, no tenderness Skin: Warm, dry. Extremities: No tenderness, no cyanosis, ROM intact, 2+ edema. Neurologic: Alert and oriented X 3, normal motor function, normal sensory function, no focal deficits noted. Non ataxic gait. GCS 15. Cranial nerves II through XII are intact, no numbness appreciated in bilateral upper extremities. Proprioception intact Psychologic: Affect normal, judgment normal, mood normal. Current Patient Data: Labs: Laboratory Tests Test 04/18/21 07:43 04/18/21 07:45 04/18/21 07:54 Glucose (Fingerstick) 129 mg/dL (70-99) White Blood Count 4.0 x10^3/uL (4.0-11.0) Red Blood Count 4.66 x10^6/uL (4.30-5.70) Hemoglobin 12.7 g/dL (13.0-17.5) Hematocrit 38.6 % (39.0-53.0) Mean Corpuscular Volume 83 fL (79-100) Mean Corpuscular Hemoglobin 27 pg (25-35) Mean Corpuscular Hemoglobin Concent 33 g/dL (31-37) Red Cell Distribution Width 15.6 % (11.5-14.5) Platelet Count 155 x10^3/uL (140-400) Neutrophils (%) (Auto) 73 % (31-73) Lymphocytes (%) (Auto) 16 % (24-48) Monocytes (%) (Auto) 9 % (0-9) Eosinophils (%) (Auto) 2 % (0-3) Basophils (%) (Auto) 1 % (0-3) Neutrophils # (Auto) 2.9 x10^3/uL (1.8-7.7) Lymphocytes # (Auto) 0.6 x10^3/uL (1.0-4.8) Monocytes # (Auto) 0.4 x10^3/uL (0.0-1.1) Eosinophils # (Auto) 0.1 x10^3/uL (0.0-0.7) Basophils # (Auto) 0.0 x10^3/uL (0.0-0.2) Sodium Level 137 mmol/L (136-145) Potassium Level 4.3 mmol/L (3.5-5.1) Chloride Level 98 mmol/L (98-107) Carbon Dioxide Level 31 mmol/L (21-32) Anion Gap 8 (6-14) Blood Urea Nitrogen 14 mg/dL (8-26) Creatinine 0.8 mg/dL (0.7-1.3) Estimated GFR (Cockcroft-Gault) 99.6 BUN/Creatinine Ratio 18 (6-20) Glucose Level 121 mg/dL (70-99) Calcium Level 8.7 mg/dL (8.5-10.1) Magnesium Level 1.9 mg/dL (1.8-2.4) Total Bilirubin 0.2 mg/dL (0.2-1.0) Aspartate Amino Transf (AST/SGOT) 18 U/L (15-37) Alanine Aminotransferase (ALT/SGPT) 34 U/L (16-63) Alkaline Phosphatase 57 U/L (46-116) Troponin I High Sensitivity 8 ng/L (4-75) IU-Pwb-O-Type Natriuretic Peptide 49 pg/mL (0-124) Total Protein 7.4 g/dL (6.4-8.2) Albumin 3.8 g/dL (3.4-5.0) Albumin/Globulin Ratio 1.1 (1.0-1.7) Urine Collection Type Unknown Urine Color Yellow Urine Clarity Clear Urine pH 5.0 (<5.0-8.0) Urine Specific [place] 1.020 (1.000-1.030) Urine Protein Negative mg/dL (NEG-TRACE) Urine Glucose (UA) Negative mg/dL (NEG) Urine Ketones (Stick) Negative mg/dL (NEG) Urine Blood Negative (NEG) Urine Nitrite Negative (NEG) Urine Bilirubin Negative (NEG) Urine Urobilinogen Dipstick 0.2 mg/dL (0.2 mg/dL) Urine Leukocyte Esterase Negative (NEG) Urine RBC 0 /HPF (0-2) Urine WBC 0 /HPF (0-4) Urine Squamous Epithelial Cells Few /LPF Urine Bacteria 0 /HPF (0-FEW) Urine Opiates Screen Neg (NEG) Urine Methadone Screen Neg (NEG) Urine Barbiturates Neg (NEG) Urine Phencyclidine Screen Neg (NEG) Urine Amphetamine/Methamphetamine Neg (NEG) Urine Benzodiazepines Screen Neg (NEG) Urine Cocaine Screen Neg (NEG) Urine Cannabinoids Screen Neg (NEG) Urine Ethyl Alcohol Neg (NEG) Vital Signs: Vital Signs Date Time Temp Pulse Resp B/P (MAP) Pulse Ox O2 Delivery O2 Flow Rate FiO2 04/18/21 08:10 68 20 185/79 (114) 95 04/18/21 07:35 98.1 72 25 208/91 (130) 97 Room Air 98.1 04/18/21 07:35 64 20 220/68 (118) 96 EKG: EKG: Time read: 0732 Normal sinus rhythm rate of 71, no ST-T wave changes, no ectopic beats, normal axis, normal MI, QRS, and QTc intervals. Impression: Normal EKG. interpreted by me, Wellington Portillo D.O. Radiology/Procedures: Radiology/Procedures: CT HEAD/BRAIN WO History: Headache Comparison: CT head 12/14/2018 Technique: Noncontrast CT imaging was performed of the head. Findings: No intracranial hemorrhage. No mass effect. No hydrocephalus. No evidence of acute territorial infarction. Imaged orbits are unremarkable. Opacification of the left frontal sinus, also present on prior exam. The remainder of the paranasal sinuses and mastoid air cells are relatively clear. The scalp and calvarium are unremarkable. Impression: 1. No acute intracranial abnormality. 2. Chronic left frontal sinus opacification. ----- Exposure: One or more of the following individualized dose reduction techniques were utilized for this examination: 1. Automated exposure control 2. Adjustment of the mA and/or kV according to patient size 3. Use of iterative reconstruction technique. Electronically signed by: Brennan Finnegan MD (04/18/2021 9:10 AM) PROCEDURE: PORTABLE CHEST 1V XR CHEST 1V CLINICAL INDICATIONS: Reason: dizziness / Spl. Instructions: / History: COMPARISON: November 05, 2020 Findings: No acute lung infiltrate or pleural effusion or pulmonary edema or lung mass or pneumothorax is seen. The heart size, pulmonary vasculature, mediastinum and both carlos are stable. IMPRESSION: No acute radiographic abnormality is seen. Electronically signed by: Darrell Yanez MD (04/18/2021 8:09 AM) Course & Med Decision Making: Course & Med Decision Making Patient felt much better after interventions in the ED, his labs are reassuring CT scan is normal and he has no neurological findings. He is requesting discharge home and he states he feels "happy ", he wants to go home and wants no further work-up done. He was counseled on return precautions and understood completely. Departure Departure Impression: Primary Impression: Headache Disposition: 01 HOME / SELF CARE / HOMELESS Condition: IMPROVED Referrals: MILAD SEWELL MD (PCP) Patient Instructions: General Headache Without Cause, [id number] Additional Instructions: You were seen in the emergency department for abdominal pain and reflux. We are putting you on a medication to reduce your stomach acid levels. You should follow up with the medicine clinic or your primary medical doctor for further evaluation and treatment. Return to the ED if you develop worsening pain, fever, black or bloody stools, or any other new or concerning symptoms. The medicine we started you on can take a few days to work fully. WELLINGTON PORTILLO DO Apr 18, 2021 07:50
[2021-04-18 08:06] LABS: BILIRUBIN,URINE NEGATIVE (NEG); CLARITY,URINE CLEAR; COLOR,URINE YELLOW; NITRITE,URINE NEGATIVE (NEG); PROTEIN,URINE NEGATIVE (NEG-TRACE); UROBILINOGEN,URINE 0.2 mg/dL (0.2 mg/dL)
[2021-04-18 08:09] LABS: BASO % 1 % (0-3); EOS # 0.1 x10^3/uL (0.0-0.7); EOS % 2 % (0-3); HEMATOCRIT 38.6 % (39.0-53.0); HEMOGLOBIN 12.7 g/dL (13.0-17.5); LYMPH # 0.6 x10^3/uL (1.0-4.8); LYMPH % 16 % (24-48); MEAN CORPUSCULAR HEMOGLOBIN 27 pg (25-35); MEAN CORPUSCULAR HGB CONC 33 g/dL (31-37); MEAN CORPUSCULAR VOLUME 83 fL (79-100); MONO # 0.4 x10^3/uL (0.0-1.1); MONO % 9 % (0-9); NEUT # 2.9 x10^3/uL (1.8-7.7); NEUT % 73 % (31-73); PLATELET COUNT 155 x10^3/uL (140-400); RED BLOOD COUNT 4.66 x10^6/uL (4.30-5.70); RED CELL DISTRIBUTION WIDTH 15.6 % (11.5-14.5)
--- NOTE | 2021-04-18 08:12 | RAD ---
XR CHEST 1V CLINICAL INDICATIONS: Reason: dizziness / Spl. Instructions: / History: COMPARISON: November 05, 2020 Findings: No acute lung infiltrate or pleural effusion or pulmonary edema or lung mass or pneumothora x is seen. The heart size, pulmonary vasculature, mediastinum and both carlos are stable. IMPRESSION: No acute radiographic abnormality is seen. Electronically signed by: Darrell Yanez MD (04/18/2021 8:09 AM) [id number]
[2021-04-18 08:16] LABS: AMPHETAMINE/METHAMPHETAMINE NEG (NEG); BARBITURATES NEG (NEG); BENZODIAZEPINES NEG (NEG); CANNABINOIDS NEG (NEG); COCAINE NEG (NEG); METHADONE NEG (NEG); OPIATES NEG (NEG); PHENCYCLIDINE NEG (NEG)
[2021-04-18 08:16] LABS: CALCIUM 8.7 mg/dL (8.5-10.1); CREATININE 0.8 mg/dL (0.7-1.3); GFR 99.6; POTASSIUM 4.3 mmol/L (3.5-5.1)
[2021-04-18 08:17] LABS: BACTERIA,URINE 0 /HPF (0-FEW); RBC,URINE 0 /HPF (0-2); WBC,URINE 0 /HPF (0-4)
[2021-04-18 08:22] LABS: ALBUMIN 3.8 g/dL (3.4-5.0); ALBUMIN/GLOBULIN RATIO 1.1 (1.0-1.7); MAGNESIUM 1.9 mg/dL (1.8-2.4); TOTAL BILIRUBIN 0.2 mg/dL (0.2-1.0); TOTAL PROTEIN 7.4 g/dL (6.4-8.2)
--- NOTE | 2021-04-18 09:03 | EKG ---
[facility] [address] [place] [address] Test Date: 2021-04-18 Test Time: 07:30:45 Pat Name: LIZA WILSON Department: Room: Gender: [employer] Hand: : 1965 Requested By: WELLINGTON TRUONG Order Number: [id number] Reading MD: Felix Milton Measurements Intervals [place] Rate: 71 P: 128 [place]: 176 QRS: 171 QRSD: 100 T: 156 QT: 376 QTc: 409 Interpretive Statements SINUS RHYTHM ABNORMAL RIGHT AXIS DEVIATION NON SPECIFIC ST-T WAVE CHANGES Electronically Signed On 04-22-2021 9:58:30 [employer] by Felix Milton
--- NOTE | 2021-04-18 09:12 | RAD ---
CT HEAD/BRAIN WO History: Headache Comparison: CT head 12/14/2018 Technique: Noncontrast CT imaging was performed of the head. Findings: No intracranial hemorrhage. No mass effect. No hydrocephalus. No evidence of acute territorial infar ction. Imaged orbits are unremarkable. Opacification of the left frontal sinus, also present on prior exam. The remainder of the paranasal sinuses and mastoid air cells are relatively clear. The scalp and calv arium are unremarkable. Impression: 1. No acute intracranial abnormality. 2. Chronic left frontal sinus opacification. ----- Exposure: One or more of the following individualized dose reduction techniques were utilized for thi s examination: 1. Automated exposure control 2. Adjustment of the mA and/or kV according to patient size 3. Use of iterative reconstruction technique. Electronically signed by: Brennan Finnegan MD (04/18/2021 9:10 AM) [id number]
[2021-04-18 10:10] VITALS: BP 164/64
== END 2021-04-18 10:44 | disposition home or self-care (01) ==
LOC: ER 07:30
DX: R51.9 Headache, unspecified (principal); R20.0 Anesthesia of skin; R42 Dizziness and giddiness; J45.909 Unspecified asthma, uncomplicated; E78.00 Pure hypercholesterolemia, unspecified; I10 Essential (primary) hypertension; E66.01 Morbid (severe) obesity due to excess calories; Z68.43 Body mass index [BMI] 50.0-59.9, adult; Z88.0 Allergy status to penicillin
CPT/HCPCS: 36415; 70450; 71045; 80053; 80307; 81001; 82962; 83735; 83880; 84484; 85025; 93005; 99285-25

== ENCOUNTER 2021-08-19 06:56 | Emergency (ER) | payer OTHER, MEDICAID ==
[~2021-08-19] VITALS: Ht 182.9 cm; Wt 136.6 kg
--- NOTE | 2021-08-19 07:04 | PHYS DOC ---
Past Medical History Past Medical History: Asthma, High Cholesterol, Hypertension Additional Past Medical Histor: INSOMNIA Past Surgical History: Tonsillectomy Additional Past Surgical Histo: ingrown toenail removal Smoking Status: Never Smoker Alcohol Use: None Drug Use: None General Adult EDM: Chief Complaint: DEPRESSION HPI: HPI: Patient is a 56 year old male who presents for depression symptoms. He has chronic depression and anxiety. He denies suicidal ideation or homicidal ideation. He reports that he feels like his coworkers at [employer] have been giving him a hard time. Also, he reports having several months of left-sided shoulder pain after a fall. He denies any new injury or trauma, no acute changes today. He denies chest pain, dyspnea, neck pain, back pain, numbness, tingling or motor weakness. He denies fevers or chills. He denies abdominal pain, nausea or vomiting. He has a senior principal architect, he has not yet reached out to her. He reports that he takes multiple medications, none of which she can remember the names of. He does have a primary care physician with whom he follows routinely. He reports that he is just been feeling "down" recently. He denies any concern for his safety. He does live alone. He denies that he has been physically assaulted or verbally threatened specifically in any way. Review of Systems: Review of Systems: Constitutional: Denies fever or chills. [] HENT: Denies nasal congestion or sore throat. [] Respiratory: Denies cough or shortness of breath. [] Cardiovascular: Denies chest pain GI: Denies abdominal pain, nausea, vomiting Musculoskeletal: Denies back pain or joint pain. [] Integument: Denies rash. [] Neurologic: Denies headache, focal weakness or sensory changes. [] Psychiatric: Chronic depression and anxiety, denies SI or HI Heart Score: C/O Chest Pain: No Risk Factors: Risk Factors: DM, Current or recent (<one month) smoker, HTN, HLP, family history of CAD, obesity. Risk Scores: Score 0 - 3: 2.5% MACE over next 6 weeks - Discharge Home Score 4 - 6: 20.3% MACE over next 6 weeks - Admit for Clinical Observation Score 7 - 10: 72.7% MACE over next 6 weeks - Early Invasive Strategies Allergies: Allergies: Allergies Coded Allergies Type Severity Reaction Last Updated Verified Penicillins Allergy Intermediate rash 04/18/21 Yes Physical Exam: PE: Constitutional: Well developed, well nourished, no acute distress, non-toxic appearance. [] HENT: Normocephalic, atraumatic Eyes: Sclera are anicteric Neck: Trachea midline, normal range of motion, no tender Cardiovascular:Heart rate regular rhythm, 2 radial pulses bilateral Lungs & Thorax: Bilateral breath sounds clear to auscultation [] Skin: Warm, dry, no erythema, no rash. [] Back: No tenderness, no CVA tenderness. No midline tenderness or step-offs, full range of motion, no deform Extremities: No tenderness, no cyanosis, no clubbing, ROM intact, no edema. Mildly painful range of motion of the left shoulder, specifically with left shoulder flexion and abduction. No crepitus or step-offs. No bony tenderness. He does have full passive and active range of motion. Neurologic: Alert and oriented X 3, normal motor function, normal sensory function, no focal deficits noted. Ambulatory with a steady gait Psychologic: Affect slightly flat, he is pleasant cooperative. Denies SI or HI. EKG: EKG: [] Radiology/Procedures: Radiology/Procedures: [] Course & Med Decision Making: Course & Med Decision Making Pertinent Labs and Imaging studies reviewed. (See chart for details) I discussed the findings, differential diagnosis and plan of care with the patient. He was seen by PAT team. He continues to deny SI or HI symptoms. He is told to contact his senior principal architect, he will follow-up as an outpatient with counseling resources. He reports he already feels much better after talking with people here. X-ray of the shoulder is unremarkable. I told him to contact his PCP for follow-up and further evaluation of this pain, he may require further outpatient imaging studies such as MRI. Return precautions are given. Dragon Disclaimer: Dragon Disclaimer: This electronic medical record was generated, in whole or in part, using a voice recognition dictation system. Departure Departure Impression: Primary Impression: Depression Qualified Codes: F32.A - Depression, unspecified Additional Impression: Chronic left shoulder pain Disposition: HOME / SELF CARE / HOMELESS Condition: STABLE Referrals: MILAD SEWELL MD (PCP) Patient Instructions: Depression, Adult, Shoulder Sprain Additional Instructions: You may take [id number] Tylenol or ibuprofen as needed for your shoulder pain. Please follow-up with the resources you are given. Please contact your primary care doctor to discuss your depression symptoms further. Please return to the ER immediately for any thoughts of wanting to harm yourself, thoughts of hurting others, any concern for your safety, if you have any new injury or trauma or for any other concerns. AURORA CAMACHO DO Aug 19, 2021 07:04
[2021-08-19] MEDS ORDERED: ACETAMINOPHEN 500 MG TABLET PO ONE (07:15)
[2021-08-19] MEDS ORDERED: ALBUTEROL SULFATE 2.5 MG/3 ML NEBU. NEB ONE (07:45)
--- NOTE | 2021-08-19 07:50 | RAD ---
Left SHOULDER , 3 VIEWS Clinical Indication: Reason: history of fall, pain Comparison: None. Findings: There is no acute fracture or dislocation. The acromioclavicular and glenohumeral joints are intact. The visualized lung is clear. There is no evidence of a displaced rib fracture. There is no soft tiss ue abnormality. IMPRESSION: No acute fracture or dislocation. Electronically signed by: Tyler Oseguera MD (08/19/2021 7:48 AM) [id number]
[2021-08-19 07:59] LABS: BASO % 0 % (0-3); EOS # 0.1 x10^3/uL (0.0-0.7); EOS % 2 % (0-3); HEMATOCRIT 38.5 % (39.0-53.0); HEMOGLOBIN 12.6 g/dL (13.0-17.5); LYMPH # 0.7 x10^3/uL (1.0-4.8); LYMPH % 17 % (24-48); MEAN CORPUSCULAR HEMOGLOBIN 27 pg (25-35); MEAN CORPUSCULAR HGB CONC 33 g/dL (31-37); MEAN CORPUSCULAR VOLUME 83 fL (79-100); MONO # 0.3 x10^3/uL (0.0-1.1); MONO % 8 % (0-9); NEUT # 2.9 x10^3/uL (1.8-7.7); NEUT % 73 % (31-73); PLATELET COUNT 154 x10^3/uL (140-400); RED BLOOD COUNT 4.65 x10^6/uL (4.30-5.70); RED CELL DISTRIBUTION WIDTH 15.9 % (11.5-14.5)
[2021-08-19 08:07] LABS: CALCIUM 8.5 mg/dL (8.5-10.1); CREATININE 0.9 mg/dL (0.7-1.3); POTASSIUM 4.2 mmol/L (3.5-5.1)
[2021-08-19 08:11] LABS: BARBITURATES NEG (NEG); BENZODIAZEPINES NEG (NEG); CANNABINOIDS NEG (NEG); COCAINE NEG (NEG); METHADONE NEG (NEG); OPIATES NEG (NEG); PHENCYCLIDINE NEG (NEG)
[2021-08-19 08:11] LABS: BILIRUBIN,URINE NEGATIVE (NEG); CLARITY,URINE CLEAR; COLOR,URINE YELLOW; NITRITE,URINE NEGATIVE (NEG); PROTEIN,URINE NEGATIVE (NEG-TRACE); UROBILINOGEN,URINE 0.2 mg/dL (0.2 mg/dL)
[2021-08-19 08:12] LABS: BACTERIA,URINE 0 /HPF (0-FEW); RBC,URINE OCC /HPF (0-2); WBC,URINE 0 /HPF (0-4)
[2021-08-19 08:13] LABS: AMPHETAMINE/METHAMPHETAMINE NEG (NEG)
[2021-08-19 10:38] VITALS: BP 166/70
== END 2021-08-19 13:04 | disposition home or self-care (01) ==
LOC: ER 06:56
DX: G89.29 Other chronic pain (principal); M25.512 Pain in left shoulder; Z20.822 Contact with and (suspected) exposure to COVID-19; F32.9 Major depressive disorder, single episode, unspecified; J45.909 Unspecified asthma, uncomplicated; E78.00 Pure hypercholesterolemia, unspecified; I10 Essential (primary) hypertension; Z88.0 Allergy status to penicillin
CPT/HCPCS: 73030; 80048; 80307; 81001; 85025; 87426; 94640; 99285; C9803; G0480; J7613; U0003

== ENCOUNTER 2021-09-03 08:10 | Emergency (ER) | payer OTHER, MEDICAID ==
[~2021-09-03] VITALS: Ht 182.9 cm; Wt 177.2 kg
[2021-09-03 08:50] LABS: INFLUENZA A PATIENT NEGATIVE (NEGATIVE); INFLUENZA B PATIENT NEGATIVE (NEGATIVE)
[2021-09-03 09:13] LABS: BASO % 0 % (0-3); EOS # 0.1 x10^3/uL (0.0-0.7); EOS % 1 % (0-3); HEMATOCRIT 37.5 % (39.0-53.0); HEMOGLOBIN 12.5 g/dL (13.0-17.5); LYMPH # 0.6 x10^3/uL (1.0-4.8); LYMPH % 14 % (24-48); MEAN CORPUSCULAR HEMOGLOBIN 28 pg (25-35); MEAN CORPUSCULAR HGB CONC 33 g/dL (31-37); MEAN CORPUSCULAR VOLUME 83 fL (79-100); MONO # 0.3 x10^3/uL (0.0-1.1); MONO % 8 % (0-9); NEUT # 3.3 x10^3/uL (1.8-7.7); NEUT % 77 % (31-73); PLATELET COUNT 151 x10^3/uL (140-400); RED BLOOD COUNT 4.53 x10^6/uL (4.30-5.70); RED CELL DISTRIBUTION WIDTH 15.5 % (11.5-14.5); WHITE BLOOD COUNT 4.4 x10^3/uL (4.0-11.0)
[2021-09-03 09:29] LABS: CALCIUM 8.5 mg/dL (8.5-10.1); POTASSIUM 4.1 mmol/L (3.5-5.1)
[2021-09-03 09:34] LABS: ALBUMIN 3.9 g/dL (3.4-5.0); ALBUMIN/GLOBULIN RATIO 1.1 (1.0-1.7); MAGNESIUM 2.1 mg/dL (1.8-2.4); TOTAL BILIRUBIN 0.4 mg/dL (0.2-1.0); TOTAL PROTEIN 7.3 g/dL (6.4-8.2)
[2021-09-03 09:36] LABS: ETHANOL < 10 mg/dL (0-10); SALIC 1.5 mg/dL (2.8-20.0)
[2021-09-03 09:37] LABS: ACETAMIN < 2 mcg/ml (10-30)
[2021-09-03 10:25] LABS: BARBITURATES NEG (NEG); BENZODIAZEPINES NEG (NEG); CANNABINOIDS NEG (NEG); COCAINE NEG (NEG); METHADONE NEG (NEG); OPIATES NEG (NEG); PHENCYCLIDINE NEG (NEG)
[2021-09-03 10:42] LABS: AMPHETAMINE/METHAMPHETAMINE NEG (NEG)
[2021-09-03 12:33] VITALS: BP 159/85
--- NOTE | 2021-09-03 12:52 | PHYS DOC ---
Past Medical History Past Medical History: No Pertinent History Additional Past Medical Histor: INSOMNIA, morbid obesity Past Surgical History: Other Additional Past Surgical Histo: ingrown toenail removal Smoking Status: Never Smoker Alcohol Use: None Drug Use: None Adult General Chief Complaint Chief Complaint: SUICDAL IDEATION HPI HPI Patient is a 56 year old male who presents feeling anxious. The patient is seeking a mental health evaluation but denies any suicidal or homicidal ideation at this time. No recent injury, no recent illness. Review of Systems Review of Systems Constitutional: Denies fever Eyes: Denies change in visual acuity or eye pain HENT: Denies sore throat Respiratory: Denies shortness of breath Cardiovascular: Denies chest pain GI: Denies abd pain : Denies dysuria Musculoskeletal: Denies back or extremity injury Integument: Denies rash or skin lesions Neurologic: Denies headache, focal weakness or sensory changes All other systems were reviewed and found to be within normal limits, except as documented in this note. Allergies Allergies Allergies Coded Allergies Type Severity Reaction Last Updated Verified Penicillins Allergy Intermediate rash 09/03/21 Yes Physical Exam Physical Exam Constitutional: Well developed, well nourished, no acute distress, non-toxic appearance. HENT: Normocephalic, atraumatic, bilateral external ears normal, mucosa moist, nose normal. Eyes: EOMI, conjunctiva normal, no discharge. Neck: Normal range of motion, supple, no stridor, no meningeal signs. Cardiovascular: Regular rate and rhythm Lungs & Thorax: Bilateral breath sounds clear to auscultation Abdomen: Soft, no tenderness or obvious masses Skin: Warm, dry, no erythema, no rash. Extremities: No tenderness, no cyanosis, no clubbing, ROM intact, no edema. Neurologic: Alert and oriented, normal motor function, normal sensory function, no focal deficits noted. Psychologic: Affect normal, judgement normal, mood normal. Current Patient Data Vital Signs Vital Signs Date Time Temp Pulse Resp B/P (MAP) Pulse Ox O2 Delivery O2 Flow Rate FiO2 09/03/21 11:49 58 20 171/79 (109) 91 Room Air 09/03/21 08:12 98.1 98.1 Lab Values Laboratory Tests Test 09/03/21 08:24 09/03/21 09:00 09/03/21 10:00 Influenza Type A Antigen Negative (NEGATIVE) Influenza Type B Antigen Negative (NEGATIVE) SARS-CoV-2 Antigen (Rapid) Negative (NEGATIVE) White Blood Count 4.4 x10^3/uL (4.0-11.0) Red Blood Count 4.53 x10^6/uL (4.30-5.70) Hemoglobin 12.5 g/dL (13.0-17.5) L Hematocrit 37.5 % (39.0-53.0) L Mean Corpuscular Volume 83 fL (79-100) Mean Corpuscular Hemoglobin 28 pg (25-35) Mean Corpuscular Hemoglobin Concent 33 g/dL (31-37) Red Cell Distribution Width 15.5 % (11.5-14.5) H Platelet Count 151 x10^3/uL (140-400) Neutrophils (%) (Auto) 77 % (31-73) H Lymphocytes (%) (Auto) 14 % (24-48) L Monocytes (%) (Auto) 8 % (0-9) Eosinophils (%) (Auto) 1 % (0-3) Basophils (%) (Auto) 0 % (0-3) Neutrophils # (Auto) 3.3 x10^3/uL (1.8-7.7) Lymphocytes # (Auto) 0.6 x10^3/uL (1.0-4.8) L Monocytes # (Auto) 0.3 x10^3/uL (0.0-1.1) Eosinophils # (Auto) 0.1 x10^3/uL (0.0-0.7) Basophils # (Auto) 0.0 x10^3/uL (0.0-0.2) Sodium Level 139 mmol/L (136-145) Potassium Level 4.1 mmol/L (3.5-5.1) Chloride Level 99 mmol/L (98-107) Carbon Dioxide Level 33 mmol/L (21-32) H Anion Gap 7 (6-14) Blood Urea Nitrogen 13 mg/dL (8-26) Creatinine 1.0 mg/dL (0.7-1.3) Estimated GFR (Cockcroft-Gault) 77.0 BUN/Creatinine Ratio 13 (6-20) Glucose Level 113 mg/dL (70-99) H Calcium Level 8.5 mg/dL (8.5-10.1) Magnesium Level 2.1 mg/dL (1.8-2.4) Total Bilirubin 0.4 mg/dL (0.2-1.0) Aspartate Amino Transferase (AST) 20 U/L (15-37) Alanine Aminotransferase (ALT) 31 U/L (16-63) Alkaline Phosphatase 53 U/L (46-116) Total Protein 7.3 g/dL (6.4-8.2) Albumin 3.9 g/dL (3.4-5.0) Albumin/Globulin Ratio 1.1 (1.0-1.7) Salicylates Level 1.5 mg/dL (2.8-20.0) L Salicylate Last Dose Date Unknown Salicylate Last Dose Time Unknown Acetaminophen Level < 2 mcg/ml (10-30) L Acetaminophen Last Dose Date Unknown Acetaminophen Last Dose Time Unknown Ethyl Alcohol Level < 10 mg/dL (0-10) Urine Opiates Screen Neg (NEG) Urine Methadone Screen Neg (NEG) Urine Barbiturates Neg (NEG) Urine Phencyclidine Screen Neg (NEG) Urine Amphetamine/Methamphetamine Neg (NEG) Urine Benzodiazepines Screen Neg (NEG) Urine Cocaine Screen Neg (NEG) Urine Cannabinoids Screen Neg (NEG) Urine Ethyl Alcohol Neg (NEG) Laboratory Tests 09/03/21 09:00 Laboratory Tests 09/03/21 09:00 EKG EKG [] Interpretation Time: Told EKG demonstrates sinus rhythm with a rate of 69. MI, QRS and QT corrected intervals within normal limits. No ST segment elevation or depression. Radiology/Procedures Radiology/Procedures [] Course & Med Decision Making Course & Med Decision Making Pertinent Labs and Imaging studies reviewed. (See chart for details) [] This is a 56-year-old male presents feeling anxious. He has been evaluated by the mental health professional here and is deemed safe to be discharged home. I agree with this. Patient has a safety plan in place and is in stable condition at this time. Dragon Disclaimer Dragon Disclaimer This electronic medical record was generated, in whole or in part, using a voice recognition dictation system. Departure Departure Impression: Primary Impression: Anxiety Disposition: 01 HOME / SELF CARE / HOMELESS Condition: STABLE Referrals: MILAD SEWELL MD (PCP) JAMIE ANNA MD Sep 03, 2021 12:52
--- NOTE | 2021-09-05 10:48 | EKG ---
[facility] [address] [place] [address] Test Date: 2021-09-03 Test Time: 08:20:00 Pat Name: LIZA WILSON Department: Room: Gender: M Podiatric Medicine Doctor: : 1965 Requested By: JAMIE ANNA Order Number: [id number] Reading MD: Daryl Tenorio MD Measurements Intervals [place] Rate: 69 P: 33 [place]: 174 QRS: -3 QRSD: 100 T: 20 QT: 398 QTc: 428 Interpretive Statements SINUS RHYTHM Electronically Signed On 09-10-2021 7:22:31 CDT by Daryl Tenorio MD
== END 2021-09-03 13:00 | disposition home or self-care (01) ==
LOC: ER 08:10
DX: R45.851 Suicidal ideations (principal); F41.9 Anxiety disorder, unspecified; Z20.822 Contact with and (suspected) exposure to COVID-19; E66.01 Morbid (severe) obesity due to excess calories; Z68.43 Body mass index [BMI] 50.0-59.9, adult
CPT/HCPCS: 36415; 80053; 80307; 80329; 83735; 85025; 87428; 93005; 99285; C9803; G0480; U0003